=== PATIENT | female | born 1955 | race Caucasian/White ===

== ENCOUNTER 2019-04-27 14:18 | Emergency (ER) | payer MEDICARE, SELFPAY ==
--- NOTE | ~2019-04-27 | XR_ITS ---
XR pelvis 1-2V DATE: 04/27/2019 15:54 INDICATION: Tailbone pain radiating down left leg. Physical therapy for femur fracture. TECHNIQUE: Portable supine AP pelvis views COMPARISON: 03/13/2019 CT abdomen pelvis FINDINGS: Severe diffuse osteopenia, which limits the sensitivity for detection of fracture or bone d estruction. No obvious pelvic fracture is detected. The pubic symphysis and sacroiliac joints are int act. Right bipolar hip prosthesis. Abdominal aortic calcification. IMPRESSION: Severe osteopenia Right bipolar hip replacement Reviewed, dictated and finalized at location B.
--- NOTE | ~2019-04-27 | CT_ITS ---
EXAMINATION: CT abdomen pelvis wo con EXAM DATE: 04/27/2019 17:20 INDICATION: Pelvic pain, hypertension. TECHNIQUE: Spiral CT of the abdomen and pelvis was performed without contrast. Axial, coronal and s agittal images were reviewed. The dose-length product (DLP) for this examination was 344.97 mGy-cm. The exposure was tailored according to patient size (auto mA exposure control), and iterative recons truction (ASIR) was used as additional dose reduction technique. Comparison is made to prior examinat ion from 03/13/2019. FINDINGS: Small amount of perihepatic ascites and there is rather extensive generalized body wall candida ma, anasarca. The liver, spleen, adrenal glands and pancreas are unremarkable. Small calcified chol elithiasis identified. Unremarkable biliary system. There is no nephrolithiasis or hydronephrosis. There is no exophytic left renal lesion consistent with cyst measuring 3 cm probable identification of uterus, unremarkable. The bladder is unremarkable. There is no retroperitoneal or pelvic lymphad enopathy. There is moderate to severe scattered arteriosclerotic disease. The appendix is normal. The stomach and small bowel are unremarkable. There is expected amount of colonic stool. No free intraperitoneal gas. There is cardiomegaly. There are small bilateral pleural effusions, with nonloculated portions depend ently and also on the right-sided probably loculated portion anteromedially. There is pulmonary vascu lar congestion. Some basilar groundglass opacities and interlobular septal thickening probably mild p ulmonary edema. Findings are suspicious for CHF exacerbation. The lung bases are unremarkable. Right sacral ala insufficiency fracture has more subacute appearance today. There is been interval de velopment of left sacral insufficiency fracture as well. There is right hip replacement limiting eval uation of the pelvis. Mild chronic compression fracture of L1. There are no osteoblastic or osteolyti c lesions identified. IMPRESSION: 1. No acute intra-abdominal findings. 2. Findings consistent with CHF exacerbation. 3. Acute left, subacute right sacral ala insufficiency fractures. Reviewed, dictated and finalized at location A.
[2019-04-27 14:21] VITALS: BP 194/109; PULSE 83; RESP 20; TEMP 37.1; O2SAT 95
--- NOTE | 2019-04-27 14:47 | ED.LOWEXIN ---
HPI - Extremity Injury (Lower) General Chief Complaint: Extremity Injury, Lower Stated Complaint: TAILBONE PAIN Time Seen by Provider: 04/27/19 14:35 Source: patient Mode of arrival: EMS Limitations: no limitations History of Present Illness HPI Narrative: A 63 y/o female presents to the ED, via EMS, with c/o right buttocks pain. Pt states that last week she fell trying to sit in her wheelchair and hit her tailbone. She notes that she did not have pain until she went to physical therapy this morning. Pt denies fever. She has a PMHx of right femur fracture, diabetes, osteoporosis, and hip fracture. Pt takes NovoLog daily. MD complaint: hip injury (Right buttocks) Onset (ago): week(s) (1) Type of Injury: blunt Place: home Context: fall Other symptoms: none Related Data Home Medications Medication Instructions Recorded Confirmed ferrous sulfate 325 mg (65 mg 325 mg PO BID 01/18/19 03/13/19 iron) tablet insulin glargine 100 unit/mL 10 unit SUB-Q DAILY 01/18/19 03/13/19 subcutaneous solution calcium acetate(phosphat bind) 667 667 mg PO TID 02/11/19 03/13/19 mg tablet clonidine HCl 0.2 mg tablet 0.2 mg PO .4 TIMES A DAY tablet 02/11/19 03/13/19 labetalol 300 mg tablet 300 mg PO Q8H tablet 02/11/19 03/13/19 hydralazine 100 mg PO TID 03/13/19 03/13/19 oxycodone-acetaminophen [Percocet] 1 tablet PO Q6-8H PRN 03/13/19 03/13/19 ondansetron HCl 4 mg tablet 4 mg PO BID PRN tablet 03/26/19 Allergies Allergy/AdvReac Type Severity Reaction Status Date / Time Penicillins Allergy Unknown Unknown Verified 04/27/19 16:51 Review of Systems Review of Systems: All systems reviewed & are unremarkable except as noted in HPI and below Constitutional: Constitutional: Denies fever(s) Musculoskeletal: Musculoskeletal: Reports arthralgias (Right buttocks) PMFSH Past Medical History Medical History Anemia due to pre-ESRD treated with erythropoietin Anxiety CAD (coronary artery disease) Chronic diastolic heart failure CVA (cerebral vascular accident) 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 CVA noted on CT scan from October 2018 Depression Diabetes On long-term insulin therapy; last hemoglobin A1c October 2018 less than 5.7 Diabetic nephropathy associated with type 2 diabetes mellitus Diabetic peripheral neuropathy associated with type 2 diabetes mellitus Dialysis patient ESRD (end stage renal disease) on dialysis Fracture of right tibial plateau October 2018 Heart murmur Hip fracture, right Hypertension Multifactorial initially due to essential hypertension but now in part due to renal failure Left wrist fracture Lipoma Moderate protein-calorie malnutrition Multiple gallstones Nonproliferative diabetic retinopathy Pneumonia With parapneumonic effusion requiring thoracentesis October 2017 Post-menopausal osteoporosis DEXA scan January 2017 Severe tricuspid regurgitation by prior echocardiography Echocardiogram September 2018 demonstrating grade 1 diastolic dysfunction, mild left ventricular hypertrophy, mild left ventricular enlargement, grade 1 diastolic dysfunction, global longitudinal strain at-8%, TAPSE 1.4 cm suggesting abnormal right ventricular systolic function although appears normal by visual estimation, moderate left atrial enlargement, mild right atrial enlargement, mild (underestimated) mitral valve regurgitation, tricuspid valve do not coaptation due to dilated annulus, mild pulmonic regurgitation, elevated right atrial pressure at 15 mmHg, trivial pericardial effusion Surgical History Surgical History H/O bilateral cataract extraction H/O dilation and curettage x2 History of open reduction and internal fixation (ORIF) procedure Bilateral wrists; left distal radius fracture with intramedullary nail repair 05/2016 History of orthopedic surgery Bone spur right foot removal, right achilles repair 2012 History of right hip replaceme
[2019-04-27 16:10] LABS: Basophils Absolute Auto 0.1 K/mm3 (0.0-0.1); Basophils Percent Auto 0.7 % (0.2-1.2); Eosinophils Absolute Auto 0.1 K/mm3 (0-0.3); Eosinophils Percent Auto 0.9 % (0-4.4); Hemoglobin 11.3 g/dL (12.0-15.0); Immature Granulocyte Absolute 0.06 K/mm3 (0.00-0.031); Immature Granulocyte Percent A 0.7 % (0-0.5); Lymphocytes Absolute Auto 0.71 K/mm3 (0.9-3.2); Lymphocytes Percent Auto 7.8 % (18.3-44.2); Mean Corpuscular HGB Conc 32.3 g/dl (32-36); Mean Corpuscular Hemoglobin 29.3 pg (26-34); Mean Corpuscular Volume 90.7 fl (80-100); Mean Platelet Volume 11.5 fl (7.4-10.4); Monocytes Absolute Auto 0.5 K/mm3 (0.1-0.6); Monocytes Percent Auto 5.3 % (2.6-8.5); Neutrophils Absolute Auto 7.7 K/mm3 (1.3-6.7); Neutrophils Percent Auto 84.6 % (45.5-73.1); Platelet Count Result 196 k/mm3 (150-375); Red Blood Count 3.86 M/mm3 (4.2-5.4); Red Cell Distribution Width 14.5 % (11.5-14.5); White Blood Count 9.1 K/mm3 (4.5-10.0)
[2019-04-27 16:21] LABS: Alanine Aminotransferase 12 U/L (4-35); Alkaline Phosphatase 261 U/L (38-126); Aspartate Amino Transferase 20 U/L (14-36); Bilirubin,Total 1.4 mg/dL (0.2-1.3); Blood Urea Nitrogen 27 mg/dL (7-17); Calcium 8.6 mg/dL (8.4-10.2); Carbon Dioxide 31 mmol/L (22-30); Chloride 94 mmol/L (98-107); Estimated CRCL calculation 12 ml/min; Estimated Glomerular Filt Rate 15; Glucose 364 mg/dL (65-105); Potassium 4.2 mmol/L (3.4-5.0); Sodium 135 mmol/L (137-145)
[2019-04-27 16:49] VITALS: BP 215/94; PULSE 86; RESP 14; O2SAT 94
[2019-04-27] MEDS: LABETALOL HCL INJ 100 MG/20 ML VIAL 20 MG IV PUSH (17:00)
[2019-04-27 17:46] VITALS: BP 209/94; PULSE 80; RESP 20; O2SAT 92
[2019-04-27 18:38] VITALS: BP 186/80; PULSE 67; RESP 24; O2SAT 94
[2019-04-27 19:28] VITALS: BP 195/90; PULSE 81; RESP 19; O2SAT 98
== END 2019-04-27 20:19 | disposition home or self-care (01) ==
PROVIDERS: Emergency Provider Emergency Medicine; PCP Internal Medicine
DX: S30.0XXA Contusion of lower back and pelvis, initial encounter (principal); I13.2 Hypertensive heart and chronic kidney disease with heart failure and with stage 5 chronic kidney disease, or end stage renal disease; N18.6 End stage renal disease; I50.32 Chronic diastolic (congestive) heart failure; E11.22 Type 2 diabetes mellitus with diabetic chronic kidney disease; E11.21 Type 2 diabetes mellitus with diabetic nephropathy; E11.42 Type 2 diabetes mellitus with diabetic polyneuropathy; Z79.4 Long term (current) use of insulin; I25.10 Atherosclerotic heart disease of native coronary artery without angina pectoris; Z86.73 Personal history of transient ischemic attack (TIA), and cerebral infarction without residual deficits; E11.3299 Type 2 diabetes mellitus with mild nonproliferative diabetic retinopathy without macular edema, unspecified eye; M81.0 Age-related osteoporosis without current pathological fracture; Z98.42 Cataract extraction status, left eye; Z98.41 Cataract extraction status, right eye; Z96.641 Presence of right artificial hip joint; M85.88 Other specified disorders of bone density and structure, other site; W05.0XXA Fall from non-moving wheelchair, initial encounter
CPT/HCPCS: 36415; 72170; 74176; 80053; 85025; 96374; 99284; A9270

== ENCOUNTER 2019-04-29 16:26 | Inpatient (IN) | payer MEDICARE, SELFPAY ==
--- NOTE | ~2019-04-29 | XR_ITS ---
XR hip RT min 2V 04/30/2019 19:19 Indication: Right hip pain after fall from wheelchair Procedure: 3 views right hip Comparison: Comparison to multiple prior studies sequentially, with oldest reviewed study dated 10/28. Findings: There is a right femoral bipolar hemiarthroplasty. There is osteopenia. No acute fracture. No periprosthetic lucency. Pelvic rings are intact. Extensive arterial calcifications. Sacral foramen are symmetric. Impression: 1: No acute fracture. Reviewed, dictated and finalized at location A. Impression: 1: No acute fracture.
--- NOTE | ~2019-04-29 | XR_ITS ---
XR abdomen obstructive series DATE: 05/01/2019 18:28 INDICATION: Constipation TECHNIQUE: Portable supine AP views COMPARISON: 04/27/2019 CT abdomen pelvis FINDINGS: There is extensive calcification of the abdominal aorta as well as iliac and femoral artery calcifications. No evidence of abdominal aortic aneurysm. The bowel gas pattern is nonspecific, without evidence of obstruction. No intraperitoneal free air is evident. No visceromegaly is detected. Right bipolar hip prosthesis. Diffuse osteopenia. There is infiltrate or atelectasis and mild pleural effusion the lower left chest. Minimal right lowe r lobe infiltrate or atelectasis is suggested. Diffuse osteopenia. IMPRESSION: Nonspecific abdomen Reviewed, dictated and finalized at Location A. Reviewed, dictated and finalized at location A. IMPRESSION: Nonspecific abdomen
[2019-04-29 16:38] VITALS: BP 244/102; PULSE 75; RESP 20; TEMP 36.7; O2SAT 100
[2019-04-29 18:52] VITALS: BP 199/89; PULSE 75; RESP 24; TEMP 36.4; O2SAT 98
--- NOTE | 2019-04-29 19:24 | ED.GENADULT ---
HPI - General Adult General Chief complaint: Unspecified <Lucia Palma PA-C - Last Filed: 04/29/19 19:39> Stated complaint: aby hip pain <Lucia Palma PA-C - Last Filed: 04/29/19 19:39> Time Seen by Provider: 04/29/19 17:37 <Lucia Palma PA-C - Last Filed: 04/29/19 19:39> Source: patient <Lucia Palma PA-C - Last Filed: 04/29/19 19:39> Mode of arrival: EMS <Lucia Palma PA-C - Last Filed: 04/29/19 19:39> Limitations: no limitations <Lucia Palma PA-C - Last Filed: 04/29/19 19:39> History of Present Illness HPI narrative: Patient presents via EMS with chief complaints of hip and sacral pain. Patient states she was seen in this ER on Friday and diagnosed with sacral contusions. Patient states she has been taking Percocet which has not relieved her pain. Patient states due to taken a Percocet she has been having to her poop out. Patient denies nausea vomiting abdominal pain. Patient states that she is due for dialysis tomorrow but she does not know how she will get there as she has been having trouble ambulating even getting in and out of her wheelchair. <Lucia Palma PA-C - Last Filed: 04/29/19 19:39> Related Data Home medications: Home Medications Medication Instructions Recorded Confirmed ferrous sulfate 325 mg (65 mg 325 mg PO BID 01/18/19 03/13/19 iron) tablet insulin glargine 100 unit/mL 10 unit SUB-Q DAILY 01/18/19 03/13/19 subcutaneous solution calcium acetate(phosphat bind) 667 667 mg PO TID 02/11/19 03/13/19 mg tablet clonidine HCl 0.2 mg tablet 0.2 mg PO .4 TIMES A DAY tablet 02/11/19 03/13/19 labetalol 300 mg tablet 300 mg PO Q8H tablet 02/11/19 03/13/19 hydralazine 100 mg PO TID 03/13/19 03/13/19 oxycodone-acetaminophen [Percocet] 1 tablet PO Q6-8H PRN 03/13/19 03/13/19 ondansetron HCl 4 mg tablet 4 mg PO BID PRN tablet 03/26/19 <Lucia Palma PA-C - Last Filed: 04/29/19 19:39> Allergies/adverse reactions: Allergies Allergy/AdvReac Type Severity Reaction Status Date / Time Penicillins Allergy Unknown Unknown Verified 04/27/19 16:51 <Lucia Palma PA-C - Last Filed: 04/29/19 19:39> Review of Systems Review of Systems: Narrative: CONSTITUTIONAL: Denies fever, chills, or sweats. EYES: Denies visual changes, redness, or discharge. ENT: Denies rhinorrhea, congestion, sore throat, or otalgia. CARDIOVASCULAR: Denies chest pain, palpitations, or edema. RESPIRATORY: Denies cough or dyspnea. GASTROINTESTINAL: Reports hard stool Denies abdominal pain, nausea, vomiting, or diarrhea. GENITOURINARY: Denies dysuria or hematuria. SKIN: Denies rash or itching. MUSCULOSKELETAL: Reports sacral pain Denies back pain, joint pain, or myalgia. NEUROLOGIC: Denies headache, numbness, dizziness, or weakness. PSYCHIATRIC: Denies anxiety or depression. 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 CVA noted on CT scan from October 2018 Depression Diabetes On long-term insulin therapy; last hemoglobin A1c October 2018 less than 5.7 Diabetic nephropathy associated with type 2 diabetes mellitus Diabetic peripheral neuropathy associated with type 2 diabetes mellitus Dialysis patient ESRD (end stage renal disease) on dialysis Fracture of right tibial plateau October 2018 Heart murmur Hip fracture, right Hypertension Multifactorial initially due to essential hypertension but now in part due to renal failure Left wrist fracture Lipoma Moderate protein-calorie malnutrition Multiple gallstones Nonproliferative diabetic retinopathy Pneumonia With parapneumonic effusion requiring thoracentesis October 2017 Post-menopausal osteoporosis
--- NOTE | 2019-04-29 19:49 | PM.IMHP ---
H&P: HPI History of Present Illness Chief complaint: bilateral sacral ala fractures Narrative: This is a 63 year old Diabetic female well known to our Hospitalist group from a recent admission and with known history of HTN, ESRD on HD who presented to the hospital for a return visit today for right sacral pain. The patient reports that she suffered a fall last week when she was attempting to sit down and she miscalculated where her pillow was and landed on the ground. She had been doing well until about 2 days ago when she had physical therapy which she reports aggravated her pain. She was seen in the ER and told she had sacral contusions but no fractures. Since then she has had worsening difficulty ambulating and worsening pain with any movement of her right hip. CT Abd/pelvis was obtained today which demonstrated acute left, subacute right sacral ala insufficiency fractures. The patient denies any fevers, cough, chest pain, shortness of breath or LE swelling. ER provider attempted to send to the patient home although she is known to live alone and stated that she would not be able to care for herself or go to dialysis tomorrow. We have been asked to admit the patient to the hospital for her ongoing pain and ambulatory dysfunction. She has no other complaints. 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 CVA noted on CT scan from October 2018 Depression Diabetes On long-term insulin therapy; last hemoglobin A1c October 2018 less than 5.7 Diabetic nephropathy associated with type 2 diabetes mellitus Diabetic peripheral neuropathy associated with type 2 diabetes mellitus Dialysis patient ESRD (end stage renal disease) on dialysis Fracture of right tibial plateau October 2018 Heart murmur Hip fracture, right Hypertension Multifactorial initially due to essential hypertension but now in part due to renal failure Left wrist fracture Lipoma Moderate protein-calorie malnutrition Multiple gallstones Nonproliferative diabetic retinopathy Pneumonia With parapneumonic effusion requiring thoracentesis October 2017 Post-menopausal osteoporosis DEXA scan January 2017 Severe tricuspid regurgitation by prior echocardiography Echocardiogram September 2018 demonstrating grade 1 diastolic dysfunction, mild left ventricular hypertrophy, mild left ventricular enlargement, grade 1 diastolic dysfunction, global longitudinal strain at-8%, TAPSE 1.4 cm suggesting abnormal right ventricular systolic function although appears normal by visual estimation, moderate left atrial enlargement, mild right atrial enlargement, mild (underestimated) mitral valve regurgitation, tricuspid valve do not coaptation due to dilated annulus, mild pulmonic regurgitation, elevated right atrial pressure at 15 mmHg, trivial pericardial effusion Surgical History Surgical History H/O bilateral cataract extraction H/O dilation and curettage x2 History of open reduction and internal fixation (ORIF) procedure Bilateral wrists; left distal radius fracture with intramedullary nail repair 05/2016 History of orthopedic surgery Bone spur right foot removal, right achilles repair 2012 History of right hip replacement Due to fracture 2016 S/P excision of lipoma From the right forearm 2008 Family History Family History Mother Diabetes mellitus, Onset Age: 42 Heart disease Psychiatric disorder Hypertension Kidney disease Father CHF (congestive heart failure) Heart disease Hypertension Sibling Hypertension Grand
[2019-04-29 21:36] VITALS: BP 127/93; PULSE 77; RESP 20; O2SAT 93
[2019-04-29 22:30] VITALS: BP 243/92; PULSE 77; RESP 16; TEMP 36.7; O2SAT 98; BMI 24.0
[2019-04-29] MEDS: hydrALAZINE HCL 20 MG/ML VIAL 10 MG IV PUSH (22:55)
[2019-04-29] MEDS: polyethylene glycoL 3350 17 GM POWD.PACK PO (22:56)
[2019-04-29] MEDS: MORPHINE SULFATE 2 MG/ML INJ IV PUSH (22:56)
--- NOTE | 2019-04-29 23:13 | ADMGEN ---
This patient, Ania Field, was admitted to Medical Room 343-01. Patient/family oriented to hospital policies and general routines including ID bracelet, bed and alarms, visiting hours, pain management, procedures, bathroom and other care routines, personal items, smoking policy, room service/diet, and visiting hours. Valuables list has been completed. Information on how to activate the Rapid Response Team has been discussed. Patient/Family are encouraged to report perceived risks to care and to ask questions if they do not understand what they are told or what they should do.
[2019-04-29 23:24] VITALS: BP 116/55; PULSE 72
[2019-04-30] VITALS (20 sets, daily range): BP systolic 106–170; BP diastolic 50–110; PULSE 66–97; RESP 14–22; TEMP 36.2–37.2; O2SAT 88–98
[2019-04-30] MEDS: ONDANSETRON INJ 4 MG/2 ML VIAL IV PUSH ×3 (01:28→19:35)
[2019-04-30 01:50] LABS: Glucose Point of Care 313 (65-105)
[2019-04-30] MEDS: MORPHINE SULFATE 2 MG/ML INJ IV PUSH (04:33)
[2019-04-30 05:15] LABS: Basophils Percent Auto 0.3 % (0.2-1.2); Eosinophils Percent Auto 0.1 % (0-4.4); Hematocrit 35.2 % (37.0-47.0); Hemoglobin 10.7 g/dL (12.0-15.0); Immature Granulocyte Absolute 0.08 K/mm3 (0.00-0.031); Immature Granulocyte Percent A 1.1 % (0-0.5); Lymphocytes Absolute Auto 0.26 K/mm3 (0.9-3.2); Lymphocytes Percent Auto 3.7 % (18.3-44.2); Mean Corpuscular HGB Conc 30.4 g/dl (32-36); Mean Corpuscular Hemoglobin 28.8 pg (26-34); Mean Corpuscular Volume 94.9 fl (80-100); Mean Platelet Volume 11.3 fl (7.4-10.4); Monocytes Absolute Auto 0.4 K/mm3 (0.1-0.6); Monocytes Percent Auto 5.2 % (2.6-8.5); Neutrophils Absolute Auto 6.4 K/mm3 (1.3-6.7); Neutrophils Percent Auto 89.6 % (45.5-73.1); Platelet Count Result 133 k/mm3 (150-375); Red Blood Count 3.71 M/mm3 (4.2-5.4); Red Cell Distribution Width 14.4 % (11.5-14.5); White Blood Count 7.1 K/mm3 (4.5-10.0)
[2019-04-30 05:43] LABS: Blood Urea Nitrogen 35 mg/dL (7-17); Calcium 8.2 mg/dL (8.4-10.2); Carbon Dioxide 27 mmol/L (22-30); Chloride 93 mmol/L (98-107); Estimated CRCL calculation 11 ml/min; Estimated Glomerular Filt Rate 14; Glucose 367 mg/dL (65-105); Potassium 4.6 mmol/L (3.4-5.0); Sodium 133 mmol/L (137-145)
[2019-04-30] MEDS: LABETALOL HCL 100 MG TABLET 300 MG PO ×2 (06:40→21:24)
[2019-04-30 08:29] LABS: Glucose Point of Care 389 (65-105)
[2019-04-30] MEDS: hydrALAZINE HCL 50 MG TABLET 100 MG PO ×2 (09:13→18:43)
[2019-04-30] MEDS: EUCERIN CREAM 120 GM JAR 1 APPLIC TOPICAL ×2 (09:13→21:28)
[2019-04-30] MEDS: BUMETANIDE 1 MG TABLET 2 MG PO ×2 (09:13→18:42)
[2019-04-30] MEDS: FERROUS SULFATE 324 MG TABLET PO ×2 (09:14→18:42)
[2019-04-30] MEDS: CLONIDINE HCL 0.2 MG TABLET PO ×3 (09:14→21:26)
[2019-04-30] MEDS: CALCIUM ACETATE 667 MG TABLET PO ×2 (09:14→18:42)
[2019-04-30] MEDS: INSULIN ASPART (*BKC) 100 UNITS/ML SUB-Q ×2 (09:16→13:02)
[2019-04-30] MEDS: INSULIN GLARGINE (*BKC) 100 UNITS/ML 10 UNITS SUB-Q (09:17)
--- NOTE | 2019-04-30 11:40 | PM.IMPN ---
Progress Note: A&P Assessment and Plan (1) Bilateral sacral insufficiency fracture: Qualifiers: Encounter type: subsequent encounter Fracture healing: with routine healing Qualified Code(s): M84.48XD - Pathological fracture, other site, subsequent encounter for fracture with routine healing Code(s): M84.48XA - Pathological fracture, other site, initial encounter for fracture Status: Acute Assessment and Plan: Patient's pain is tolerable today. Consider [facility] consult pending; appreciate recommendation Pain control Possible placement for further rehab (2) Ambulatory dysfunction: Code(s): R26.2 - Difficulty in walking, not elsewhere classified Status: Acute Assessment and Plan: PT/OT evaluation when appropriate. Consider that the patient may need rehab as she states she cannot care for herself or go to dialysis with her acute fractures. (3) Constipation: Qualifiers: Constipation type: drug induced constipation Qualified Code(s): K59.03 - Drug induced constipation Code(s): K59.00 - Constipation, unspecified Status: Acute Assessment and Plan: Patient now having N/V; possibly from Miralax? Possible narcotic induced Will do Senokot for now (4) Hypertension: Qualifiers: Hypertension type: unspecified Qualified Code(s): I10 - Essential (primary) hypertension Code(s): I10 - Essential (primary) hypertension Status: Chronic Assessment and Plan: BP 120s sys today. Improved. Monitor blood pressure. Continue home antihypertensives. PRN IV hydralazine ordered w/ parameters. 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 Continue long acting Lantus insulin. Monitor Subjective Date/time seen: 04/30/19 11:40 Interval history: Patient is a 63 yo F well known to our Hospitalist group from a recent admission and with known history of HTN, ESRD on HD who is here for b/l sacral fractures and ambulatory dysfunction; she is also ESRD who is getting dialysis today. She is not feeling well today; she has been vomiting today; nursing reports dark emesis. She says she is sick to her stomach; this has happened before but she cannot remember when. She has no other sick contacts. This started today. She also has had a hard BM today where she states she dug it out . No dark stools reported. She has no history of gastroparesis. She thinks her zofran is helping. Her buttock pain is okay currently. She states it only usually hurts when she moves. SHe has no other complaints at this time. Denies f/c/ns, headaches, changes in v/h, cp/palpitations, sob/cough, abd pain, dysphagia, melena, brbpr, dysuria, hematuria, cloudy urine, calf pain/swelling, s/sx of stroke Review of Systems Rev
--- NOTE | 2019-04-30 12:10 | PHAR ---
[facility] PT INFO SHEET SENT WITH FIRST DOSE FOR DIALYSIS
[2019-04-30 12:43] LABS: Glucose Point of Care 282 (65-105)
[2019-04-30 13:55] LABS: IFOB Positive Control Positive; Immunochemical Fecal Occult Bl Negative (N)
[2019-04-30] MEDS: EPOETIN ALFA 10,000 UNITS/ML VIAL 10000 UNITS IV PUSH (16:09)
[2019-04-30 16:56] LABS: Hepatitis B Surface Antigen Negative (Negative)
--- NOTE | 2019-04-30 16:56 | PM.PNNEP ---
Progress Note: A&P Assessment and Plan (1) End stage renal disease: Code(s): N18.6 - End stage renal disease Status: Chronic Assessment and Plan: HD today and continue outpatient schedule of M/W/F while hospitalized electrolytes, volume status, and clearance seem stable FULL CONSULT TO FOLLOW Subjective Date/time seen: 04/30/19 16:56 Tolerating dialysis at the time of my visit (seen on HD at ~ 4:30PM); no pain voiced during when I saw her; no events overnight; issues with nausea/vomiting earlier today but better with IV antiemetics. Exam Narrative: Exam Narrative: General: WD/WN female in NAD Heart: normal S1 and S2; no rub Lungs: decreased breath sounds at the bases Abdomen: soft, nontender, nondistended, positive bowel sounds Extremities: no cyanosis or clubbing; no edema; pain with movement of LEs Skin: warm and dry Objective Data Vital Signs Vital Signs: Vital Signs Temp Pulse Resp BP Pulse Ox 04/30/19 15:00 66 106/85 04/30/19 14:46 66 135/68 04/30/19 14:00 36.2 C L 66 18 122/59 L 88 L 04/30/19 06:40 71 04/30/19 06:00 36.4 C 71 16 121/65 98 04/29/19 23:24 72 116/55 L 04/29/19 22:30 36.7 C 77 16 243/92 H 98 04/29/19 21:36 77 20 127/93 H 93 04/29/19 18:52 36.4 C L 75 24 H 199/89 H 98 Meds/Results Medications: Active Medications Generic Name Dose Route Start Last Admin Trade Name Freq PRN Reason Stop Dose Admin Acetaminophen 650 mg 04/29/19 19:58 Tylenol Tablet PO Q4H PRN Mild Pain (1-3) or Fever Hydrocodone Bitart/Acetaminophen 1 tab 04/29/19 19:58 04/30/19 01:25 [place] 7.5-325 Mg PO 1 tab Q4H PRN Administration pain 4-6 Bumetanide 2 mg 04/30/19 09:00 04/30/19 09:13 Bumex Po PO 2 mg BID MELVIN Administration Calcium Acetate 667 mg 04/30/19 09:00 04/30/19 13:03 Phoslo PO Not Given TID MELVIN Clonidine HCl 0.2 mg 04/30/19 09:00 04/30/19 13:04 Catapres PO Not Given QID MELVIN Dextrose 12.5 gm 04/29/19 19:58 Dextrose 50% Syringe IV PUSH PRN PRN Hypoglycemia Protocol Epoetin Robb 10,000 units 04/30/19 19:00 04/30/19 16:09 Epogen IV PUSH 04/30/19 19:01 10,000 units ONCE ONE Administration Ferrous Sulfate 324 mg 04/30/19 09:00 04/30/19 09:14 Ferrous Sulfate PO 324 mg BID MELVIN Administration Glucagon 1 mg 04/29/19 19:58 Glucagon For Inj IM PRN PRN Hypoglycemia Protocol Glucose 15 gm 04/29/19 19:58 Glutose 15 PO PRN PRN Hypoglycemia Protocol Hydralazine HCl 10 mg 04/29/19 20:29 04/29/19 22:55 Apresoline Hcl Inj IV PUSH 05/01/19 07:00 10 mg Q8H PRN Administration see comment Hydralazine HCl 100 mg 04/30/19 09:00 04/30/19 13:04 Apresoline Tablet PO Not Given TID MELVIN Dextrose 1,000 mls @ 100 mls/hr 04/29/19 19:58 Dextrose 5% 1,000 Ml IVPB PRN PRN Hypoglycemia Protocol Albumin Human 50 mls @ 999 mls/hr 04/30/19 11:56 Albutein IVPB 05/30/19 11:57 Q10M PRN HYPOTENSION Insulin Aspart 3 - 6 units 04/30/19 08:00 04/30/19 13:02 Novolog SUB-Q 4 units TIDWM MELVIN Administration Protocol Insulin Glargine 10 units 04/30/19 09:00 04/30/19 09:17 Lantus SUB-Q 10 units DAILY MELVIN Administration Labetalol HCl 300 mg 04/30/19 06:00 04/30/19 13:04 Trandate PO Not Given Q8HR [facility] Multi-Ingred Cream/Lotion/Oil/Oint 1 applic 04/30/19 09:00 04/30/19 09:13 Minerin Creme TOPICAL 1 applic Q12HR MELVIN Administration Ondansetron HCl 4 mg 04/30/19 13:06 Zofran Inj IV PUSH Q4H PRN nausea Senna/Docusate Sodium 1 tab 04/30/19 21:00 Senokot S Tablet PO HS MELVIN Labs Labs: Laboratory Tests 04/30/19 04:49 04/30/19 04:49
[2019-04-30 17:14] LABS: Hepatitis B Surface Anti Res Negative
[2019-04-30 18:48] LABS: Glucose Point of Care 89 (65-105)
[2019-04-30 20:33] LABS: Glucose Point of Care 75 (65-105)
[2019-04-30] MEDS: ACETAMINOPHEN 325 MG TABLET 650 MG PO (21:24)
[2019-04-30] MEDS: SENNA/DOCUSATE SODIUM TABLET 1 TAB PO (21:26)
[2019-05-01 01:13] LABS: Glucose Point of Care 111 (65-105)
[2019-05-01 04:42] VITALS: BP 115/50; PULSE 61; RESP 16; TEMP 36.1; O2SAT 95
[2019-05-01 05:01] VITALS: PULSE 61
[2019-05-01] MEDS: LABETALOL HCL 100 MG TABLET 300 MG PO ×3 (05:01→21:39)
[2019-05-01 06:00] LABS: Basophils Percent Auto 0.2 % (0.2-1.2); Eosinophils Percent Auto 0.1 % (0-4.4); Hemoglobin 10.8 g/dL (12.0-15.0); Immature Granulocyte Absolute 0.14 K/mm3 (0.00-0.031); Lymphocytes Absolute Auto 0.68 K/mm3 (0.9-3.2); Mean Corpuscular HGB Conc 30.9 g/dl (32-36); Mean Corpuscular Hemoglobin 28.9 pg (26-34); Mean Corpuscular Volume 93.6 fl (80-100); Mean Platelet Volume 12.4 fl (7.4-10.4); Monocytes Absolute Auto 0.7 K/mm3 (0.1-0.6); Neutrophils Absolute Auto 12.1 K/mm3 (1.3-6.7); Neutrophils Percent Auto 88.7 % (45.5-73.1); Nucleated Red Blood Cells Perc 0.2 % (0.0-0.2); Platelet Count Result 158 k/mm3 (150-375); Red Blood Count 3.74 M/mm3 (4.2-5.4); Red Cell Distribution Width 14.6 % (11.5-14.5); White Blood Count 13.6 K/mm3 (4.5-10.0)
--- NOTE | 2019-05-01 06:03 | PC.NURSE ---
BM small and hard.
[2019-05-01 06:16] LABS: Blood Urea Nitrogen 28 mg/dL (7-17); Calcium 8.6 mg/dL (8.4-10.2); Carbon Dioxide 27 mmol/L (22-30); Chloride 96 mmol/L (98-107); Estimated CRCL calculation 14 ml/min; Estimated Glomerular Filt Rate 18; Glucose 98 mg/dL (65-105); Magnesium 1.9 mg/dL (1.6-2.3); Sodium 136 mmol/L (137-145)
--- NOTE | 2019-05-01 09:12 | PCOTNOTE ---
Attempted OT evaluation this am; per RN hold while waiting on ortho consult.
--- NOTE | 2019-05-01 09:28 | PCPTNOTE ---
Attempted to see Ania shelby [email or web address] for PT evaluation. RN stated that mobility is on hold until Ortho MD sees patient. Will await orders from Ortho MD in regards to mobility.
[2019-05-01] MEDS: hydrALAZINE HCL 50 MG TABLET 100 MG PO ×3 (09:29→18:26)
[2019-05-01] MEDS: CALCIUM ACETATE 667 MG TABLET PO ×3 (09:30→18:26)
[2019-05-01] MEDS: CLONIDINE HCL 0.2 MG TABLET PO ×4 (09:30→21:40)
[2019-05-01] MEDS: FERROUS SULFATE 324 MG TABLET PO ×2 (09:30→18:26)
[2019-05-01] MEDS: BUMETANIDE 1 MG TABLET 2 MG PO ×2 (09:30→18:26)
[2019-05-01] MEDS: EUCERIN CREAM 120 GM JAR 1 APPLIC TOPICAL ×2 (09:31→21:40)
[2019-05-01] MEDS: ONDANSETRON INJ 4 MG/2 ML VIAL IV PUSH (10:08)
[2019-05-01 10:22] LABS: Glucose Point of Care 104 (65-105)
--- NOTE | 2019-05-01 10:32 | PM.CNNEP ---
Assessment and Plan Assessment and plan (1) End stage renal disease: Code(s): N18.6 - End stage renal disease Status: Chronic (2) Bilateral sacral insufficiency fracture: Qualifiers: Encounter type: subsequent encounter Fracture healing: with routine healing Qualified Code(s): M84.48XD - Pathological fracture, other site, subsequent encounter for fracture with routine healing Code(s): M84.48XA - Pathological fracture, other site, initial encounter for fracture Status: Acute (3) Hypertension: Qualifiers: Hypertension type: unspecified Qualified Code(s): I10 - Essential (primary) hypertension Code(s): I10 - Essential (primary) hypertension Status: Chronic (4) Ambulatory dysfunction: Code(s): R26.2 - Difficulty in walking, not elsewhere classified Status: Acute (5) Diabetes: Qualifiers: Diabetes mellitus type: type 2 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 Additional Plan Ania has end-stage renal disease. She received dialysis yesterday to maintain her Friday, Friday, Friday dialysis schedule and tolerated this procedure reasonably well. Her CKD parameters with regard to her electrolytes, volume status, and clearance appears stable but we will optimize them with adjustment to her dialysis prescription as deemed necessary. The patient has sustained bilateral sacral insufficiency fractures as noted by imaging studies on presentation. Orthopedics has been consulted for further evaluation of this issue to assess if there are any other interventions to be done at this time. I will defer to their expertise in this matter. The patient's blood pressure was quite elevated on presentation to the hospital but I suspect pain on top of her poorly-controlled blood pressure in general is likely the etiology. Her blood pressure yesterday afternoon and this morning appears to be significantly better sort continue her current medications as is. I will continue follow patient with you while she remains hospitalized and make further recommendations during her hospital course. Thank you for allowing me to participate in the care of this patient. History of Present Illness Reason for Consult Consult date: 05/01/19 Reason for consult: end stage renal disease Chief Complaint Chief complaint: bilateral sacral ala fractures History of Present Illness Narrative: The patient is a 63 year old female who presented to the [facility] ER for evaluation right sacral pain. Apparently, the patient was here about 4 days ago at [place] ER for this same complaint. The patient suffered a fall last week when she was attempting to sit down and she miscalculated where her pillow was and landed on the ground. Following this fall, he home physical therapy had aggravated her pain limiting her therapy in general when before she was tolerating it just fine. During the ER visit 4 days ago, she was told she had sacral contusions but no fractures. Unfortunately, since that ER visit, she has had worsening difficulty ambulating and worsening pain with any movement of her right hip. Workup and evaluation in the emergency room demonstrated the patient to be in significant pain and was quite hypertensive (presumably due to the pain although she does have difficult to control blood pressure at baseline). Routine blood test demonstrated labs consistent with her known histor
--- NOTE | 2019-05-01 11:36 | PC.NURSE ---
Dr Baldwin wanted a TLSO brace ordered for the patient for comfort. The Company that does the braces are Friday-Friday, Will pass along to get a brace ordered 05/03/2019.
--- NOTE | 2019-05-01 12:36 | P.PNIM_ITS ---
Progress Note: A&P Assessment and Plan (1) Bilateral sacral insufficiency fracture: Qualifiers: Encounter type: subsequent encounter Fracture healing: with routine healing Qualified Code(s): M84.48XD - Pathological fracture, other site, subsequent encounter for fracture with routine healing Code(s): M84.48XA - Pathological fracture, other site, initial encounter for fracture Status: Acute Assessment and Plan: Patient's pain is more tolerable today. Dr. Baldwin consulted and appreciate recommendations * Pain control with home med equivalent * I have ordered a donut for the patient; she also has one at home * Possible placement for further rehab although patient refusing for me even after discussion about safety at home. Patient seems open to HH. CC to discuss further (2) Ambulatory dysfunction: Code(s): R26.2 - Difficulty in walking, not elsewhere classified Status: Acute Assessment and Plan: * PT/OT * HH vs SNF. Dialysis will play a factor as well. (3) Constipation: Qualifiers: Constipation type: drug induced constipation Qualified Code(s): K59.03 - Drug induced constipation Code(s): K59.00 - Constipation, unspecified Status: Acute Assessment and Plan: Patient having small/hard BMs; passing gas. Possible narcotic induced * Will do Senokot for now * Add enema * Will observe overnight * Likely discharge tomorrow if improved (4) Hypertension: Qualifiers: Hypertension type: unspecified Qualified Code(s): I10 - Essential (primary) hypertension Code(s): I10 - Essential (primary) hypertension Status: Chronic Assessment and Plan: BP 110s sys today. Improved. * Monitor blood pressure. * Continue home antihypertensives. * PRN IV hydralazine ordered w/ parameters. 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 * long acting Lantus insulin held for today * Monitor Additional Plan N/V * Patient still N/V and not tolerating her diet today * Diet might be changed by Nephrology * Observe overnight * If improvement tomorrow, then likely discharge Subjective Date/time seen: 05/01/19 12:36 Interval history: Patient is a 63 yo F well known to our Hospitalist group from a recent admission and with known history of HTN, ESRD on HD who is here for b/l sacral fractures
--- NOTE | 2019-05-01 12:36 | PM.IMPN ---
Progress Note: A&P Assessment and Plan (1) Bilateral sacral insufficiency fracture: Qualifiers: Encounter type: subsequent encounter Fracture healing: with routine healing Qualified Code(s): M84.48XD - Pathological fracture, other site, subsequent encounter for fracture with routine healing Code(s): M84.48XA - Pathological fracture, other site, initial encounter for fracture Status: Acute Assessment and Plan: Patient's pain is more tolerable today. Dr. Baldwin consulted and appreciate recommendations Pain control with home med equivalent I have ordered a donut for the patient; she also has one at home Possible placement for further rehab although patient refusing for me even after discussion about safety at home. Patient seems open to HH. CC to discuss further (2) Ambulatory dysfunction: Code(s): R26.2 - Difficulty in walking, not elsewhere classified Status: Acute Assessment and Plan: PT/OT HH vs SNF. Dialysis will play a factor as well. (3) Constipation: Qualifiers: Constipation type: drug induced constipation Qualified Code(s): K59.03 - Drug induced constipation Code(s): K59.00 - Constipation, unspecified Status: Acute Assessment and Plan: Patient having small/hard BMs; passing gas. Possible narcotic induced Will do Senokot for now Add enema Will observe overnight Likely discharge tomorrow if improved (4) Hypertension: Qualifiers: Hypertension type: unspecified Qualified Code(s): I10 - Essential (primary) hypertension Code(s): I10 - Essential (primary) hypertension Status: Chronic Assessment and Plan: BP 110s sys today. Improved. Monitor blood pressure. Continue home antihypertensives. PRN IV hydralazine ordered w/ parameters. (5) ESRD (end stage renal disease) on dialysis: Code(s): N18.6 - End stage renal disease; Z99.2 - Dependence on renal dialysis Status: Chronic Assessment and Plan: MWF dialysis Dialysis during stay Nephrology has been consulted and appreciate recommendations (6) Diabetes: Qualifiers: Diabetes mellitus type: type 2 Diabetes mellitus alf insulin use: with termite helper use Diabetes mellitus complication status: with kidney complications Diabetes mellitus complication detail: with chronic kidney disease Chronic kidney disease stage: stage 4 (severe) Qualified Code(s): E11.22 - Type 2 diabetes mellitus with diabetic chronic kidney disease; N18.4 - Chronic kidney disease, stage 4 (severe); 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 long acting Lantus insulin held for today Monitor Additional Plan N/V Patient still N/V and not tolerating her diet today Diet might be changed by Nephrology Observe overnight If improvement tomorrow, then likely discharge Subjective Date/time seen: 05/01/19 12:36 Interval history: Patient is a 63 yo F well known to our Hospitalist group from a recent admission and with known history of HTN, ESRD on HD who is here for b/l sacral fractures and ambulatory dysfunction; she is also ESRD MWF. Patient feeling better today; pain is more controlled. She feels better by getting out of bed now. She has some nausea but no vomiting today. Still constipated, having small, hard BMs; passing gas okay. She does not wish to go to a SNF after discharge and wishes to return home; we discussed that it may be a safer option going to SNF vs Home wit
[2019-05-01 13:47] LABS: Glucose Point of Care 110 (65-105)
[2019-05-01 14:00] VITALS: BP 117/61; PULSE 70; RESP 16; TEMP 36.4; O2SAT 98
--- NOTE | 2019-05-01 15:41 | CONS_ITS ---
DATE OF CONSULTATION: 05/01/2019 HISTORY OF PRESENT ILLNESS: This is a 63-year-old female, who has diabetes, end-stage renal disease, and she is on dialysis. She fell and injured her low back. She has a past medical history of insufficiency fractures of her right sacrum, and she then came to the emergency department and she was then diagnosed with left and right insufficiency fractures of her sacrum. She has no other history of any recent trauma. She denies any other extremity pain. She does complain of some right leg radiculopathy type pain, but other than that she does not have any other extremity pain. She denies any chest pain, any shortness of breath currently as well. PAST MEDICAL HISTORY: Anemia, anxiety, coronary artery disease, chronic heart disease, depression, diabetes, neuropathy, end-stage renal disease, right tibia fracture, right hip fracture, left wrist fracture, malnutrition, pneumonia, diabetic retinopathy. FAMILY HISTORY: Diabetes, heart disease, hypertension, kidney disease. SOCIAL HISTORY: She currently lives with assisted living. She does not smoke. She has had secondhand smoke. Does not take alcohol. PHYSICAL EXAMINATION: The low back was examined. She has tenderness in the bilateral sacral regions. She has no tenderness in the L-spine, the T-spine, or the C-spine. Lower extremity examination, she has some mild discomfort with right hip range of motion. She has no tenderness over the thigh. The knee is stable to exam. There is no effusion. She has no significant pain with passive motion. The tib-fib, foot, and ankle are nontender. No sign of trauma. Dorsi and plantar flex of the right foot with 5/5 strength. The left hip was examined. She has no pain with range of motion of left hip. She has no thigh tenderness. She has no masses. The knee is nontender, otherwise, stable. No effusion. Tib-fib is nontender. Foot and ankle nontender. Otherwise, Dorsi and plantar flex with 5/5 strength. She has bilateral dorsalis pedis pulse 2+, posterior tib pulse 1+. Upper extremity examination, she elevates both upper extremities. She has no tenderness in the clavicle, shoulders, arms, elbows, forearms, wrist, and hand bilaterally. X-ray showing insufficiency fractures of the sacrum, both left and right. At this time, we will get her into a TLSO brace. Until she gets the brace, she may be [id number] transfers as tolerated. She should be in the brace for approximately 8 weeks. She will need a kind of rehab or long-term when she is discharged, and we will follow up with the patient while she is here. JUAN PABLO LOPEZ M.D. PAPER BALING MACHINE OPERATOR PAPER BALING MACHINE OPERATOR D I MT: Freddy
[2019-05-01] MEDS: LACTULOSE 20 GM/30 ML UDC PO (18:25)
[2019-05-01 18:58] LABS: Glucose Point of Care 151 (65-105)
[2019-05-01 21:37] VITALS: BP 152/60; PULSE 69; RESP 20; TEMP 36.7; O2SAT 94
[2019-05-01 21:39] VITALS: PULSE 69
[2019-05-01] MEDS: SENNA/DOCUSATE SODIUM TABLET 1 TAB PO (21:39)
[2019-05-01 22:18] LABS: Glucose Point of Care 204 (65-105)
[2019-05-02] VITALS (7 sets, daily range): BP systolic 130–163; BP diastolic 61–68; PULSE 54–62; RESP 14–18; TEMP 36.3–36.8; O2SAT 92–100
--- NOTE | 2019-05-02 04:57 | PC.NURSE ---
BM: Med., hard, ball of stool following fleets enema.
[2019-05-02] MEDS: LABETALOL HCL 100 MG TABLET 300 MG PO ×3 (05:05→21:03)
[2019-05-02 06:07] LABS: Basophils Absolute Auto 0.1 K/mm3 (0.0-0.1); Basophils Percent Auto 0.5 % (0.2-1.2); Eosinophils Percent Auto 0.2 % (0-4.4); Hematocrit 34.8 % (37.0-47.0); Hemoglobin 10.8 g/dL (12.0-15.0); Immature Granulocyte Percent A 0.9 % (0-0.5); Lymphocytes Absolute Auto 0.78 K/mm3 (0.9-3.2); Lymphocytes Percent Auto 7.2 % (18.3-44.2); Mean Corpuscular Hemoglobin 28.9 pg (26-34); Mean Platelet Volume 11.6 fl (7.4-10.4); Monocytes Absolute Auto 0.8 K/mm3 (0.1-0.6); Monocytes Percent Auto 7.3 % (2.6-8.5); Neutrophils Absolute Auto 9.1 K/mm3 (1.3-6.7); Neutrophils Percent Auto 83.9 % (45.5-73.1); Platelet Count Result 206 k/mm3 (150-375); Red Blood Count 3.74 M/mm3 (4.2-5.4); Red Cell Distribution Width 14.8 % (11.5-14.5); White Blood Count 10.8 K/mm3 (4.5-10.0)
[2019-05-02 06:25] LABS: Blood Urea Nitrogen 46 mg/dL (7-17); Calcium 8.3 mg/dL (8.4-10.2); Carbon Dioxide 25 mmol/L (22-30); Chloride 96 mmol/L (98-107); Estimated CRCL calculation 10 ml/min; Estimated Glomerular Filt Rate 12; Glucose 180 mg/dL (65-105); Potassium 3.8 mmol/L (3.4-5.0); Sodium 131 mmol/L (137-145)
[2019-05-02 07:46] LABS: Glucose Point of Care 147 (65-105)
[2019-05-02] MEDS: hydrALAZINE HCL 50 MG TABLET 100 MG PO ×3 (08:10→17:23)
[2019-05-02] MEDS: BUMETANIDE 1 MG TABLET 2 MG PO ×2 (08:11→17:23)
[2019-05-02] MEDS: CLONIDINE HCL 0.2 MG TABLET PO ×4 (08:12→21:02)
[2019-05-02] MEDS: FERROUS SULFATE 324 MG TABLET PO ×2 (08:12→17:22)
[2019-05-02] MEDS: CALCIUM ACETATE 667 MG TABLET PO ×3 (08:12→17:22)
[2019-05-02] MEDS: EUCERIN CREAM 120 GM JAR 1 APPLIC TOPICAL ×2 (08:15→21:01)
[2019-05-02] MEDS: INSULIN GLARGINE (*BKC) 100 UNITS/ML 10 UNITS SUB-Q (08:21)
--- NOTE | 2019-05-02 12:19 | PM.IMPN ---
Progress Note: A&P Assessment and Plan (1) Bilateral sacral insufficiency fracture: Qualifiers: Encounter type: subsequent encounter Fracture healing: with routine healing Qualified Code(s): M84.48XD - Pathological fracture, other site, subsequent encounter for fracture with routine healing Code(s): M84.48XA - Pathological fracture, other site, initial encounter for fracture Status: Acute Assessment and Plan: Patient's pain is more tolerable today. Dr. Baldwin consulted and appreciate recommendations. It appears we are waiting for patient to be fitted with TLSO brace; [employer] to come tomorrow and brace to be delivered Friday; likely discharge thereafter. Patient to be [id number] transfers as tolerated per Ortho. Brace for 8 weeks per Ortho. Likely discharge to SNF for further rehab Pain control with home med equivalent CC working on placement at this moment (2) Ambulatory dysfunction: Code(s): R26.2 - Difficulty in walking, not elsewhere classified Status: Acute Assessment and Plan: PT/OT HH vs SNF. Dialysis will play a factor as well. (3) Constipation: Qualifiers: Constipation type: drug induced constipation Qualified Code(s): K59.03 - Drug induced constipation Code(s): K59.00 - Constipation, unspecified Status: Acute Assessment and Plan: Patient had BM last night Will hold Senokot for now D/c enemas and lactulose (4) Hypertension: Qualifiers: Hypertension type: unspecified Qualified Code(s): I10 - Essential (primary) hypertension Code(s): I10 - Essential (primary) hypertension Status: Chronic Assessment and Plan: BP 160s sys today. elevated, possible due to pain Monitor blood pressure. Continue home antihypertensives. PRN IV hydralazine ordered w/ parameters. 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 Continue long acting Lantus insulin Monitor Subjective Date/time seen: 05/02/19 12:19 Interval history: Patient is a 63 yo F well known to our Hospitalist group from a recent admission and with known history of HTN, ESRD on HD who is here for b/l sacral fractures and ambulatory dysfunction; she is also ESRD MWF. Patient feeling much better today; pain is more controlled, but still pain in right leg with movement. She had a BM yesterday and feels much better in regards to this. No N/V today. Eating okay today. She states she would now like to go to SNF if able to after discharge. Otherwise no complaints today. Denies f/c/s, headaches, cp/palpitations, sob/cough, n/v/d/c, abd pain, dysphagia, melena, brbpr, dysuria, hematuria, cloudy urine, calf pain/swelling Review of Systems Review of Systems: All systems reviewed & are unremarkable except as noted in HPI and
[2019-05-02 12:54] LABS: Glucose Point of Care 277 (65-105)
[2019-05-02] MEDS: INSULIN ASPART (*BKC) 100 UNITS/ML SUB-Q ×2 (13:04→17:49)
--- NOTE | 2019-05-02 15:59 | PM.PNNEP ---
Progress Note: A&P Assessment and Plan (1) End stage renal disease: Code(s): N18.6 - End stage renal disease Status: Chronic Assessment and Plan: HD tomorrow and continue outpatient schedule of M/W/F while hospitalized electrolytes, volume status, and clearance seem stable (2) Bilateral sacral insufficiency fracture: Qualifiers: Encounter type: subsequent encounter Fracture healing: with routine healing Qualified Code(s): M84.48XD - Pathological fracture, other site, subsequent encounter for fracture with routine healing Code(s): M84.48XA - Pathological fracture, other site, initial encounter for fracture Status: Acute Assessment and Plan: Orthopedic recommendations noted - will need TLSO Brace x 8 weeks pain control PT/OT as tolerated (3) Hypertension: Qualifiers: Hypertension type: unspecified Qualified Code(s): I10 - Essential (primary) hypertension Code(s): I10 - Essential (primary) hypertension Status: Chronic Assessment and Plan: reasonable control at this time follow trend of hemodynamics (4) Ambulatory dysfunction: Code(s): R26.2 - Difficulty in walking, not elsewhere classified Status: Acute Assessment and Plan: presumably secondary to # 2 PT/OT as tolerated per Orthopendics (5) Diabetes: Qualifiers: Chronic kidney disease stage: stage 4 (severe) Diabetes mellitus complication detail: with chronic kidney disease Diabetes mellitus complication status: with kidney complications 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 Subjective Date/time seen: 05/02/19 15:59 Still having significant issues with ambulation at this time; pain control within reason; no other problems noted overnight or earlier this AM; no apparent distress voiced. Exam Narrative: Exam Narrative: General: Elderly frain female in NAD Heart: normal S1 and S2; no rub Lungs: decreased breath sounds at bases Abdomen: soft, nontender, nondistended, positive bowel sounds Extremities: no cyanosis or clubbing; no edema Skin: warm and dry Objective Data Vital Signs Vital Signs: Vital Signs Temp Pulse Resp BP Pulse Ox 05/02/19 14:00 36.8 C 62 18 132/68 97 05/02/19 13:37 60 05/02/19 08:15 16 100 05/02/19 05:05 58 L 05/02/19 04:50 36.4 C L 58 L 14 163/61 H 100 05/01/19 21:39 69 05/01/19 21:37 36.7 C 69 20 152/60 H 94 Intake/Output Intake/Output: Intake & Output 04/29/19 04/30/19 05/01/19 05/02/19 23:59 23:59 23:59 23:59 Intake Total 1390 540 Output Total 200 101 Balance -200 1289 540 Meds/Results Medications: Active Medications Generic Name Dose Route Start Last Admin Trade Name Freq PRN Reason Stop Dose Admin Acetaminophen 650 mg 05/01/19 12:35 Tylenol Tablet PO Q4H PRN Pain Rated 5 or Less Hydrocodone Bitart/Acetaminophen 1 tab 05/01/19 12:35 05/02/19 12:26 Norlina 7.5-325 Mg PO 1 tab Q4H PRN Administration Pain Rated 6 or Greater Bumetanide 2 mg 04/30/19 09:00 05/02/19 08:11 Bumex Po PO 2 mg BID MELVIN Administration Calcium Acetate 667 mg 04/30/19 09:00 05/02/19 12:27 Phoslo PO 667 mg TID MELVIN Administration Clonidine HCl 0.2 mg 04/30/19 09:00 05/02/19 12:28 Catapres PO 0.2 mg QID MELVIN Administration Dextrose 12.5 gm 04/29/19 19:58 Dextrose 50% Syringe IV PUSH PRN PRN Hypoglycemia Protocol Diazepam 2 mg 05/01/19 15:51 Valium Po P
[2019-05-02 17:20] LABS: Glucose Point of Care 268 (65-105)
[2019-05-02 21:00] LABS: Glucose Point of Care 144 (65-105)
[2019-05-03] VITALS (24 sets, daily range): BP systolic 119–184; BP diastolic 45–87; PULSE 53–78; RESP 16–18; TEMP 36–36.9; O2SAT 92–96
[2019-05-03] MEDS: LABETALOL HCL 100 MG TABLET 300 MG PO ×3 (05:32→21:06)
[2019-05-03 06:10] LABS: Basophils Percent Auto 0.3 % (0.2-1.2); Eosinophils Absolute Auto 0.1 K/mm3 (0-0.3); Eosinophils Percent Auto 0.5 % (0-4.4); Hematocrit 35.7 % (37.0-47.0); Hemoglobin 11.1 g/dL (12.0-15.0); Immature Granulocyte Absolute 0.13 K/mm3 (0.00-0.031); Immature Granulocyte Percent A 1.4 % (0-0.5); Lymphocytes Percent Auto 8.5 % (18.3-44.2); Mean Corpuscular HGB Conc 31.1 g/dl (32-36); Mean Corpuscular Hemoglobin 29.1 pg (26-34); Mean Corpuscular Volume 93.5 fl (80-100); Mean Platelet Volume 11.4 fl (7.4-10.4); Monocytes Absolute Auto 0.6 K/mm3 (0.1-0.6); Monocytes Percent Auto 6.5 % (2.6-8.5); Neutrophils Absolute Auto 7.8 K/mm3 (1.3-6.7); Neutrophils Percent Auto 82.8 % (45.5-73.1); Platelet Count Result 221 k/mm3 (150-375); Red Blood Count 3.82 M/mm3 (4.2-5.4); Red Cell Distribution Width 15.2 % (11.5-14.5); White Blood Count 9.5 K/mm3 (4.5-10.0)
[2019-05-03 06:47] LABS: Blood Urea Nitrogen 57 mg/dL (7-17); Calcium 7.9 mg/dL (8.4-10.2); Carbon Dioxide 27 mmol/L (22-30); Chloride 94 mmol/L (98-107); Estimated CRCL calculation 8 ml/min; Estimated Glomerular Filt Rate 9; Glucose 139 mg/dL (65-105); Sodium 133 mmol/L (137-145)
[2019-05-03 07:18] LABS: Glucose Point of Care 125 (65-105)
--- NOTE | 2019-05-03 07:48 | PC.NURSE ---
Per dialysis nurse, hold off on morning medications until after dialysis is complete.
--- NOTE | 2019-05-03 08:18 | PCPTNOTE ---
The PT treatment was unable to be completed this morning. Patient out of room for dialysis. Will continue per Plan of Care frequency and duration.
--- NOTE | 2019-05-03 10:29 | PM.PNNEP ---
Progress Note: A&P Assessment and Plan (1) End stage renal disease: Code(s): N18.6 - End stage renal disease Status: Chronic Assessment and Plan: HD now. doing well. (2) Bilateral sacral insufficiency fracture: Qualifiers: Encounter type: subsequent encounter Fracture healing: with routine healing Qualified Code(s): M84.48XD - Pathological fracture, other site, subsequent encounter for fracture with routine healing Code(s): M84.48XA - Pathological fracture, other site, initial encounter for fracture Status: Acute Assessment and Plan: Orthopedic recommendations noted - will need TLSO Brace x 8 weeks pain control PT/OT as tolerated try ot move around so you don't get a decube. (3) Hypertension: Qualifiers: Hypertension type: unspecified Qualified Code(s): I10 - Essential (primary) hypertension Code(s): I10 - Essential (primary) hypertension Status: Chronic Assessment and Plan: bp doing well with dialysis. (4) Ambulatory dysfunction: Code(s): R26.2 - Difficulty in walking, not elsewhere classified Status: Acute Assessment and Plan: presumably secondary to # 2 PT/OT as tolerated per Orthopendics (5) Diabetes: Qualifiers: Diabetes mellitus type: type 2 Diabetes mellitus terminal manager insulin use: with terminal manager use Diabetes mellitus complication status: with kidney complications Diabetes mellitus complication detail: with chronic kidney disease Chronic kidney disease stage: stage 4 (severe) Qualified Code(s): E11.22 - Type 2 diabetes mellitus with diabetic chronic kidney disease; N18.4 - Chronic kidney disease, stage 4 (severe); Z79.4 - longterm (current) use of insulin Code(s): E11.9 - Type 2 diabetes mellitus without complications Status: Chronic Assessment and Plan: follow accuchecks on SSI and Lantus Will continue to follow. Additional Plan Subjective Date/time seen: 05/03/19 10:29 Interval history: alert. feels better. she has some pain in the right leg from her needing to keep in certain positions to avoid pain. on HD rosenda it well. bp is fine. removing 3 L fluid. seen at 9:30am no cramping. Exam Narrative: Exam Narrative: General: Elderly frain female in NAD Heart: normal S1 and S2; no rub or gallop Lungs: decreased breath sounds at bases Abdomen: soft, nontender, nondistended, positive bowel sounds Extremities: no cyanosis or clubbing; no edema Skin: warm and dry without rash Objective Data Vital Signs Vital Signs: Vital Signs - 24 hr 05/02/19 13:37 05/02/19 14:00 05/02/19 21:00 Temperature 36.8 C 36.3 C L Pulse Rate 60 62 54 L Respiratory Rate 18 15 Blood Pressure 132/68 130/61 Pulse Oximetry 97 92 05/02/19 21:03 05/03/19 05:31 05/03/19 05:32 Temperature 36.3 C L Pulse Rate 54 L 54 L 54 L Respiratory Rate 16 Blood Pressure 158/63 H Pulse Oximetry 95 05/03/19 08:18 05/03/19 08:25 05/03/19 08:35 Temperature 36.6 C Pulse Rate 54 L 56 L 53 L Respiratory Rate 16 Blood Pressure 121/50 L 119/56 L Pulse Oximetry 92 05/03/19 08:45 05/03/19 09:00 05/03/19 09:15 Temperature Pulse Rate 54 L 55 L 57 L Respiratory Rate Blood Pressure 124/61 119/56 L 143/63 H Pulse Oximetry 05/03/19 09:30 05/03/19 09:45 05/03/19 10:00 Temperature Pulse Rate 58 L 59 L 59 L Respiratory Rate Blood Pressure 155/66 H 170/76 H 141/68 H Pulse Oximetry 05/03/19 10:15 Temperature Pulse Rate 60 Respiratory Rate Blood Pressure 160/64 H Pulse Oximetry Intake/Output Intake/Output: Intake & Output 04/30/19 05/01/19 05/02/19 05/03/19 23:59 23:59 23:59 23:59 Intake Total 1390 1480 530 Output Total 200 101 Balance -200 1289 1480 530 Meds/Results Medications: Active Medications Generic Name Dose Route Start Last Admin Trade Name Freq PRN Reason Stop Dose Admin Acetamino
[2019-05-03] MEDS: EPOETIN ALFA 4,000 UNITS/ML VIAL 4000 UNITS IV PUSH (11:14)
[2019-05-03 12:46] LABS: Glucose Point of Care 122 (65-105)
[2019-05-03] MEDS: CALCIUM ACETATE 667 MG TABLET PO ×2 (12:51→17:31)
[2019-05-03] MEDS: BUMETANIDE 1 MG TABLET 2 MG PO ×2 (12:51→17:31)
[2019-05-03] MEDS: CLONIDINE HCL 0.2 MG TABLET PO ×3 (12:52→21:05)
[2019-05-03] MEDS: FERROUS SULFATE 324 MG TABLET PO ×2 (12:52→17:31)
[2019-05-03] MEDS: hydrALAZINE HCL 50 MG TABLET 100 MG PO ×2 (12:52→17:31)
[2019-05-03] MEDS: EUCERIN CREAM 120 GM JAR 1 APPLIC TOPICAL ×2 (12:52→21:05)
[2019-05-03] MEDS: INSULIN GLARGINE (*BKC) 100 UNITS/ML 10 UNITS SUB-Q (12:53)
--- NOTE | 2019-05-03 13:26 | P.PNIM_ITS ---
Progress Note: A&P Assessment and Plan (1) Bilateral sacral insufficiency fracture: Qualifiers: Encounter type: subsequent encounter Fracture healing: with routine healing Qualified Code(s): M84.48XD - Pathological fracture, other site, subsequent encounter for fracture with routine healing Code(s): M84.48XA - Pathological fracture, other site, initial encounter for fracture Status: Acute Assessment and Plan: Patient's pain is more tolerable today. * Dr. Baldwin consulted and appreciate recommendations. * Pain management per Dr. Baldwin.Discharge planning per Dr. Baldwin.Post-op care per Dr. Baldwin.DVT Prophylaxis per Dr. Baldwin. * We are waiting for patient to be fitted with TLSO brace; Knife Machine Operator to come hopefully today or tomorrow and brace to be delivered Friday; likely discharge thereafter. * Patient to be [id number] transfers as tolerated per Ortho. Brace for 8 weeks per Ortho. * Likely discharge to SNF for further rehab * Pain control with home med equivalent * CC working on placement at this moment (2) Ambulatory dysfunction: Code(s): R26.2 - Difficulty in walking, not elsewhere classified Status: Acute Assessment and Plan: * PT/OT * HH vs SNF. Dialysis will play a factor as well. (3) Constipation: Qualifiers: Constipation type: drug induced constipation Qualified Code(s): K59.03 - Drug induced constipation Code(s): K59.00 - Constipation, unspecified Status: Acute Assessment and Plan: Patient had BM last night * The patient states she still has not had a good bowel movement since arrival. * Will give her a mineral oil enema today along with MiraLax and Colace twice daily until she is having regular bowel movements. * Continue monitoring. (4) Hypertension: Qualifiers: Hypertension type: unspecified Qualified Code(s): I10 - Essential (primary) hypertension Code(s): I10 - Essential (primary) hypertension Status: Chronic Assessment and Plan: BP 150s sys today. Elevated, possible due to pain. * Monitor blood pressure. * Continue home antihypertensives. * PRN IV hydralazine ordered w/ parameters. (5) ESRD (end stage renal disease) on dialysis: Code(s): N18.6 - End stage renal disease; Z99.2 - Dependence on renal dialysis Status: Chronic Assessment and Plan: MWF dialysis * Dialysis during stay * Nephrology has been consulted and appreciate recommendations (6) Diabetes: Qualifiers: Diabetes mellitus type: type 2 Diabetes mellitus snf insulin use: with terminal gauger supervisor use Diabetes mellitus complication status: with kidney complications Diabetes mellitus complication detail: with chronic kidney disease Chronic kidney disease stage: stage 4 (severe) Qualified Code(s): E11.22 - Type 2 diabetes mellitus with diabetic chronic kidney disease; N18.4 - Chronic kidney disease, stage 4 (severe); Z79.4 - terminal gauger supervisor (current) use of insulin Code(s): E11.9 - Type 2 diabetes mellitus without complications Status: Chronic Assessment and Plan: BGL 139 today. Stable. * Accuchecks, SSI Coverage, Hypoglycemia protocol. * Continue long acting Lantus insulin * Monitor Time Spent With Patient Time with patient: 25 - 35 minutes Subjective Date/time seen: 05/03/19 13:26 Interval h
--- NOTE | 2019-05-03 13:26 | PM.IMPN ---
Progress Note: A&P Assessment and Plan (1) Bilateral sacral insufficiency fracture: Qualifiers: Encounter type: subsequent encounter Fracture healing: with routine healing Qualified Code(s): M84.48XD - Pathological fracture, other site, subsequent encounter for fracture with routine healing Code(s): M84.48XA - Pathological fracture, other site, initial encounter for fracture Status: Acute Assessment and Plan: Patient's pain is more tolerable today. Dr. Baldwin consulted and appreciate recommendations. Pain management per Dr. Baldwin.Discharge planning per Dr. Baldwin.Post-op care per Dr. Baldwin.DVT Prophylaxis per Dr. Baldwin. We are waiting for patient to be fitted with TLSO brace; High Lift Operator to come hopefully today or tomorrow and brace to be delivered Friday; likely discharge thereafter. Patient to be [id number] transfers as tolerated per Ortho. Brace for 8 weeks per Ortho. Likely discharge to SNF for further rehab Pain control with home med equivalent CC working on placement at this moment (2) Ambulatory dysfunction: Code(s): R26.2 - Difficulty in walking, not elsewhere classified Status: Acute Assessment and Plan: PT/OT HH vs SNF. Dialysis will play a factor as well. (3) Constipation: Qualifiers: Constipation type: drug induced constipation Qualified Code(s): K59.03 - Drug induced constipation Code(s): K59.00 - Constipation, unspecified Status: Acute Assessment and Plan: Patient had BM last night The patient states she still has not had a good bowel movement since arrival. Will give her a mineral oil enema today along with MiraLax and Colace twice daily until she is having regular bowel movements. Continue monitoring. (4) Hypertension: Qualifiers: Hypertension type: unspecified Qualified Code(s): I10 - Essential (primary) hypertension Code(s): I10 - Essential (primary) hypertension Status: Chronic Assessment and Plan: BP 150s sys today. Elevated, possible due to pain. Monitor blood pressure. Continue home antihypertensives. PRN IV hydralazine ordered w/ parameters. (5) ESRD (end stage renal disease) on dialysis: Code(s): N18.6 - End stage renal disease; Z99.2 - Dependence on renal dialysis Status: Chronic Assessment and Plan: [facility] dialysis Dialysis during stay Nephrology has been consulted and appreciate recommendations (6) Diabetes: Qualifiers: Diabetes mellitus type: type 2 Diabetes mellitus long-term insulin use: with ferry terminal agent use Diabetes mellitus complication status: with kidney complications Diabetes mellitus complication detail: with chronic kidney disease Chronic kidney disease stage: stage 4 (severe) Qualified Code(s): E11.22 - Type 2 diabetes mellitus with diabetic chronic kidney disease; N18.4 - Chronic kidney disease, stage 4 (severe); Z79.4 - computer terminal operator (current) use of insulin Code(s): E11.9 - Type 2 diabetes mellitus without complications Status: Chronic Assessment and Plan: BGL 139 today. Stable. Accuchecks, SSI Coverage, Hypoglycemia protocol. Continue long acting Lantus insulin Monitor Time Spent With Patient Time with patient: 25 - 35 minutes Subjective Date/time seen: 05/03/19 13:26 Interval history: Patient is a 63 yo F well known to our Hospitalist group from a recent admission and with known history of HTN, ESRD on HD who is here for b/l sacral fractures and ambulatory dysfunction; she is also ESRD MWF. Date of Service 05/03/2019: She reports having some continued pelvic pain with sitting or any movement. She states this has been stable for the last week since she has fallen at
[2019-05-03] MEDS: DOCUSATE SODIUM 100 MG CAPSULE PO ×2 (14:27→21:05)
--- NOTE | 2019-05-03 14:53 | PCPTNOTE ---
The PT treatment was unable to be completed today due to patient refusal. Will continue per Plan of Care frequency and duration.
[2019-05-03] MEDS: polyethylene glycoL 3350 17 GM POWD.PACK PO (17:31)
[2019-05-03 17:39] LABS: Glucose Point of Care 121 (65-105)
[2019-05-03] MEDS: DIAZEPAM 2 MG TABLET PO (22:38)
[2019-05-03 22:53] LABS: Glucose Point of Care 91 (65-105)
[2019-05-04 06:00] VITALS: BP 181/56; PULSE 62; RESP 15; TEMP 36.3; O2SAT 93
[2019-05-04 06:06] VITALS: PULSE 88
[2019-05-04] MEDS: LABETALOL HCL 100 MG TABLET 300 MG PO ×2 (06:06→13:57)
[2019-05-04 06:09] LABS: Basophils Percent Auto 0.4 % (0.2-1.2); Eosinophils Absolute Auto 0.1 K/mm3 (0-0.3); Eosinophils Percent Auto 0.9 % (0-4.4); Hematocrit 35.2 % (37.0-47.0); Hemoglobin 10.8 g/dL (12.0-15.0); Immature Granulocyte Absolute 0.03 K/mm3 (0.00-0.031); Immature Granulocyte Percent A 0.4 % (0-0.5); Lymphocytes Absolute Auto 0.65 K/mm3 (0.9-3.2); Lymphocytes Percent Auto 9.4 % (18.3-44.2); Mean Corpuscular HGB Conc 30.7 g/dl (32-36); Mean Corpuscular Hemoglobin 29.3 pg (26-34); Mean Corpuscular Volume 95.7 fl (80-100); Mean Platelet Volume 11.3 fl (7.4-10.4); Monocytes Absolute Auto 0.7 K/mm3 (0.1-0.6); Monocytes Percent Auto 10.5 % (2.6-8.5); Neutrophils Absolute Auto 5.4 K/mm3 (1.3-6.7); Neutrophils Percent Auto 78.4 % (45.5-73.1); Platelet Count Result 212 k/mm3 (150-375); Red Blood Count 3.68 M/mm3 (4.2-5.4); Red Cell Distribution Width 15.6 % (11.5-14.5); White Blood Count 6.9 K/mm3 (4.5-10.0)
[2019-05-04 06:13] LABS: Albumin Level 3.2 g/dL (3.5-5.1); Blood Urea Nitrogen 25 mg/dL (7-17); Calcium 7.8 mg/dL (8.4-10.2); Carbon Dioxide 32 mmol/L (22-30); Chloride 97 mmol/L (98-107); Estimated CRCL calculation 13 ml/min; Estimated Glomerular Filt Rate 16; Glucose 178 mg/dL (65-105); Potassium 3.9 mmol/L (3.4-5.0); Sodium 136 mmol/L (137-145)
[2019-05-04] MEDS: CALCIUM ACETATE 667 MG TABLET PO ×2 (08:45→13:47)
[2019-05-04] MEDS: BUMETANIDE 1 MG TABLET 2 MG PO (08:45)
[2019-05-04] MEDS: polyethylene glycoL 3350 17 GM POWD.PACK PO (08:46)
[2019-05-04] MEDS: CLONIDINE HCL 0.2 MG TABLET PO ×2 (08:46→13:47)
[2019-05-04] MEDS: FERROUS SULFATE 324 MG TABLET PO (08:46)
[2019-05-04] MEDS: EUCERIN CREAM 120 GM JAR 1 APPLIC TOPICAL (08:46)
[2019-05-04] MEDS: hydrALAZINE HCL 50 MG TABLET 100 MG PO ×2 (08:46→13:47)
[2019-05-04] MEDS: INSULIN GLARGINE (*BKC) 100 UNITS/ML 10 UNITS SUB-Q (08:48)
[2019-05-04 09:03] LABS: Glucose Point of Care 169 (65-105)
--- NOTE | 2019-05-04 11:18 | PM.DS ---
DS: Diagnosis Admitting Diagnosis Admitting Diagnosis: Pathological fracture, other site, subsequent encounter for fracture with routine healing Discharge Diagnosis (1) Bilateral sacral insufficiency fracture: Qualifiers: Encounter type: subsequent encounter Fracture healing: with routine healing Qualified Code(s): M84.48XD - Pathological fracture, other site, subsequent encounter for fracture with routine healing Code(s): M84.48XA - Pathological fracture, other site, initial encounter for fracture Status: Acute Assessment and Plan: Patient's pain is more tolerable today. Dr. Baldwin consulted and appreciate recommendations. The patient received her TLSO brace Patient to be [id number] transfers as tolerated per Ortho. Brace for 8 weeks per Ortho. She was accepted into SNF for further rehab at [place]. Pain control will be continued. The patient understands and agrees with the plan. All questions answered. (2) Ambulatory dysfunction: Code(s): R26.2 - Difficulty in walking, not elsewhere classified Status: Acute Assessment and Plan: PT/OT SNF. (3) Constipation: Qualifiers: Constipation type: drug induced constipation Qualified Code(s): K59.03 - Drug induced constipation Code(s): K59.00 - Constipation, unspecified Status: Acute Assessment and Plan: Patient had a BM this morning. Will continue Miralax daily in the morning and colace PRN for constipation. (4) Hypertension: Qualifiers: Hypertension type: unspecified Qualified Code(s): I10 - Essential (primary) hypertension Code(s): I10 - Essential (primary) hypertension Status: Chronic Assessment and Plan: BP 180s sys this morning prior to her medications being given. Monitor blood pressure at SNF. Continue home antihypertensives. (5) ESRD (end stage renal disease) on dialysis: Code(s): N18.6 - End stage renal disease; Z99.2 - Dependence on renal dialysis Status: Chronic Assessment and Plan: [facility] dialysis Nephrology has been consulted and appreciate recommendations (6) Diabetes: Qualifiers: Chronic kidney disease stage: stage 4 (severe) Diabetes mellitus complication detail: with chronic kidney disease Diabetes mellitus complication status: with kidney complications Diabetes mellitus rat exterminator insulin use: with rat exterminator use Diabetes mellitus type: type 2 Qualified Code(s): E11.22 - Type 2 diabetes mellitus with diabetic chronic kidney disease; N18.4 - Chronic kidney disease, stage 4 (severe); Z79.4 - halfway (current) use of insulin Code(s): E11.9 - Type 2 diabetes mellitus without complications Status: Chronic Assessment and Plan: BGL 178 today. Stable. Continue long acting Lantus insulin upon discharge to [facility]. DS: Summary Hospital Course Reason for hospitalization: The patient is a 63-year-old woman with a history of hypertension, diabetes, end-stage renal disease on dialysis, who presented to the ER after suffering a fall few days ago and continued having increased pain when sitting down and movement of her right leg. She was in the ER on 04/27/2019 and was found to have an acute left, subacute right sacral ala insufficiency fractures. She was discharged home and returned back to the ER on 04/29/2019. Initial vitals showed temperature of 98.1?, blood pressure 244/102, heart rate 75, respiratory rate 20, oxygen saturation 100% on room air. Initial labs showed slight anemia at 10.7/35.2%, 133, creatinine 3.40, BUN 35, glucose 367. The patient was evaluated by Dr. Baldwin orthopedic surgeon who recommended placing her in a TLSO brace for about 8 weeks and hav
--- NOTE | 2019-05-04 12:46 | PM.PNORT ---
Progress Note: A&P Assessment and Plan (1) Sacral fracture: Qualifiers: Encounter type: subsequent encounter Zone of sacrum fracture: zone II of sacrum Fracture type: closed Fracture alignment: minimally displaced Fracture healing: with routine healing Qualified Code(s): S32.121D - Minimally displaced Zone II fracture of sacrum, subsequent encounter for fracture with routine healing Code(s): S32.10XA - Unspecified fracture of sacrum, initial encounter for closed fracture Status: Acute Assessment and Plan: Patient states symptoms a little bit better with brace and therapy. Still difficulty with transfers and ambulation. Otherwise stable. Okay for placement from ortho standpoint when medically cleared. Weightbearing as tolerated. Use of brace when up. Follow up with Orthopedics in 6 weeks. Subjective Subjective Date/Time Seen: 05/04/19 07:45 Patient states low back and pelvis pain still present. Worse when she moves the right leg. Difficulty with weight-bearing and transfers. Denies numbness or tingling in the feet or toes. States that the brace helps. Review of Systems Constitutional: Constitutional: Denies fever(s) Eyes: Eyes: Denies blurry vision ENT: Reports Normal hearing present Cardiovascular: Cardiovascular: Denies chest pain and Denies dyspnea Respiratory: Respiratory: Denies dyspnea and Denies wheezing Gastrointestinal: Gastrointestinal: Denies abdominal pain Genitourinary: Genitourinary: Denies urinary urgency Musculoskeletal: Musculoskeletal: Reports as per HPI and Denies numbness Integumentary/Breasts: Skin/Breast: Denies changing lesions and Denies sores Neurologic: Reports Normal hearing present, Denies behavioral changes, Denies confusion, Denies numbness and Denies convulsions Psychiatric: Psychiatric: Denies behavioral changes, Denies confusion and Denies hallucinations Endocrine: Endocrine: Denies heat intolerance Hematologic/Lymphatic: Hematologic/Lymphatic: Denies easy bleeding Allergic/Immunologic: Allergic/Immunologic: Denies wheezing Exam Const: General: healthy appearing; No in distress or confusion Orientation/consciousness: oriented to person, oriented to place, oriented to time and No confusion HENMT: Head: normal to inspection, normocephalic and atraumatic Eyes: Conjunctivae: conjunctivae normal Sclera: sclerae normal Neck: Neck: supple and nontender Resp: Effort & Inspection: normal respiratory effort and no audible wheezes Cardio: Rate: regular rate Rhythm: regular rhythm Back/Spine/Pelvis: Pelvis: no pain with lateral compression, buttock tenderness bilaterally and sciatic notch tenderness on the right Sacroiliac joints: on the right tender to palpation and on the left tender to palpation Skin: General skin exam: no rashes or lesions noted Neuro: General: oriented to person, oriented to place, oriented to time and No confusion Extrem: Right upper extremity: normal to inspection Left upper extremity: normal to inspection Right lower extremity: hip/thigh Details: tenderness Location: of the hip Location: anteriorly, swelling ( Mild) Location: at the hip, abnormal ROM Details: pain with active ROM during Details: with ABduction and with flexion, pain with resistance to Details: to ABduction and to flexion and with range as follows ( flexion 90, external rotation 30, internal rotation 20, abduction 40) and crepitus Location: at the hip; no deformity and no unusual warmth and foot Details: normal capillary refill, toes with normal ROM, vascular exam Details: dorsalis pedis pulse present and motor-sensory exam Details: light-touch normal; no tenderness; no edema Left lower extremity: normal to inspection Psych: Affect: normal affect Objective Data Vital Signs Vital Signs: Vital Signs - 24 hr 05/03/19 14:00 05/03/19 14:27 05/03/19 20:16 Temperature 98.4 F 97.7 F Pulse Rate 61 61 62 Respiratory Rate 18 16 Blood Pressure 13
[2019-05-04 13:57] VITALS: PULSE 62
[2019-05-04 14:00] VITALS: BP 155/70; PULSE 62; RESP 18; TEMP 36.1; O2SAT 97
[2019-05-04] MEDS: INSULIN ASPART (*BKC) 100 UNITS/ML SUB-Q (14:03)
[2019-05-04 14:10] LABS: Glucose Point of Care 312 (65-105)
--- NOTE | 2019-05-05 12:53 | PC.NURSE ---
Blood cx is negative.
--- NOTE | 2019-05-05 14:58 | P.PNNP_ITS ---
Progress Note: A&P Assessment and Plan (1) End stage renal disease: Code(s): N18.6 - End stage renal disease Status: Chronic Assessment and Plan: * HD tomorrow (2) Bilateral sacral insufficiency fracture: Qualifiers: Encounter type: subsequent encounter Fracture healing: with routine healing Qualified Code(s): M84.48XD - Pathological fracture, other site, subsequent encounter for fracture with routine healing Code(s): M84.48XA - Pathological fracture, other site, initial encounter for fracture Status: Acute Assessment and Plan: * Orthopedic recommendations noted - will need TLSO Brace x 8 weeks * pain control * PT/OT as tolerated * try ot move around so you don't get a decube. (3) Hypertension: Qualifiers: Hypertension type: unspecified Qualified Code(s): I10 - Essential (primary) hypertension Code(s): I10 - Essential (primary) hypertension Status: Chronic Assessment and Plan: * bp doing well with dialysis. * 130 and 160. * Managed with fluid removal on dialysis tomorrow (4) Ambulatory dysfunction: Code(s): R26.2 - Difficulty in walking, not elsewhere classified Status: Acute Assessment and Plan: * presumably secondary to # 2 * PT/OT as tolerated per Orthopendics (5) Diabetes: Qualifiers: Diabetes mellitus type: type 2 Diabetes mellitus video game technician insulin use: with senior living use Diabetes mellitus complication status: with kidney complications Diabetes mellitus complication detail: with chronic kidney disease Chronic kidney disease stage: stage 4 (severe) Qualified Code(s): E11.22 - Type 2 diabetes mellitus with diabetic chronic kidney disease; N18.4 - Chronic kidney disease, stage 4 (severe); Z79.4 - manager technical training (current) use of insulin Code(s): E11.9 - Type 2 diabetes mellitus without complications Status: Chronic Assessment and Plan: * follow accuchecks * on SSI and Lantus Will continue to follow. Additional Plan Subjective Date/time seen: 05/04/19 09:00 Interval history: alert. feels better. Eager for discharge. She will get dialysis tomorrow at [facility] Exam Narrative: Exam Narrative: General: Elderly frain female in NAD Heart: normal S1 and S2; no rub or gallop Lungs: Fairly clear Abdomen: soft, nontender, nondistended, positive bowel sounds Extremities: no cyanosis or clubbing; no edema Skin: No rash Objective Data Intake/Output Intake/Output: Intake & Output 05/02/19 05/03/19 05/04/19 05/05/19 23:59 23:59 23:59 23:59 Intake Total 1480 1170 340 Output Total 3000 Balance 1480 -1830 340 Meds/Results Radiology Results: ITS Impressions Hip X-Ray 04/30/19 19:23 Impression: 1: No acute fracture. Abdomen X-Ray 05/01/19 18:50 IMPRESSION: Nonspecific abdomen Quality VTE Prophylaxis VTE prophylaxis: mechanical ordered
== END 2019-05-04 15:30 | DRG 542 ==
LOC: ANHED 19:42 → ANH3MED 20:41
PROVIDERS: Internal Medicine Nephrology; Physician Assistant; Admitting Provider Family Medicine; Emergency Provider Emergency Medicine; PCP Internal Medicine; Visit Provider Family Medicine
DX: M84.48XA Pathological fracture, other site, initial encounter for fracture (principal); N18.6 End stage renal disease; I50.32 Chronic diastolic (congestive) heart failure; E44.0 Moderate protein-calorie malnutrition; I12.0 Hypertensive chronic kidney disease with stage 5 chronic kidney disease or end stage renal disease; R26.2 Difficulty in walking, not elsewhere classified; K59.03 Drug induced constipation; T40.605A Adverse effect of unspecified narcotics, initial encounter; E11.22 Type 2 diabetes mellitus with diabetic chronic kidney disease; E11.21 Type 2 diabetes mellitus with diabetic nephropathy; E11.42 Type 2 diabetes mellitus with diabetic polyneuropathy; E11.319 Type 2 diabetes mellitus with unspecified diabetic retinopathy without macular edema; F41.8 Other specified anxiety disorders; D63.1 Anemia in chronic kidney disease; I25.10 Atherosclerotic heart disease of native coronary artery without angina pectoris; M81.0 Age-related osteoporosis without current pathological fracture; Z96.641 Presence of right artificial hip joint; Z99.2 Dependence on renal dialysis; Z86.73 Personal history of transient ischemic attack (TIA), and cerebral infarction without residual deficits; Z79.4 Long term (current) use of insulin; Z68.21 Body mass index [BMI] 21.0-21.9, adult; Z98.42 Cataract extraction status, left eye; Z98.41 Cataract extraction status, right eye
CPT/HCPCS: 36415; 73502; 74019; 80048; 80069; 82274; 83735; 85025; 86706; 87040; 87081; 87340; 96374; 96375; 96376; 97110; 97116; 97161; 97165; 97530; 97760; 99285; A9270; G0257; G0378; J0360; J1644; J1815; J2270; J2405; J7030; Q4081

== ENCOUNTER 2019-07-02 13:13 | Inpatient (IN) | payer MEDICARE, SELFPAY ==
[2019-07-02] VITALS (26 sets, daily range): BP systolic 93–209; BP diastolic 40–89; PULSE 69–93; RESP 15–24; TEMP 36.2–37; O2SAT 94–100; BMI 22.4
--- NOTE | ~2019-07-02 | CT_ITS ---
EXAMINATION: CT brain wo con INDICATION: Acute confusion COMPARISON: 01/13/2018 TECHNIQUE: Standard unenhanced head CT. The dose-length product (DLP) was 605.33 mGy-cm. The mA was a djusted according to patient size. Iterative reconstruction technique was employed. FINDINGS: There is no acute intraparenchymal hemorrhage. No evidence of mass lesion. No evidence of a cute infarction. There is mild periventricular and subcortical hypodensity probably related to small vessel ischemic disease. There is mild prominence of the sulci and ventricles related to cerebral atr ophy. Intracranial calcified cerebral atherosclerosis is noted. There are no extra-axial collections. There is no mass effect or midline shift. The orbits and soft tissues are unremarkable. The visuali zed sinuses and mastoid air cells are well aerated. IMPRESSION: 1. No acute intracranial abnormality. 2. Age related findings. Reviewed, dictated and finalized at location A.
--- NOTE | ~2019-07-02 | XR_ITS ---
EXAMINATION: XR abdomen/kub 1V INDICATION: Constipation TECHNIQUE: Supine views of the abdomen were obtained on 2 radiographs. COMPARISON: 05/01/2019 FINDINGS: A moderate volume of colonic stool is present. The bowel gas pattern is normal. There are c hanges of right hip hemiarthroplasty. Calcified atherosclerosis is noted. There is a partially imaged dialysis catheter with its tip in the right atrium. There is moderate left hip osteoarthritis. IMPRESSION: 1. Unremarkable abdominal radiographs. Reviewed, dictated and finalized at location A.
--- NOTE | ~2019-07-02 | CT_ITS ---
EXAMINATION: CT abdomen pelvis wo con DATE: 07/03/2019 01:52 INDICATION: Abdominal pain and lactic acidosis TECHNIQUE: Computed tomography (CT) of the abdomen and pelvis was performed without intravenous contr ast. The dose-length product (DLP) was 606.40 mGy-cm. Automated exposure control and iterative recons truction technique were employed. COMPARISON: 04/27/2019 FINDINGS: There is atelectasis of the visualized lung bases. Cardiomegaly is noted. A partially image d catheter ends with its tip in the right atrium. There are small pleural effusions. Calcified caballero ry artery atherosclerosis is noted. There is a pericardial cyst adjacent to the right atrium. Within the limitations of noncontrast examination, the liver, pancreas, and adrenal glands are normal. Punct ate calcifications in an otherwise normal spleen likely represent healed granulomatous disease. Stone s are present in the nondistended gallbladder. There is a 2.8 cm exophytic cyst of the left kidney. T he right kidney is unremarkable. There is calcified atherosclerosis of the aorta and many of the othe r arteries. A moderate volume of colonic stool is present. No pathologically enlarged abdominal or pe lvic lymph nodes are identified. A subacute fracture of the right pubic symphysis extending into the inferior pubic ramus is new since the comparison examination. There are bilateral sacral insufficienc y fractures, new on the right and worse on the left since the comparison examination. There are oliver es of right hip arthroplasty. Orthopedic hardware is noted in the right distal radius. There is diffu se anasarca. There is severe lumbar spondylosis. IMPRESSION: 1. Cholelithiasis without evidence of cholecystitis. 2. Subacute fractures of the right pubic symphysis and right inferior pubic ramus, new since the prio r examination. 3. Bilateral sacral insufficiency fractures, new on the right and worse on the left since the compari son examination. 4. Cardiomegaly. 5. Small pleural effusions. 6. Cholelithiasis without evidence of cholecystitis. Reviewed, dictated and finalized at location A. IMPRESSION: 1. Cholelithiasis without evidence of cholecystitis. 2. Subacute fractures of the right pubic symphysis and right inferior pubic kathy us, new since the prior examination. 3. Bilateral sacral insufficiency fractures, new on the right and worse on the left since the comparison examination. 4. Cardiomegaly. 5. Small pleural effusions. 6. Cholelithiasis without evidence of cholecystitis.
--- NOTE | ~2019-07-02 | CT_ITS ---
EXAMINATION: CT brain wo con INDICATION: New onset expressive aphasia COMPARISON: 07/03/2019 TECHNIQUE: Standard unenhanced head CT. The dose-length product (DLP) was 605.33 mGy-cm. The mA was a djusted according to patient size. Iterative reconstruction technique was employed. FINDINGS: There is no acute intraparenchymal hemorrhage. No evidence of mass lesion. There is a subtl e area of loss of goodson-white differentiation in the left frontal lobe on images 30 through 40. There is mild periventricular and subcortical hypodensity probably related to small vessel ischemic disease . There is mild prominence of the sulci and ventricles related to cerebral atrophy. Intracranial calc ified cerebral atherosclerosis is noted. There are no extra-axial collections. There is no mass effec t or midline shift. Changes in the globes are likely from ocular lens surgery. The visualized sinuse s and mastoid air cells are well aerated. IMPRESSION: 1. Subtle loss of goodson-white differentiation in the left frontal lobe which could reflect acute infar ct. These findings were discussed with Love Yee at 1640 hours on 07/05/2019. 2. Age related findings. Reviewed, dictated and finalized at location A. IMPRESSION: 1. Subtle loss of goodson-white differentiation in the left frontal lobe which cou ld reflect acute infarct. These findings were discussed with Love Yee at 1640 hours on 07/05/2019. 2. Age related findings.
--- NOTE | ~2019-07-02 | US_ITS ---
EXAMINATION: US carotid duplex BI DATE: 07/05/2019 17:42 INDICATION: Stroke TECHNIQUE: Grayscale, color Doppler, and pulsed Doppler images of the cervical carotid arteries were obtained. The degree of vessel stenosis is placed in one of the following categories: normal, <50%, 5 0-69%, >=70% but less than near-occlusion, near-occlusion, or total occlusion. Note that percent sten osis relative to normal distal artery lumen diameter is indirectly measured from velocity measurement s as described by Ted, et al. Radiology 2003; [id number]. COMPARISON: None. FINDINGS: RIGHT: The right common carotid artery (CCA) peak systolic velocity (PSV) is 60 cm/s. The right internal car otid artery (ICA) PSV is 86 cm/s. The right ICA end-diastolic velocity (EDV) is 15 cm/s. The right IC A/CCA PSV ratio is 1.4. Grayscale and color Doppler images yield an estimate of less than 50% diamete r reduction from plaque in the ICA. The external carotid artery (ECA) PSV is 84 cm/s. There is antegr henry flow in the right vertebral artery. LEFT: The left CCA PSV is 64 cm/s. The left ICA PSV is 140 cm/s. The left ICA EDV is 22 cm/s. The left ICA/ CCA PSV ratio is 2.2. Grayscale and color Doppler images yield an estimate of 50-69% diameter reducti on from plaque in the ICA. The ECA PSV is 75 cm/s. There is antegrade flow in the left vertebral rylee ry. IMPRESSION: 1. <50% stenosis in the right internal carotid artery. 2. 50-69% stenosis in the left internal carotid artery. Reviewed, dictated and finalized at location A.
--- NOTE | 2019-07-02 13:10 | ED.GENADULT ---
HPI - General Adult General Chief complaint: Unspecified Stated complaint: nausea, vomiting Source: patient and EMS Mode of arrival: EMS Limitations: no limitations History of Present Illness HPI narrative: Patient is a 63-year-old female who presents for evaluation of nausea and vomiting. Patient had a stent placed in her left dialysis catheter yesterday at the outpatient surgery center at [facility]. Patient states that she has been nauseated, vomiting numerous times since yesterday. Patient did receive opiates following surgery. Patient has been unable to take any of her home medications. She is not having any abdominal pain, back pain or chest pain. Per niece, also the patient is however turning, states that when she found the patient she was dehydrated appearing, somewhat confused. Related Data Home Medications Medication Instructions Recorded Confirmed insulin glargine 100 unit/mL 10 unit SUB-Q DAILY 01/18/19 04/29/19 subcutaneous solution calcium acetate(phosphat bind) 667 667 mg PO TID 02/11/19 04/29/19 mg tablet labetalol 300 mg tablet 300 mg PO Q8H tablet 02/11/19 04/29/19 hydralazine 100 mg PO TID 03/13/19 04/29/19 ondansetron HCl 4 mg tablet 4 mg PO BID PRN tablet 03/26/19 04/29/19 clonidine HCl 0.2 mg tablet 0.2 mg PO QID tablet 06/29/19 06/29/19 clonidine HCl 0.2 mg TID 07/02/19 furosemide 40 mg DAILY 07/02/19 hydrocodone-acetaminophen 1 tablet PRN 07/02/19 Allergies Allergy/AdvReac Type Severity Reaction Status Date / Time Penicillins Allergy Unknown Unknown Verified 07/02/19 13:26 Review of Systems Review of Systems: Narrative: CONSTITUTIONAL: Denies fever CARDIOVASCULAR: Denies chest pain RESPIRATORY: Denies cough or dyspnea. 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 CVA noted on CT scan from October 2018 Depression Diabetes On long-term insulin therapy; last hemoglobin A1c October 2018 less than 5.7 Diabetic nephropathy associated with type 2 diabetes mellitus Diabetic peripheral neuropathy associated with type 2 diabetes mellitus Dialysis patient ESRD (end stage renal disease) on dialysis Fracture of right tibial plateau October 2018 Heart murmur Hip fracture, right Hypertension Multifactorial initially due to essential hypertension but now in part due to renal failure Left wrist fracture Lipoma Moderate protein-calorie malnutrition Multiple gallstones Nonproliferative diabetic retinopathy Pneumonia With parapneumonic effusion requiring thoracentesis October 2017 Post-menopausal osteoporosis DEXA scan January 2017 Severe tricuspid regurgitation by prior echocardiography Echocardiogram September 2018 demonstrating grade 1 diastolic dysfunction, mild left ventricular hypertrophy, mild left ventricular enlargement, grade 1 diastolic dysfunction, global longitudinal strain at-8%, TAPSE 1.4 cm suggesting abnormal right ventricular systolic function although appears normal by visual estimation, moderate left atrial enlargement, mild right atrial enlargement, mild (underestimated) mitral valve regurgitation, tricuspid valve do not coaptation due to dilated annulus, mild pulmonic regurgitation, elevated right atrial pressure at 15 mmHg, trivial pericardial effusion Surgical History Surgical History H/O bilateral cataract extraction H/O dilation and curettage x2 History of open reduction and internal fixation (ORIF) procedure Bilateral wrists; left distal radius fracture with intramedullary nail repair 05/2016 History of orthopedic surgery B
--- NOTE | 2019-07-02 13:20 | ECG_ITS ---
Measurements Intervals Morgan Rate: 69 P: 40 AL: 210 QRS: 145 QRSD: 103 T: 7 QT: 411 QTc: 441 Interpretive Statements SINUS RHYTHM WITH FIRST DEGREE AV BLOCK INCOMPLETE RIGHT BUNDLE BRANCH BLOCK BORDERLINE ST-T WAVE ABNORMALITY- INFERIOR LEADS BASELINE ARTIFACT- I, II, III, AVR, AVL, AVF ABNORMAL ECG Electronically Signed On 07-02-2019 13:24:56 CDT by Teofilo Tay D.O.
[2019-07-02] MEDS: SODIUM CHLORIDE 0.9% IV 1,000 ML 999 ML IV CONT (13:46)
[2019-07-02] MEDS: ONDANSETRON INJ 4 MG/2 ML VIAL IV PUSH ×2 (13:47→14:57)
[2019-07-02 13:55] LABS: Basophils Absolute Auto 0.1 K/mm3 (0.0-0.1); Basophils Percent Auto 0.5 % (0.2-1.2); Eosinophils Percent Auto 0.1 % (0-4.4); Hematocrit 35.9 % (37.0-47.0); Hemoglobin 11.5 g/dL (12.0-15.0); Immature Granulocyte Absolute 0.13 K/mm3 (0.00-0.031); Immature Granulocyte Percent A 1.3 % (0-0.5); Lymphocytes Absolute Auto 0.63 K/mm3 (0.9-3.2); Lymphocytes Percent Auto 6.4 % (18.3-44.2); Mean Corpuscular Hemoglobin 29.9 pg (26-34); Mean Corpuscular Volume 93.5 fl (80-100); Mean Platelet Volume 10.9 fl (7.4-10.4); Monocytes Absolute Auto 0.5 K/mm3 (0.1-0.6); Monocytes Percent Auto 4.8 % (2.6-8.5); Neutrophils Absolute Auto 8.6 K/mm3 (1.3-6.7); Neutrophils Percent Auto 86.9 % (45.5-73.1); Platelet Count Result 191 k/mm3 (150-375); Red Blood Count 3.84 M/mm3 (4.2-5.4); Red Cell Distribution Width 15.6 % (11.5-14.5); White Blood Count 9.9 K/mm3 (4.5-10.0)
[2019-07-02 14:10] LABS: Alanine Aminotransferase 25 U/L (4-35); Albumin Level 4.7 g/dL (3.5-5.1); Alkaline Phosphatase 259 U/L (38-126); Aspartate Amino Transferase 58 U/L (14-36); Bilirubin,Total 1.5 mg/dL (0.2-1.3); Blood Urea Nitrogen 51 mg/dL (7-17); Calcium 9.3 mg/dL (8.4-10.2); Carbon Dioxide 24 mmol/L (22-30); Chloride 92 mmol/L (98-107); Estimated CRCL calculation 7 ml/min; Estimated Glomerular Filt Rate 9; Glucose 285 mg/dL (65-105); Lipase 101 U/L (23-300); Potassium 6.5 mmol/L (3.4-5.0); Sodium 133 mmol/L (137-145)
[2019-07-02] MEDS: DEXTROSE 50% 25 GM/50 ML SYRINGE IV PUSH (14:39)
[2019-07-02] MEDS: INSULIN HUMAN REGULAR (*BKC) 100 UNITS/ML 10 UNITS IV PUSH (14:40)
[2019-07-02] MEDS: SODIUM BICARBONATE 8.4% 50 MEQ/50 ML VIAL IV PUSH (14:42)
[2019-07-02] MEDS: CALCIUM GLUCONATE 1,000 MG/10 ML VIAL 2000 MG IV PUSH (14:43)
[2019-07-02 15:26] LABS: Add Urine Microscopic? YES; Amorphous Sediment Urine Few; Appearance Urine Turbid (Clear); Bacteria Urine 4+ /hpf; Bilirubin Urine Negative (Negative); Blood Urine 1+ (Negative); Color Urine Yellow (Yellow); Glucose Urine UA 2+ mg/dL (Negative); Hyaline Casts Urine 15-19 /lpf; Ketones Urine Trace mg/dL (Negative); Leukocyte Esterase Ur 2+ LEU/UL (Negative); Mucus Urine Moderate /lpf; Nitrate Urine Negative (Negative); Protein Urine 3+ mg/dL (Negative); RBC Urine 51-75 /hpf (0-2); Specific Grav Ur 1.018 (1.001-1.035); Squamous Epithelial Cell Urine Many /hpf (Few); Urobilinogen Urine Negative mg/dL (<2.0); WBC Clumps Urine Present /HPF; WBC Urine >75 /hpf
--- NOTE | 2019-07-02 16:08 | ADMGEN ---
This patient, Ania Field, was admitted to 2 Medical Room 256-. Patient/family oriented to hospital policies and general routines including ID bracelet, bed and alarms, visiting hours, pain management, procedures, bathroom and other care routines, personal items, smoking policy, room service/diet, and visiting hours. Valuables list has been completed. Information on how to activate the Rapid Response Team has been discussed. Patient/Family are encouraged to report perceived risks to care and to ask questions if they do not understand what they are told or what they should do.
[2019-07-02] MEDS: HEPARIN SODIUM 1,000 UNITS/ML VIAL 1000 UNITS IV PUSH (20:15)
--- NOTE | 2019-07-02 20:29 | PCHDNOTE ---
Brought patient back from dialysis. Pt was moaning and digging at an impaction that is in her anus. Called Dr. Mota and notified her that pt had a fecal impaction.
[2019-07-02] MEDS: CEPHALEXIN 500 MG CAPSULE PO (20:49)
[2019-07-02] MEDS: DOCUSATE SODIUM 400 MG/400 ML ENEMA RECTAL ×2 (20:56→23:34)
[2019-07-02 22:44] LABS: Glucose Point of Care 132 (65-105)
--- NOTE | 2019-07-02 23:00 | PM.IMHP ---
H&P: HPI History of Present Illness Chief complaint: Nausea and vomiting. Narrative: Ania Field is a 63-year-old female with end-stage renal disease on hemodialysis, type 2 diabetes mellitus, chronic anemia, to the emergency department earlier today for evaluation of nausea and vomiting. She had a stent placed in her left upper extremity fistula yesterday at [facility], and she has reportedly had intractable nausea and vomiting since that time. She was found to be hypertensive and her potassium level was 6.5, and she was sent for dialysis after being treated with antiemetics. I received a phone call from the patient's nurse after she return to the floor, and the patient was complaining of the urge to have a bowel movement but inability to do so. In fact, the patient began manually this impacting herself. She was given a Colace enema but she had a difficult time keeping that in, and she continues to cry out in pain, stating she needs to have a bowel movement. A stat KUB showed a moderate volume of colonic stool without other findings. When I come to evaluate the patient, she is unclothed and seems restless, complaining of lower abdominal cramping and the need to have a bowel movement urgently. She is also tachypneic and tells me that she is breathing heavily due to the abdominal pain. I have a difficult time obtaining a history from her, and on orientation questions she is alert oriented to name and date of only. After speaking with the nurses and reviewing previous visits, it does not look like she has a history of confusion. The patient herself admits that she feels confused. She denies fall and head trauma. No vertigo. She denies headache and neck ache. No fever, chills, or sweats. She denies cold and flu symptoms. No chest pain or shortness of breath. She denies cough. She has not had any further nausea or vomiting since earlier this afternoon. It sounds like she frequently suffers from constipation, but not to this level. Her stools do look a bit dark however she was not aware of any blood in the stool. She does still urinate a small amount and has had mild dysuria. Review of Systems Review of Systems: Narrative: Twelve systems were reviewed with pertinent positives and negatives as per HPI. As above, she is somewhat confused and thus the accuracy of her history is somewhat questionable. Except as detailed above, all other systems were reviewed and are negative. 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 Depression End-stage renal disease on hemodialysis Fracture of right tibial plateau (~10/2018) Hypertension Multifactorial initially due to essential hypertension but now in part due to renal failure Insulin dependent type 2 diabetes mellitus Hemoglobin A1c was 5.0% in October 2018. Left wrist fracture Moderate protein-calorie malnutrition Multiple gallstones Nonproliferative diabetic retinopathy Pneumonia With parapneumonic effusion requiring thoracentesis in October 2017. Post-menopausal osteoporosis On DEXA scan in January 2017. Severe tricuspid regurgitation by prior echocardiography Echocardiogram September 2018 demonstrating grade 1 diastolic dysfunction, mild left ventricular hypertrophy, mild left ventricular enlargement, grade 1 diastolic dysfunction, global longitudinal strain at-8%, TAPSE 1.4 cm suggesting abnormal right ventricular systolic function although appears normal by visual estimation, moderate left atrial enlargement, mild right atrial enlargement, mild (underestimated) mitral valve regurgitation, tricuspid valve do not coaptation due to dilated annulus, mild pulmonic regurgitation, elevated right atrial pressure at 15 mmHg, trivial pericardi
[2019-07-03] VITALS (16 sets, daily range): BP systolic 144–223; BP diastolic 63–93; PULSE 72–87; RESP 14–20; TEMP 37.1–37.4; O2SAT 90–100
[2019-07-03 00:03] LABS: Glucose Point of Care 119 (65-105)
[2019-07-03 00:08] LABS: Alveolar/Arterial O2 Gradient 55.9 mmHg; Base Excess ABG -1.1 mEq/l (+/-2.0); Carboxyhemoglobin 1.1 % THb (0-2.0); Fractional Inspired Oxygen 21 %; HCO3 ABG 22.1 mEq/l (22.0-26.0); Methemoglobin ABG 0.3 %THb (0-1.5); Oxygen Saturation ABG 90.8 % (95.0-100.0); Oxyhemoglobin 87.4 % THb (90.0-100.0); PCO2 ABG 31.9 mmHg (35.0-45.0); PO2 ABG 55.6 mmHg (80.0-100.0); PO2 FiO2 Ratio Arterial Blood 2.65 %; Reduced Hemoglobin 11.2 %THb (0-5.0); Total Hemoglobin 11.4 g/dL (12.0-18.0); pH ABG 7.458 (7.350-7.450)
[2019-07-03 00:09] LABS: Device ROOM AIR; Modified Allen's Test Pass; Site Drawn RIGHT RADIAL
[2019-07-03 00:21] LABS: Basophils Absolute Auto 0.1 K/mm3 (0.0-0.1); Basophils Percent Auto 0.5 % (0.2-1.2); Eosinophils Percent Auto 0.1 % (0-4.4); Hematocrit 33.6 % (37.0-47.0); Hemoglobin 10.8 g/dL (12.0-15.0); Immature Granulocyte Absolute 0.06 K/mm3 (0.00-0.031); Immature Granulocyte Percent A 0.6 % (0-0.5); Lymphocytes Absolute Auto 0.85 K/mm3 (0.9-3.2); Lymphocytes Percent Auto 9.1 % (18.3-44.2); Mean Corpuscular HGB Conc 32.1 g/dl (32-36); Mean Corpuscular Hemoglobin 29.8 pg (26-34); Mean Corpuscular Volume 92.6 fl (80-100); Mean Platelet Volume 10.5 fl (7.4-10.4); Monocytes Absolute Auto 0.6 K/mm3 (0.1-0.6); Monocytes Percent Auto 5.9 % (2.6-8.5); Neutrophils Absolute Auto 7.8 K/mm3 (1.3-6.7); Neutrophils Percent Auto 83.8 % (45.5-73.1); Platelet Count Result 166 k/mm3 (150-375); Red Blood Count 3.63 M/mm3 (4.2-5.4); Red Cell Distribution Width 15.6 % (11.5-14.5); White Blood Count 9.4 K/mm3 (4.5-10.0)
[2019-07-03 00:27] LABS: Lactic Acid Reflex 2.3 mmol/L (0.7-2.1)
[2019-07-03 00:27] LABS: Ammonia < 9 umol/L (9-30)
[2019-07-03 00:38] LABS: Blood Urea Nitrogen 18 mg/dL (7-17); Calcium 8.9 mg/dL (8.4-10.2); Carbon Dioxide 25 mmol/L (22-30); Chloride 95 mmol/L (98-107); Estimated CRCL calculation 16 ml/min; Estimated Glomerular Filt Rate 21; Glucose 135 mg/dL (65-105); Magnesium 1.9 mg/dL (1.6-2.3); Phosphorus 2.6 mg/dL (2.5-4.5); Potassium 4.2 mmol/L (3.4-5.0); Sodium 135 mmol/L (137-145)
[2019-07-03] MEDS: LORAZEPAM INJ 2 MG/ML VIAL 1 MG IV PUSH (01:19)
[2019-07-03 01:44] LABS: Glucose Point of Care 130 (65-105)
--- NOTE | 2019-07-03 02:21 | PM.CCN ---
Critical Care Event Note Summary Code activated: No Narrative: 07/03/2019 at 1:27 a.m. a rapid response was called. The patient had been taken down to CT scan for a stat CT of the head abdomen and pelvis. The patient had been restless and agitated ever since admission and would not stay still for CT scan. Subsequently I had ordered 1 mg of Ativan IV push. The patient had successfully underwent a CT of the brain and CT of the abdomen pelvis. After she was transferred back to the bed nurse who is at bedside notices the patient seemed apneic and that her face appear to be cyanotic. Nasal cannula oxygen was applied at 3 L nasal cannula. The nurse provided noxious stimuli and the patient awoke and was actually more oriented that she had been her entire hospital stay thus far. She is oriented x2. The patient was slightly diaphoretic. The patient was not connected to a pulse ox immediately but when the rapid response was called and quit med arrived at bedside the patient's pulse ox was 97%. I arrived at bedside approximately 01:30 the patient was less diaphoretic. She was not having any respiratory distress. The patient's initial blood pressure was rating 220 over 100s. Had been running anywhere between 140 to 180s systolic since admission. The patient's blood pressure was repeated when she a arrived back to the medical floor and was found to be 155/92 on her thigh. The patient continued to moved throughout the vitals taking process which complicated accuracy of the vital signs. The patient's oxygen saturations remained 97-100% on nasal cannula. The patient remains restless but was more alert and oriented than previous. Radiology called me with CT results and patient CT of the head was negative for acute process. CT of the abdomen was hampered significantly by motion artifact but no obvious free air or noted catastrophic process. Moderate amount of stool throughout the colon. Gallstones without evidence of cholecystitis. GENERAL: Chronically ill-appearing, thin body habitus HEENT: Head is normocephalic atraumatic, mucous membranes are tacky CARDIOVASCULAR: Regular rate, well perfused RESPIRATORY: No tachypnea or increased work of breathing ABDOMEN: Nondistended, generalized tenderness INTEGUMENT: Generalized pallor, slightly jaundiced NEUROLOGIC: Alert oriented x2, speech is clear but at points nonsensical, moving all extremities equally no localizing motor deficits noted PSYCHIATRIC: Anxious, restless, bizarre affect EXTREMITIES: No clubbing or cyanosis : Patient has leakage of stool Assessment/Plan: Acute confusion/altered mental status: No acute intracranial process to explain the patient's symptoms. Could be due to possible UTI.Or the patient's underlying metabolic derangements. However, her electrolyte abnormalities have improved significantly since dialysis. Will continue empiric Rocephin Fecal impaction: CT did no longer demonstrates fecal impaction. Evidently the patient has managed to manually disimpact herself. She is still bagging nursing staff to help her poop despite having received 2 Colace enemas. The patient's abdominal pain seems to be out of proportion to radiologic findings. Will continue to monitor. 35 minutes spent in critical care activities. This case had a high probability of a clinically significant, sudden, or life threatening deterioration of this patient's condition which required my full and direct attention, intervention and personal management. Critical care time: 30 - 74 mins
[2019-07-03 03:14] LABS: Reflex Lactic Acid Yes or No Add Lactic
[2019-07-03 04:00] LABS: Lactic Acid 0.9 mmol/L (0.7-2.1)
[2019-07-03 04:33] LABS: Hemoglobin A1C 8.6 % (<5.7)
[2019-07-03 07:59] LABS: Glucose Point of Care 154 (65-105)
--- NOTE | 2019-07-03 08:48 | PM.CNNEP ---
Assessment and Plan Assessment and plan (1) End stage renal disease: Code(s): N18.6 - End stage renal disease Status: Chronic (2) Acute hyperkalemia: Code(s): E87.5 - Hyperkalemia Status: Acute (3) Abdominal pain: Code(s): R10.9 - Unspecified abdominal pain Status: Acute (4) Altered mental status: Code(s): R41.82 - Altered mental status, unspecified Status: Acute (5) Acute UTI: Code(s): N39.0 - Urinary tract infection, site not specified Status: Acute (6) Hypertension: Qualifiers: Hypertension type: unspecified Qualified Code(s): I10 - Essential (primary) hypertension Code(s): I10 - Essential (primary) hypertension Status: Chronic (7) Diabetes: Qualifiers: Diabetes mellitus type: type 2 Diabetes mellitus mcc insulin use: with intermission coordinator use Diabetes mellitus complication status: with kidney complications Diabetes mellitus complication detail: with chronic kidney disease Chronic kidney disease stage: stage 4 (severe) Qualified Code(s): E11.22 - Type 2 diabetes mellitus with diabetic chronic kidney disease; N18.4 - Chronic kidney disease, stage 4 (severe); Z79.4 - shelter (current) use of insulin Code(s): E11.9 - Type 2 diabetes mellitus without complications Status: Chronic Assessment and Plan: . Additional Plan Ania has end-stage renal disease. She received dialysis yesterday afternoon/evening in effort to correct her hyperkalemia as well as to provide clearance on the assumption that uremia may be playing a role with her nausea vomiting and perhaps even her altered mental status. I wonder if perhaps the a for mentioned procedure that she had [facility] is partly responsible for her presenting symptoms with regard to her nausea, vomiting, and altered mental status. Perhaps she receive some conscious sedation for this procedure that she did not tolerate very well and resulted in the aforementioned symptoms that led to her presentation to the ER. Theoretically, dialysis yesterday should have cleared these medications if they were still in her system. I am unclear as to the etiology of her constipation and associated abdominal pain. I suppose this could be also a drug reaction but is difficult to say for sure. Her CT scan of her abdomen pelvis did not show any type of intra-abdominal pathology and the patient manually disimpacted herself which seems to have helped to some degree. We may have to consider more aggressive use of laxatives if this continues to be an ongoing problem. Her repeat labs this morning show improvement in her potassium level and I suspect that her hyperkalemia is solely due to her end-stage renal disease and the fact that she was due for dialysis yesterday any way rather than some other acute process. Her mental status seems to be doing somewhat better at this time although once again, I am not entirely clear if there is a specific etiology but rather a multifactorial 1 with regard to the recent procedure and medications/sedation involved, possible urinary tract infection, and missing her scheduled dialysis prior to her presentation to the hospital. I will continue follow the patient with you while she remains hospitalized and make further recommendations based on her hospital course. Thank you for allowing me to participate in the care this patient. History of Present Illness Reason for Consult Consult date: 07/03/19 Reason for consult: end stage renal disease and hyperkalemia Chief Complaint Chief complaint: Nausea and vomiting. History of Present Illness Narrative: The patient is a unfortunate 63-year-old female with a past medical history as outlined above who presented to [facility] ER with complaints of nausea, vomiting, and confusion. The patient recently had stent placement in her upper left arm (same arm as her developing AV fistula) yesterday a
[2019-07-03] MEDS: hydrALAZINE HCL 50 MG TABLET 100 MG PO ×3 (09:20→16:59)
[2019-07-03] MEDS: FERROUS SULFATE 324 MG TABLET PO ×2 (09:20→16:59)
[2019-07-03] MEDS: FUROSEMIDE 40 MG TABLET PO (09:21)
[2019-07-03] MEDS: LABETALOL HCL 100 MG TABLET 300 MG PO ×3 (09:21→16:59)
[2019-07-03] MEDS: CALCIUM ACETATE 667 MG TABLET PO ×3 (09:21→16:59)
[2019-07-03] MEDS: CLONIDINE HCL 0.2 MG TABLET PO ×3 (09:21→16:59)
[2019-07-03] MEDS: BUMETANIDE 1 MG TABLET 2 MG PO ×2 (09:21→16:59)
[2019-07-03] MEDS: ONDANSETRON INJ 4 MG/2 ML VIAL IV PUSH (10:25)
[2019-07-03] MEDS: INSULIN GLARGINE (*BKC) 100 UNITS/ML 10 UNITS SUB-Q (10:26)
[2019-07-03 11:56] LABS: Glucose Point of Care 155 (65-105)
--- NOTE | 2019-07-03 12:51 | PM.IMPN ---
Progress Note: A&P Assessment and Plan (1) Acute UTI: Code(s): N39.0 - Urinary tract infection, site not specified Status: Acute Assessment and Plan: Ceftriaxone day 2. (2) Acute confusion: Code(s): R41.0 - Disorientation, unspecified Status: Acute Assessment and Plan: Probable metabolic encephalopathy perhaps related to infection (3) Abdominal pain: Qualifiers: Abdominal location: lower abdomen, unspecified Qualified Code(s): R10.30 - Lower abdominal pain, unspecified Code(s): R10.9 - Unspecified abdominal pain Status: Acute Assessment and Plan: Seems to be improving with defecation UTI may be contributing Consider CTA of abdomen if not resolving with bowel purge and antibiotics (4) Acute hyperkalemia: Code(s): E87.5 - Hyperkalemia Status: Acute Assessment and Plan: Resolved with dialysis (5) End-stage renal disease on hemodialysis: Code(s): N18.6 - End stage renal disease; Z99.2 - Dependence on renal dialysis Status: Acute Assessment and Plan: Managed by Nephrology (6) Insulin dependent type 2 diabetes mellitus: Code(s): E11.9 - Type 2 diabetes mellitus without complications; Z79.4 - [facility] (current) use of insulin Status: Acute Assessment and Plan: Basal and sliding scale insulin (7) Constipation: Qualifiers: Constipation type: unspecified constipation type Qualified Code(s): K59.00 - Constipation, unspecified Code(s): K59.00 - Constipation, unspecified Status: Acute Assessment and Plan: Continue bowel regimen Subjective Date/time seen: 07/03/19 12:51 Interval history: Admitted 07/01 with abdominal pain and constipation 07/02. Bowels moving. Abdomen feeling better. No further nausea or vomiting. Tolerated some oral intake. Review of Systems Review of Systems: All systems reviewed & are unremarkable except as noted in HPI and below Exam Narrative: Exam Narrative: HEENT: EOMI, PERRL, sclerae nonicteric, pharyngeal mucosa pink and intact NECK: No JVD CHEST: Clear to auscultation. Normal effort. HEART: NL S1/S2, regular, no murmur ABDOMEN: BS+, soft, mild tenderness across the lower abdomen mainly the hypogastric him with no guarding or rebound or mass. EXTREMITIES: No cyanosis, edema, or clubbing NEUROLOGIC: CN intact and symmetric to inspection. MUSCULOSKELETAL: Tone and strength symmetric. PSYCH: Alert. Oriented to person only. Objective Data Vital Signs Vital Signs: Vital Signs - 24 hr 07/02/19 13:13 07/02/19 13:32 07/02/19 15:00 Temperature 97.5 F L Pulse Rate 69 70 93 Respiratory Rate 23 H 15 Blood Pressure 191/80 H 209/89 H Pulse Oximetry 96 100 07/02/19 16:00 07/02/19 16:07 07/02/19 16:45 Temperature 98.2 F 98.2 F Pulse Rate 85 84 75 Respiratory Rate 17 16 Blood Pressure 191/70 H 178/84 H Pulse Oximetry 95 07/02/19 17:00 07/02/19 17:15 07/02/19 17:30 Temperature Pulse Rate 75 78 81 Respiratory Rate Blood Pressure 178/84 H 162/55 H 169/74 H Pulse Oximetry 07/02/19 17:45 07/02/19 18:00 07/02/19 18:15 Temperature Pulse Rate 81 81 81 Respiratory Rate Blood Pressure 173/52 H 174/79 H 202/77 H Pulse Oximetry 07/02/19 18:30 07/02/19 18:42 07/02/19 18:45 Temperature Pulse Rate 82 83 88 Respiratory Rate Blood Pressure 136/47 L 107/57 L 186/82 H Pulse Oximetry 07/02/19 18:50 07/02/19 19:00 07/02/19 19:05 Temperature Pulse Rate 86 88 75 Respiratory Rate Blood Pressure 164/
[2019-07-03 16:46] LABS: Glucose Point of Care 140 (65-105)
[2019-07-03] MEDS: SENNOSIDES 8.6 MG TABLET PO (16:59)
[2019-07-03 19:01] LABS: Amphetamine Screen Urine Negative (Negative); Barbiturate Screen Urine Negative (Negative); Benzodiazepines Screen Urine Positive (Negative); Cannabinoid Screen Urine Negative (Negative); Cocaine Screen Urine Negative (Negative); Methadone Screen Urine Negative (Negative); Opiate Screen Urine Positive (Negative); Phencyclidine Screen Urine Negative (Negative)
[2019-07-04] VITALS (12 sets, daily range): BP systolic 150–188; BP diastolic 60–74; PULSE 56–69; RESP 14–18; TEMP 36.2–36.7; O2SAT 90–98
[2019-07-04 00:07] LABS: Glucose Point of Care 118 (65-105)
[2019-07-04 08:36] LABS: Glucose Point of Care 97 (65-105)
[2019-07-04] MEDS: hydrALAZINE HCL 50 MG TABLET 100 MG PO ×3 (08:50→16:54)
[2019-07-04] MEDS: CLONIDINE HCL 0.2 MG TABLET PO ×3 (08:50→16:55)
[2019-07-04] MEDS: BUMETANIDE 1 MG TABLET 2 MG PO ×2 (08:50→16:54)
[2019-07-04] MEDS: FUROSEMIDE 40 MG TABLET PO (08:50)
[2019-07-04] MEDS: FERROUS SULFATE 324 MG TABLET PO ×2 (08:50→16:54)
[2019-07-04] MEDS: SENNOSIDES 8.6 MG TABLET PO ×2 (08:51→16:54)
[2019-07-04] MEDS: LABETALOL HCL 100 MG TABLET 300 MG PO ×3 (08:51→16:54)
[2019-07-04] MEDS: CALCIUM ACETATE 667 MG TABLET PO ×3 (08:56→16:54)
[2019-07-04] MEDS: INSULIN GLARGINE (*BKC) 100 UNITS/ML 10 UNITS SUB-Q (09:11)
--- NOTE | 2019-07-04 11:08 | PM.IMPN ---
Progress Note: A&P Assessment and Plan (1) Bacteremia: Code(s): R78.81 - Bacteremia Status: Acute Assessment and Plan: E coli due to UTI Complete 14 days IV + PO antibiotics (day 4) (2) Acute UTI: Code(s): N39.0 - Urinary tract infection, site not specified Status: Acute Assessment and Plan: E coli Low grade temp overnight Ceftriaxone day 3. (3) Acute confusion: Code(s): R41.0 - Disorientation, unspecified Status: Acute Assessment and Plan: Probable metabolic encephalopathy perhaps related to infection Resolved (4) Abdominal pain: Qualifiers: Abdominal location: lower abdomen, unspecified Qualified Code(s): R10.30 - Lower abdominal pain, unspecified Code(s): R10.9 - Unspecified abdominal pain Status: Acute Assessment and Plan: Improved after defecation UTI may have contributed (5) Acute hyperkalemia: Code(s): E87.5 - Hyperkalemia Status: Acute Assessment and Plan: Resolved with dialysis (6) End-stage renal disease on hemodialysis: Code(s): N18.6 - End stage renal disease; Z99.2 - Dependence on renal dialysis Status: Acute Assessment and Plan: Managed by Nephrology (7) Insulin dependent type 2 diabetes mellitus: Code(s): E11.9 - Type 2 diabetes mellitus without complications; 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 Bowels moved. Denied pain. No further nausea or vomiting. Tolerated diet. Wants to go home. No SOB or swelling. No bleeding. Review of Systems Review of Systems: All systems reviewed & are unremarkable except as noted in HPI and below Exam Narrative: Exam Narrative: HEENT: EOMI, PERRL, sclerae nonicteric, pharyngeal mucosa pink and intact NECK: No JVD CHEST: Clear to auscultation. Normal effort. HEART: NL S1/S2, regular, 2/6 NANY ABDOMEN: BS+, soft, mild tenderness across the lower abdomen mainly the hypogastric him with no guarding or rebound or mass. EXTREMITIES: No cyanosis, edema, or clubbing NEUROLOGIC: CN intact and symmetric to inspection. MUSCULOSKELETAL: Tone and strength symmetric. PSYCH: Alert. Oriented to person, place, and time (year and month). Objective Data Vital Signs Vital Signs: Vital Signs - 24 hr 07/03/19 12:00 07/03/19 12:37 07/03/19 14:00 Temperature 99.3 F Pulse Rate 73 78 72 Respiratory Rate 17 Blood Pressure 182/63 H Pulse Oximetry 100 07/03/19 16:00 07/03/19 16:59 07/03/19 20:00 Temperature Pulse Rate 74 72 73 Respiratory Rate Blood Pressure Pulse Oximetry 07/03/19 21:29 07/04/19 00:00 07/04/19 04:00 Temperature 98.7 F Pulse Rate 72 69 68 Respiratory Rate 18 Blood Pressure 151/63 H Pulse Oximetry 97 07/04/19 06:00 07/04/19 08:51 Temperature 98.0 F Pulse Rate 66 66 Respiratory Rate 14 Blood Pressure 188/74 H Pulse Oximetry 96 Intake/Output Intake/Output: Intake & Output 07/01/19 07/02/19 07/03/19 07/04/19 23:59 23:59 23:59 23:59 Intake Total 1050 350 Output Total 25 50 300 Balance 1025 300 -300
--- NOTE | 2019-07-04 11:21 | P.PNNP_ITS ---
Progress Note: A&P Assessment and Plan (1) End stage renal disease: Code(s): N18.6 - End stage renal disease Status: Chronic Assessment and Plan: * HD tomorrow and continue M/W/ dialysis schedule * follow trend of electrolytes, volume status, and clearance (2) Acute hyperkalemia: Code(s): E87.5 - Hyperkalemia Status: Acute Assessment and Plan: * resolved with dialysis * follow trend of potassium level (3) Altered mental status: Code(s): R41.82 - Altered mental status, unspecified Status: Acute Assessment and Plan: * appears to be improving albeit slowly * related to infection (#4) versus pain issues versus lack of dialysis? * follow neurological status (4) Acute UTI: Code(s): N39.0 - Urinary tract infection, site not specified Status: Acute Assessment and Plan: * culture with E. coli * on antibioitics (5) Abdominal pain: Qualifiers: Abdominal location: lower abdomen, unspecified Qualified Code(s): R10.30 - Lower abdominal pain, unspecified Code(s): R10.9 - Unspecified abdominal pain Status: Acute Assessment and Plan: * presumably related to constipation * #4 may be playing a role as well * imaging with no acute abdominal pathology (6) Hypertension: Qualifiers: Hypertension type: unspecified Qualified Code(s): I10 - Essential (primary) hypertension Code(s): I10 - Essential (primary) hypertension Status: Chronic Assessment and Plan: * fluctuates to extremes at baseline * reasonable control at this time * follow trend of hemodynamics (7) Diabetes: Qualifiers: Chronic kidney disease stage: stage 4 (severe) Diabetes mellitus complication detail: with chronic kidney disease Diabetes mellitus complication status: with kidney complications 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 Diabetes mellitus type: type 2 Qualified Code(s): E11.22 - Type 2 diabetes mellitus with diabetic chronic kidney disease; N18.4 - Chronic kidney disease, stage 4 (severe); Z79.4 - [facility] (current) use of insulin Code(s): E11.9 - Type 2 diabetes mellitus without complications Status: Chronic Assessment and Plan: * follow accuchecks * on SSI and Lantus Will continue to follow Subjective Date/time seen: 07/04/19 11:21 Slow improvement in mentation/mental status noted; abdominal pain seems better following disimpaction and having bowel movements; no apparent distress noted at this time. Exam Narrative: Exam Narrative: General: WD/WN female in NAD Heart: normal S1 and S2; no rub Lungs: clear to auscultation Abdomen: soft, nontender, nondistended, positive bowel sounds Extremities: no cyanosis or clubbing; trace - 1+ edema Skin: warm and dry Objective Data Vital Signs Vital Signs: Vital Signs Temp Pulse Resp BP Pulse Ox 07/04/19 08:51 66 07/04/19 06:00 36.7 C 66 14 188/74 H 96 07/04/19 04:00 68 07/04/19 00:00 69 07/03/19 21:29 37.1 C 72 18 151/63 H 97 07/03/19 20:00 73 07/03/19 16:59 72 07/03/19 16:00 74 07/03/19 14:00 37.4 C 72 17 182/63 H 100 07/03/19 12:37 78 07/03/19 12:00 73 Intake/Output Intake/Output: Intake & Output 07/01/19 0
--- NOTE | 2019-07-04 11:21 | PM.PNNEP ---
Progress Note: A&P Assessment and Plan (1) End stage renal disease: Code(s): N18.6 - End stage renal disease Status: Chronic Assessment and Plan: HD tomorrow and continue M/W/ dialysis schedule follow trend of electrolytes, volume status, and clearance (2) Acute hyperkalemia: Code(s): E87.5 - Hyperkalemia Status: Acute Assessment and Plan: resolved with dialysis follow trend of potassium level (3) Altered mental status: Code(s): R41.82 - Altered mental status, unspecified Status: Acute Assessment and Plan: appears to be improving albeit slowly related to infection (#4) versus pain issues versus lack of dialysis? follow neurological status (4) Acute UTI: Code(s): N39.0 - Urinary tract infection, site not specified Status: Acute Assessment and Plan: culture with E. coli on antibioitics (5) Abdominal pain: Qualifiers: Abdominal location: lower abdomen, unspecified Qualified Code(s): R10.30 - Lower abdominal pain, unspecified Code(s): R10.9 - Unspecified abdominal pain Status: Acute Assessment and Plan: presumably related to constipation #4 may be playing a role as well imaging with no acute abdominal pathology (6) Hypertension: Qualifiers: Hypertension type: unspecified Qualified Code(s): I10 - Essential (primary) hypertension Code(s): I10 - Essential (primary) hypertension Status: Chronic Assessment and Plan: fluctuates to extremes at baseline reasonable control at this time follow trend of hemodynamics (7) Diabetes: Qualifiers: Chronic kidney disease stage: stage 4 (severe) Diabetes mellitus complication detail: with chronic kidney disease Diabetes mellitus complication status: with kidney complications Diabetes mellitus fdc insulin use: with fdc use Diabetes mellitus type: type 2 Qualified Code(s): E11.22 - Type 2 diabetes mellitus with diabetic chronic kidney disease; N18.4 - Chronic kidney disease, stage 4 (severe); Z79.4 - intermediate (current) use of insulin Code(s): E11.9 - Type 2 diabetes mellitus without complications Status: Chronic Assessment and Plan: follow accuchecks on SSI and Lantus Will continue to follow Subjective Date/time seen: 07/04/19 11:21 Slow improvement in mentation/mental status noted; abdominal pain seems better following disimpaction and having bowel movements; no apparent distress noted at this time. Exam Narrative: Exam Narrative: General: WD/WN female in NAD Heart: normal S1 and S2; no rub Lungs: clear to auscultation Abdomen: soft, nontender, nondistended, positive bowel sounds Extremities: no cyanosis or clubbing; trace - 1+ edema Skin: warm and dry Objective Data Vital Signs Vital Signs: Vital Signs Temp Pulse Resp BP Pulse Ox 07/04/19 08:51 66 07/04/19 06:00 36.7 C 66 14 188/74 H 96 07/04/19 04:00 68 07/04/19 00:00 69 07/03/19 21:29 37.1 C 72 18 151/63 H 97 07/03/19 20:00 73 07/03/19 16:59 72 07/03/19 16:00 74 07/03/19 14:00 37.4 C 72 17 182/63 H 100 07/03/19 12:37 78 07/03/19 12:00 73 Intake/Output Intake/Output: Intake & Output 07/01/19 07/02/19 07/03/19 07/04/19 23:59 23:59 23:59 23:59 Intake Total 1050 350 Output Total 25 50 300 Balance 1025 300 -300 Meds/Results Medications: Active Medications Generic Name Dose Route Start Last Admin Trade Name Zacheryq PRN Reason Stop Dose Admin Bumetanide 2 mg 07/03/19 09:00 07/04/19 08:50 Bumex Po PO 2 mg BID MELVIN Administration Calcium Acetate 667 mg 07/03/19 08:00 07/04/19 08:56 Phoslo PO 667 mg TIDWM MELVIN Administration Clonidine HCl 0.2 mg 07/03/19 09:00 07/04/19 08:50 Catapres PO 0.2 mg TID MELVIN Administration Dextrose 12.5 gm 07/02/19 23:38 Dextrose 50% Syringe IV
[2019-07-04 11:49] LABS: Glucose Point of Care 116 (65-105)
--- NOTE | 2019-07-04 16:20 | PC.NURSE ---
Spoke with therapy department to leave message for pt to be reevaluated by therapy 07/04.
[2019-07-04 16:48] LABS: Glucose Point of Care 126 (65-105)
[2019-07-05] VITALS (32 sets, daily range): BP systolic 157–234; BP diastolic 60–95; PULSE 57–83; RESP 16–20; TEMP 36.6–37.1; O2SAT 94–96; BMI 21.7
[2019-07-05 00:45] LABS: Glucose Point of Care 189 (65-105)
[2019-07-05] MEDS: hydrALAZINE HCL 50 MG TABLET 100 MG PO ×3 (05:05→17:12)
[2019-07-05 06:14] LABS: Albumin Level 3.7 g/dL (3.5-5.1); Blood Urea Nitrogen 51 mg/dL (7-17); Calcium 8.3 mg/dL (8.4-10.2); Carbon Dioxide 25 mmol/L (22-30); Chloride 97 mmol/L (98-107); Estimated CRCL calculation 7 ml/min; Estimated Glomerular Filt Rate 8; Glucose 144 mg/dL (65-105); Phosphorus 4.4 mg/dL (2.5-4.5); Potassium 4.2 mmol/L (3.4-5.0); Sodium 135 mmol/L (137-145)
[2019-07-05 08:16] LABS: Glucose Point of Care 139 (65-105)
--- NOTE | 2019-07-05 09:12 | PCPTNOTE ---
Attempted to see pt this a.m. for PT joana - she was in dialysis. Will try again later today. Danica Adams, PT, DPT
--- NOTE | 2019-07-05 09:52 | PCOTNOTE ---
OT evaluation attempted. Patient in dialysis. Will attempt at later time.
--- NOTE | 2019-07-05 10:18 | PM.IMPN ---
Progress Note: A&P Assessment and Plan (1) Bacteremia: Code(s): R78.81 - Bacteremia Status: Acute Assessment and Plan: E coli due to UTI Complete 14 days IV + PO antibiotics (day 5) (2) Acute UTI: Code(s): N39.0 - Urinary tract infection, site not specified Status: Acute Assessment and Plan: E coli Low grade temp overnight Ceftriaxone day 5 (3) Acute confusion: Code(s): R41.0 - Disorientation, unspecified Status: Acute Assessment and Plan: Probable metabolic encephalopathy perhaps related to infection Mental status waxing and waning a bit, so will reassess after dialysis. (4) Abdominal pain: Qualifiers: Abdominal location: lower abdomen, unspecified Qualified Code(s): R10.30 - Lower abdominal pain, unspecified Code(s): R10.9 - Unspecified abdominal pain Status: Acute Assessment and Plan: Resolved after defecation UTI may have contributed (5) Acute hyperkalemia: Code(s): E87.5 - Hyperkalemia Status: Acute Assessment and Plan: Resolved with dialysis (6) End-stage renal disease on hemodialysis: Code(s): N18.6 - End stage renal disease; Z99.2 - Dependence on renal dialysis Status: Acute Assessment and Plan: Managed by Nephrology (7) Insulin dependent type 2 diabetes mellitus: Code(s): E11.9 - Type 2 diabetes mellitus without complications; 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 Bowels moved. Denied pain. No further nausea or vomiting. Tolerated diet. Restless during dialysis. No SOB or swelling. No bleeding. Review of Systems Review of Systems: All systems reviewed & are unremarkable except as noted in HPI and below Exam Narrative: Exam Narrative: HEENT: EOMI, PERRL, sclerae nonicteric, pharyngeal mucosa pink and intact NECK: No JVD CHEST: Clear to auscultation. Normal effort. HEART: NL S1/S2, regular, 2/6 NANY ABDOMEN: BS+, soft, mild tenderness across the lower abdomen mainly the hypogastric him with no guarding or rebound or mass. EXTREMITIES: No cyanosis, edema, or clubbing NEUROLOGIC: CN intact and symmetric to inspection. MUSCULOSKELETAL: Tone and strength symmetric. PSYCH: Alert. Oriented to person, place, but thought year was 2026 . Objective Data Vital Signs Vital Signs: Vital Signs - 24 hr 07/04/19 12:00 07/04/19 13:00 07/04/19 14:00 Temperature 97.6 F Pulse Rate 59 L 66 57 L Respiratory Rate 16 Blood Pressure 150/60 H Pulse Oximetry 98 07/04/19 16:00 07/04/19 16:54 07/04/19 20:00 Temperature Pulse Rate 58 L 58 L 67 Respiratory Rate Blood Pressure Pulse Oximetry 07/04/19 22:00 07/05/19 00:00 07/05/19 04:00 Temperature 97.2 F L Pulse Rate 56 L 59 L 58 L Respiratory Rate 18 Blood Pressure 178/61 H Pulse Oximetry 90 07/05/19 05:00 07/05/19 06:00 07/05/19 08:21 Temperature 97.8 F Pulse Rate 58 L Respiratory Rate 20 Blood Pressure 214/80 H 183/72 H 187/64 H Pulse Oximetry 94 07/05/19 09:09 07/05/19 09:15 07/05/19 09:30 Tem
[2019-07-05] MEDS: LABETALOL HCL 100 MG TABLET 300 MG PO ×2 (10:56→17:10)
[2019-07-05] MEDS: FERROUS SULFATE 324 MG TABLET PO ×2 (13:04→17:09)
[2019-07-05] MEDS: SENNOSIDES 8.6 MG TABLET PO ×2 (13:04→17:12)
[2019-07-05] MEDS: FUROSEMIDE 40 MG TABLET PO (13:04)
[2019-07-05] MEDS: CLONIDINE HCL 0.2 MG TABLET PO ×2 (13:05→17:09)
[2019-07-05] MEDS: CALCIUM ACETATE 667 MG TABLET PO ×2 (13:05→17:09)
[2019-07-05] MEDS: BUMETANIDE 1 MG TABLET 2 MG PO ×2 (13:05→17:10)
[2019-07-05] MEDS: INSULIN GLARGINE (*BKC) 100 UNITS/ML 10 UNITS SUB-Q (13:08)
[2019-07-05] MEDS: HEPARIN SODIUM 1,000 UNITS/ML VIAL 1000 UNITS IV PUSH (13:15)
[2019-07-05 13:18] LABS: Glucose Point of Care 102 (65-105)
--- NOTE | 2019-07-05 15:59 | P.PNNP_ITS ---
Progress Note: A&P Assessment and Plan (1) End stage renal disease: Code(s): N18.6 - End stage renal disease Status: Chronic Assessment and Plan: * HD today and continue M/W/ dialysis schedule * follow trend of electrolytes, volume status, and clearance (2) Acute hyperkalemia: Code(s): E87.5 - Hyperkalemia Status: Acute Assessment and Plan: * resolved with dialysis * follow trend of potassium level (3) Altered mental status: Code(s): R41.82 - Altered mental status, unspecified Status: Acute Assessment and Plan: * appears to be back to baseline * related to infection (#4) versus pain issues versus lack of dialysis? * follow neurological status * CT of head today given difficulty finding words (4) Acute UTI: Code(s): N39.0 - Urinary tract infection, site not specified Status: Acute Assessment and Plan: * culture with E. coli * on antibioitics (5) Abdominal pain: Qualifiers: Abdominal location: lower abdomen, unspecified Qualified Code(s): R10.30 - Lower abdominal pain, unspecified Code(s): R10.9 - Unspecified abdominal pain Status: Acute Assessment and Plan: * presumably related to constipation * #4 may be playing a role as well * imaging with no acute abdominal pathology (6) Hypertension: Qualifiers: Hypertension type: unspecified Qualified Code(s): I10 - Essential (primary) hypertension Code(s): I10 - Essential (primary) hypertension Status: Chronic Assessment and Plan: * fluctuates to extremes at baseline * reasonable control at this time * follow trend of hemodynamics (7) Diabetes: Qualifiers: Chronic kidney disease stage: stage 4 (severe) Diabetes mellitus complication detail: with chronic kidney disease Diabetes mellitus complication status: with kidney complications Diabetes mellitus senior living insulin use: with senior living use Diabetes mellitus type: type 2 Qualified Code(s): E11.22 - Type 2 diabetes mellitus with diabetic chronic kidney disease; N18.4 - Chronic kidney disease, stage 4 (severe); 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 Decker. Will continue to follow Subjective Date/time seen: 07/05/19 15:59 Tolerated dialysis earlier this AM but apparently had some fluctuating mental status/orientation issues; however, this afternoon, she is back to baseline (A&O x 4) although still noted to have difficulty finding words; no apparent distress voiced at this time. Exam Narrative: Exam Narrative: General: WD/WN female in NAD Heart: normal S1 and S2; no rub Lungs: clear to auscultation Abdomen: soft, nontender, nondistended, positive bowel sounds Extremities: no cyanosis or clubbing; trace - 1+ edema Skin: warm and intact Objective Data Vital Signs Vital Signs: Vital Signs Temp Pulse Resp BP Pulse Ox 07/05/19 15:46 59 L 211/62 H 07/05/19 15:45 62 207/72 H 07/05/19 15:43 61 207/67 H 07/05/19 14:00 37.1 C 59 L 16 206/80 H 95 07/05/19 12:36 36.6 C 60 20 173/69 H 07/05/19 12:26 61 187/74 H 07/05/19 12:15 63 157/60 H 07/05/19 12:00 61 172/71 H
--- NOTE | 2019-07-05 15:59 | PM.PNNEP ---
Progress Note: A&P Assessment and Plan (1) End stage renal disease: Code(s): N18.6 - End stage renal disease Status: Chronic Assessment and Plan: HD today and continue M/W/ dialysis schedule follow trend of electrolytes, volume status, and clearance (2) Acute hyperkalemia: Code(s): E87.5 - Hyperkalemia Status: Acute Assessment and Plan: resolved with dialysis follow trend of potassium level (3) Altered mental status: Code(s): R41.82 - Altered mental status, unspecified Status: Acute Assessment and Plan: appears to be back to baseline related to infection (#4) versus pain issues versus lack of dialysis? follow neurological status CT of head today given difficulty finding words (4) Acute UTI: Code(s): N39.0 - Urinary tract infection, site not specified Status: Acute Assessment and Plan: culture with E. coli on antibioitics (5) Abdominal pain: Qualifiers: Abdominal location: lower abdomen, unspecified Qualified Code(s): R10.30 - Lower abdominal pain, unspecified Code(s): R10.9 - Unspecified abdominal pain Status: Acute Assessment and Plan: presumably related to constipation #4 may be playing a role as well imaging with no acute abdominal pathology (6) Hypertension: Qualifiers: Hypertension type: unspecified Qualified Code(s): I10 - Essential (primary) hypertension Code(s): I10 - Essential (primary) hypertension Status: Chronic Assessment and Plan: fluctuates to extremes at baseline reasonable control at this time follow trend of hemodynamics (7) Diabetes: Qualifiers: Chronic kidney disease stage: stage 4 (severe) Diabetes mellitus complication detail: with chronic kidney disease Diabetes mellitus complication status: with kidney complications 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 Decker. Will continue to follow Subjective Date/time seen: 07/05/19 15:59 Tolerated dialysis earlier this AM but apparently had some fluctuating mental status/orientation issues; however, this afternoon, she is back to baseline (A&O x 4) although still noted to have difficulty finding words; no apparent distress voiced at this time. Exam Narrative: Exam Narrative: General: WD/WN female in NAD Heart: normal S1 and S2; no rub Lungs: clear to auscultation Abdomen: soft, nontender, nondistended, positive bowel sounds Extremities: no cyanosis or clubbing; trace - 1+ edema Skin: warm and intact Objective Data Vital Signs Vital Signs: Vital Signs Temp Pulse Resp BP Pulse Ox 07/05/19 15:46 59 L 211/62 H 07/05/19 15:45 62 207/72 H 07/05/19 15:43 61 207/67 H 07/05/19 14:00 37.1 C 59 L 16 206/80 H 95 07/05/19 12:36 36.6 C 60 20 173/69 H 07/05/19 12:26 61 187/74 H 07/05/19 12:15 63 157/60 H 07/05/19 12:00 61 172/71 H 07/05/19 11:45 62 183/75 H 07/05/19 11:30 62 181/74 H 07/05/19 11:15 63 212/87 H 07/05/19 11:00 62 234/95 H 07/05/19 10:56 60 07/05/19 10:45 62 226/92 H 07/05/19 10:30 83 219/88 H 07/05/19 10:15 61 213/87 H 07/05/19 10:00 61 200/80 H 07/05/19 09:45 60 184/83 H 07/05/19 09:30 59 L 191/75 H 07/05/19 09:15 58 L 196/83 H 07/05/19 09:09 58 L 185/76 H 07/05/19 09:00 36.6 C 57 L 20 185/82 H 07/05/19 08:21 187/64 H 07/05/19 06:00 183/72 H 07/05/19 05:00 36.6 C 58 L 20 214/80
[2019-07-05 17:24] LABS: Glucose Point of Care 143 (65-105)
[2019-07-05] MEDS: ONDANSETRON INJ 4 MG/2 ML VIAL IV PUSH (17:51)
[2019-07-05 20:54] LABS: Glucose Point of Care 135 (65-105)
[2019-07-06] VITALS (11 sets, daily range): BP systolic 124–153; BP diastolic 44–77; PULSE 57–63; RESP 16–22; TEMP 36.2–36.9; O2SAT 94–100
--- NOTE | 2019-07-06 | ECHO_ITS ---
Patient Info Name: Ania Field Age: 63 years : 1955 Gender: Female Ht: 60 in Wt: 106 lbs BSA: 1.43 m2 HR: 63 bpm BP: 153 / 77 mmHg Technical Quality: Excellent Exam Date: 07/06/2019 1:25 PM Exam Location: [facility] Patient Status: Inpatient Admit Date: 07/03/2019 Staff Ordering Physician: Boo Prieto MD [employer] Room: Karissa Call RDCS Attending Provider: Leonel De Jesus MD Referring Physician: Conner ALVAREZ; Exam Type: CA echo doppler color flow Study Info Indications - cva Complete two-dimensional, color flow and Doppler transthoracic echocardiogram is performed. Summary 1. Left ventricular chamber dimension is normal. 2. Left ventricular systolic function is normal, estimated at 60-65%. 3. There is moderately increased left ventricular wall thickness. 4. The left ventricular diastolic function is abnormal. 5. E/e' 25 is significantly elevated. 6. Global longitudinal strain is abnormal at -12.3%. 7. Left atrial chamber dimension is moderately enlarged. 8. Right atrial chamber dimension is mildly enlarged. 9. There is moderate aortic valve sclerosis. 10. The mitral valve has moderately calcified annulus. 11. There is moderate to severe tricuspid valve regurgitation. 12. Severe pulmonary hypertension, estimated pulmonary arterial systolic pressure is 62 mmHg. 13. There is trace pulmonic regurgitation. 14. Small atheroma in anterior and posterior aortic root. 15. Dilated inferior vena cava with >50% collapse upon inspiration consistent with elevated right atrial pressure, 10 mmHg. Left Ventricle E/e' 25 is significantly elevated. Global longitudinal strain is abnormal at -12.3%. Left ventricular chamber dimension is normal. Left ventricular systolic function is normal, estimated at 60-65%. There is moderately increased left ventricular wall thickness. The left ventricular diastolic function is abnormal. Right Ventricle Right ventricular chamber dimension is normal. Right ventricular systolic function is normal. Left Atria Left atrial chamber dimension is moderately enlarged. Right Atria Right atrial chamber dimension is mildly enlarged. Aortic Valve The aortic valve is trileaflet. There is moderate aortic valve sclerosis. There is no aortic valve stenosis. There is no aortic valve regurgitation. Pulmonic Valve There is trace pulmonic regurgitation. Mitral Valve The mitral valve has moderately calcified annulus. There is no mitral valve stenosis. There is no mitral valve regurgitation. Tricuspid Valve There is moderate to severe tricuspid valve regurgitation. Severe pulmonary hypertension, estimated pulmonary arterial systolic pressure is 62 mmHg. Pericardium/Pleural There is no pericardial effusion. Inferior Vena Cava Dilated inferior vena cava with >50% collapse upon inspiration consistent with elevated right atrial pressure, 10 mmHg. Aorta Small atheroma in anterior and posterior aortic root. The aortic root size at the sinus of Valsalva is normal. Left Ventricular Outflow Tract Name Value Normal LVOT 2D LVOT Diameter 1.9 cm LVOT Doppler
[2019-07-06 03:06] LABS: Glucose Point of Care 153 (65-105)
[2019-07-06 06:04] LABS: Cholesterol 149 mg/dL (0-200); HDL Direct 37 mg/dL; Triglycerides 131 mg/dL (<150)
[2019-07-06 06:15] LABS: LDL Cholesterol Direct 78 mg/dL
[2019-07-06 07:58] LABS: Glucose Point of Care 114 (65-105)
[2019-07-06] MEDS: LABETALOL HCL 100 MG TABLET 300 MG PO ×3 (09:02→16:50)
[2019-07-06] MEDS: SENNOSIDES 8.6 MG TABLET PO ×2 (09:02→16:51)
[2019-07-06] MEDS: GABAPENTIN 100 MG CAPSULE PO (09:02)
[2019-07-06] MEDS: ASPIRIN 81 MG ENTERIC TABLET PO (09:02)
[2019-07-06] MEDS: FUROSEMIDE 40 MG TABLET PO (09:03)
[2019-07-06] MEDS: CLONIDINE HCL 0.2 MG TABLET PO ×3 (09:03→16:50)
[2019-07-06] MEDS: CALCIUM ACETATE 667 MG TABLET PO ×3 (09:03→16:49)
[2019-07-06] MEDS: BUMETANIDE 1 MG TABLET 2 MG PO ×2 (09:03→16:50)
[2019-07-06] MEDS: hydrALAZINE HCL 50 MG TABLET 100 MG PO ×3 (09:03→16:50)
[2019-07-06] MEDS: FERROUS SULFATE 324 MG TABLET PO ×2 (09:03→16:50)
[2019-07-06] MEDS: INSULIN GLARGINE (*BKC) 100 UNITS/ML 10 UNITS SUB-Q (09:06)
[2019-07-06 11:36] LABS: Glucose Point of Care 212 (65-105)
[2019-07-06] MEDS: INSULIN ASPART (*BKC) 100 UNITS/ML SUB-Q (11:39)
--- NOTE | 2019-07-06 12:35 | P.PNNP_ITS ---
Progress Note: A&P Assessment and Plan (1) End stage renal disease: Code(s): N18.6 - End stage renal disease Status: Chronic Assessment and Plan: * HD tomorrow and continue M/W/ dialysis schedule * follow trend of electrolytes, volume status, and clearance (2) Acute hyperkalemia: Code(s): E87.5 - Hyperkalemia Status: Acute Assessment and Plan: * resolved with dialysis * follow trend of potassium level (3) Altered mental status: Code(s): R41.82 - Altered mental status, unspecified Status: Acute Assessment and Plan: * appears to be back to baseline * related to infection (#4) versus pain issues versus acute CVA? * follow neurological status * avoid overcontrol of BP (4) Acute UTI: Code(s): N39.0 - Urinary tract infection, site not specified Status: Acute Assessment and Plan: * culture with E. coli * on antibioitics (5) Abdominal pain: Qualifiers: Abdominal location: lower abdomen, unspecified Qualified Code(s): R10.30 - Lower abdominal pain, unspecified Code(s): R10.9 - Unspecified abdominal pain Status: Acute Assessment and Plan: * presumably related to constipation * #4 may be playing a role as well * imaging with no acute abdominal pathology (6) Hypertension: Qualifiers: Hypertension type: unspecified Qualified Code(s): I10 - Essential (primary) hypertension Code(s): I10 - Essential (primary) hypertension Status: Chronic Assessment and Plan: * fluctuates to extremes at baseline * reasonable control at this time * follow trend of hemodynamics (7) Diabetes: Qualifiers: Chronic kidney disease stage: stage 4 (severe) Diabetes mellitus complication detail: with chronic kidney disease Diabetes mellitus complication status: with kidney complications Diabetes mellitus skilled nursing insulin use: with skilled nursing use Diabetes mellitus type: type 2 Qualified Code(s): E11.22 - Type 2 diabetes mellitus with diabetic chronic kidney disease; N18.4 - Chronic kidney disease, stage 4 (severe); 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 Exam Narrative: Exam Narrative: General: WD/WN female in NAD Heart: normal S1 and S2; no rub Lungs: clear to auscultation Abdomen: soft, nontender, nondistended, positive bowel sounds Extremities: no cyanosis or clubbing; trace edema Skin: No rash Objective Data Vital Signs Vital Signs: Vital Signs Temp Pulse Resp BP Pulse Ox 07/06/19 09:02 63 07/06/19 08:00 62 07/06/19 06:00 36.9 C 63 21 H 153/77 H 100 07/06/19 04:00 63 07/06/19 00:00 62 07/05/19 22:00 36.9 C 62 18 184/67 H 96 07/05/19 17:10 64 07/05/19 16:00 60 07/05/19 15:46 59 L 211/62 H 07/05/19 15:45 62 207/72 H 07/05/19 15:43 61 207/67 H 07/05/19 14:00 37.1 C 59 L 16 206/80 H 95 Intake/Output Intake/O
--- NOTE | 2019-07-06 12:35 | PM.PNNEP ---
Progress Note: A&P Assessment and Plan (1) End stage renal disease: Code(s): N18.6 - End stage renal disease Status: Chronic Assessment and Plan: HD tomorrow and continue M/W/ dialysis schedule follow trend of electrolytes, volume status, and clearance (2) Acute hyperkalemia: Code(s): E87.5 - Hyperkalemia Status: Acute Assessment and Plan: resolved with dialysis follow trend of potassium level (3) Altered mental status: Code(s): R41.82 - Altered mental status, unspecified Status: Acute Assessment and Plan: appears to be back to baseline related to infection (#4) versus pain issues versus acute CVA? follow neurological status avoid overcontrol of BP (4) Acute UTI: Code(s): N39.0 - Urinary tract infection, site not specified Status: Acute Assessment and Plan: culture with E. coli on antibioitics (5) Abdominal pain: Qualifiers: Abdominal location: lower abdomen, unspecified Qualified Code(s): R10.30 - Lower abdominal pain, unspecified Code(s): R10.9 - Unspecified abdominal pain Status: Acute Assessment and Plan: presumably related to constipation #4 may be playing a role as well imaging with no acute abdominal pathology (6) Hypertension: Qualifiers: Hypertension type: unspecified Qualified Code(s): I10 - Essential (primary) hypertension Code(s): I10 - Essential (primary) hypertension Status: Chronic Assessment and Plan: fluctuates to extremes at baseline reasonable control at this time follow trend of hemodynamics (7) Diabetes: Qualifiers: Chronic kidney disease stage: stage 4 (severe) Diabetes mellitus complication detail: with chronic kidney disease Diabetes mellitus complication status: with kidney complications Diabetes mellitus long term acute care registered nurse insulin use: with skilled nursing use Diabetes mellitus type: type 2 Qualified Code(s): E11.22 - Type 2 diabetes mellitus with diabetic chronic kidney disease; N18.4 - Chronic kidney disease, stage 4 (severe); Z79.4 - residential (current) use of insulin Code(s): E11.9 - Type 2 diabetes mellitus without complications Status: Chronic Assessment and Plan: follow accuchecks on SSI and Lantus Will continue to follow Subjective Date/time seen: 07/06/19 12:35 CT scan of brain yesterday afternoon demonstrated evidence of left frontal infarction/CVA; no acute distress voiced at this time; appears ot be doing relatively well. Exam Narrative: Exam Narrative: General: WD/WN female in NAD Heart: normal S1 and S2; no rub Lungs: clear to auscultation Abdomen: soft, nontender, nondistended, positive bowel sounds Extremities: no cyanosis or clubbing; trace edema Skin: No rash Objective Data Vital Signs Vital Signs: Vital Signs Temp Pulse Resp BP Pulse Ox 07/06/19 09:02 63 07/06/19 08:00 62 07/06/19 06:00 36.9 C 63 21 H 153/77 H 100 07/06/19 04:00 63 07/06/19 00:00 62 07/05/19 22:00 36.9 C 62 18 184/67 H 96 07/05/19 17:10 64 07/05/19 16:00 60 07/05/19 15:46 59 L 211/62 H 07/05/19 15:45 62 207/72 H 07/05/19 15:43 61 207/67 H 07/05/19 14:00 37.1 C 59 L 16 206/80 H 95 Intake/Output Intake/Output: Intake & Output 07/03/19 07/04/19 07/05/19 07/06/19 23:59 23:59 23:59 23:59 Intake Total 350 660 570 270 Output Total 50 300 2000 150 Balance 300 360 -1430 120 Meds/Results Medications: Active Medications Generic Name Dose Route Start Last Admin Trade Name Freq PRN Reason Stop Dose Admin Aspirin 81 mg 07/06/19 09:00 07/06/19 09:02 Aspirin Ec PO 81 mg QAM MELVIN Administration Bumetanide 2 mg 07/03/19 09:00 07/06/19 09:03 Bumex Po PO 2 mg BID MELVIN Administration Calcium Acetate 667 mg 07/03/19 08:00 07/06/19 11:39 Phoslo PO 667 mg TIDWM MELVIN Administration
--- NOTE | 2019-07-06 12:55 | PCPTNOTE ---
Holding PT services until cleared by neurology due to recent change in medical status with CVA.
[2019-07-06 14:29] LABS: Glucose Point of Care 172 (65-105)
--- NOTE | 2019-07-06 15:24 | P.PNIM_ITS ---
Progress Note: A&P Assessment and Plan (1) Bacteremia: Code(s): R78.81 - Bacteremia Status: Acute Assessment and Plan: * E coli due to UTI * Complete 14 days IV + PO antibiotics (day 6) (2) Acute UTI: Code(s): N39.0 - Urinary tract infection, site not specified Status: Acute Assessment and Plan: * E coli * Afebrile * Ceftriaxone day 6 (3) Acute confusion: Code(s): R41.0 - Disorientation, unspecified Status: Acute Assessment and Plan: * Probable metabolic encephalopathy perhaps related to infection * Mental status waxing and waning a bit, so will reassess after dialysis. * CT question left frontal infarct, carotid Doppler 50-60 on the left and echo pending * PT/OT (4) Abdominal pain: Qualifiers: Abdominal location: lower abdomen, unspecified Qualified Code(s): R10.30 - Lower abdominal pain, unspecified Code(s): R10.9 - Unspecified abdominal pain Status: Acute Assessment and Plan: * Resolved after defecation * UTI may have contributed (5) Acute hyperkalemia: Code(s): E87.5 - Hyperkalemia Status: Acute Assessment and Plan: * Resolved with dialysis (6) End-stage renal disease on hemodialysis: Code(s): N18.6 - End stage renal disease; Z99.2 - Dependence on renal dialysis Status: Acute Assessment and Plan: * Managed by Nephrology (7) Insulin dependent type 2 diabetes mellitus: Code(s): E11.9 - Type 2 diabetes mellitus without complications; Z79.4 - nursing home (current) use of insulin Status: Acute Assessment and Plan: * Basal and sliding scale insulin * 07/05 FBS 172 (8) Constipation: Qualifiers: Constipation type: unspecified constipation type Qualified Code(s): K59.00 - Constipation, unspecified Code(s): K59.00 - Constipation, unspecified Status: Acute Assessment and Plan: * Continue bowel regimen Subjective Date/time seen: 07/06/19 15:24 Interval history: Admitted 07/01 with abdominal pain and constipation 07/05. Bowels moved. Denied pain. No further nausea or vomiting. Tolerated diet. Why can't I get up No SOB or swelling. No bleeding. Exam Narrative: Exam Narrative: Blood pressure 140/56 pulse is 56 regular afebrile HEENT: EOMI, PERRL, sclerae nonicteric, NECK: No JVD CHEST: Clear to auscultation. Normal effort. HEART: NL S1/S2, regular, 2/6 NANY ABDOMEN: BS+, soft, EXTREMITIES: No edema, NEUROLOGIC: CN intact and symmetric to inspection. Cranial nerves 2-12 are intact speech slightly slowed but no significant focal deficits Maybe slightly weaker on the left side than right PSYCH: Alert. Oriented to person, place, apparently back to baseline according to Nephrology Objective Data Vital Signs Vital Signs: Vital Signs - 24 hr 07/05/19 15:43 07/05/19 15:45 07/05/19 15:46 Temperature Pulse Rate 61 62 59 L Respiratory Rate Blood Pressure 207/67 H 207/72 H 211/62 H Pulse Oxim
--- NOTE | 2019-07-06 15:24 | PM.IMPN ---
Progress Note: A&P Assessment and Plan (1) Bacteremia: Code(s): R78.81 - Bacteremia Status: Acute Assessment and Plan: E coli due to UTI Complete 14 days IV + PO antibiotics (day 6) (2) Acute UTI: Code(s): N39.0 - Urinary tract infection, site not specified Status: Acute Assessment and Plan: E coli Afebrile Ceftriaxone day 6 (3) Acute confusion: Code(s): R41.0 - Disorientation, unspecified Status: Acute Assessment and Plan: Probable metabolic encephalopathy perhaps related to infection Mental status waxing and waning a bit, so will reassess after dialysis. CT question left frontal infarct, carotid Doppler 50-60 on the left and echo pending PT/OT (4) Abdominal pain: Qualifiers: Abdominal location: lower abdomen, unspecified Qualified Code(s): R10.30 - Lower abdominal pain, unspecified Code(s): R10.9 - Unspecified abdominal pain Status: Acute Assessment and Plan: Resolved after defecation UTI may have contributed (5) Acute hyperkalemia: Code(s): E87.5 - Hyperkalemia Status: Acute Assessment and Plan: Resolved with dialysis (6) End-stage renal disease on hemodialysis: Code(s): N18.6 - End stage renal disease; Z99.2 - Dependence on renal dialysis Status: Acute Assessment and Plan: Managed by Nephrology (7) Insulin dependent type 2 diabetes mellitus: Code(s): E11.9 - Type 2 diabetes mellitus without complications; 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 Bowels moved. Denied pain. No further nausea or vomiting. Tolerated diet. Why can't I get up No SOB or swelling. No bleeding. Exam Narrative: Exam Narrative: Blood pressure 140/56 pulse is 56 regular afebrile HEENT: EOMI, PERRL, sclerae nonicteric, NECK: No JVD CHEST: Clear to auscultation. Normal effort. HEART: NL S1/S2, regular, 2/6 NANY ABDOMEN: BS+, soft, EXTREMITIES: No edema, NEUROLOGIC: CN intact and symmetric to inspection. Cranial nerves 2-12 are intact speech slightly slowed but no significant focal deficits Maybe slightly weaker on the left side than right PSYCH: Alert. Oriented to person, place, apparently back to baseline according to Nephrology Objective Data Vital Signs Vital Signs: Vital Signs - 24 hr 07/05/19 15:43 07/05/19 15:45 07/05/19 15:46 Temperature Pulse Rate 61 62 59 L Respiratory Rate Blood Pressure 207/67 H 207/72 H 211/62 H Pulse Oximetry 07/05/19 16:00 07/05/19 17:10 07/05/19 22:00 Temperature 36.9 C Pulse Rate 60 64 62 Respiratory Rate 18 Blood Pressure 184/67 H Pulse Oximetry 96 07/06/19 00:00 07/06/19 04:00 07/06/19 06:00 Temperature 36.9 C Pulse Rate 62 63 63 Respiratory Rate 21 H Blood Pressure 153/77 H Pulse Oximetry 100 07/06/19 08:00 07/06/19 09:02 07/06/19 12:00 Temperature Pulse Rate 62 63 59 L Respiratory Rate Blood Pressure Pulse Oximetry 07/06/19 12:40 07/06/19 14:00 Temperature 36.2 C L Pulse Rate 61 57 L Respiratory Rate 16 B
[2019-07-06 16:15] LABS: Glucose Point of Care 177 (65-105)
[2019-07-06 21:26] LABS: Glucose Point of Care 280 (65-105)
[2019-07-07] VITALS (27 sets, daily range): BP systolic 148–198; BP diastolic 54–82; PULSE 57–67; RESP 18–22; TEMP 36.3–37.3; O2SAT 98
[2019-07-07 08:15] LABS: Glucose Point of Care 259 (65-105)
[2019-07-07] MEDS: INSULIN GLARGINE (*BKC) 100 UNITS/ML 10 UNITS SUB-Q (08:32)
[2019-07-07] MEDS: INSULIN ASPART (*BKC) 100 UNITS/ML SUB-Q ×2 (08:32→21:29)
[2019-07-07] MEDS: CLONIDINE HCL 0.2 MG TABLET PO ×3 (08:35→17:24)
[2019-07-07] MEDS: CALCIUM ACETATE 667 MG TABLET PO ×3 (08:35→17:25)
[2019-07-07] MEDS: hydrALAZINE HCL 50 MG TABLET 100 MG PO ×3 (08:36→17:24)
[2019-07-07] MEDS: BUMETANIDE 1 MG TABLET 2 MG PO ×2 (08:36→17:25)
[2019-07-07] MEDS: FUROSEMIDE 40 MG TABLET PO (08:36)
[2019-07-07] MEDS: SENNOSIDES 8.6 MG TABLET PO ×2 (08:36→17:25)
[2019-07-07] MEDS: LABETALOL HCL 100 MG TABLET 300 MG PO ×3 (08:36→17:25)
[2019-07-07] MEDS: ASPIRIN 81 MG ENTERIC TABLET PO (08:36)
[2019-07-07] MEDS: FERROUS SULFATE 324 MG TABLET PO ×2 (08:37→17:24)
[2019-07-07] MEDS: ATORVASTATIN 20 MG TABLET PO (09:51)
[2019-07-07 09:57] LABS: Glucose Point of Care 272 (65-105)
[2019-07-07 11:38] LABS: Glucose Point of Care 200 (65-105)
--- NOTE | 2019-07-07 13:20 | PC.NURSE ---
Pt to dialysis via hospital bed.
--- NOTE | 2019-07-07 14:43 | PM.IMPN ---
Progress Note: A&P Assessment and Plan (1) Acute UTI: Code(s): N39.0 - Urinary tract infection, site not specified Status: Acute Assessment and Plan: E coli Afebrile Ceftriaxone day 6 Originally was thought to have bacteremia but reviewing cultures reveal negative blood cultures (2) Acute confusion: Code(s): R41.0 - Disorientation, unspecified Status: Acute Assessment and Plan: Probable metabolic encephalopathy perhaps related to infection Mental status waxing and waning a bit, but now stable CT question left frontal infarct, carotid Doppler 50-60 on the left and echo tricuspid insufficiency with pulmonary hypertension but no source of emboli PT/OT (3) Abdominal pain: Qualifiers: Abdominal location: lower abdomen, unspecified Qualified Code(s): R10.30 - Lower abdominal pain, unspecified Code(s): R10.9 - Unspecified abdominal pain Status: Acute Assessment and Plan: Resolved after defecation UTI may have contributed (4) Acute hyperkalemia: Code(s): E87.5 - Hyperkalemia Status: Acute Assessment and Plan: Resolved with dialysis (5) End-stage renal disease on hemodialysis: Code(s): N18.6 - End stage renal disease; Z99.2 - Dependence on renal dialysis Status: Acute Assessment and Plan: Managed by Nephrology (6) Insulin dependent type 2 diabetes mellitus: Code(s): E11.9 - Type 2 diabetes mellitus without complications; 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 She did have some neuro deficits that have improved which could be attributed to a recent CVA. Low-dose aspirin and statin have been added with the minor occlusion seen on carotid Doppler As above PT/OT Subjective Date/time seen: 07/07/19 14:43 Interval history: Admitted 07/01 with abdominal pain and constipation 07/06. Bowels moved. Denied pain. No further nausea or vomiting. Tolerated diet. Up with pt No SOB or swelling. No bleeding. Exam Narrative: Exam Narrative: Blood pressure 160/100 pulse is 62 regular afebrile HEENT:, PERRL, sclerae nonicteric, NECK: No JVD CHEST: Clear to auscultation. Normal effort. HEART: NL S1/S2, regular, 2/6 NANY ABDOMEN: BS+, soft, EXTREMITIES: No edema, NEUROLOGIC: CN intact and symmetric to inspection. Cranial nerves 2-12 are intact speech slightly slowed but no significant focal deficits and much clearer today PSYCH: Alert. Oriented to person, place, apparently back to baseline according to Nephrology Objective Data Vital Signs Vital Signs: Vital Signs - 24 hr 07/06/19 16:00 07/06/19 16:50 07/06/19 20:00 Temperature 36.8 C Pulse Rate 57 L 62 60 Respiratory Rate 22 H Blood Pressure 124/44 L Pulse Oximetry 94 07/07/19 00:00 07/07/19 04:00 07/07/19 08:00 Temperature 37.3 C Pulse Rate 62 62 62 Respiratory Rate 20 Blood Pressure 198/63 H Pulse Oximetry 98 07/07/19 08:36 07/07/19 12:00 07/07/19 12:05 Temperature Pulse Rate 62 59 L 62 Respirat
--- NOTE | 2019-07-07 15:31 | P.PNNP_ITS ---
Progress Note: A&P Assessment and Plan (1) End stage renal disease: Code(s): N18.6 - End stage renal disease Status: Chronic Assessment and Plan: * HD today and continue M/W/ dialysis schedule * follow trend of electrolytes, volume status, and clearance (2) Acute hyperkalemia: Code(s): E87.5 - Hyperkalemia Status: Acute Assessment and Plan: * resolved with dialysis * follow trend of potassium level (3) Altered mental status: Code(s): R41.82 - Altered mental status, unspecified Status: Acute Assessment and Plan: * appears to be back to baseline * related to infection (#4) versus pain issues versus acute CVA? * follow neurological status * avoid overcontrol of BP (4) Acute UTI: Code(s): N39.0 - Urinary tract infection, site not specified Status: Acute Assessment and Plan: * culture with E. coli * on antibioitics (5) Abdominal pain: Qualifiers: Abdominal location: lower abdomen, unspecified Qualified Code(s): R10.30 - Lower abdominal pain, unspecified Code(s): R10.9 - Unspecified abdominal pain Status: Acute Assessment and Plan: * presumably related to constipation * #4 may be playing a role as well * imaging with no acute abdominal pathology (6) Hypertension: Qualifiers: Hypertension type: unspecified Qualified Code(s): I10 - Essential (primary) hypertension Code(s): I10 - Essential (primary) hypertension Status: Chronic Assessment and Plan: * fluctuates to extremes at baseline * reasonable control at this time * follow trend of hemodynamics (7) Diabetes: Qualifiers: Diabetes mellitus type: type 2 Diabetes mellitus oysterman insulin use: with residential use Diabetes mellitus complication status: with kidney complications Diabetes mellitus complication detail: with chronic kidney disease Chronic kidney disease stage: stage 4 (severe) Qualified Code(s): E11.22 - Type 2 diabetes mellitus with diabetic chronic kidney disease; N18.4 - Chronic kidney disease, stage 4 (severe); 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 Exam Narrative: Exam Narrative: General: WD/WN female in NAD Heart: normal S1 and S2; no rub Lungs: clear to auscultation Abdomen: soft, nontender, nondistended, positive bowel sounds Extremities: no cyanosis or clubbing; trace edema Skin: No nodules Objective Data Vital Signs Vital Signs: Vital Signs Temp Pulse Resp BP Pulse Ox 07/07/19 12:05 62 07/07/19 12:00 59 L 07/07/19 08:36 62 07/07/19 08:00 62 07/07/19 04:00 37.3 C 62 20 198/63 H 98 07/07/19 00:00 62 07/06/19 20:00 36.8 C 60 22 H 124/44 L 94 07/06/19 16:50 62 07/06/19 16:00 57 L Intake/Output Intake/Output: Intake & Output 07/04/19 07/05/19 07/06/19 07/07/19 23:59 23:59 23:59 23:59
--- NOTE | 2019-07-07 15:31 | PM.PNNEP ---
Progress Note: A&P Assessment and Plan (1) End stage renal disease: Code(s): N18.6 - End stage renal disease Status: Chronic Assessment and Plan: HD today and continue M/W/ dialysis schedule follow trend of electrolytes, volume status, and clearance (2) Acute hyperkalemia: Code(s): E87.5 - Hyperkalemia Status: Acute Assessment and Plan: resolved with dialysis follow trend of potassium level (3) Altered mental status: Code(s): R41.82 - Altered mental status, unspecified Status: Acute Assessment and Plan: appears to be back to baseline related to infection (#4) versus pain issues versus acute CVA? follow neurological status avoid overcontrol of BP (4) Acute UTI: Code(s): N39.0 - Urinary tract infection, site not specified Status: Acute Assessment and Plan: culture with E. coli on antibioitics (5) Abdominal pain: Qualifiers: Abdominal location: lower abdomen, unspecified Qualified Code(s): R10.30 - Lower abdominal pain, unspecified Code(s): R10.9 - Unspecified abdominal pain Status: Acute Assessment and Plan: presumably related to constipation #4 may be playing a role as well imaging with no acute abdominal pathology (6) Hypertension: Qualifiers: Hypertension type: unspecified Qualified Code(s): I10 - Essential (primary) hypertension Code(s): I10 - Essential (primary) hypertension Status: Chronic Assessment and Plan: fluctuates to extremes at baseline reasonable control at this time follow trend of hemodynamics (7) Diabetes: Qualifiers: Diabetes mellitus type: type 2 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 use Diabetes mellitus complication status: with kidney complications Diabetes mellitus complication detail: with chronic kidney disease Chronic kidney disease stage: stage 4 (severe) Qualified Code(s): E11.22 - Type 2 diabetes mellitus with diabetic chronic kidney disease; N18.4 - Chronic kidney disease, stage 4 (severe); 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 Exam Narrative: Exam Narrative: General: WD/WN female in NAD Heart: normal S1 and S2; no rub Lungs: clear to auscultation Abdomen: soft, nontender, nondistended, positive bowel sounds Extremities: no cyanosis or clubbing; trace edema Skin: No nodules Objective Data Vital Signs Vital Signs: Vital Signs Temp Pulse Resp BP Pulse Ox 07/07/19 12:05 62 07/07/19 12:00 59 L 07/07/19 08:36 62 07/07/19 08:00 62 07/07/19 04:00 37.3 C 62 20 198/63 H 98 07/07/19 00:00 62 07/06/19 20:00 36.8 C 60 22 H 124/44 L 94 07/06/19 16:50 62 07/06/19 16:00 57 L Intake/Output Intake/Output: Intake & Output 07/04/19 07/05/19 07/06/19 07/07/19 23:59 23:59 23:59 23:59 Intake Total 356 973 7734 620 Output Total 300 2000 150 Balance 360 -1430 1000 620 Meds/Results Medications: Active Medications Generic Name Dose Route Start Last Admin Trade Name Freq PRN Reason Stop Dose Admin Aspirin 81 mg 07/06/19 09:00 07/07/19 08:36 Aspirin Ec PO 81 mg QAM MELVIN Administration Atorvastatin Calcium 20 mg 07/07/19 09:25 07/07/19 09:51 Lipitor PO 20 mg DAILY MELVIN Administration Bumetanide 2 mg 07/03/19 09:00 07/07/19 08:36 Bumex Po PO 2 mg BID MELVIN Administration Calcium Acetate 667 mg 07/03/19 08:00 07/07/19 12:05 Phoslo PO 667 mg TIDWM MELVIN Administ
[2019-07-07 17:49] LABS: Glucose Point of Care 171 (65-105)
[2019-07-07] MEDS: GABAPENTIN 100 MG CAPSULE PO (20:20)
[2019-07-07 20:34] LABS: Glucose Point of Care 310 (65-105)
[2019-07-07 23:50] LABS: Glucose Point of Care 198 (65-105)
[2019-07-08] VITALS: PULSE 62
[2019-07-08 04:00] VITALS: PULSE 69
[2019-07-08 05:58] VITALS: BP 192/84; PULSE 69; RESP 18; TEMP 36.8; O2SAT 98
[2019-07-08 07:44] LABS: Glucose Point of Care 182 (65-105)
[2019-07-08 08:00] VITALS: PULSE 66
[2019-07-08] MEDS: ATORVASTATIN 20 MG TABLET PO (08:08)
[2019-07-08] MEDS: BUMETANIDE 1 MG TABLET 2 MG PO (08:08)
[2019-07-08] MEDS: ASPIRIN 81 MG ENTERIC TABLET PO (08:08)
[2019-07-08] MEDS: CLONIDINE HCL 0.2 MG TABLET PO (08:08)
[2019-07-08 08:09] VITALS: PULSE 69
[2019-07-08] MEDS: CALCIUM ACETATE 667 MG TABLET PO (08:09)
[2019-07-08] MEDS: SENNOSIDES 8.6 MG TABLET PO (08:09)
[2019-07-08] MEDS: hydrALAZINE HCL 50 MG TABLET 100 MG PO (08:09)
[2019-07-08] MEDS: FERROUS SULFATE 324 MG TABLET PO (08:09)
[2019-07-08] MEDS: LABETALOL HCL 100 MG TABLET 300 MG PO (08:09)
[2019-07-08] MEDS: FUROSEMIDE 40 MG TABLET PO (08:09)
[2019-07-08] MEDS: INSULIN GLARGINE (*BKC) 100 UNITS/ML 10 UNITS SUB-Q (08:11)
--- NOTE | 2019-07-08 18:27 | PM.DS ---
DS: Admitting Diagnosis Admitting Diagnosis Admitting Diagnosis: Hyperkalemia DS: Discharge Diagnosis Discharge Diagnosis (1) Acute UTI: Code(s): N39.0 - Urinary tract infection, site not specified Status: Acute Assessment and Plan: E coli Afebrile Finished Ceftriaxone 7 day course Originally was thought to have bacteremia but reviewing cultures reveal negative blood cultures (2) Acute confusion: Code(s): R41.0 - Disorientation, unspecified Status: Acute Assessment and Plan: Probable metabolic encephalopathy perhaps related to infection Mental status waxing and waning a bit, but now stable and back to baseline at discharge CT question left frontal infarct, carotid Doppler 50-60 on the left internal carotid artery and echo tricuspid insufficiency with pulmonary hypertension but no source of emboli placed on aspirin, and statin Probable small infarct by CT scan but symptoms had essentially resolved by discharge Will need follow-up with repeat carotid Doppler in 3-6 months (3) Abdominal pain: Qualifiers: Abdominal location: lower abdomen, unspecified Qualified Code(s): R10.30 - Lower abdominal pain, unspecified Code(s): R10.9 - Unspecified abdominal pain Status: Acute Assessment and Plan: Resolved after defecation UTI may have contributed (4) Acute hyperkalemia: Code(s): E87.5 - Hyperkalemia Status: Acute Assessment and Plan: Resolved with dialysis (5) End-stage renal disease on hemodialysis: Code(s): N18.6 - End stage renal disease; Z99.2 - Dependence on renal dialysis Status: Acute Assessment and Plan: Managed by Nephrology Friday (6) Insulin dependent type 2 diabetes mellitus: Code(s): E11.9 - Type 2 diabetes mellitus without complications; 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 She did have some neuro deficits that have improved which could be attributed to a recent CVA. Low-dose aspirin and statin have been added with the minor occlusion seen on carotid Doppler, follow-up with repeat carotid Doppler in 3-6 on (9) Hypertension: Qualifiers: Hypertension type: unspecified Qualified Code(s): I10 - Essential (primary) hypertension Code(s): I10 - Essential (primary) hypertension Status: Chronic Assessment and Plan: Was low initially on admission with a nausea vomiting. Rebounded is slightly elevated. Already on high-dose clonidine, hydralazine, and labetalol. Will follow up with primary and Nephrology for further adjustments if needed DS: Summary Hospital Course Hospital Course: 63-year-old hypertensive white female with type 2 diabetes on and on dialysis with end-stage renal disease presented with nausea and vomiting hyperkalemia. Found to have E coli urinary tract infection which was treated. On the she has confusion balance CT scan revealed to be a left frontal infarct. She had some slurring of speech which resolv
== END 2019-07-08 11:08 | disposition home health service (06) | DRG 640 ==
LOC: ANHED 14:44 → ANH2MED 15:49
PROVIDERS: Internal Medicine; Internal Medicine Nephrology; Physician Assistant; Admitting Provider Internal Medicine; Emergency Provider Emergency Medicine; PCP Internal Medicine; Visit Provider Internal Medicine
DX: E87.5 Hyperkalemia (principal); N18.6 End stage renal disease; I63.232 Cerebral infarction due to unspecified occlusion or stenosis of left carotid arteries; N39.0 Urinary tract infection, site not specified; I13.2 Hypertensive heart and chronic kidney disease with heart failure and with stage 5 chronic kidney disease, or end stage renal disease; I50.32 Chronic diastolic (congestive) heart failure; E11.22 Type 2 diabetes mellitus with diabetic chronic kidney disease; D63.1 Anemia in chronic kidney disease; E11.3299 Type 2 diabetes mellitus with mild nonproliferative diabetic retinopathy without macular edema, unspecified eye; B96.20 Unspecified Escherichia coli [E. coli] as the cause of diseases classified elsewhere; K80.80 Other cholelithiasis without obstruction; I25.10 Atherosclerotic heart disease of native coronary artery without angina pectoris; E86.0 Dehydration; K59.00 Constipation, unspecified; R10.30 Lower abdominal pain, unspecified; R41.0 Disorientation, unspecified; Z96.641 Presence of right artificial hip joint; Z99.2 Dependence on renal dialysis; Z79.4 Long term (current) use of insulin; Z79.899 Other long term (current) drug therapy; Z86.73 Personal history of transient ischemic attack (TIA), and cerebral infarction without residual deficits; Z88.0 Allergy status to penicillin; Z98.41 Cataract extraction status, right eye; Z98.42 Cataract extraction status, left eye
CPT/HCPCS: 36415; 36600; 51701; 70450; 74018; 74176; 80048; 80053; 80061; 80069; 80307; 81001; 82140; 82375; 82805; 83036; 83050; 83605; 83690; 83735; 84100; 84443; 85025; 87040; 87077; 87086; 87088; 87186; 93005; 93306; 93880; 96361; 96374; 96375; 96376; 97110; 97116; 97161; 97164; 97165; 99285; A9270; G0257; G0378; J0610; J0696; J1644; J1815; J2060; J2405; J7030

== ENCOUNTER 2019-08-14 07:27 | Outpatient (CLI) | payer MEDICARE, SELFPAY ==
[2019-08-14 07:52] LABS: Hemoglobin A1C 10.5 % (<5.7)
[2019-08-14 07:56] LABS: Basophils Percent Auto 0.8 % (0.2-1.2); Eosinophils Absolute Auto 0.2 K/mm3 (0-0.3); Eosinophils Percent Auto 2.9 % (0-4.4); Hematocrit 30.4 % (37.0-47.0); Hemoglobin 9.5 g/dL (12.0-15.0); Immature Granulocyte Absolute 0.02 K/mm3 (0.00-0.031); Immature Granulocyte Percent A 0.4 % (0-0.5); Lymphocytes Absolute Auto 0.65 K/mm3 (0.9-3.2); Lymphocytes Percent Auto 12.7 % (18.3-44.2); Mean Corpuscular HGB Conc 31.3 g/dl (32-36); Mean Corpuscular Hemoglobin 30.3 pg (26-34); Mean Corpuscular Volume 96.8 fl (80-100); Mean Platelet Volume 10.7 fl (7.4-10.4); Monocytes Absolute Auto 0.4 K/mm3 (0.1-0.6); Monocytes Percent Auto 7.4 % (2.6-8.5); Neutrophils Absolute Auto 3.9 K/mm3 (1.3-6.7); Neutrophils Percent Auto 75.8 % (45.5-73.1); Platelet Count Result 161 k/mm3 (150-375); Red Blood Count 3.14 M/mm3 (4.2-5.4); Red Cell Distribution Width 14.5 % (11.5-14.5); White Blood Count 5.1 K/mm3 (4.5-10.0)
[2019-08-14 09:18] LABS: Alanine Aminotransferase 8 U/L (4-35); Albumin Level 3.8 g/dL (3.5-5.1); Alkaline Phosphatase 137 U/L (38-126); Aspartate Amino Transferase 17 U/L (14-36); Bilirubin,Total 0.7 mg/dL (0.2-1.3); Blood Urea Nitrogen 22 mg/dL (7-17); Calcium 8.4 mg/dL (8.4-10.2); Carbon Dioxide 37 mmol/L (22-30); Chloride 92 mmol/L (98-107); Estimated Glomerular Filt Rate 18; Glucose 388 mg/dL (65-105); Sodium 133 mmol/L (137-145)
== END 2019-08-14 07:28 | disposition home or self-care (01) ==
PROVIDERS: PCP Internal Medicine; Visit Provider Internal Medicine
DX: E11.9 Type 2 diabetes mellitus without complications (principal); I10 Essential (primary) hypertension
CPT/HCPCS: 36415; 80053; 83036; 85025

== ENCOUNTER 2020-01-03 13:03 | Emergency (ER) | payer MEDICARE, MEDICAID, SELFPAY ==
[2020-01-03 13:08] VITALS: BP 96/51; PULSE 77; RESP 20; TEMP 36.3; O2SAT 95
--- NOTE | 2020-01-03 13:38 | PC.NURSE ---
incont lg amt loose/soft brown stool
--- NOTE | 2020-01-03 13:54 | ED.DIZZY ---
HPI - Dizziness General Chief Complaint: Dizziness Stated Complaint: dizzy s/p diaylsis Time Seen by Provider: 01/03/20 13:51 History of Present Illness HPI Narrative: 64 yo female w/ h/o htn, DM, ESRD on dialysis presents to the ED for weakness and dizziness. After finishing dialysis today she was feeling light headed and her legs were weak.She says that this is not the first time that this has happened. It usually resolves on its own. We is also having copious loose stool since her arrival here. SHe says that this is not unusual for her. Initial BP for EMS was low. No abdominal pain, fever. Related Data Home Medications Medication Instructions Recorded Confirmed calcium acetate(phosphat bind) 667 1,334 mg PO TIDWM 02/11/19 01/12/20 mg tablet gabapentin 100 mg PO HS 07/02/19 01/12/20 insulin aspart U-100 100 unit/mL See Rx Instructions .ROUTE .COMPLEX 11/04/19 01/12/20 subcutaneous solution bumetanide 2 mg PO BID 01/12/20 01/12/20 Allergies Allergy/AdvReac Type Severity Reaction Status Date / Time Penicillins Allergy Unknown Hives Verified 01/03/20 13:39 Review of Systems Review of Systems: All systems reviewed & are unremarkable except as noted in HPI and below Constitutional: Constitutional: Denies chills, Denies fever(s) and Reports weakness Eyes: Eyes: Denies change in vision Cardiovascular: Cardiovascular: Denies chest pain Respiratory: Respiratory: Denies dyspnea Gastrointestinal: Gastrointestinal: Denies abdominal pain, Reports diarrhea, Denies nausea and Denies vomiting Musculoskeletal: Musculoskeletal: Denies back pain Neurologic: Reports dizziness, Denies syncope, Denies numbness and Reports weakness [facility] Past Medical History Medical History (Updated 01/14/20 @ 12:38 by Cardiad Burnett MD) Acute UTI Anemia of chronic disease Anxiety AV fistula Left upper arm Bacteremia Chronic diastolic heart failure Coronary artery disease CVA (cerebral vascular accident) 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 Depression End-stage renal disease on hemodialysis End-stage renal disease on dialysis Friday. Fracture of right tibial plateau (~10/2018) Hyper-reninism Hypertension Multifactorial initially due to essential hypertension but now in part due to renal failure Insulin dependent type 2 diabetes mellitus Hemoglobin A1c was 5.0% in October 2018. Left wrist fracture Moderate protein-calorie malnutrition Multiple gallstones Nonproliferative diabetic retinopathy Pneumonia With parapneumonic effusion requiring thoracentesis in October 2017. Post-menopausal osteoporosis On DEXA scan in January 2017. Severe tricuspid regurgitation by prior echocardiography Echocardiogram September 2018 demonstrating grade 1 diastolic dysfunction, mild left ventricular hypertrophy, mild left ventricular enlargement, grade 1 diastolic dysfunction, global longitudinal strain at-8%, TAPSE 1.4 cm suggesting abnormal right ventricular systolic function although appears normal by visual estimation, moderate left atrial enlargement, mild right atrial enlargement, mild (underestimated) mitral valve regurgitation, tricuspid valve do not coaptation due to dilated annulus, mild pulmonic regurgitation, elevated right atrial pressure at 15 mmHg, trivial pericardial effusion. Surgical History Surgical History History of bilateral cataract extraction History of dilatation and curettage History of open reduction and internal fixation (ORIF) procedure Bilateral wrists; left distal radius fracture with intramedullary nail repair 05/2016. History of orthopedic surgery Bone spur right foot removal, right achilles repair 2012 History of right hip replacement Due to fracture 2016 S/P excision of lipoma From the right forearm 2008 Family History Family History Mother
[2020-01-03 14:20] LABS: Basophils Absolute Auto 0.1 K/mm3 (0.0-0.1); Basophils Percent Auto 0.5 % (0.2-1.2); Eosinophils Absolute Auto 0.1 K/mm3 (0-0.3); Eosinophils Percent Auto 0.9 % (0-4.4); Hematocrit 35.2 % (37.0-47.0); Hemoglobin 11.9 g/dL (12.0-15.0); Immature Granulocyte Absolute 0.05 K/mm3 (0.00-0.031); Immature Granulocyte Percent A 0.5 % (0-0.5); Lymphocytes Absolute Auto 0.43 K/mm3 (0.9-3.2); Lymphocytes Percent Auto 4.4 % (18.3-44.2); Mean Corpuscular HGB Conc 33.8 g/dl (32-36); Mean Corpuscular Volume 85.6 fl (80-100); Mean Platelet Volume 10.3 fl (7.4-10.4); Monocytes Absolute Auto 0.4 K/mm3 (0.1-0.6); Monocytes Percent Auto 3.7 % (2.6-8.5); Neutrophils Absolute Auto 8.8 K/mm3 (1.3-6.7); Platelet Count Result 207 k/mm3 (150-375); Red Blood Count 4.11 M/mm3 (4.2-5.4); Red Cell Distribution Width 14.2 % (11.5-14.5); White Blood Count 9.7 K/mm3 (4.5-10.0)
[2020-01-03 14:25] VITALS: BP 121/65; BP 145/58; PULSE 79; PULSE 80
[2020-01-03 14:27] VITALS: BP 104/58; PULSE 75
[2020-01-03 14:35] LABS: Alanine Aminotransferase 10 U/L (4-35); Albumin Level 3.9 g/dL (3.5-5.1); Alkaline Phosphatase 133 U/L (38-126); Anion Gap 11 mmol/L (8-16); Aspartate Amino Transferase 21 U/L (14-36); Bilirubin,Total 0.9 mg/dL (0.2-1.3); Blood Urea Nitrogen 21 mg/dL (7-17); Calcium 8.4 mg/dL (8.4-10.2); Carbon Dioxide 33 mmol/L (22-30); Chloride 90 mmol/L (98-107); Estimated CRCL calculation 15 ml/min; Estimated Glomerular Filt Rate 19; Glucose 290 mg/dL (65-105); Potassium 3.3 mmol/L (3.4-5.0); Sodium 134 mmol/L (137-145)
--- NOTE | 2020-01-03 16:08 | PC.NURSE ---
unable to reach cousin for ride home. will try another relative.
[2020-01-03 16:09] VITALS: BP 137/68; PULSE 82; RESP 20; O2SAT 1
--- NOTE | 2020-01-03 16:12 | PC.NURSE ---
reached a relative that will be here within the hour for ride home. pt aware
[2020-01-03 16:26] VITALS: BP 148/66; PULSE 82; RESP 20; O2SAT 94
== END 2020-01-03 16:47 | disposition home or self-care (01) ==
PROVIDERS: Emergency Provider Emergency Medicine; PCP Internal Medicine
DX: R55 Syncope and collapse (principal); E11.22 Type 2 diabetes mellitus with diabetic chronic kidney disease; I13.2 Hypertensive heart and chronic kidney disease with heart failure and with stage 5 chronic kidney disease, or end stage renal disease; I50.32 Chronic diastolic (congestive) heart failure; N18.6 End stage renal disease; D63.1 Anemia in chronic kidney disease; I25.10 Atherosclerotic heart disease of native coronary artery without angina pectoris; Z86.73 Personal history of transient ischemic attack (TIA), and cerebral infarction without residual deficits; Z99.2 Dependence on renal dialysis; E11.3299 Type 2 diabetes mellitus with mild nonproliferative diabetic retinopathy without macular edema, unspecified eye; I07.1 Rheumatic tricuspid insufficiency; Z98.42 Cataract extraction status, left eye; Z79.4 Long term (current) use of insulin; Z98.41 Cataract extraction status, right eye; Z96.641 Presence of right artificial hip joint
CPT/HCPCS: 36415; 80053; 85025; 99283

== ENCOUNTER 2020-01-12 10:13 | Inpatient (IN) | payer MEDICARE, MEDICAID, SELFPAY ==
[2020-01-12] VITALS (8 sets, daily range): BP systolic 127–173; BP diastolic 46–90; PULSE 80–95; RESP 12–22; TEMP 36.7–37.3; O2SAT 92–99; BMI 23.8
--- NOTE | ~2020-01-12 | XR_ITS ---
EXAMINATION: XR tibia fibula RT 2V DATE: 01/12/2020 11:05 INDICATION: Right lower limb edema and erythema. TECHNIQUE: 2 views of right tibia and fibula on 3 radiographs were obtained. COMPARISON: Right knee radiographs 10/22/2018 FINDINGS: There is a fracture of lateral tibial plateau. There are 2 lag screws with washers in proxi mal tibia. Osteopenia is noted. There are screw tracks in tibial diaphysis. There is mild knee joint osteoarthritis. No knee joint effusion. There is mild ankle joint osteoarthritis. IMPRESSION: 1. Lateral tibial plateau fracture status post internal fixation. Reviewed, dictated and finalized at location A. S REGISTERED NURSE RN
--- NOTE | ~2020-01-12 | US_ITS ---
EXAMINATION:US venous doppler LE RT INDICATION:Edema. Erythema of the right leg. Leg pain. TECHNIQUE: Multiple grayscale, color flow and Doppler images of the right lower extremity deep venous systems were obtained and reviewed. COMPARISON:No prior studies for comparison. FINDINGS: The common femoral, superficial femoral and popliteal veins demonstrate normal respiratory variation, augmentation and compressibility. Color flow is also seen within the posterior tibial, pe roneal, greater saphenous and profunda veins. IMPRESSION: 1: No lower extremity deep venous thrombosis. Reviewed, dictated and finalized at location A. SPLITTER
--- NOTE | 2020-01-12 10:53 | ED.WOUNDLAC ---
HPI - Wound/Laceration General Chief Complaint: Wound/Laceration Stated Complaint: R LEG RED ANS SWOLLEN Time Seen by Provider: 01/12/20 10:33 Source: patient Mode of arrival: EMS Limitations: no limitations History of Present Illness HPI narrative: This is a 64 year old female that presents to the ER for right lower extremity redness and swelling x 1 week. Reports she has a lot of itching due to her elevated phosphate from ESRD. Reports she scratches her legs a lot. Reports she has been itching her right lower extremity and caused excoriations. Reports this leg started to get red and swollen. EMS was called at Dialysis today and reports they made her come to the ER. Denies fever, decreased ROM or numbness. Related Data Home Medications Medication Instructions Recorded Confirmed calcium acetate(phosphat bind) 667 1,334 mg PO TIDWM 02/11/19 01/12/20 mg tablet gabapentin 100 mg PO HS 07/02/19 01/12/20 insulin aspart U-100 100 unit/mL See Rx Instructions .ROUTE .COMPLEX 11/04/19 01/12/20 subcutaneous solution bumetanide 2 mg PO BID 01/12/20 01/12/20 Allergies Allergy/AdvReac Type Severity Reaction Status Date / Time Penicillins Allergy Unknown Hives Verified 01/03/20 13:39 Review of Systems Review of Systems: Narrative: CONSTITUTIONAL: Denies fever SKIN: Reports rash and itching. 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 Depression End-stage renal disease on hemodialysis End-stage renal disease on dialysis Friday. Fracture of right tibial plateau (~10/2018) Hyper-reninism Hypertension Multifactorial initially due to essential hypertension but now in part due to renal failure Insulin dependent type 2 diabetes mellitus Hemoglobin A1c was 5.0% in October 2018. Left wrist fracture Moderate protein-calorie malnutrition Multiple gallstones Nonproliferative diabetic retinopathy Pneumonia With parapneumonic effusion requiring thoracentesis in October 2017. Post-menopausal osteoporosis On DEXA scan in January 2017. Severe tricuspid regurgitation by prior echocardiography Echocardiogram September 2018 demonstrating grade 1 diastolic dysfunction, mild left ventricular hypertrophy, mild left ventricular enlargement, grade 1 diastolic dysfunction, global longitudinal strain at-8%, TAPSE 1.4 cm suggesting abnormal right ventricular systolic function although appears normal by visual estimation, moderate left atrial enlargement, mild right atrial enlargement, mild (underestimated) mitral valve regurgitation, tricuspid valve do not coaptation due to dilated annulus, mild pulmonic regurgitation, elevated right atrial pressure at 15 mmHg, trivial pericardial effusion. Surgical History Surgical History History of bilateral cataract extraction History of dilatation and curettage History of open reduction and internal fixation (ORIF) procedure Bilateral wrists; left distal radius fracture with intramedullary nail repair 05/2016. History of orthopedic surgery Bone spur right foot removal, right achilles repair 2012 History of right hip replacement Due to fracture 2016 S/P excision of lipoma From the right forearm 2008 Family History Family History Mother Diabetes mellitus, Onset Age: 42 Heart disease Psychiatric disorder Hypertension Kidney disease Father CHF (congestive heart failure) Heart disease Hypertension Sibling Hypertension Grandparent Diabetes mellitus Heart disease H
[2020-01-12 10:57] LABS: Basophils Percent Auto 0.3 % (0.2-1.2); Eosinophils Absolute Auto 0.2 K/mm3 (0-0.3); Hematocrit 33.5 % (37.0-47.0); Hemoglobin 11.3 g/dL (12.0-15.0); Immature Granulocyte Absolute 0.04 K/mm3 (0.00-0.031); Immature Granulocyte Percent A 0.6 % (0-0.5); Lymphocytes Absolute Auto 0.54 K/mm3 (0.9-3.2); Mean Corpuscular HGB Conc 33.7 g/dl (32-36); Mean Corpuscular Hemoglobin 28.9 pg (26-34); Mean Corpuscular Volume 85.7 fl (80-100); Mean Platelet Volume 9.9 fl (7.4-10.4); Monocytes Absolute Auto 0.5 K/mm3 (0.1-0.6); Monocytes Percent Auto 7.4 % (2.6-8.5); Neutrophils Absolute Auto 5.5 K/mm3 (1.3-6.7); Neutrophils Percent Auto 80.7 % (45.5-73.1); Platelet Count Result 178 k/mm3 (150-375); Red Blood Count 3.91 M/mm3 (4.2-5.4); Red Cell Distribution Width 14.6 % (11.5-14.5); White Blood Count 6.8 K/mm3 (4.5-10.0)
[2020-01-12 11:06] LABS: INR 1.1; Prothrombin Time 14.5 Seconds (11.1-14.7)
[2020-01-12 11:07] LABS: Partial Thromboplastin Time 33.2 SECONDS (22.3-36.8)
[2020-01-12 11:18] LABS: Anion Gap 10 mmol/L (8-16); Blood Urea Nitrogen 16 mg/dL (7-17); CRP 1.7 mg/dL (<1.0); Carbon Dioxide 37 mmol/L (22-30); Chloride 88 mmol/L (98-107); Estimated CRCL calculation 18 ml/min; Estimated Glomerular Filt Rate 24; Glucose 287 mg/dL (65-105); Phosphorus 3.6 mg/dL (2.5-4.5); Potassium 2.6 mmol/L (3.4-5.0); Sodium 135 mmol/L (137-145)
[2020-01-12 11:39] LABS: Erythrocyte Sedimentation Rate 72 mm/hr (0-20)
[2020-01-12] MEDS: POTASSIUM CHLORIDE 20 MEQ TABLET 40 MEQ PO (11:53)
--- NOTE | 2020-01-12 14:21 | ADMGEN ---
This patient, Ania Field, was admitted to Medical Room 249-01. Patient/family oriented to hospital policies and general routines including ID bracelet, bed and alarms, visiting hours, pain management, procedures, bathroom and other care routines, personal items, smoking policy, room service/diet, and visiting hours. Information on how to activate the Rapid Response Team has been discussed. Patient/Family are encouraged to report perceived risks to care and to ask questions if they do not understand what they are told or what they should do.
[2020-01-12] MEDS: IMIPENEM/CILASTATIN SODIUM 200 MG in DEXTROSE 5% 100 ML 300 MG IVPB ×2 (14:58→21:21)
[2020-01-12 15:56] LABS: Glucose Point of Care 255 (65-105)
--- NOTE | 2020-01-12 16:27 | PM.CNNEP ---
Assessment and Plan Assessment and plan (1) End stage renal disease: Code(s): N18.6 - End stage renal disease Status: Chronic Assessment and Plan: plan HD tomorrow and continue M/W/F schedule while she is hospitalized follow electrolytes, volume status, and clearance follow phosphorus and continue binders (2) Cellulitis of right lower extremity: Code(s): L03.115 - Cellulitis of right lower limb Status: Acute Assessment and Plan: as noted by exam follow cultures on IV antibiotics (3) Hypertension: Code(s): I10 - Essential (primary) hypertension Status: Chronic Assessment and Plan: difficult to control at baseline resume home medications may need further adjustment in her home medications follow trend of hemodynamics (4) Hypokalemia: Code(s): E87.6 - Hypokalemia Status: Acute Assessment and Plan: suspect artificially low since it was drawn post-dialysis (sent to ER after she completed her dialysis treatment) already received supplemental K+ in ER follow repeat values (5) Anemia: Code(s): D64.9 - Anemia, unspecified Status: Acute Assessment and Plan: H/H in range Epogen with HD follow trend (6) Insulin dependent type 2 diabetes mellitus: Code(s): E11.9 - Type 2 diabetes mellitus without complications; 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 History of Present Illness Reason for Consult Consult date: 01/12/20 Reason for consult: end stage renal disease Chief Complaint Chief complaint: cellulitis rle,hypokalemia History of Present Illness Narrative: The patient is a 64-year-old female with an extensive past medical history as outlined below who presented to [facility] Emergency room due to right lower extremity redness and swelling. The patient was at her regularly scheduled dialysis treatment earlier this morning. It was noted by the dialysis nurses that her right lower extremity had significant erythema and swelling in comparison to her left lower extremity. Furthermore, both lower extremities had significant scratches but it seems quite clear that the right lower extremity had more skin lesions/cuts from the scratching in association with increased skin tightness. The patient admitted to increased scratching of her lower extremities presumably secondary to her high phosphorus levels by recent labs. Furthermore, she states there are times where she scratches so much, particularly her right lower extremity, that significant bleeding occurs in general. She gave no history of fevers, chills, nausea, vomiting, diarrhea, or any other subjective symptoms. She initially did not want to come to the ER to be evaluated for this problem but after completing her dialysis treatment, the dialysis nurses convince her to at least get evaluated for this problem/issue. Workup and evaluation emergency room demonstrated the patient to be hemodynamically stable (she was actually quite hypertensive) and in no acute distress. Exam was significant for significant erythema and redness in her right lower extremity from the knee down to her foot a as well as significant the scratching lesions on her left lower extremity but no associated erythema. Imaging studies done in the ER did not demonstrate evidence of a DVT/clot and x-ray of the her low right lower extremity did not show anything other than her previous fracture in that extremity. Routine blood test demonstrated labs consistent with her known history of end-stage renal disease although significant hypokalemia was noted. Gven the significant cellulitis in her right lower extremity, it was felt she would benefit from IV antibiotic therapy for treatment of this issue. Appropriate cultures were obtained and she was started on broad-spectrum IV antibiotic
--- NOTE | 2020-01-12 16:31 | PM.IMHP ---
H&P: HPI History of Present Illness Date/Time: 01/12/20 16:31 Chief complaint: cellulitis rle,hypokalemia Narrative: Ania Field is a 64 year old female who has end-stage renal disease. The patient sees Dr. Burnett here. The patient has dialysis on Friday. She had dialysis today. The patient stated that her legs have been itching for the last week more so the right leg than the left. And she has been scratching them. Her right leg became red and swollen. Though she tells me that her right leg has been swollen since she had a fracture to the right leg. She did have a venous Doppler performed and it shows no lower extremity deep vein thrombosis. X-ray of the right lower extremity shows lateral tibial plateau fracture status post internal fixation. Since she is diabetic. She was started on vancomycin and Primaxin for cellulitis in a diabetic patient. H&H is 11.3 and 33.5. Potassium was noted to be 2.6. Nephrology has been consulted. Potassium was replaced.. Patient has been itching due to her high phosphorus levels. The patient initially stated that she was not going to stay inpatient if she was wanting some fried fish. She stated she did not want to be on a renal diet. Nephrology had been contacted and was placed on heart healthy diet. The patient was agreeable to that and agreed to stay for her cellulitis. Patient is being placed in observation status on the date of service 01/12/2020. Review of Systems Review of Systems: All systems reviewed & are unremarkable except as noted in HPI and below Constitutional: Constitutional: Reports as per HPI and Reports no additional constitutional complaints Eyes: Eyes: Reports as per HPI and Reports no additional eye complaints ENT: Reports system reviewed and no additional complaints, except as documented and Reports Normal hearing present Cardiovascular: Cardiovascular: Reports no additional cardiovascular complaints Respiratory: Respiratory: Reports no additional respiratory complaints and Reports no additional respiratory complaints Gastrointestinal: Gastrointestinal: Reports as per HPI and Reports no additional gastrointestinal complaints Musculoskeletal: Musculoskeletal: Reports no additional musculoskeletal complaints Integumentary/Breasts: Skin/Breast: Reports system reviewed and no additional complaints, except as docu and Reports as per HPI Neurologic: Reports system reviewed and no additional complaints, except as documented, Reports as per HPI and Reports Normal hearing present Psychiatric: Psychiatric: Reports no additional psychiatric complaints and Reports as per HPI Endocrine: Endocrine: Reports no additional endocrine complaints Hematologic/Lymphatic: Hematologic/Lymphatic: Reports no additional hematologic/lymphatic complaints Allergic/Immunologic: Allergic/Immunologic: Reports no additional allergic/immunologic complaints [facility] Past Medical History Medical History (Updated 01/12/20 @ 16:45 by Guerda Peralta NP) Acute UTI Anemia of chronic disease Anxiety AV fistula Left upper arm Bacteremia Chronic diastolic heart failure Coronary artery disease CVA (cerebral vascular accident) 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 Depression End-stage renal disease on hemodialysis End-stage renal disease on dialysis Friday. Fracture of right tibial plateau (~10/2018) Hyper-reninism Hypertension Multifactorial initially due to essential hypertension but now in part due to renal failure Insulin dependent type 2 diabetes mellitus Hemoglobin A1c was 5.0% in October 2018. Left wrist fracture Moderate protein-calorie malnutrition Multiple gallstones Nonproliferative diabetic retinopathy Pneumonia With parapneumonic effusion requiring thoracentesis in October 2017. Post-menopausal osteoporosis On DEXA scan in January 2017. Severe tricuspid regurgitation by prior echocardiography Echocar
[2020-01-12] MEDS: INSULIN ASPART (*BKC) 100 UNITS/ML SUB-Q (16:52)
[2020-01-12] MEDS: diphenhydrAMINE HCl INJ 50 MG/ML VIAL 25 MG IV PUSH (17:18)
[2020-01-12] MEDS: PHARMACIST COMMUNICATION ORDER 1 EACH XX (17:22)
[2020-01-12] MEDS: NEOMYCIN/POLYMYXIN/BACITRACIN OINTMENT 15 GM TUBE 1 APPLIC TOPICAL (17:29)
[2020-01-12] MEDS: BUMETANIDE 1 MG TABLET 2 MG PO (17:30)
[2020-01-12] MEDS: CALCIUM ACETATE 667 MG TABLET 1334 MG PO (17:30)
[2020-01-12] MEDS: cloNIDine HCL 0.1 MG TABLET PO (17:30)
[2020-01-12] MEDS: hydrALAZINE HCL 50 MG TABLET 100 MG PO (17:31)
[2020-01-12] MEDS: LABETALOL HCL 100 MG TABLET 300 MG PO (17:31)
[2020-01-12] MEDS: FERROUS SULFATE 324 MG TABLET PO (17:31)
[2020-01-12] MEDS: HEPARIN SODIUM 5,000 UNITS/ML VIAL 5000 UNITS SUB-Q (17:32)
[2020-01-12] MEDS: ONDANSETRON INJ 4 MG/2 ML VIAL IV PUSH (20:06)
[2020-01-12] MEDS: ACETAMINOPHEN 325 MG TABLET 650 MG PO (20:06)
[2020-01-12] MEDS: GABAPENTIN 100 MG CAPSULE PO (20:06)
[2020-01-12 20:27] LABS: Anion Gap 10 mmol/L (8-16); Blood Urea Nitrogen 22 mg/dL (7-17); Calcium 7.8 mg/dL (8.4-10.2); Carbon Dioxide 36 mmol/L (22-30); Chloride 90 mmol/L (98-107); Estimated CRCL calculation 12 ml/min; Estimated Glomerular Filt Rate 16; Glucose 227 mg/dL (65-105); Potassium 3.5 mmol/L (3.4-5.0); Sodium 136 mmol/L (137-145)
[2020-01-12 20:53] LABS: Glucose Point of Care 224 (65-105)
[2020-01-13] VITALS (12 sets, daily range): BP systolic 111–140; BP diastolic 47–75; PULSE 69–95; RESP 14–18; TEMP 36.1–37.3; O2SAT 91–98
[2020-01-13] MEDS: IMIPENEM/CILASTATIN SODIUM 200 MG in DEXTROSE 5% 100 ML 300 MG IVPB ×3 (02:57→14:52)
[2020-01-13 05:56] LABS: Basophils Percent Auto 0.7 % (0.2-1.2); Eosinophils Absolute Auto 0.2 K/mm3 (0-0.3); Eosinophils Percent Auto 3.1 % (0-4.4); Hematocrit 32.4 % (37.0-47.0); Hemoglobin 10.5 g/dL (12.0-15.0); Immature Granulocyte Absolute 0.03 K/mm3 (0.00-0.031); Immature Granulocyte Percent A 0.5 % (0-0.5); Lymphocytes Absolute Auto 0.99 K/mm3 (0.9-3.2); Lymphocytes Percent Auto 17.2 % (18.3-44.2); Mean Corpuscular HGB Conc 32.4 g/dl (32-36); Mean Corpuscular Hemoglobin 28.6 pg (26-34); Mean Corpuscular Volume 88.3 fl (80-100); Mean Platelet Volume 10.7 fl (7.4-10.4); Monocytes Absolute Auto 0.5 K/mm3 (0.1-0.6); Monocytes Percent Auto 9.2 % (2.6-8.5); Neutrophils Percent Auto 69.3 % (45.5-73.1); Platelet Count Result 152 k/mm3 (150-375); Red Blood Count 3.67 M/mm3 (4.2-5.4); Red Cell Distribution Width 14.6 % (11.5-14.5); White Blood Count 5.8 K/mm3 (4.5-10.0)
[2020-01-13] MEDS: HEPARIN SODIUM 5,000 UNITS/ML VIAL 5000 UNITS SUB-Q ×2 (06:02→17:48)
[2020-01-13 06:18] LABS: Hemoglobin A1C 7.7 % (<5.7)
[2020-01-13 06:29] LABS: Alanine Aminotransferase 8 U/L (4-35); Albumin Level 3.4 g/dL (3.5-5.1); Alkaline Phosphatase 90 U/L (38-126); Anion Gap 8 mmol/L (8-16); Aspartate Amino Transferase 18 U/L (14-36); Bilirubin,Total 0.9 mg/dL (0.2-1.3); Blood Urea Nitrogen 28 mg/dL (7-17); CRP 2.1 mg/dL (<1.0); Calcium 8.1 mg/dL (8.4-10.2); Carbon Dioxide 36 mmol/L (22-30); Chloride 91 mmol/L (98-107); Estimated CRCL calculation 11 ml/min; Estimated Glomerular Filt Rate 13; Glucose 192 mg/dL (65-105); Lactate Dehydrogenase 425 U/L (313-618); Lipase 119 U/L (23-300); Magnesium 2.1 mg/dL (1.6-2.3); Phosphorus 5.5 mg/dL (2.5-4.5); Potassium 3.5 mmol/L (3.4-5.0); Sodium 135 mmol/L (137-145)
[2020-01-13] MEDS: CALCIUM ACETATE 667 MG TABLET 1334 MG PO ×3 (07:55→17:47)
[2020-01-13] MEDS: hydrALAZINE HCL 50 MG TABLET 100 MG PO ×2 (07:55→11:55)
[2020-01-13] MEDS: FERROUS SULFATE 324 MG TABLET PO ×2 (07:55→17:48)
[2020-01-13 07:58] LABS: Glucose Point of Care 199 (65-105)
[2020-01-13] MEDS: ASPIRIN 81 MG ENTERIC TABLET PO (08:00)
[2020-01-13] MEDS: cloNIDine HCL 0.1 MG TABLET PO ×3 (08:00→17:48)
[2020-01-13] MEDS: BUMETANIDE 1 MG TABLET 2 MG PO ×2 (08:00→17:47)
[2020-01-13] MEDS: NEOMYCIN/POLYMYXIN/BACITRACIN OINTMENT 15 GM TUBE 1 APPLIC TOPICAL ×3 (08:00→17:48)
[2020-01-13] MEDS: INSULIN GLARGINE (*BKC) 100 UNITS/ML 10 UNITS SUB-Q (08:04)
[2020-01-13] MEDS: LABETALOL HCL 100 MG TABLET 300 MG PO ×3 (08:04→17:48)
[2020-01-13 11:46] LABS: Glucose Point of Care 479 (65-105)
[2020-01-13] MEDS: POTASSIUM CHLORIDE 20 MEQ TABLET PO (11:56)
[2020-01-13 13:34] LABS: Glucose Point of Care 459 (65-105)
[2020-01-13] MEDS: INSULIN ASPART (*BKC) 100 UNITS/ML SUB-Q (13:44)
[2020-01-13] MEDS: INSULIN GLARGINE (*BKC) 100 UNITS/ML 15 UNITS SUB-Q (13:45)
--- NOTE | 2020-01-13 13:48 | PM.IMPN ---
Progress Note: A&P Assessment and Plan (1) Cellulitis of right lower extremity: Code(s): L03.115 - Cellulitis of right lower limb Status: Acute Assessment and Plan: The patient for cellulitis of lower extremity. She is complaining of having some itching to her lower extremities. She has multiple scratches to her lower extremity. Which most likely she has been itching from her high phosphorus level. She does have end-stage renal disease and is diabetic. The IV antibiotics will need to be renal dose. I did order triple antibiotic for local infection. Blood cultures are pending. 01/13/20 13:48 Patient is 64-year-old female with history of end-stage renal disease on hemodialysis Friday, history of diabetes, history of hypertension, status post injury and fracture of right tibial plateau status post ORIF patient states siince then she has been scratching her lower extremity especially the right 1, which she attributes to elevated phosphorus even the she is on the binder, patient states is scraching is so much on the right lower extremity with redness swelling and sometime bleeding, patient is diagnosed with cellulitis of right lower extremity being treated with a vancomycin and Primaxin, to further evaluate patient had a lower extremity Doppler it is negative for DVT, currently patient states see feels dizzy on and off especially when patient is getting up from sitting or lying position, denies any associated symptoms of chest pain palpitation, denies room being moving, to further evaluate will do orthostatic, will have a PT OT evaluate the patient, will continue and monitor cellulitis lower extremity and further recommendation to follow (2) Hypokalemia: Code(s): E87.6 - Hypokalemia Status: Acute Assessment and Plan: Repeat potassium level now. Her potassium was 2.6 and has been supplemented. (3) Hypertension: Code(s): I10 - Essential (primary) hypertension Status: Chronic Assessment and Plan: Continue home medications Of Bumex, hydralazine, and clonidine. (4) Anemia: Code(s): D64.9 - Anemia, unspecified Status: Acute Assessment and Plan: She appears to be at her baseline. She has end-stage renal disease. Continue to monitor. (5) End-stage renal disease on hemodialysis: Code(s): N18.6 - End stage renal disease; Z99.2 - Dependence on renal dialysis Status: Chronic Assessment and Plan: Nephrology has been consulted. She has dialysis Friday. Check phosphorus level. Continue with PhosLo. (6) Insulin dependent type 2 diabetes mellitus: Code(s): E11.9 - Type 2 diabetes mellitus without complications; Z79.4 - [facility] (current) use of insulin Status: Acute Assessment and Plan: Accu-Cheks AC and HS. Recheck her A1c was 10.5 back in July. Continue with her long-acting insulin as well. (7) Diabetes: Qualifiers: Diabetes mellitus type: type 2 Diabetes mellitus terminal system operator insulin use: with nursing home use Diabetes mellitus complication status: with kidney complications Diabetes mellitus complication detail: with chronic kidney disease Chronic kidney disease stage: stage 4 (severe) Qualified Code(s): E11.22 - Type 2 diabetes mellitus with diabetic chronic kidney disease; N18.4 - Chronic kidney disease, stage 4 (severe); Z79.4 - manager intermediate (current) use of insulin Code(s): E11.9 - Type 2 diabetes mellitus without complications Status: Chronic Assessment and Plan: Patient typically is with her she wants at home. She has been instructed about and diabetic diet. However the patient's his that she eats what she wants. Subjective Date/time seen: 01/13/20 13:48 Patient is 64-year-old female with history of end-stage renal disease on hemodialysis Friday, history of diabetes, history of hypertension, status post injury and fracture of right tibial plateau status p
--- NOTE | 2020-01-13 16:35 | P.PNNP_ITS ---
Progress Note: A&P Assessment and Plan (1) End stage renal disease: Code(s): N18.6 - End stage renal disease Status: Chronic Assessment and Plan: * plan HD tomorrow and continue M/W/F schedule while she is hospitalized * follow electrolytes, volume status, and clearance (2) Cellulitis of right lower extremity: Code(s): L03.115 - Cellulitis of right lower limb Status: Acute Assessment and Plan: * as noted by exam * follow cultures * on IV antibiotics (3) Hypertension: Code(s): I10 - Essential (primary) hypertension Status: Chronic Assessment and Plan: * difficult to control at baseline but doing well here * on home medications * I wonder if her reported dizziness/lightheadedness is secondary to overcont rol of her blood pressure - decrease hydralazine dose and change to PRN instead of s cheduled - other options include reducing labetalol or clonidine dosage * follow trend of hemodynamics (4) Hypokalemia: Code(s): E87.6 - Hypokalemia Status: Acute Assessment and Plan: * follow trend * already received supplementation for this (5) Anemia: Code(s): D64.9 - Anemia, unspecified Status: Acute Assessment and Plan: * H/H in range * Epogen with HD * follow trend (6) Insulin dependent type 2 diabetes mellitus: Code(s): E11.9 - Type 2 diabetes mellitus without complications; Z79.4 - terminal operator (current) use of insulin Status: Acute Assessment and Plan: * follow accucheks * on SSI and Lantus Will continue to follow. Subjective Date/time seen: 01/13/20 16:35 Appears to be feeling reasonably well; no pain in her right lower extremity but still has the sensation that she needs to itch it; report some dizziness/lightheadedness since admission -- PT/OT has been ordered; no acute events overnight or earlier this AM. Exam Narrative: Exam Narrative: General: WD/WN female in NAD Heart: normal S1 and S2; no rub Lungs: clear to auscultation Abdomen: soft, nontender, nondistended, positive bowel sounds Extremities: no cyanosis or clubbing; 1+ edema in RLE Skin: excoriations (from scratching) and erythema in RLE; no drainage noted Objective Data Vital Signs Vital Signs: Vital Signs Temp Pulse Resp BP Pulse Ox 01/13/20 14:00 37.1 C 69 14 111/47 L 97 01/13/20 12:15 73 01/13/20 12:00 71 01/13/20 08:04 95 01/13/20 08:00 74 01/13/20 06:00 36.1 C L 71 18 140/75 98 01/13/20 04:00 71 01/13/20 00:00 76 01/12/20 22:00 37.1 C 81 18 127/46 L 94 01/12/20 20:18 81 Intake/Output Intake/Output: Intake & Output 01/10/20 01/11/20 01/12/20 01/13/20 23:59 23:59 23:59 23:59 Intake Total 440 970 Output Total 0 0 Balance 440 970 Meds/Results Medications: Active Medications Generic Name Dose Route Start Last Admin Trade Name Freq PRN Reason Stop Dose Admin Acetaminophen 650 mg 01/12/20 19:30 01/12/20 20:06 Acetaminophen 325 Mg Tablet PO 650 mg Q4H PRN Administration Pain Aspirin 81 mg 01/13/20 09:00 01/13/20 08:00 Aspirin 81 Mg Enteric Tablet PO 81 mg
--- NOTE | 2020-01-13 16:35 | PM.PNNEP ---
Progress Note: A&P Assessment and Plan (1) End stage renal disease: Code(s): N18.6 - End stage renal disease Status: Chronic Assessment and Plan: plan HD tomorrow and continue M/W/F schedule while she is hospitalized follow electrolytes, volume status, and clearance (2) Cellulitis of right lower extremity: Code(s): L03.115 - Cellulitis of right lower limb Status: Acute Assessment and Plan: as noted by exam follow cultures on IV antibiotics (3) Hypertension: Code(s): I10 - Essential (primary) hypertension Status: Chronic Assessment and Plan: difficult to control at baseline but doing well here on home medications I wonder if her reported dizziness/lightheadedness is secondary to overcontrol of her blood pressure - decrease hydralazine dose and change to PRN instead of scheduled - other options include reducing labetalol or clonidine dosage follow trend of hemodynamics (4) Hypokalemia: Code(s): E87.6 - Hypokalemia Status: Acute Assessment and Plan: follow trend already received supplementation for this (5) Anemia: Code(s): D64.9 - Anemia, unspecified Status: Acute Assessment and Plan: H/H in range Epogen with HD follow trend (6) Insulin dependent type 2 diabetes mellitus: Code(s): E11.9 - Type 2 diabetes mellitus without complications; Z79.4 - intermediate card tender (current) use of insulin Status: Acute Assessment and Plan: follow accucheks on SSI and Lantus Will continue to follow. Subjective Date/time seen: 01/13/20 16:35 Appears to be feeling reasonably well; no pain in her right lower extremity but still has the sensation that she needs to itch it; report some dizziness/lightheadedness since admission -- PT/OT has been ordered; no acute events overnight or earlier this AM. Exam Narrative: Exam Narrative: General: WD/WN female in NAD Heart: normal S1 and S2; no rub Lungs: clear to auscultation Abdomen: soft, nontender, nondistended, positive bowel sounds Extremities: no cyanosis or clubbing; 1+ edema in RLE Skin: excoriations (from scratching) and erythema in RLE; no drainage noted Objective Data Vital Signs Vital Signs: Vital Signs Temp Pulse Resp BP Pulse Ox 01/13/20 14:00 37.1 C 69 14 111/47 L 97 11/26/20 12:15 73 01/13/20 12:00 71 01/13/20 08:04 95 01/13/20 08:00 74 01/13/20 06:00 36.1 C L 71 18 140/75 98 01/13/20 04:00 71 01/13/20 00:00 76 01/12/20 22:00 37.1 C 81 18 127/46 L 94 01/12/20 20:18 81 Intake/Output Intake/Output: Intake & Output 01/10/20 01/11/20 01/12/20 01/13/20 23:59 23:59 23:59 23:59 Intake Total 440 970 Output Total 0 0 Balance 440 970 Meds/Results Medications: Active Medications Generic Name Dose Route Start Last Admin Trade Name Freq PRN Reason Stop Dose Admin Acetaminophen 650 mg 01/12/20 19:30 01/12/20 20:06 Acetaminophen 325 Mg Tablet PO 650 mg Q4H PRN Administration Pain Aspirin 81 mg 01/13/20 09:00 01/13/20 08:00 Aspirin 81 Mg Enteric Tablet PO 81 mg QAM MELVIN Administration Bumetanide 2 mg 01/12/20 17:00 01/13/20 08:00 Bumetanide 1 Mg Tablet PO 2 mg BID MELVIN Administration Calcium Acetate 1,334 mg 01/12/20 17:00 01/13/20 11:55 Calcium Acetate 667 Mg Tablet PO 1,334 mg TIDWM MELVIN Administration Clonidine HCl 0.1 mg 01/12/20 17:00 01/13/20 12:15 Clonidine Hcl 0.1 Mg Tablet PO 0.1 mg TID MELVIN Administration Dextrose 12.5 gm 01/12/20 16:13 Dextrose 50% 25 Gm/50 Ml Syringe IV PUSH PRN PRN Hypoglycemia Protocol Diphenhydramine HCl 25 mg 01/12/20 16:45 01/12/20 17:18 Diphenhydramine Hcl Inj 50 Mg/Ml Vial IV PUSH 25 mg Q4H PRN Administration Itching Ferrous Sulfate 324 mg 01/12/20 17:00 01/13/20 07:55 Ferrous Sulfate 324
[2020-01-13 17:32] LABS: Glucose Point of Care 190 (65-105)
[2020-01-13] MEDS: IMIPENEM/CILASTATIN SODIUM 200 MG in DEXTROSE 5% 100 ML 100 MG IVPB (21:17)
[2020-01-13] MEDS: GABAPENTIN 100 MG CAPSULE PO (21:17)
[2020-01-13 21:38] LABS: Glucose Point of Care 247 (65-105)
[2020-01-13] MEDS: diphenhydrAMINE HCl INJ 50 MG/ML VIAL 25 MG IV PUSH (23:47)
[2020-01-14] VITALS (10 sets, daily range): BP systolic 114–122; BP diastolic 53–60; PULSE 64–73; RESP 18; TEMP 36–36.7; O2SAT 94–95
[2020-01-14] MEDS: IMIPENEM/CILASTATIN SODIUM 200 MG in DEXTROSE 5% 100 ML 300 MG IVPB ×4 (03:31→20:52)
[2020-01-14 05:47] LABS: Hematocrit 30.5 % (37.0-47.0); Hemoglobin 9.8 g/dL (12.0-15.0); Mean Corpuscular HGB Conc 32.1 g/dl (32-36); Mean Corpuscular Hemoglobin 28.2 pg (26-34); Mean Corpuscular Volume 87.9 fl (80-100); Mean Platelet Volume 9.8 fl (7.4-10.4); Platelet Count Result 173 k/mm3 (150-375); Red Blood Count 3.47 M/mm3 (4.2-5.4); Red Cell Distribution Width 14.7 % (11.5-14.5); White Blood Count 7.2 K/mm3 (4.5-10.0)
[2020-01-14] MEDS: HEPARIN SODIUM 5,000 UNITS/ML VIAL 5000 UNITS SUB-Q (05:49)
[2020-01-14 05:56] LABS: Albumin Level 3.3 g/dL (3.5-5.1); Anion Gap 9 mmol/L (8-16); Blood Urea Nitrogen 41 mg/dL (7-17); Calcium 8.1 mg/dL (8.4-10.2); Carbon Dioxide 34 mmol/L (22-30); Chloride 89 mmol/L (98-107); Estimated CRCL calculation 7 ml/min; Estimated Glomerular Filt Rate 8; Glucose 133 mg/dL (65-105); Phosphorus 5.8 mg/dL (2.5-4.5); Potassium 4.2 mmol/L (3.4-5.0); Sodium 132 mmol/L (137-145)
[2020-01-14 07:32] LABS: Hepatitis B Surface Antigen Negative (Negative)
[2020-01-14 07:37] LABS: HAV RESULT Negative (Negative); Hepatitis B Core IgM Result Negative (Negative)
[2020-01-14 07:52] LABS: Glucose Point of Care 115 (65-105)
[2020-01-14 07:56] LABS: Hepatitis B Surface Anti Res Positive; Hepatitis C Virus Antibody Negative (Negative)
[2020-01-14] MEDS: INSULIN GLARGINE (*BKC) 100 UNITS/ML 10 UNITS SUB-Q (09:08)
[2020-01-14] MEDS: NEOMYCIN/POLYMYXIN/BACITRACIN OINTMENT 15 GM TUBE 1 APPLIC TOPICAL ×3 (09:09→16:55)
[2020-01-14] MEDS: FERROUS SULFATE 324 MG TABLET PO ×2 (09:10→16:54)
[2020-01-14] MEDS: ASPIRIN 81 MG ENTERIC TABLET PO (09:10)
[2020-01-14] MEDS: BUMETANIDE 1 MG TABLET 2 MG PO ×2 (09:10→16:54)
[2020-01-14] MEDS: CALCIUM ACETATE 667 MG TABLET 1334 MG PO ×3 (09:10→16:53)
--- NOTE | 2020-01-14 09:45 | PC.NURSE ---
pt to dialysis via bed
--- NOTE | 2020-01-14 10:08 | PM.IMPN ---
Progress Note: A&P Assessment and Plan (1) Cellulitis of right lower extremity: Code(s): L03.115 - Cellulitis of right lower limb Status: Acute Assessment and Plan: The patient for cellulitis of lower extremity. She is complaining of having some itching to her lower extremities. She has multiple scratches to her lower extremity. Which most likely she has been itching from her high phosphorus level. She does have end-stage renal disease and is diabetic. The IV antibiotics will need to be renal dose. I did order triple antibiotic for local infection. Blood cultures are pending. 01/14/20 10:08 Patient is 64-year-old female with history of end-stage renal disease on hemodialysis Friday, history of diabetes, history of hypertension, status post injury and fracture of right tibial plateau status post ORIF patient states siince then she has been scratching her lower extremity especially the right 1, which she attributes to elevated phosphorus even the she is on the binder, patient states is scraching is so much on the right lower extremity with redness swelling and sometime bleeding, patient is diagnosed with cellulitis of right lower extremity being treated with a vancomycin and Primaxin, to further evaluate patient had a lower extremity Doppler it is negative for DVT. Today patient stated is not as itchy though there is no significant change in her phosphorus, blood cultures are pending, patient states the pain in right lower extremities is better denies any fever or chills, denies abdominal pain nausea or vomiting, also patient's is not as dizzy as when she arrived, patient is scheduled to have dialysis today, will follow-up on patient blood culture, if there is no significant growth we can do the discharge planning in 1-2 days (2) Hypokalemia: Code(s): E87.6 - Hypokalemia Status: Acute Assessment and Plan: Repeat potassium level now. Her potassium was 2.6 and has been supplemented. (3) Hypertension: Code(s): I10 - Essential (primary) hypertension Status: Chronic Assessment and Plan: Continue home medications Of Bumex, hydralazine, and clonidine. (4) Anemia: Code(s): D64.9 - Anemia, unspecified Status: Acute Assessment and Plan: She appears to be at her baseline. She has end-stage renal disease. Continue to monitor. (5) End-stage renal disease on hemodialysis: Code(s): N18.6 - End stage renal disease; Z99.2 - Dependence on renal dialysis Status: Chronic Assessment and Plan: Nephrology has been consulted. She has dialysis Friday. Check phosphorus level. Continue with PhosLo. (6) Insulin dependent type 2 diabetes mellitus: Code(s): E11.9 - Type 2 diabetes mellitus without complications; Z79.4 - long term care phlebotomist (current) use of insulin Status: Acute Assessment and Plan: Accu-Cheks AC and HS. Recheck her A1c was 10.5 back in July. Continue with her long-acting insulin as well. (7) Diabetes: Qualifiers: Diabetes mellitus type: type 2 Diabetes mellitus supervisor intermediates insulin use: with [facility] use Diabetes mellitus complication status: with kidney complications Diabetes mellitus complication detail: with chronic kidney disease Chronic kidney disease stage: stage 4 (severe) Qualified Code(s): E11.22 - Type 2 diabetes mellitus with diabetic chronic kidney disease; N18.4 - Chronic kidney disease, stage 4 (severe); Z79.4 - long term care phlebotomist (current) use of insulin Code(s): E11.9 - Type 2 diabetes mellitus without complications Status: Chronic Assessment and Plan: Patient typically is with her she wants at home. She has been instructed about and diabetic diet. However the patient's his that she eats what she wants. Subjective Date/time seen: 01/14/20 10:08 Patient is 64-year-old female with history of end-stage renal disease on hemodialysis Friday, history of tino
--- NOTE | 2020-01-14 10:37 | PCPTNOTE ---
Attempted PT eval. Pt is in dialysis. Will try again at later time.
[2020-01-14 11:50] LABS: Glucose Point of Care 270 (65-105)
--- NOTE | 2020-01-14 12:10 | PC.NURSE ---
dialysis unable to do treatment due to problems with fistula, e learning developer has contacted
--- NOTE | 2020-01-14 12:33 | P.PNNP_ITS ---
Progress Note: A&P Assessment and Plan (1) End stage renal disease: Code(s): N18.6 - End stage renal disease Status: Chronic Assessment and Plan: * planed HD today but unable to do so given clotted AV access * stable electrolytes, volume status, and clearance at this time * needs dialysis access prior to discharge (see #3) (2) Cellulitis of right lower extremity: Code(s): L03.115 - Cellulitis of right lower limb Status: Acute Assessment and Plan: * clinically improving * cultures so far negative to date * on IV antibiotics (3) Clotted dialysis shunt: Code(s): T82.868A - Thrombosis due to vascular prosthetic devices, implants and grafts, initial encounter Status: Acute Assessment and Plan: * as noted today by dialysis nurse * attempting to transfer to [facility] as her vascular surgeon is there to perform declot/fistulogram * if unable to transfer, may need tunneled HD catheter placement here (to ensure reliable dialysis access prior to discharge) * discussed with Dr. Claire (4) Hypertension: Code(s): I10 - Essential (primary) hypertension Status: Chronic Assessment and Plan: * difficult to control at baseline but doing well here * on home medications * I wonder if her reported dizziness/lightheadedness is secondary to overcontrol of her blood pressure - have decrease hydralazine dose and changed it to PRN instead of scheduled - other options include reducing labetalol or clonidine dosage * follow trend of hemodynamics (5) Anemia: Code(s): D64.9 - Anemia, unspecified Status: Acute Assessment and Plan: * H/H in range * Epogen with HD * follow trend (6) Insulin dependent type 2 diabetes mellitus: Code(s): E11.9 - Type 2 diabetes mellitus without complications; Z79.4 - bed bug exterminator (current) use of insulin Status: Acute Assessment and Plan: * follow accucheks * on SSI and Lantus Will continue to follow. Subjective Date/time seen: 01/14/20 12:33 Attempted dialysis today but HD nurse discovered that AVF was clotted; she otherwise feels reasonably well; her right leg appears less erythematous and she has tried not to touch or scratch that leg since admission; no acute distress voiced at this time. Exam Narrative: Exam Narrative: General: WD/WN female in NAD Heart: normal S1 and S2; no rub Lungs: clear to auscultation Abdomen: soft, nontender, nondistended, positive bowel sounds Extremities: no cyanosis or clubbing; 1+ edema in RLE Skin: excoriations (from scratching) noted in RLE with reduced erythema Objective Data Vital Signs Vital Signs: Vital Signs Temp Pulse Resp BP Pulse Ox 01/14/20 05:12 36.6 C 64 18 114/53 L 94 01/14/20 04:00 69 01/14/20 00:00 65 01/13/20 20:21 37.3 C 71 16 119/53 L 91 01/13/20 20:00 81 01/13/20 17:48 77 01/13/20 16:00 70 01/13/20 14:00 37.1 C 69 14 111/47 L 97 Intake/Output Intake/Output: Intake & Output 01/11/20 01/12/20 01/13/20 01/14/20 23:59 23:59 23:59 23:59 Intake Total 440 1999 490 Output Total 0 0 Balance 440 1999 490 Meds/Results Medications: Active Medications Generic Name Dose Route Start
--- NOTE | 2020-01-14 12:33 | PM.PNNEP ---
Progress Note: A&P Assessment and Plan (1) End stage renal disease: Code(s): N18.6 - End stage renal disease Status: Chronic Assessment and Plan: planed HD today but unable to do so given clotted AV access stable electrolytes, volume status, and clearance at this time needs dialysis access prior to discharge (see #3) (2) Cellulitis of right lower extremity: Code(s): L03.115 - Cellulitis of right lower limb Status: Acute Assessment and Plan: clinically improving cultures so far negative to date on IV antibiotics (3) Clotted dialysis shunt: Code(s): T82.868A - Thrombosis due to vascular prosthetic devices, implants and grafts, initial encounter Status: Acute Assessment and Plan: as noted today by dialysis nurse attempting to transfer to [facility] as her vascular surgeon is there to perform declot/fistulogram if unable to transfer, may need tunneled HD catheter placement here (to ensure reliable dialysis access prior to discharge) discussed with Dr. Claire (4) Hypertension: Code(s): I10 - Essential (primary) hypertension Status: Chronic Assessment and Plan: difficult to control at baseline but doing well here on home medications I wonder if her reported dizziness/lightheadedness is secondary to overcontrol of her blood pressure - have decrease hydralazine dose and changed it to PRN instead of scheduled - other options include reducing labetalol or clonidine dosage follow trend of hemodynamics (5) Anemia: Code(s): D64.9 - Anemia, unspecified Status: Acute Assessment and Plan: H/H in range Epogen with HD follow trend (6) Insulin dependent type 2 diabetes mellitus: Code(s): E11.9 - Type 2 diabetes mellitus without complications; Z79.4 - [facility] (current) use of insulin Status: Acute Assessment and Plan: follow accucheks on SSI and Lantus Will continue to follow. Subjective Date/time seen: 01/14/20 12:33 Attempted dialysis today but HD nurse discovered that AVF was clotted; she otherwise feels reasonably well; her right leg appears less erythematous and she has tried not to touch or scratch that leg since admission; no acute distress voiced at this time. Exam Narrative: Exam Narrative: General: WD/WN female in NAD Heart: normal S1 and S2; no rub Lungs: clear to auscultation Abdomen: soft, nontender, nondistended, positive bowel sounds Extremities: no cyanosis or clubbing; 1+ edema in RLE Skin: excoriations (from scratching) noted in RLE with reduced erythema Objective Data Vital Signs Vital Signs: Vital Signs Temp Pulse Resp BP Pulse Ox 01/14/20 05:12 36.6 C 64 18 114/53 L 94 01/14/20 04:00 69 01/14/20 00:00 65 01/13/20 20:21 37.3 C 71 16 119/53 L 91 01/13/20 20:00 81 01/13/20 17:48 77 01/13/20 16:00 70 01/13/20 14:00 37.1 C 69 14 111/47 L 97 Intake/Output Intake/Output: Intake & Output 01/11/20 01/12/20 01/13/20 01/14/20 23:59 23:59 23:59 23:59 Intake Total 440 1999 490 Output Total 0 0 Balance 440 1999 490 Meds/Results Medications: Active Medications Generic Name Dose Route Start Last Admin Trade Name Kanchan PRN Reason Stop Dose Admin Acetaminophen 650 mg 01/12/20 19:30 01/12/20 20:06 Acetaminophen 325 Mg Tablet PO 650 mg Q4H PRN Administration Pain Aspirin 81 mg 01/13/20 09:00 01/14/20 09:10 Aspirin 81 Mg Enteric Tablet PO 81 mg QAM MELVIN Administration Bumetanide 2 mg 01/12/20 17:00 01/14/20 09:10 Bumetanide 1 Mg Tablet PO 2 mg BID MELVIN Administration Calcium Acetate 1,334 mg 01/12/20 17:00 01/14/20 09:10 Calcium Acetate 667 Mg Tablet PO 1,334 mg TIDWM MELVIN Administration Clonidine HCl 0.1 mg 01/12/20 17:00 01/13/20 17:48 Clonidine Hcl 0.1 Mg Tablet PO 0.1 mg TID MELVIN Administration De
[2020-01-14] MEDS: LABETALOL HCL 100 MG TABLET 300 MG PO ×2 (12:40→16:54)
[2020-01-14] MEDS: INSULIN ASPART (*BKC) 100 UNITS/ML SUB-Q ×2 (12:41→16:56)
[2020-01-14] MEDS: cloNIDine HCL 0.1 MG TABLET PO ×2 (12:41→16:54)
--- NOTE | 2020-01-14 12:49 | PC.NURSE ---
0900 clonidine and labetalol were held due to pt going to dialysis, pt unable to complete treatment today so meds administered when returned to floor, 1300 dose of those meds non administered due to timing
--- NOTE | 2020-01-14 15:03 | PM.TDS ---
Transfer Discharge Sum: Prov Provider Date of admission: 01/13/20 14:29 Primary care physician: Mitch Ceja MD Admitting clinician: Artem Claire MD Consults: 01/12/20 13:11 Consult to Physician Routine Comment: p ask if she can have a regular diet eats @home Consulting Provider: Caridad Burnett Reason for consultation: Hypokalemia, ESRD Has provider been notified: Yes DS: Admitting Diagnosis Admitting Diagnosis Admitting Diagnosis: cellulitis rle,hypokalemia DS: Discharge Diagnosis Discharge Diagnosis (1) Cellulitis of right lower extremity: Code(s): L03.115 - Cellulitis of right lower limb Status: Acute Assessment and Plan: The patient for cellulitis of lower extremity. She is complaining of having some itching to her lower extremities. She has multiple scratches to her lower extremity. Which most likely she has been itching from her high phosphorus level. She does have end-stage renal disease and is diabetic. The IV antibiotics will need to be renal dose. I did order triple antibiotic for local infection. Blood cultures are pending. 01/14/20 10:08 Patient is 64-year-old female with history of end-stage renal disease on hemodialysis Friday, history of diabetes, history of hypertension, status post injury and fracture of right tibial plateau status post ORIF patient states siince then she has been scratching her lower extremity especially the right 1, which she attributes to elevated phosphorus even the she is on the binder, patient states is scraching is so much on the right lower extremity with redness swelling and sometime bleeding, patient is diagnosed with cellulitis of right lower extremity being treated with a vancomycin and Primaxin, to further evaluate patient had a lower extremity Doppler it is negative for DVT. Today patient stated is not as itchy though there is no significant change in her phosphorus, blood cultures are pending, patient states the pain in right lower extremities is better denies any fever or chills, denies abdominal pain nausea or vomiting, also patient's is not as dizzy as when she arrived, patient is scheduled to have dialysis today, will follow-up on patient blood culture, if there is no significant growth we can do the discharge planning in 1-2 days (2) Hypokalemia: Code(s): E87.6 - Hypokalemia Status: Acute Assessment and Plan: Repeat potassium level now. Her potassium was 2.6 and has been supplemented. (3) Hypertension: Code(s): I10 - Essential (primary) hypertension Status: Chronic Assessment and Plan: Continue home medications Of Bumex, hydralazine, and clonidine. (4) Anemia: Code(s): D64.9 - Anemia, unspecified Status: Acute Assessment and Plan: She appears to be at her baseline. She has end-stage renal disease. Continue to monitor. (5) End-stage renal disease on hemodialysis: Code(s): N18.6 - End stage renal disease; Z99.2 - Dependence on renal dialysis Status: Chronic Assessment and Plan: Nephrology has been consulted. She has dialysis Friday. Check phosphorus level. Continue with PhosLo. (6) Insulin dependent type 2 diabetes mellitus: Code(s): E11.9 - Type 2 diabetes mellitus without complications; Z79.4 - [facility] (current) use of insulin Status: Acute Assessment and Plan: Accu-Cheks AC and HS. Recheck her A1c was 10.5 back in July. Continue with her long-acting insulin as well. (7) Diabetes: Qualifiers: Diabetes mellitus type: type 2 Diabetes mellitus [employer] insulin use: with shelter use Diabetes mellitus complication status: with kidney complications Diabetes mellitus complication detail: with chronic kidney disease Chronic kidney disease stage: stage 4 (severe) Qualified Code(s): E11.22 - Type 2 diabetes mellitus with diabetic chronic kidney disease; N18.4 - Chronic kidney diseas
--- NOTE | 2020-01-14 16:29 | PC.NURSE ---
report called to Kim DALAL at [facility], reviewed pt condition and plan of care, awaiting ambulance for transfer
[2020-01-14 17:07] LABS: Glucose Point of Care 280 (65-105)
[2020-01-14] MEDS: GABAPENTIN 100 MG CAPSULE PO (20:54)
[2020-01-14 21:33] LABS: Glucose Point of Care 166 (65-105)
== END 2020-01-14 22:21 | disposition short-term general hospital (02) | DRG 602 ==
LOC: ANHED 10:35 → ANH2MED 13:45
PROVIDERS: Internal Medicine Nephrology; Nurse Practitioner; Physician Assistant; Admitting Provider Family Medicine; Emergency Provider Emergency Medicine; PCP Internal Medicine; Visit Provider Family Medicine
DX: L03.115 Cellulitis of right lower limb (principal); N18.6 End stage renal disease; I13.2 Hypertensive heart and chronic kidney disease with heart failure and with stage 5 chronic kidney disease, or end stage renal disease; I50.32 Chronic diastolic (congestive) heart failure; E11.22 Type 2 diabetes mellitus with diabetic chronic kidney disease; E87.6 Hypokalemia; I25.10 Atherosclerotic heart disease of native coronary artery without angina pectoris; E11.3299 Type 2 diabetes mellitus with mild nonproliferative diabetic retinopathy without macular edema, unspecified eye; M81.0 Age-related osteoporosis without current pathological fracture; I07.1 Rheumatic tricuspid insufficiency; Z96.641 Presence of right artificial hip joint; E83.39 Other disorders of phosphorus metabolism; F41.8 Other specified anxiety disorders; D63.1 Anemia in chronic kidney disease; Z99.2 Dependence on renal dialysis; Z86.73 Personal history of transient ischemic attack (TIA), and cerebral infarction without residual deficits; Z98.42 Cataract extraction status, left eye; Z98.41 Cataract extraction status, right eye; Z79.4 Long term (current) use of insulin
CPT/HCPCS: 36415; 73590; 80048; 80053; 80069; 80074; 83036; 83605; 83615; 83690; 83735; 84100; 85025; 85027; 85610; 85652; 85730; 86140; 86706; 87040; 93971; 96365; 96367; 96372; 96375; 96376; 97161; 97165; 99285; A9270; G0378; J0743; J1200; J1644; J1815; J2405; J3370

== ENCOUNTER 2020-02-12 09:35 | Emergency (ER) | payer MEDICARE, MEDICAID, SELFPAY ==
--- NOTE | ~2020-02-12 | XR_ITS ---
EXAMINATION: XR tibia fibula LT 2V, XR ankle LT min 3V EXAM DATE: 02/12/2020 10:54 INDICATION: Recent surgery for fracture, left lower leg pain. Feels like the cast is too tight. TECHNIQUE: Frontal and lateral projections of the left tibia and fibula. Frontal and lateral project ions left ankle. Comparison is made to prior examination from 2015. FINDINGS: There is a cast obscuring details. There is an intramedullary honorio extending through the dis sabas aspect of the left femoral shaft, through the plafond and in the subtalar joint, with supporting screws. There are comminuted left distal fibular metadiaphyseal fractures. There are no bony erosions identified. Above the cast there may be some soft tissue swelling of the proximal calf. Cast feeling too tight is not a radiographic diagnosis. IMPRESSION: 1. Status post left ankle and subtalar joint arthrodesis. Distal fibular fractures. Correlating with prefixation x-rays would be helpful. 2. Above the cast there may be some soft tissue swelling of the proximal calf. Cast feeling too tight is not a radiographic diagnosis. Reviewed, dictated and finalized at location A. 'S ASSISTANT IMPRESSION: 1. Status post left ankle and subtalar joint arthrodesis. Distal fibular fractu res. Correlating with prefixation x-rays would be helpful. 2. Above the cast there may be some soft tissue swelling of the proximal calf. Cast feeling too tight is not a radiographic diagnosis.
[2020-02-12 09:32] VITALS: BP 194/82; PULSE 80; RESP 20; TEMP 36.6; O2SAT 94
[2020-02-12 10:38] VITALS: BP 180/88; PULSE 87; RESP 20; O2SAT 98
--- NOTE | 2020-02-12 10:38 | ED.LOWEXIN ---
HPI - Extremity Injury (Lower) General Chief Complaint: Extremity Injury, Lower <Diane Hayden PA-C - Last Filed: 02/12/20 14:36> Stated Complaint: left ankle pain <Diane Hayden PA-C - Last Filed: 02/12/20 14:36> Time Seen by Provider: 02/12/20 10:12 <Diane Hayden PA-C - Last Filed: 02/12/20 14:36> Source: patient <SALMA Klein Last Filed: 02/12/20 14:36> Mode of arrival: EMS <Diane Hayden PA-C - Last Filed: 02/12/20 14:36> Limitations: no limitations <Diane Hayden PA-C - Last Filed: 02/12/20 14:36> History of Present Illness HPI Narrative: This is a 64-year-old female that presents to the emergency department for left lower leg pain. Reports she recently had an ankle fracture and surgery at [facility]. Reports after the surgery she had a cast placed. Reports she felt it was too tight and it was replaced again this week. Reports she thinks it is still too tight. It is uncomfortable in her calf area. Denies fever, edema or new numbness. <Diane Hayden PA-C - Last Filed: 02/12/20 14:36> Related Data Home Medications: Home Medications Medication Instructions Recorded Confirmed calcium acetate(phosphat bind) 667 1,334 mg PO TIDWM 02/11/19 02/12/20 mg tablet gabapentin 100 mg PO HS 07/02/19 02/12/20 insulin aspart U-100 100 unit/mL See Rx Instructions .ROUTE .COMPLEX 11/04/19 02/12/20 subcutaneous solution bumetanide 2 mg PO BID 01/12/20 02/12/20 atorvastatin 20 mg PO DAILY 02/12/20 02/12/20 furosemide [Lasix] 40 mg PO DAILY 02/12/20 02/12/20 oxycodone-acetaminophen 1 tablet PO Q6H PRN 02/12/20 02/12/20 sennosides [Senna Lax] 8.6 mg PO HS PRN 02/12/20 02/12/20 <Diane Hayden PA-C - Last Filed: 02/12/20 14:36> Allergies/Adverse Reactions: Allergies Allergy/AdvReac Type Severity Reaction Status Date / Time Penicillins Allergy Unknown Hives Verified 02/12/20 09:45 <Diane Hayden PA-C - Last Filed: 02/12/20 14:36> Review of Systems Review of Systems: Narrative: CONSTITUTIONAL: Denies fever SKIN: Denies rash MUSCULOSKELETAL: Reports joint pain, and myalgia. NEUROLOGIC: Denies new numbness <Diane Hayden PA-C - Last Filed: 02/12/20 14:36> All systems reviewed & are unremarkable except as noted in HPI and below <Diane Hayden PA-C - Last Filed: 02/12/20 14:36> [facility] Past Medical History Medical History: Medical History (Updated 02/12/20 @ 14:35 by Diane Hayden PA-C) Acute UTI Anemia of chronic disease Anxiety AV fistula Left upper arm Bacteremia Chronic diastolic heart failure Coronary artery disease CVA (cerebral vascular accident) 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 Depression End-stage renal disease on hemodialysis End-stage renal disease on dialysis Friday. Fracture of right tibial plateau (~10/2018) Hyper-reninism Hypertension Multifactorial initially due to essential hypertension but now in part due to renal failure Insulin dependent type 2 diabetes mellitus Hemoglobin A1c was 5.0% in October 2018. Left wrist fracture Moderate protein-calorie malnutrition Multiple gallstones Nonproliferative diabetic retinopathy Pneumonia With parapneumonic effusion requiring thoracentesis in October 2017. Post-menopausal osteoporosis On DEXA scan in January 2017. Severe tricuspid regurgitation by prior echocardiography Echocardiogram September 2018 demonstrating grade 1 diastolic dysfunction, mild left ventricular hypertrophy, mild left ventricular enlargement, grade 1 diastolic dysfunction, global longitudinal strain at-8%, TAPSE 1.4 cm suggesting abnormal right ventricular systolic function although appears normal by visual estimation, moderate left atrial enlargement, mild right atrial enlargement, mild (underestimated) mitral valve regurgitation, tricuspid valve do not coaptation due to dilated annulus, mild pulmonic regurgitation, elevated right atria
[2020-02-12 13:50] VITALS: BP 155/68; PULSE 87; RESP 20; TEMP 36.6; O2SAT 89
[2020-02-12] MEDS: diphenhydrAMINE HCl CAP 25 MG CAPSULE PO (13:50)
--- NOTE | 2020-02-12 13:54 | PC.NURSE ---
Patient states that she does not want to remain in the ED at this time. She states i just want to go back to the assisted and lay in bed . Patient does not expand on reasons repeating that she wants to go back to the assisted. When I told her that the PA was informed that there is a possibility of transfer to hospital where surgery was performed, the patient states I ain't going there. I just want to go back to the assisted. EDPA and ED Charge made aware.
--- NOTE | 2020-02-12 14:52 | PC.NURSE ---
Patient continues to refuse further treatment and possible transport to tertiary care for evaluation by her surgeon. I spoke with Camila at [facility] (formerly [facility] in [place]) to give report on this patient. All questions asked by the nurse were answered at this time. ED psychiatric secretary is calling for ambulance to transport the patient back to intermediate.
[2020-02-12 14:55] VITALS: BP 189/88; PULSE 84; RESP 20; TEMP 36.7; O2SAT 89
[2020-02-12 16:00] VITALS: BP 183/86; PULSE 89; RESP 16; TEMP 36.4; O2SAT 90
== END 2020-02-12 16:00 | disposition left against medical advice (07) ==
PROVIDERS: Emergency Provider General Practice; PCP Internal Medicine
DX: S82.832D Other fracture of upper and lower end of left fibula, subsequent encounter for closed fracture with routine healing (principal); X58.XXXD Exposure to other specified factors, subsequent encounter; I13.2 Hypertensive heart and chronic kidney disease with heart failure and with stage 5 chronic kidney disease, or end stage renal disease; E11.22 Type 2 diabetes mellitus with diabetic chronic kidney disease; N18.6 End stage renal disease; I50.32 Chronic diastolic (congestive) heart failure; Z99.2 Dependence on renal dialysis; Z79.4 Long term (current) use of insulin; D63.1 Anemia in chronic kidney disease; I25.10 Atherosclerotic heart disease of native coronary artery without angina pectoris; Z86.73 Personal history of transient ischemic attack (TIA), and cerebral infarction without residual deficits; E11.319 Type 2 diabetes mellitus with unspecified diabetic retinopathy without macular edema; I07.1 Rheumatic tricuspid insufficiency; Z87.440 Personal history of urinary (tract) infections; Z96.641 Presence of right artificial hip joint; Z98.42 Cataract extraction status, left eye; Z98.41 Cataract extraction status, right eye; Z77.22 Contact with and (suspected) exposure to environmental tobacco smoke (acute) (chronic)
CPT/HCPCS: 73590; 73610; 99284; A9270

== ENCOUNTER 2020-03-08 05:19 | Inpatient (IN) | payer MEDICARE, MEDICAID, SELFPAY ==
[2020-03-08] VITALS (20 sets, daily range): BP systolic 105–153; BP diastolic 50–77; PULSE 76–111; RESP 15–28; TEMP 36.1–39.2; O2SAT 77–100; BMI 26.2
--- NOTE | ~2020-03-08 | US_ITS ---
EXAMINATION: US venous doppler [facility] DATE: 03/08/2020 17:52 INDICATION: Left lower limb swelling TECHNIQUE: Rico scale images without and with compression and Doppler images of the left lower extrem ity veins were obtained. COMPARISON: 10/08/2018 FINDINGS: The left common femoral vein, profunda femoral vein, femoral vein, popliteal vein, peroneal trunk, posterior tibial veins, and greater saphenous vein are patent. IMPRESSION: 1. Patent left lower extremity veins. No evidence of deep venous thrombosis. Reviewed, dictated and finalized at location A. R FORENSICS ANALYST
--- NOTE | ~2020-03-08 | XR_ITS ---
EXAMINATION: XR ankle LT min 3V DATE: 03/08/2020 17:25 INDICATION: Left foot swelling and soft tissue ulceration TECHNIQUE: Anteroposterior, lateral, mortise, and additional oblique view of the ankle were obtained. COMPARISON: 02/12/2020 FINDINGS: Again seen is an intramedullary honorio extending through the calcaneus and talus and into the distal tibia. Alignment is unchanged. Calcified callus surrounds the distal tibia. There is a comminu earlene fracture of the distal fibula with minimal calcified callus at the fracture site. A soft tissue u lceration is seen medial to the medial malleolus. No definite associated osteopenia is identified. Th e cast has been removed. Calcified atherosclerosis is noted. IMPRESSION: 1. Medial soft tissue ulceration of the ankle near the medial malleolus. 2. Surgical changes and comminuted distal fibular fracture with slight increase in calcified callus b ut otherwise no significant change. Reviewed, dictated and finalized at location A. RCOLLAR MAKER IMPRESSION: 1. Medial soft tissue ulceration of the ankle near the medial malleolus. 2. Surgical changes and comminuted distal fibular fracture with slight increase in calcified callus but otherwise no significant change.
--- NOTE | ~2020-03-08 | XR_ITS ---
EXAMINATION: XR chest 1V portable EXAM DATE: 03/08/2020 06:52 INDICATION: Sepsis. TECHNIQUE: Portable AP frontal chest x-ray was obtained. Comparison is made to prior examination from 03/13/2019. FINDINGS: There is a right-sided dialysis catheter, tip projecting over cavoatrial junction. The card iomediastinal silhouette is prominent but magnified on this AP technique. There is pulmonary vascular congestion. Some linear opacities, atelectasis or pneumonia. Small left pleural effusion. There is n o pneumothorax suspected. There is aortic arteriosclerosis. The bones are osteopenic. There are bon y degenerative changes. IMPRESSION: Some scattered linear opacities, atelectasis or pneumonia. Small left pleural effusion. Reviewed, dictated and finalized at location A. [employer] IMPRESSION: Some scattered linear opacities, atelectasis or pneumonia. Small le ft pleural effusion.
--- NOTE | 2020-03-08 05:29 | ECG_ITS ---
Measurements Intervals [place] Rate: 111 P: 150 ND: 171 QRS: 149 QRSD: 104 T: -24 QT: 330 QTc: 449 Interpretive Statements ECTOPIC ATRIAL TACHYCARDIA RIGHT AXIS DEVIATION POSSIBLE LEFT ATRIAL ENLARGEMENT BORDERLINE ST-T WAVE ABNORMALITY- INFERIOR LEADS BASELINE ARTIFACT- I, II, III, AVL, V6 ABNORMAL ECG Electronically Signed On 03-08-2020 7:16:51 EDUCATIONAL DIAGNOSTICIAN by Teofilo Tay D.O.
--- NOTE | 2020-03-08 05:35 | ED.AMS ---
HPI - Altered Mental Status General Chief Complaint: Altered Mental Status Stated Complaint: ams and low o2 Time Seen by Provider: 03/08/20 05:29 History of Present Illness HPI narrative: 64 yo female w/ ESRD on dialysis, DM, HTN brought in from [facility] for hypoxia, confusion, and fever. Staff woke her up this morning and noted that she was confused. Oxygen saturation reportedly in the 60s. Placed on O2 by EMS mental status improved. Febrile to 102 during triage. She is due for dialysis today. Related Data Home Medications Medication Instructions Recorded Confirmed calcium acetate(phosphat bind) 667 1,334 mg PO TIDWM 02/11/19 03/08/20 mg tablet gabapentin 100 mg PO TID 07/02/19 03/08/20 insulin aspart U-100 100 unit/mL See Rx Instructions .ROUTE .COMPLEX 11/04/19 03/08/20 subcutaneous solution oxycodone-acetaminophen 1 tablet PO TID PRN 02/12/20 03/08/20 B complex with C 20-folic acid 1 cap PO DAILY 03/08/20 03/08/20 [Virt-Caps] diphenhydramine HCl [Benadryl] 25 mg PO Q8H PRN 03/08/20 03/08/20 hydralazine 100 mg PO DAILY 03/08/20 03/08/20 labetalol 100 mg PO DAILY 03/08/20 03/08/20 metolazone 5 mg PO DAILY 03/08/20 03/08/20 ondansetron HCl [Zofran] 4 mg PO Q8H PRN 03/08/20 03/08/20 vitamin B complex [Super B 1 tablet PO DAILY 03/08/20 03/08/20 [id number]] Allergies Allergy/AdvReac Type Severity Reaction Status Date / Time Penicillins Allergy Unknown Hives Verified 02/12/20 09:45 Review of Systems Constitutional: Constitutional: Reports fever(s) Cardiovascular: Cardiovascular: Denies chest pain Respiratory: Respiratory: Reports dyspnea Gastrointestinal: Gastrointestinal: Denies nausea Genitourinary: Genitourinary: Denies dysuria Musculoskeletal: Musculoskeletal: Denies back pain Integumentary/Breasts: Skin/Breast: Reports skin ulcer Neurologic: Reports confusion PMFSH Past Medical History Medical History Acute UTI Anemia of chronic disease Anxiety AV fistula Left upper arm Bacteremia Chronic diastolic heart failure Coronary artery disease CVA (cerebral vascular accident) 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 Depression End-stage renal disease on hemodialysis End-stage renal disease on dialysis Friday. Fracture of right tibial plateau (~10/2018) Hyper-reninism Hypertension Multifactorial initially due to essential hypertension but now in part due to renal failure Insulin dependent type 2 diabetes mellitus Hemoglobin A1c was 5.0% in October 2018. Left wrist fracture Moderate protein-calorie malnutrition Multiple gallstones Nonproliferative diabetic retinopathy Pneumonia With parapneumonic effusion requiring thoracentesis in October 2017. Post-menopausal osteoporosis On DEXA scan in January 2017. Severe tricuspid regurgitation by prior echocardiography Echocardiogram September 2018 demonstrating grade 1 diastolic dysfunction, mild left ventricular hypertrophy, mild left ventricular enlargement, grade 1 diastolic dysfunction, global longitudinal strain at-8%, TAPSE 1.4 cm suggesting abnormal right ventricular systolic function although appears normal by visual estimation, moderate left atrial enlargement, mild right atrial enlargement, mild (underestimated) mitral valve regurgitation, tricuspid valve do not coaptation due to dilated annulus, mild pulmonic regurgitation, elevated right atrial pressure at 15 mmHg, trivial pericardial effusion. Surgical History Surgical History History of bilateral cataract extraction History of dilatation and curettage History of open reduction and internal fixation (ORIF) procedure Bilateral wrists; left distal radius fracture with intramedullary nail repair 05/2016. History of orthopedic surgery Bone spur right foot removal, right achilles repair 2012 History of right hip replacement Due to
[2020-03-08 05:53] LABS: Basophils Percent Auto 0.3 % (0.2-1.2); Eosinophils Absolute Auto 0.1 K/mm3 (0-0.3); Eosinophils Percent Auto 0.5 % (0-4.4); Hematocrit 29.3 % (37.0-47.0); Hemoglobin 9.2 g/dL (12.0-15.0); Immature Granulocyte Absolute 0.07 K/mm3 (0.00-0.031); Immature Granulocyte Percent A 0.5 % (0-0.5); Lymphocytes Absolute Auto 0.44 K/mm3 (0.9-3.2); Mean Corpuscular HGB Conc 31.4 g/dl (32-36); Mean Corpuscular Hemoglobin 28.6 pg (26-34); Mean Platelet Volume 9.7 fl (7.4-10.4); Monocytes Absolute Auto 0.7 K/mm3 (0.1-0.6); Monocytes Percent Auto 4.7 % (2.6-8.5); Neutrophils Absolute Auto 13.3 K/mm3 (1.3-6.7); Platelet Count Result 235 k/mm3 (150-375); Red Blood Count 3.22 M/mm3 (4.2-5.4); Red Cell Distribution Width 15.1 % (11.5-14.5); White Blood Count 14.6 K/mm3 (4.5-10.0)
[2020-03-08 06:01] LABS: INR 1.2; Prothrombin Time 15.5 Seconds (11.1-14.7)
[2020-03-08 06:02] LABS: Partial Thromboplastin Time 34.1 SECONDS (22.3-36.8)
[2020-03-08 06:06] LABS: Alanine Aminotransferase 10 U/L (4-35); Albumin Level 3.7 g/dL (3.5-5.1); Alkaline Phosphatase 154 U/L (38-126); Anion Gap 13 mmol/L (8-16); Aspartate Amino Transferase 24 U/L (14-36); Bilirubin,Total 0.7 mg/dL (0.2-1.3); Blood Urea Nitrogen 61 mg/dL (7-17); Calcium 7.8 mg/dL (8.4-10.2); Carbon Dioxide 28 mmol/L (22-30); Chloride 92 mmol/L (98-107); Estimated CRCL calculation 7 ml/min; Estimated Glomerular Filt Rate 8; Glucose 266 mg/dL (65-105); Potassium 6.1 mmol/L (3.4-5.0); Sodium 133 mmol/L (137-145)
[2020-03-08] MEDS: SODIUM CHLORIDE 0.9% IV 1,000 ML 999 ML IV CONT (06:06)
[2020-03-08 06:12] LABS: Alveolar/Arterial O2 Gradient 102.2 mmHg; Base Excess ABG -0.6 mEq/l (+/-2.0); Fractional Inspired Oxygen 40 %; HCO3 ABG 23.7 mEq/l (22.0-26.0); Oxygen Content ABG 13.1 %vol (16.0-22.0); Oxygen Saturation ABG 98.8 % (95.0-100.0); PCO2 ABG 37.2 mmHg (35.0-45.0); PO2 ABG 140.2 mmHg (80.0-100.0); Total Hemoglobin 9.4 g/dL (12.0-18.0); pH ABG 7.422 (7.350-7.450)
[2020-03-08 06:13] LABS: Device NASAL CANNULA; Modified Allen's Test Pass; Site Drawn RIGHT RADIAL
[2020-03-08] MEDS: ALBUTEROL SULFATE NEB 2.5 MG/0.5 ML INH 10 MG INHALATION (06:32)
[2020-03-08] MEDS: INSULIN HUMAN REGULAR (*BKC) 100 UNITS/ML 10 UNITS IV PUSH (06:39)
[2020-03-08] MEDS: CALCIUM GLUCONATE 1,000 MG/10 ML VIAL 1000 MG IV PUSH (06:39)
[2020-03-08] MEDS: DEXTROSE 50% 25 GM/50 ML SYRINGE IV PUSH (06:39)
[2020-03-08] MEDS: DEXTROSE 5% IN WATER 50 ML (07:09)
--- NOTE | 2020-03-08 07:24 | PC.NURSE ---
Assumed care of pt, pt is alert and upright on stretcher, neb tx in progress. Pt repositioned, on tele monitor - VSS. Discussed POC.
[2020-03-08 07:27] LABS: Add Urine Microscopic? YES; Appearance Urine Clear (Clear); Bacteria Urine Trace /hpf; Bilirubin Urine Negative (Negative); Blood Urine Negative (Negative); Color Urine Yellow (Yellow); Glucose Urine UA 1+ mg/dL (Negative); Ketones Urine Negative (Negative); Leukocyte Esterase Ur Negative LEU/UL (Negative); Nitrate Urine Negative (Negative); Protein Urine 3+ mg/dL (Negative); Specific Grav Ur 1.012 (1.001-1.035); Squamous Epithelial Cell Urine Rare /hpf (Few); Urobilinogen Urine Negative mg/dL (<2.0); WBC Urine 21-30 /hpf
--- NOTE | 2020-03-08 08:04 | PC.NURSE ---
Spoke to Antony Sanchez and gave update on pt status.
[2020-03-08 08:15] LABS: Glucose Point of Care 336 (65-105)
[2020-03-08 09:49] LABS: Hepatitis B Surface Antigen Negative (Negative)
[2020-03-08 10:10] LABS: Hepatitis B Surface Anti Res Positive
--- NOTE | 2020-03-08 13:44 | PC.NURSE ---
Manoj vital and LUIS given update on pt status.
[2020-03-08 14:13] LABS: Glucose Point of Care 253 (65-105)
--- NOTE | 2020-03-08 14:51 | ADMGEN ---
This patient, Ania Field, was admitted to IMU Room 202-01 @ 1350. Patient/ oriented to hospital policies and general routines including ID bracelet, bed and alarms, visiting hours, pain management, procedures, bathroom and other care routines, personal items, smoking policy, room service/diet, and visiting hours. Information on how to activate the Rapid Response Team has been discussed. Patient are encouraged to report perceived risks to care and to ask questions if they do not understand what they are told or what they should do.
[2020-03-08] MEDS: SODIUM POLYSTYRENE SULFONONATE 15 GM/60 ML BTL PO (15:07)
--- NOTE | 2020-03-08 15:25 | PM.IMHP ---
H&P: HPI History of Present Illness Date/Time: 03/08/20 15:25 Chief Complaint: AMS, hypoxia Narrative: Ania Field is a 64 year old female with DM, ESRD and left ankle wound here for AMS, fever and hypoxia. Patient is alert and oriented x4. She provides the following history. She states she had an ankle fracture in January with surgical repair and ultimate casting at [facility]. When they removed the cast, she was noted to have skin breakdown noted on the left medial ankle that developed into a deep ulcer. Patient states that she was able to put her finger in the ulcer in feel wires. Patient has been receiving dressing changes but has not been on antibiotics. She has noted that the left lower extremity has become edematous and erythematous. She states they did an ultrasound but does not know the results. No fever or chills. Abdominal pain or back pain. She does make urine about once or twice a day. She denies dysuria or hematuria. No nausea, vomiting, diarrhea or constipation issues. No chest pain or palpitations. She has been short of breath with a slight cough that is nonproductive. Few days ago she was placed on oxygen for unclear reasons. No chest x-ray was performed. She was tested for COVID but she does not know the results. Patient has been compliant with her [id number]. She has been able to tolerate the dialysis well and is close to her dry weight. She does complain of numbness and tingling in her legs left greater than right related to her diabetes. She also has poor balance and leg weakness which is chronic. She is currently at [facility] for therapy. She has been walking with a walker in the halls and doing well with this. This morning, patient was awoken to bring her to dialysis where in she was noted to be confused with fever. She also was hypoxic. She was brought to the emergency room for evaluation. In the emergency room, she was tachycardic and febrile. Blood pressure stable. Chest x-ray showing linear opacities possibly atelectasis. White count was [address]97. Potassium was 6.1. Urinalysis showed 21 white cells. Lactic acid level was normal. Left ankle wound culture obtained. Blood and urine cultures collected. She was started on Primaxin and vancomycin. She was admitted for further care. 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 Depression End-stage renal disease on hemodialysis End-stage renal disease on dialysis Friday. Fracture of right tibial plateau (~10/2018) Hyper-reninism Hypertension Multifactorial initially due to essential hypertension but now in part due to renal failure Insulin dependent type 2 diabetes mellitus Hemoglobin A1c was 5.0% in October 2018. Left wrist fracture Moderate protein-calorie malnutrition Multiple gallstones Nonproliferative diabetic retinopathy Pneumonia With parapneumonic effusion requiring thoracentesis in October 2017. Post-menopausal osteoporosis On DEXA scan in January 2017. Severe tricuspid regurgitation by prior echocardiography Echocardiogram September 2018 demonstrating grade 1 diastolic dysfunction, mild left ventricular hypertrophy, mild left ventricular enlargement, grade 1 diastolic dysfunction, global longitudinal strain at-8%, TAPSE 1.4 cm suggesting abnormal right ventricular systolic function although appears normal by visual estimation, moderate left atrial enlargement, mild right atrial enlargement, mild (underestimated) mitral valve regurgitation, tricuspid valve do not coaptation due to dilated annulus, mild pulmon
--- NOTE | 2020-03-08 16:13 | PM.CNNEP ---
Assessment and Plan Additional Plan 1. The patient has fever and mental status changes. This suggests some septic syndrome. She has a wound on her ankle. She said that she stuck her finger in the wound a few days ago and felt metal(!). So there is at least some colonization if not infection there. The patient has a tunneled catheter for dialysis. This exit site looks fine and the tunnel is nontender and not indurated or swollen so I doubt if this is the cause. However if she has bacteremia then the infection could spread into the catheter. Other causes of infection include pulmonary, urinary, et cetera but are less likely. She has had blood cultures and is getting antibiotics to cover g positives and g negatives. 2. The patient has end-stage renal disease. She is due for dialysis today. I talked with the nurse and they are going to do it this evening. 3. Hyperkalemia. The patient's potassium is 6.1. Most likely this is due to her renal failure. I am not sure if she is eating very well in her condition but she probably has increased metabolic rate and so the potassium might be high from that. I thought she was going to get dialysis earlier but then there was trouble getting her out of the ER into the room so the nurses had to leave this morning and will be back this evening. She received insulin glucose and calcium earlier today to mitigate the effects of the hyperkalemia earlier but since that last only a few hours, and dialysis is delayed, I did give the patient Kayexalate to get the potassium down. 4. Hypertension the patient's blood pressure is under good control 5. Kidney disease. The patient has a hemoglobin of 9.2. I will give her Epogen on dialysis. No need to check iron levels since she has an infection anyway and we cannot give supplementary iron at this point. If the hemoglobin drops much we can get some stool guaiacs. 6. Coronary disease the patient is not having any chest pain or shortness of breath. 7. Renal osteodystrophy will check a phosphorus level in the morning. Will adjust binders as needed History of Present Illness Reason for Consult Consult date: 03/08/20 Chief Complaint Chief complaint: Sepsis/cellulitis/hyperkalemia History of Present Illness Narrative: Ania is a very pleasant 64-year-old lady who has multiple medical problems including end-stage renal disease on dialysis 3 times a week, renal osteodystrophy, anemia of chronic kidney disease, peripheral neuropathy, hypertension, diabetes, coronary disease, CVA, history of pneumonia and bacteremia, severe tricuspid regurgitation on echo in September of 2018. The patient says her trouble started with a broken ankle in October. She had an ORIF. She had a cast on. Four weeks ago the cast was taken off and she had a scab the size of a quarter. A week or 2 ago the scab came off and was draining. Apparently there was quite a whole underneath the scab. She is living at a facility and there the nurses have been doing local dressing changes. It is unclear if she has been getting any antibiotics. She has not had any fever since all this happened until this morning when she had a temperature over 102, change in mental status, so the facility sent her to the emergency room. She says she does not remember anything this morning until she got to the ER. She is talking her and her mental status is at baseline now. She denies any nausea vomiting diarrhea. She has no fevers chills or cough. No abdominal pain. No headache neck stiffness. She does not smoke or drink. Review of Systems Constitutional: Constitutional: Reports no additional constitutional complaints Eyes: Eyes: Reports no additional eye complaints ENT: Reports system reviewed and no additional complaints, except as documented Cardiovascular: Cardiovascular: Reports no additional cardiovascular complaints Respiratory: Respiratory: Reports no additional respiratory complaints Gastrointestinal
[2020-03-08 18:00] LABS: Glucose Point of Care 290 (65-105)
[2020-03-08] MEDS: GABAPENTIN 100 MG CAPSULE PO (18:38)
[2020-03-08] MEDS: CALCIUM ACETATE 667 MG TABLET 1334 MG PO (18:38)
[2020-03-08] MEDS: FERROUS SULFATE 324 MG TABLET PO (18:39)
[2020-03-08] MEDS: INSULIN ASPART (*BKC) 100 UNITS/ML SUB-Q (18:49)
[2020-03-08 20:45] LABS: Glucose Point of Care 200 (65-105)
[2020-03-08] MEDS: HEPARIN SODIUM 5,000 UNITS/ML VIAL 5000 UNITS SUB-Q (20:57)
[2020-03-08] MEDS: diphenhydrAMINE HCl CAP 25 MG CAPSULE PO (23:19)
[2020-03-08] MEDS: oxyCODONE/ACETAMINOPHEN (*CRX) 5-325 MG TABLET 1 TABLET PO (23:30)
[2020-03-09] VITALS (35 sets, daily range): BP systolic 128–179; BP diastolic 61–88; PULSE 68–99; RESP 16–22; TEMP 36–38.3; O2SAT 90–97
[2020-03-09 04:57] LABS: Hematocrit 25.1 % (37.0-47.0); Mean Corpuscular HGB Conc 31.9 g/dl (32-36); Mean Corpuscular Hemoglobin 28.8 pg (26-34); Mean Corpuscular Volume 90.3 fl (80-100); Platelet Count Result 217 k/mm3 (150-375); Red Blood Count 2.78 M/mm3 (4.2-5.4); White Blood Count 11.7 K/mm3 (4.5-10.0)
[2020-03-09 05:07] LABS: Albumin Level 3.1 g/dL (3.5-5.1); Anion Gap 13 mmol/L (8-16); Blood Urea Nitrogen 68 mg/dL (7-17); Calcium 7.3 mg/dL (8.4-10.2); Carbon Dioxide 25 mmol/L (22-30); Chloride 91 mmol/L (98-107); Estimated CRCL calculation 7 ml/min; Estimated Glomerular Filt Rate 7; Glucose 120 mg/dL (65-105); Magnesium 1.9 mg/dL (1.6-2.3); Phosphorus 7.6 mg/dL (2.5-4.5); Potassium 5.1 mmol/L (3.4-5.0); Sodium 129 mmol/L (137-145)
[2020-03-09 05:12] LABS: Hemoglobin A1C 6.8 % (<5.7)
[2020-03-09] MEDS: HEPARIN SODIUM 5,000 UNITS/ML VIAL 5000 UNITS SUB-Q ×3 (06:12→20:52)
[2020-03-09] MEDS: CALCIUM ACETATE 667 MG TABLET 1334 MG PO ×2 (07:45→14:06)
[2020-03-09] MEDS: FERROUS SULFATE 324 MG TABLET PO ×2 (07:46→18:53)
[2020-03-09] MEDS: VITAMIN B CMPLX/VIT C/FOLIC AC 1 CAPSULE 1 CAP PO (07:46)
[2020-03-09] MEDS: LABETALOL HCL 100 MG TABLET PO (07:47)
[2020-03-09] MEDS: GABAPENTIN 100 MG CAPSULE PO ×3 (07:47→18:53)
[2020-03-09] MEDS: VITAMIN B COMPLEX CAPSULE 1 CAP PO (07:48)
[2020-03-09] MEDS: metOLazone 5 MG TABLET PO (07:48)
[2020-03-09] MEDS: INSULIN GLARGINE (*BKC) 100 UNITS/ML 10 UNITS SUB-Q (07:58)
[2020-03-09 09:02] LABS: Cortisol Random 6.75 ug/dL
[2020-03-09 12:39] LABS: Glucose Point of Care 127 (65-105)
--- NOTE | 2020-03-09 12:45 | PM.IMPN ---
Progress Note: A&P Assessment and Plan (1) Sepsis: Qualifiers: Sepsis type: sepsis due to unspecified organism Code(s): A41.9 - Sepsis, unspecified organism Status: Acute Assessment and Plan: Sepsis with septicemia. Present on admission with altered mental status, leukocytosis, fever and tachycardia. [place] related to cellulitis and ulcer of the left lower extremity. COVID-19 negative 03/06/20. Mental status has improved. BCx positive (2of2) for Gram positive cocci in clusters (from aerobic and anaerobic bottles). Wound Cx also growing Gram positive cocci in clusters and most likely the source. Can not completely exclude catheter associated bacteremia but felt less likely. Contineu Promxin and Vanco for now. BCx have jenny repeated but may still be positive. Follow up on blood culture results. (2) Cellulitis of left ankle: Code(s): L03.116 - Cellulitis of left lower limb Status: Acute Assessment and Plan: Cellulitis of the left lower extremity with purulent drainage from left lateral malleolar ulcer. Cultures have been obtained. Antibiotics have been started. x-ray of the ankle showing intramedullary honorio extending through the calcaneus and talus and into the distal tibia and a comminuted fx of the distal fibula. Lower extremity venous Doppler negative for DVT. Old records requested. Wound care consult ordered. (3) Hyperkalemia: Code(s): E87.5 - Hyperkalemia Status: Acute Assessment and Plan: Potassium 6.1 on admission. She was treated appropriately in the ED. She went for dialysis later that evening. Potassium still mildly elevated today and she is currently undergoing dialysis again. Continue renal diet. Continue to follow. (4) Altered mental status: Code(s): R41.82 - Altered mental status, unspecified Status: Acute Assessment and Plan: Patient with altered mental status on admission which could be related to the hypoxia, fever and/or sepsis. Her mental status has improved since admission. She did not have a CT of the brain but neurologically intact and mental status has normalized. Will continue to monitor. (5) End-stage renal disease on hemodialysis: Code(s): N18.6 - End stage renal disease; Z99.2 - Dependence on renal dialysis Status: Chronic Assessment and Plan: Patient had shunt that has clotted and now she has right upper chest tunneled catheter for dialysis. She states she has been compliant with dialysis and has been tolerating it well. She is close to her dry weight. Receive dialysis on 03/08 and again today. Appreciate Nephrology input. (6) Insulin dependent type 2 diabetes mellitus: Code(s): E11.9 - Type 2 diabetes mellitus without complications; Z79.4 - jail (current) use of insulin Status: Acute Assessment and Plan: A1c 6.8. The patient's blood glucose was reviewed on 03/09 Glucose better controlled. Continue AccuCheks covering with sliding scale. Hypoglycemia protocol available as needed. Continue current medications. (7) Hypoxia: Code(s): R09.02 - Hypoxemia Status: Acute Assessment and Plan: Patient noted to be hypoxic on admission with oxygen saturation reportedly in the 60s. Chest x-ray showing only mild atelectasis. Will check her for influenza. Will contact the detention since she just had a recent COVID test to get this result. Dialysis may help with her hypoxia. Consider also PE (if she has DVT) and/or undiagnosed sleep apnea. Wean oxygen as tolerated. (8) DVT prophylaxis: Code(s): Z29.9 - Encounter for prophylactic measures, unspecified Status: Acute Assessment and Plan: Heparin Subjective Date/time seen: 03/09/20 12:45 Interval history: Date of service 03/09 64yo female with DM, ESRD and left ankle wound here for AMS, fever and hypoxia. Patient denies abdominal pain. She did have some
--- NOTE | 2020-03-09 12:56 | PM.PNNEP ---
Progress Note: A&P Additional Plan 1. The patient has fever and mental status changes. Mental status changes are better. No more fever. White count is better Cultures are all pending She is on antibiotics. Patient has not had a fever or any issues on dialysis speaking against catheter related infection. I think this is most likely the ankle. 2. The patient has end-stage renal disease. She is getting her dialysis now and will get another treatment tomorrow 3. Hyperkalemia. Improved. On a 2 K bath. 4. Hypertension the patient's blood pressure is under good control 5. Kidney disease. The patient has a hemoglobin of 9.2. I will give her Epogen on dialysis. No need to check iron levels since she has an infection anyway and we cannot give supplementary iron at this point. If the hemoglobin drops much we can get some stool guaiacs. 6. Coronary disease the patient is not having any chest pain or shortness of breath. 7. Renal osteodystrophy phosphorus is high and calcium is low.. She is getting Calcium Acetate Subjective Date/time seen: 03/09/20 12:56 Interval history: Patient is alert. She feels okay. She is on dialysis and tolerating well. She was seen at 12:10 p.m. Review of Systems Cardiovascular: Cardiovascular: Reports no additional cardiovascular complaints Respiratory: Respiratory: Reports no additional respiratory complaints Gastrointestinal: Gastrointestinal: Reports no additional gastrointestinal complaints Genitourinary: Genitourinary: Reports no additional female genitourinary complaints Exam Narrative: Exam Narrative: WDWN in NAD skin no rash head ncat lungs clear cor reg no rub abd BS+ nontender and soft ext trace edema. Objective Data Vital Signs Vital Signs: Vital Signs - 24 hr 03/08/20 12:59 03/08/20 13:45 03/08/20 14:15 Temperature 36.2 C L Pulse Rate 77 79 90 Respiratory Rate 19 15 20 Blood Pressure 105/50 L 126/53 L 130/60 Pulse Oximetry 97 97 77 L 03/08/20 15:00 03/08/20 16:00 03/08/20 17:08 Temperature 36.1 C L Pulse Rate 82 80 83 Respiratory Rate 20 Blood Pressure 127/67 Pulse Oximetry 94 93 03/08/20 18:00 03/08/20 20:00 03/08/20 22:00 Temperature 36.4 C Pulse Rate 80 82 79 Respiratory Rate 18 Blood Pressure 153/65 H Pulse Oximetry 94 03/08/20 23:06 03/09/20 00:00 03/09/20 01:58 Temperature 36.5 C Pulse Rate 82 81 Respiratory Rate 20 Blood Pressure 141/65 H Pulse Oximetry 97 96 03/09/20 04:00 03/09/20 06:00 03/09/20 07:47 Temperature 36.7 C Pulse Rate 81 90 99 Respiratory Rate 20 Blood Pressure 150/69 H Pulse Oximetry 95 03/09/20 08:00 03/09/20 09:00 03/09/20 09:19 Temperature 36.8 C Pulse Rate 90 99 Respiratory Rate 16 18 Blood Pressure 172/88 H Pulse Oximetry 95 95 03/09/20 09:33 03/09/20 09:45 03/09/20 10:00 Temperature Pulse Rate 79 77 78 Respiratory Rate Blood Pressure 160/84 H 148/73 H 153/75 H Pulse Oximetry 03/09/20 10:15 03/09/20 10:30 03/09/20 10:45 Temperature Pulse Rate 80 84 86 Respiratory Rate Blood Pressure 150/76 H 152/69 H 161/75 H Pulse Oximetry 03/09/20 11:00 03/09/20 11:15 03/09/20 11:30 Temperature Pulse Rate 87 92 92 Respiratory Rate Blood Pressure 152/69 H 156/73 H 151/71 H Pulse Oximetry 03/09/20 11:45 03/09/20 12:00 03/09/20 12:15 Temperature Pulse Rate 82 94 87 Respiratory Rate Blood Pressure 156/63 H 144/72 H 151/75 H Pulse Oximetry 03/09/20 12:30 03/09/20 12:45 Temperature Pulse Rate 90 87 Respiratory Rate Blood Pressure 128/62 155/72 H Pulse Oximetry Intake/Output Intake/Output: Intake & Output 03/06/20 03/07/20 03/08/20 03/09/20 23:59 23:59 23:59 23:59 Intake Total 3000 550 Output Total 600 0 Balance 2400 550 Meds/Results Medications: Active Medications Generic Name Dose Route Start Last Admin Trade Name Freq PRN Reason Stop Dose Admin Calcium Ac
[2020-03-09] MEDS: EPOETIN ALFA-EPBX 10,000 UNITS/ML VIAL 10000 UNITS IV PUSH (13:08)
[2020-03-09 14:03] LABS: Glucose Point of Care 99 (65-105)
[2020-03-09] MEDS: HEPARIN SODIUM 1,000 UNITS/ML VIAL 5000 UNITS (14:11)
[2020-03-09] MEDS: COLLAGENASE OINT 30 GM TUBE 1 APPLIC TOPICAL (14:34)
[2020-03-09 14:54] LABS: Influenza Control Positive
[2020-03-09 15:12] LABS: Vancomycin Random 15.5 ug/mL (10-20)
--- NOTE | 2020-03-09 16:31 | WPDINFPN2 ---
Progress Note: A&P Assessment and Plan (1) Septicemia: Code(s): A41.9 - Sepsis, unspecified organism Status: Acute Assessment and Plan: 1. Fever / bacteremia with infection, L ankle source is likely 2. CRF 3. L ankle fracture with open wound REC Imipenem and Vanc # 2, adjust after micro available, needs transfer to her orthopedic service at [facility]. Subjective Date/time seen: 03/09/20 16:31 Objective Data Vital Signs Vital Signs: Vital Signs - 24 hr 03/08/20 17:08 03/08/20 18:00 03/08/20 20:00 Temperature 36.1 C L 36.4 C Pulse Rate 83 80 82 Respiratory Rate 20 18 Blood Pressure 127/67 153/65 H Pulse Oximetry 93 94 03/08/20 22:00 03/08/20 23:06 03/09/20 00:00 Temperature 36.5 C Pulse Rate 79 82 Respiratory Rate 20 Blood Pressure 141/65 H Pulse Oximetry 97 96 03/09/20 01:58 03/09/20 04:00 03/09/20 06:00 Temperature 36.7 C Pulse Rate 81 81 90 Respiratory Rate 20 Blood Pressure 150/69 H Pulse Oximetry 95 03/09/20 07:47 03/09/20 08:00 03/09/20 09:00 Temperature 36.8 C Pulse Rate 99 90 Respiratory Rate 16 Blood Pressure 172/88 H Pulse Oximetry 95 03/09/20 09:19 03/09/20 09:33 03/09/20 09:45 Temperature Pulse Rate 99 79 77 Respiratory Rate 18 Blood Pressure 160/84 H 148/73 H Pulse Oximetry 95 03/09/20 10:00 03/09/20 10:15 03/09/20 10:30 Temperature Pulse Rate 78 80 84 Respiratory Rate Blood Pressure 153/75 H 150/76 H 152/69 H Pulse Oximetry 03/09/20 10:45 03/09/20 11:00 03/09/20 11:15 Temperature Pulse Rate 86 87 92 Respiratory Rate Blood Pressure 161/75 H 152/69 H 156/73 H Pulse Oximetry 03/09/20 11:30 03/09/20 11:45 03/09/20 12:00 Temperature Pulse Rate 92 82 94 Respiratory Rate Blood Pressure 151/71 H 156/63 H 144/72 H Pulse Oximetry 03/09/20 12:15 03/09/20 12:30 03/09/20 12:45 Temperature Pulse Rate 87 90 87 Respiratory Rate Blood Pressure 151/75 H 128/62 155/72 H Pulse Oximetry 03/09/20 13:00 03/09/20 13:09 03/09/20 13:15 Temperature 37.4 C Pulse Rate 85 87 96 Respiratory Rate 18 Blood Pressure 149/67 H 149/67 H 144/74 H Pulse Oximetry 03/09/20 14:00 03/09/20 16:17 Temperature 36.8 C 38.3 C H Pulse Rate 98 95 Respiratory Rate 18 20 Blood Pressure 128/61 164/80 H Pulse Oximetry 90 92 Intake/Output Intake/Output: Intake & Output 03/06/20 03/07/20 03/08/20 03/09/20 23:59 23:59 23:59 23:59 Intake Total 3000 600 Output Total 600 2000 Balance 2400 -1400 Meds/Results Medications: Active Medications Generic Name Dose Route Start Last Admin Trade Name Freq PRN Reason Stop Dose Admin Calcium Acetate 1,334 mg 03/08/20 17:00 03/09/20 14:06 Calcium Acetate 667 Mg Tablet PO 1,334 mg TIDWM MELVIN Administration Collagenase 1 applic 03/09/20 09:00 03/09/20 14:34 Collagenase Oint 30 Gm Tube TOPICAL 1 applic QAM MELVIN Administration Dextrose 12.5 gm 03/08/20 18:18 Dextrose 50% 25 Gm/50 Ml Syringe IV PUSH PRN PRN Hypoglycemia Protocol Diphenhydramine HCl 25 mg 03/08/20 16:34 03/08/20 23:19 Diphenhydramine Hcl Cap 25 Mg Capsule PO 25 mg Q8H PRN Administration Itching Epoetin Robb-epbx 10,000 units 03/09/20 16:00 03/09/20 13:08 Epoetin Robb-Epbx 10,000 Units/Ml Vial IV PUSH 10,000 units TuThSa@1600 MELVIN Administration Ferrous Sulfate 324 mg 03/08/20 17:00 03/09/20 07:46 Ferrous Sulfate 324 Mg Tablet PO 324 mg BIDWM MELVIN Administration Gabapentin 100 mg 03/08/20 17:00 03/09/20 14:07 Gabapentin 100 Mg Capsule PO 100 mg TID MELVIN Administration Glucagon 1 mg 03/08/20 18:18 Glucagon For Inj 1 Mg Vial IM PRN PRN Hypoglycemia Protocol Glucose 15 gm 03/08/20 18:18 Glucose Oral Gel 15 Gm Of Glucse In 37.5 Gm Tube PO PRN PRN Hypoglycemia Protocol Heparin Sodium (Porcine) 5,000 units 03/08/20 22:00 03/09/20 14:08
[2020-03-09] MEDS: ACETAMINOPHEN 325 MG TABLET 650 MG PO (19:18)
[2020-03-09 20:35] LABS: Glucose Point of Care 146 (65-105)
[2020-03-09] MEDS: diphenhydrAMINE HCl CAP 25 MG CAPSULE PO (20:52)
[2020-03-09] MEDS: ONDANSETRON HCL ODT 4 MG TABLET PO (20:52)
[2020-03-09] MEDS: oxyCODONE/ACETAMINOPHEN (*CRX) 5-325 MG TABLET 1 TABLET PO (20:54)
--- NOTE | 2020-03-09 21:36 | CONS_ITS ---
DATE OF CONSULTATION: 03/09/2020 REASON FOR CONSULTATION: Ankle cellulitis. HISTORY OF PRESENT ILLNESS: A 64-year-old female, who is a poor historian. She had some type of trauma, not recalled specifically by the patient, and assisting in ankle fracture at the left that was trimalleolar. She had 2 operative interventions at [facility] and was eventually discharged to acute rehab. While there, she had an episode of sepsis , not otherwise specified and was given cefepime and vancomycin. This was changed to cefdinir orally at the time of [facility]. She has had a persistent open ulcer at the ankle medially, which by her report has been present since the first operation. She was sent from her dialysis center yesterday with fever and confusion. She was given imipenem and vancomycin and consultation requested. The patient denies any pre-existing fever, rigors, or night sweats. Her medication list upon admission to the emergency room indicated no ongoing antimicrobials. ALLERGIES: PENICILLIN CAUSE HIVES. HABITS: No tobacco. No alcohol. PRESENT MEDICATIONS: List reviewed. No immunosuppressants. PAST MEDICAL HISTORY: In addition to the above, chronic renal failure with dialysis catheter, cataract extractions, left hip replacement, ORIF as outlined above, D and C, tricuspid regurg, osteoporosis, diabetic retinopathy and nephropathy, gallstones, wrist fracture, type 2 diabetes mellitus, hypertension, right tibial plateau fracture, depression, previous stroke, CAD, heart failure, and anemia of chronic disease. REVIEW OF SYSTEMS: The patient has memory deficit. Otherwise, 14-point review is negative. FAMILY HISTORY: Not pertinent to her present illness. SOCIAL HISTORY: No family at the bedside. [facility] resident most recently, but she reports previously was fully ambulatory and independent. 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 PHYSICAL EXAMINATION: GENERAL: Middle-aged female, who appears much older than her actual age. Cachectic. No respiratory distress. VITAL SIGNS: T-max was on arrival 39.2, and this was 24 hours ago, present temperature 38.3, blood pressure 164/80, pulse 95, respirations 20, and 92% saturation. SKIN: Poor turgor, ecchymoses. Warm and dry. EENT: Conjunctivae are minimally reactive. No petechiae. Dry mucous membranes. No thrush. NECK: Without stridor, thyromegaly, meningismus. LUNGS: Clear to auscultation. CARDIAC: Regular rate and rhythm. No heaves. No murmurs. ABDOMEN: Scaphoid, nontender. No masses. No organomegaly. EXTREMITIES: Muscle wasting. No clubbing, cyanosis, edema. MUSCULOSKELETAL: She has several abrasions over the left tibia and left calf. She has mild erythema surrounding her left medial malleolus. She has a 2 cm ulcer, which extends about a centimeter deep with slough. No necrosis. No purulence at the wound bed currently. There is no odor. LABORATORY DATA: Blood cultures 2/2 sets gram-positive cocci in clusters. Gram stain from the superficial swab in the left foot, similar findings. Plain films of the ankle, surgical changes, comminuted fibular fracture with callus. Venous Dopplers, no DVT. Chest x-ray, atelectasis, small left pleural effusion. Blood cultures have been repeated. No growth after a very short incubation. White count 11.7, hemoglobin 8.0, platelets 217. PH 7.42, 37, 140, and that is on 5 L. She has hyponatremia. BUN is 68, creatinine 6.1, glucose 120. A1c 6.8%, calcium 7.3, albumin 3.1. Urinalysis, multiple abnormalities, not particularly suggestive of infection. Vancomycin random level 16. Hepatitis B panel antigen negative, antibody positive, surface antibody. Influenza screen negative. ASSESSMENT: 1. Fever and bacteremia, due to #2. 2. Postop
[2020-03-10] VITALS (18 sets, daily range): BP systolic 118–224; BP diastolic 64–88; PULSE 66–88; RESP 16–20; TEMP 36–36.6; O2SAT 90–100; BMI 25.6
[2020-03-10 05:00] LABS: Basophils Percent Auto 0.4 % (0.2-1.2); Eosinophils Absolute Auto 0.1 K/mm3 (0-0.3); Eosinophils Percent Auto 1.2 % (0-4.4); Hematocrit 26.4 % (37.0-47.0); Hemoglobin 8.3 g/dL (12.0-15.0); Immature Granulocyte Absolute 0.03 K/mm3 (0.00-0.031); Immature Granulocyte Percent A 0.4 % (0-0.5); Lymphocytes Absolute Auto 0.47 K/mm3 (0.9-3.2); Lymphocytes Percent Auto 6.5 % (18.3-44.2); Mean Corpuscular HGB Conc 31.4 g/dl (32-36); Mean Corpuscular Hemoglobin 28.6 pg (26-34); Mean Platelet Volume 10.5 fl (7.4-10.4); Monocytes Absolute Auto 0.3 K/mm3 (0.1-0.6); Monocytes Percent Auto 4.4 % (2.6-8.5); Neutrophils Absolute Auto 6.3 K/mm3 (1.3-6.7); Neutrophils Percent Auto 87.1 % (45.5-73.1); Platelet Count Result 208 k/mm3 (150-375); Red Cell Distribution Width 14.6 % (11.5-14.5); White Blood Count 7.2 K/mm3 (4.5-10.0)
[2020-03-10] MEDS: HEPARIN SODIUM 5,000 UNITS/ML VIAL 5000 UNITS SUB-Q ×3 (05:03→22:07)
[2020-03-10 05:15] LABS: Albumin Level 3.2 g/dL (3.5-5.1); Anion Gap 9 mmol/L (8-16); Blood Urea Nitrogen 28 mg/dL (7-17); Calcium 7.8 mg/dL (8.4-10.2); Carbon Dioxide 33 mmol/L (22-30); Chloride 91 mmol/L (98-107); Estimated CRCL calculation 11 ml/min; Estimated Glomerular Filt Rate 14; Glucose 170 mg/dL (65-105); Phosphorus 6.3 mg/dL (2.5-4.5); Potassium 3.8 mmol/L (3.4-5.0); Sodium 133 mmol/L (137-145)
[2020-03-10] MEDS: CALCIUM ACETATE 667 MG TABLET 1334 MG PO ×3 (08:12→16:58)
[2020-03-10] MEDS: COLLAGENASE OINT 30 GM TUBE 1 APPLIC TOPICAL (08:12)
[2020-03-10] MEDS: LABETALOL HCL 100 MG TABLET PO ×2 (08:12→22:06)
[2020-03-10] MEDS: GABAPENTIN 100 MG CAPSULE PO ×3 (08:13→16:58)
[2020-03-10] MEDS: FERROUS SULFATE 324 MG TABLET PO ×2 (08:14→16:58)
[2020-03-10] MEDS: VITAMIN B COMPLEX CAPSULE 1 CAP PO (08:14)
[2020-03-10] MEDS: metOLazone 5 MG TABLET PO (08:14)
[2020-03-10] MEDS: INSULIN GLARGINE (*BKC) 100 UNITS/ML 10 UNITS SUB-Q (08:15)
[2020-03-10 08:16] LABS: Glucose Point of Care 169 (65-105)
[2020-03-10 12:18] LABS: Glucose Point of Care 102 (65-105)
[2020-03-10] MEDS: VITAMIN B CMPLX/VIT C/FOLIC AC 1 CAPSULE 1 CAP PO (12:28)
--- NOTE | 2020-03-10 13:23 | PM.IMPN ---
Progress Note: A&P Assessment and Plan (1) Sepsis: Qualifiers: Sepsis type: sepsis due to unspecified organism Code(s): A41.9 - Sepsis, unspecified organism Status: Acute Assessment and Plan: Sepsis with septicemia. Present on admission with altered mental status, leukocytosis, fever, tachycardia and positive blood cultures. [place] related to cellulitis and ulcer of the left lower extremity. COVID-19 negative 03/06/20. Mental status has improved. BCx positive (2of2) for Staph aureus. Wound Cx also growing Staph aureus and most likely the source of the bactermia. Can not completely exclude catheter associated bacteremia but felt less likely. Continue Primaxin and Vanco for now. BCx have been repeated and are NGTD. Follow up on blood culture results. Narrow abx as able. ID following and appreciate their input. (2) Cellulitis of left ankle: Code(s): L03.116 - Cellulitis of left lower limb Status: Acute Assessment and Plan: Cellulitis of the left lower extremity with purulent drainage from left lateral malleolar ulcer. Cultures as above. Antibiotics have been started. x-ray of the ankle showing intramedullary honorio extending through the calcaneus and talus and into the distal tibia and a comminuted fx of the distal fibula. Lower extremity venous Doppler negative for DVT. Continue current wound care. Spoke with ID who recommended transfer for debridement and further management given the concern for infected hardware. (3) Hyperkalemia: Code(s): E87.5 - Hyperkalemia Status: Acute Assessment and Plan: Potassium 6.1 on admission. She was treated appropriately in the ED. She was treated with Kayexalate and went for dialysis the next day (03/09). Potassium normal today. Continue dialysis per nephrology. Continue renal diet. Continue to follow. (4) Altered mental status: Code(s): R41.82 - Altered mental status, unspecified Status: Acute Assessment and Plan: Patient with altered mental status on admission which could be related to the hypoxia, fever and/or sepsis. Her mental status has improved since admission. She did not have a CT of the brain but neurologically intact and mental status has normalized. Will continue to monitor. (5) End-stage renal disease on hemodialysis: Code(s): N18.6 - End stage renal disease; Z99.2 - Dependence on renal dialysis Status: Chronic Assessment and Plan: Patient had shunt that has clotted and now she has right upper chest tunneled catheter for dialysis. She states she has been compliant with dialysis and has been tolerating it well. She is close to her dry weight. Receive dialysis on 03/09. Appreciate Nephrology input. BP noted - will advance Labetolol; consider resuming hydralazine (at appropriate schedule). (6) Insulin dependent type 2 diabetes mellitus: Code(s): E11.9 - Type 2 diabetes mellitus without complications; Z79.4 - termite helper (current) use of insulin Status: Acute Assessment and Plan: A1c 6.8. The patient's blood glucose was reviewed on 03/10 Glucose well controlled. Continue AccuCheks covering with sliding scale. Hypoglycemia protocol available as needed. Continue current treatment plan. (7) Hypoxia: Code(s): R09.02 - Hypoxemia Status: Acute Assessment and Plan: Patient noted to be hypoxic on admission with oxygen saturation reportedly in the 60s. Chest x-ray showing only mild atelectasis. Influenza negative. COVID negative prior to admission. Dialysis has improved hypoxia. Currently on 2L. Wean oxygen as tolerated. (8) DVT prophylaxis: Code(s): Z29.9 - Encounter for prophylactic measures, unspecified Status: Acute Assessment and Plan: Heparin Subjective Date/time seen: 03/10/20 13:23 Interval history: Date of service 03/10 64yo female with DM, ESRD and left ankle wound here fo
--- NOTE | 2020-03-10 14:34 | WPDINFPN2 ---
Progress Note: A&P Assessment and Plan (1) Septicemia: Code(s): A41.9 - Sepsis, unspecified organism Status: Acute Assessment and Plan: 1. Fever / S. aureus bacteremia with infection, L ankle source is likely 2. CRF 3. L ankle fracture with open wound, S. aureus isolated onsuperfical swab REC Vanc # 3, and change imipenem to Ancef # 1, adjust for renal insufficiency. Stop one or the other depending on final susceptibilities. Await transfer to her orthopedic service at [facility]. Subjective Date/time seen: 03/10/20 14:34 Interval history: drainage from ankle Exam Narrative: Exam Narrative: afebrile Const: General: no acute distress Resp: Effort & Inspection: normal respiratory effort Auscultation: clear to auscultation bilaterally Cardio: Rate: regular rate Rhythm: regular rhythm Heart sounds: no gallops and no murmurs GI: GI Palp: Yes Soft to palpation : External Female Exam: normal external appearance Skin: General skin exam: normal color and no rashes or lesions noted Objective Data Vital Signs Vital Signs: Vital Signs - 24 hr 03/09/20 16:17 03/09/20 16:50 03/09/20 19:18 Temperature 38.3 C H 38.3 C H Pulse Rate 95 97 Respiratory Rate 20 Blood Pressure 164/80 H Pulse Oximetry 92 95 03/09/20 19:43 03/09/20 20:00 03/09/20 20:18 Temperature 36.6 C 37.1 C Pulse Rate 88 68 Respiratory Rate 22 H Blood Pressure 179/73 H Pulse Oximetry 97 90 03/09/20 22:00 03/09/20 23:52 03/10/20 00:00 Temperature 36.5 C Pulse Rate 76 79 85 Respiratory Rate 20 Blood Pressure 155/77 H Pulse Oximetry 97 90 03/10/20 02:00 03/10/20 04:00 03/10/20 06:00 Temperature 36.5 C Pulse Rate 66 70 83 Respiratory Rate 16 Blood Pressure 118/64 Pulse Oximetry 90 03/10/20 08:00 03/10/20 08:12 03/10/20 08:30 Temperature 36.6 C Pulse Rate 80 79 80 Respiratory Rate 18 Blood Pressure 224/88 H Pulse Oximetry 100 95 03/10/20 10:00 03/10/20 10:30 03/10/20 12:00 Temperature 36.5 C Pulse Rate 81 80 Respiratory Rate 18 Blood Pressure 170/78 H Pulse Oximetry 95 92 03/10/20 12:18 03/10/20 14:00 Temperature Pulse Rate 80 81 Respiratory Rate Blood Pressure Pulse Oximetry 92 Intake/Output Intake/Output: Intake & Output 03/07/20 03/08/20 03/09/20 03/10/20 23:59 23:59 23:59 23:59 Intake Total 3000 1790 1460 Output Total 600 2075 Balance 2400 -285 1460 Meds/Results Medications: Active Medications Generic Name Dose Route Start Last Admin Trade Name Freq PRN Reason Stop Dose Admin Acetaminophen 650 mg 03/09/20 18:55 03/09/20 19:18 Acetaminophen 325 Mg Tablet PO 650 mg Q6H PRN Administration Mild Pain (1-3) or Fever Calcium Acetate 1,334 mg 03/08/20 17:00 03/10/20 12:28 Calcium Acetate 667 Mg Tablet PO 1,334 mg TIDWM MELVIN Administration Collagenase 1 applic 03/09/20 09:00 03/10/20 08:12 Collagenase Oint 30 Gm Tube TOPICAL 1 applic QAM MELVIN Administration Dextrose 12.5 gm 03/08/20 18:18 Dextrose 50% 25 Gm/50 Ml Syringe IV PUSH PRN PRN Hypoglycemia Protocol Diphenhydramine HCl 25 mg 03/08/20 16:34 03/09/20 20:52 Diphenhydramine Hcl Cap 25 Mg Capsule PO 25 mg Q8H PRN Administration Itching Epoetin Robb-epbx 10,000 units 03/09/20 16:00 03/09/20 13:08 Epoetin Robb-Epbx 10,000 Units/Ml Vial IV PUSH 10,000 units TuThSa@1600 MELVIN Administration Ferrous Sulfate 324 mg 03/08/20 17:00 03/10/20 08:14 Ferrous Sulfate 324 Mg Tablet PO 324 mg BIDWM MELVIN Administration Gabapentin 100 mg 03/08/20 17:00 03/10/20 12:29 Gabapentin 100 Mg Capsule PO 100 mg TID MELVIN Administration Glucagon 1 mg 03/08/20 18:18 Glucagon For Inj 1 Mg Vial IM PRN PRN Hypoglycemia Protocol Glucose 15 gm 03/08/20 18:18 Glucose Oral Gel 15 Gm Of Glucse In 37.5 Gm Tube PO PRN PRN Hypoglycemia Protocol Heparin Sodium
--- NOTE | 2020-03-10 15:56 | PM.PNNEP ---
Progress Note: A&P Additional Plan 1. The patient has fever and mental status changes. Mental status changes are better. No more fever. White count is better Cultures are all pending She is on antibiotics. Application has been made for her to transfer to Ortho department at [facility] 2. The patient has end-stage renal disease. Emergency is have led to the dialysis nurses not being able to come today until late so we will do her dialysis tomorrow morning and then get her back on Friday schedule 3. Hyperkalemia. Improved. On a 2 K bath. 4. Hypertension the patient's blood pressure is high today. Will increase the labetalol. 5. Anemia of chronic kidney disease. The patient has a hemoglobin of 9.2. I will give her Epogen on dialysis. 6. Coronary disease the patient is not having any chest pain or shortness of breath. 7. Renal osteodystrophy phosphorus is high and calcium is low.. She is getting Calcium Acetate Subjective Date/time seen: 03/10/20 15:56 Interval history: Patient is alert. She feels okay. Very disheartened at the prospect of an amputation Does not like the food. Not eating very well. Will expand the menu issues. Discussed with the dietitian. Exam Narrative: Exam Narrative: WDWN in NAD skin no rash head ncat lungs clear bilaterally cor reg no rub abd BS+ nontender and soft ext trace edema. Bandage over the wound on the ankle Objective Data Vital Signs Vital Signs: Vital Signs - 24 hr 03/09/20 16:17 03/09/20 16:50 03/09/20 19:18 Temperature 38.3 C H 38.3 C H Pulse Rate 95 97 Respiratory Rate 20 Blood Pressure 164/80 H Pulse Oximetry 92 95 03/09/20 19:43 03/09/20 20:00 03/09/20 20:18 Temperature 36.6 C 37.1 C Pulse Rate 88 68 Respiratory Rate 22 H Blood Pressure 179/73 H Pulse Oximetry 97 90 03/09/20 22:00 03/09/20 23:52 03/10/20 00:00 Temperature 36.5 C Pulse Rate 76 79 85 Respiratory Rate 20 Blood Pressure 155/77 H Pulse Oximetry 97 90 03/10/20 02:00 03/10/20 04:00 03/10/20 06:00 Temperature 36.5 C Pulse Rate 66 70 83 Respiratory Rate 16 Blood Pressure 118/64 Pulse Oximetry 90 03/10/20 08:00 03/10/20 08:12 03/10/20 08:30 Temperature 36.6 C Pulse Rate 80 79 80 Respiratory Rate 18 Blood Pressure 224/88 H Pulse Oximetry 100 95 03/10/20 10:00 03/10/20 10:30 03/10/20 12:00 Temperature 36.5 C Pulse Rate 81 80 Respiratory Rate 18 Blood Pressure 170/78 H Pulse Oximetry 95 92 03/10/20 12:18 03/10/20 14:00 Temperature Pulse Rate 80 81 Respiratory Rate Blood Pressure Pulse Oximetry 92 Intake/Output Intake/Output: Intake & Output 03/07/20 03/08/20 03/09/20 03/10/20 23:59 23:59 23:59 23:59 Intake Total 3000 1790 1460 Output Total 600 2075 Balance 2400 -285 1460 Meds/Results Medications: Active Medications Generic Name Dose Route Start Last Admin Trade Name Freq PRN Reason Stop Dose Admin Acetaminophen 650 mg 03/09/20 18:55 03/09/20 19:18 Acetaminophen 325 Mg Tablet PO 650 mg Q6H PRN Administration Mild Pain (1-3) or Fever Calcium Acetate 1,334 mg 03/08/20 17:00 03/10/20 12:28 Calcium Acetate 667 Mg Tablet PO 1,334 mg TIDWM MELVIN Administration Collagenase 1 applic 03/09/20 09:00 03/10/20 08:12 Collagenase Oint 30 Gm Tube TOPICAL 1 applic QAM [facility] Administration Dextrose 12.5 gm 03/08/20 18:18 Dextrose 50% 25 Gm/50 Ml Syringe IV PUSH PRN PRN Hypoglycemia Protocol Diphenhydramine HCl 25 mg 03/08/20 16:34 03/09/20 20:52 Diphenhydramine Hcl Cap 25 Mg Capsule PO 25 mg Q8H PRN Administration Itching Epoetin Robb-epbx 10,000 units 03/09/20 16:00 03/09/20 13:08 Epoetin Robb-Epbx 10,000 Units/Ml Vial IV PUSH 10,000 units TuThSa@1600 [facility] Administration Ferrous Sulfate 324 mg 03/08/20 17:00 03/10/20 08:14 Ferrous Sulfate 324 Mg Tablet PO 324 mg BI
[2020-03-10 16:55] LABS: Glucose Point of Care 102 (65-105)
[2020-03-10] MEDS: ceFAZolin 2 GM/D5W 50 ML 2 GM/50 ML BAG IVPB (17:02)
--- NOTE | 2020-03-10 18:25 | PM.TDS ---
Transfer Discharge Sum: Prov Provider Date of admission: 03/08/20 06:27 Primary care physician: Mitch Ceja MD Admitting clinician: Aaron Green MD Consults: 03/08/20 Wound/ET Consult Routine Reason for Consult:: left medial open ankle ulcer 03/08/20 06:30 Consult to Physician Routine Comment: Consulting Provider: Caridad Burnett Reason for consultation: Dialysis Has provider been notified: Yes 03/09/20 08:05 Consult to Physician Routine Comment: called pager for consult Consulting Provider: Demetrius Lawrence [place] group to consult: ID Reason for consultation: septicemia, ESRD Has provider been notified: Yes 03/10/20 11:38 Consult to Dietitian Routine Reason for Consult:: poor appetite DS: Admitting Diagnosis Admitting Diagnosis Admitting Diagnosis: AMS, hypoxia, fever DS: Discharge Diagnosis Discharge Diagnosis (1) Sepsis: Qualifiers: Sepsis type: sepsis due to unspecified organism Code(s): A41.9 - Sepsis, unspecified organism Status: Acute Assessment and Plan: Sepsis with septicemia. Present on admission with altered mental status, leukocytosis, fever, tachycardia and positive blood cultures. [place] related to cellulitis and ulcer of the left lower extremity. COVID-19 negative 03/06/20. Mental status has improved. BCx positive (2of2) for Staph aureus. Wound Cx also growing Staph aureus and most likely the source of the bactermia. Can not completely exclude catheter associated bacteremia but felt less likely. Treated with Primaxin and Vanco but changed to Ancef and Vanco on 03/10/20. Awaiting final sensitivities. BCx have been repeated and are NGTD. ID following and appreciate their input. (2) Cellulitis of left ankle: Code(s): L03.116 - Cellulitis of left lower limb Status: Acute Assessment and Plan: Cellulitis of the left lower extremity with purulent drainage from left lateral malleolar ulcer. Cultures as above. Antibiotics have been started. x-ray of the ankle showing intramedullary honorio extending through the calcaneus and talus and into the distal tibia and a comminuted fx of the distal fibula. Lower extremity venous Doppler negative for DVT. Continue current wound care. Spoke with ID who recommended transfer for debridement and further management given the concern for infected hardware. Arrangements made and patient was accepted by [facility]. (3) Hyperkalemia: Code(s): E87.5 - Hyperkalemia Status: Acute Assessment and Plan: Potassium 6.1 on admission. She was treated appropriately in the ED. She was treated with Kayexalate and went for dialysis the next day (03/09). Potassium normal today. Dialysis per nephrology. (4) Altered mental status: Code(s): R41.82 - Altered mental status, unspecified Status: Acute Assessment and Plan: Patient with altered mental status on admission which could be related to the hypoxia, fever and/or sepsis. Her mental status has improved since admission. She did not have a CT of the brain but neurologically intact and mental status has normalized and she was monitored clinically. (5) End-stage renal disease on hemodialysis: Code(s): N18.6 - End stage renal disease; Z99.2 - Dependence on renal dialysis Status: Chronic Assessment and Plan: Patient had shunt that has clotted and now she has right upper chest tunneled catheter for dialysis. She states she has been compliant with dialysis and has been tolerating it well. She is close to her dry weight. Receive dialysis on 03/09. Appreciate Nephrology input. BP noted - we advanced Labetalol; consider resuming hydralazine (at appropriate schedule). (6) Insulin dependent type 2 diabetes mellitus: Code(s): E11.9 - Type 2 diabetes mellitus without complications; Z79.4 - jail (current) use of insulin Status: Acute Assessment and Plan: A1c 6.
[2020-03-10 20:14] LABS: Glucose Point of Care 183 (65-105)
--- NOTE | 2020-03-10 20:14 | PC.NURSE ---
pt to transfer to [facility]- room 646 6 [facility]- report given to Julia Barron RN-
[2020-03-11] VITALS: PULSE 78; PULSE 80; RESP 20; O2SAT 100
--- NOTE | 2020-03-11 02:18 | PC.NURSE ---
This patient, Ania Field, was transferred to [facility] on 03/11/20 at 0037. Personal belongings sent with patient. Report given to Julia Richard, day shift RN. Appropriate documentation sent with patient.
== END 2020-03-11 00:37 | disposition short-term general hospital (02) | DRG 871 ==
LOC: ANHED 06:58 → ANHIMU 09:54
PROVIDERS: Internal Medicine Infectious Disease; Internal Medicine Nephrology; Admitting Provider Family Medicine; Emergency Provider Emergency Medicine; PCP Internal Medicine; Visit Provider Internal Medicine
DX: A41.9 Sepsis, unspecified organism (principal); N18.6 End stage renal disease; L03.116 Cellulitis of left lower limb; I13.2 Hypertensive heart and chronic kidney disease with heart failure and with stage 5 chronic kidney disease, or end stage renal disease; I50.32 Chronic diastolic (congestive) heart failure; L97.329 Non-pressure chronic ulcer of left ankle with unspecified severity; E87.5 Hyperkalemia; F41.9 Anxiety disorder, unspecified; I25.10 Atherosclerotic heart disease of native coronary artery without angina pectoris; E11.22 Type 2 diabetes mellitus with diabetic chronic kidney disease; Z99.2 Dependence on renal dialysis; Z79.4 Long term (current) use of insulin; E11.3299 Type 2 diabetes mellitus with mild nonproliferative diabetic retinopathy without macular edema, unspecified eye; S82.302D Unspecified fracture of lower end of left tibia, subsequent encounter for closed fracture with routine healing
CPT/HCPCS: 36415; 36600; 51701; 71045; 73610; 80053; 80069; 80202; 81001; 82533; 82805; 82948; 83036; 83605; 83735; 85025; 85027; 85610; 85730; 86706; 87040; 87070; 87077; 87086; 87147; 87186; 87205; 87340; 87804; 93005; 93971; 94640; 96365; 96367; 96368; 99285; A9270; G0257; J0131; J0610; J0690; J0743; J1644; J1815; J3370; J7030; Q5106

== ENCOUNTER 2020-04-19 14:19 | Inpatient (IN) | payer MEDICARE, MEDICAID, SELFPAY ==
[2020-04-19] VITALS (12 sets, daily range): BP systolic 97–150; BP diastolic 45–69; PULSE 66–88; RESP 12–20; TEMP 36.4–37.7; O2SAT 88–100
--- NOTE | ~2020-04-19 | XR_ITS ---
EXAMINATION: XR chest 1V portable EXAM DATE: 04/21/2020 11:50 INDICATION: Fever, COVID. TECHNIQUE: Portable AP frontal chest x-ray was obtained. Comparison is made to prior examination from 04/19/2020. FINDINGS: There is right sided double lumen dialysis catheter, IJ approach. There is cardiomegaly and pulmonary vascular congestion. Moderate amount of ill-defined bilateral pneumonia or edema. No pneum othorax or sizable pleural effusion. There are mild bony degenerative changes. IMPRESSION: 1. Moderate amount of bilateral pneumonia or edema, mild interval progression. Reviewed, dictated and finalized at location A. ER CONTROL TECHNICIAN
--- NOTE | ~2020-04-19 | XR_ITS ---
EXAMINATION: XR chest 1V portable INDICATION: Respiratory failure TECHNIQUE: Portable AP chest at 0507 hours COMPARISON: 04/26/2020 FINDINGS: The endotracheal tube ends approximately 3.5 cm above the jared. The nasogastric tube is f ollowed as far as the stomach. Its tip is beyond the inferior margin of the radiograph. A large bore right internal jugular catheter ends with its tip in the distal superior vena cava. Left basilar airs pace opacities have slightly improved. Diffuse opacities otherwise persist throughout all lung zones with no significant change. There is no pleural effusion or pneumothorax. The cardiomediastinal silho uette is stable. IMPRESSION: 1. Improving left basilar airspace opacity, consistent with atelectasis versus pneumonia. Otherwise, stable diffuse lung disease, consistent with pneumonia and/or pulmonary edema and/or acute respirator y distress syndrome (ARDS). Reviewed, dictated and finalized at location A. CHUTE RIGGER IMPRESSION: 1. Improving left basilar airspace opacity, consistent with atelectasis versus pneumonia. Otherwise, stable diffuse lung disease, consistent with pneumonia an d/or pulmonary edema and/or acute respiratory distress syndrome (ARDS).
--- NOTE | ~2020-04-19 | XR_ITS ---
EXAMINATION: XR chest 1V portable EXAM DATE: 04/22/2020 14:14 INDICATION: Hypoxia. COVID 19. TECHNIQUE: Portable AP frontal chest x-ray was obtained. Comparison is made to prior examination from 04/21, 04/19, 03/08. FINDINGS: There is been progressing multifocal airspace disease involving all lobes, appearance is co nsistent with COVID pneumonia. There is no pneumothorax suspected. There are no pleural effusions. Th e cardiomediastinal silhouette is prominent but magnified on this AP technique. Right IJ double-lumen dialysis catheter. There are no osseous abnormalities identified. IMPRESSION: 1. Progression of COVID pneumonia. Reviewed, dictated and finalized at location A. 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
--- NOTE | ~2020-04-19 | XR_ITS ---
EXAMINATION: XR chest 1V portable INDICATION: Cough TECHNIQUE: Portable AP chest at 1525 hours COMPARISON: 03/08/2020 FINDINGS: A large bore right internal jugular catheter ends with its tip in the distal superior vena cava. Patchy bilateral airspace opacities are present. Cardiomegaly is noted. There is no pleural eff usion or pneumothorax. IMPRESSION: 1. Patchy bilateral airspace opacities consistent with pneumonia versus pulmonary edema. Reviewed, dictated and finalized at location A. EL BUNG REMOVER AND DUMPER IMPRESSION: 1. Patchy bilateral airspace opacities consistent with pneumonia versus pulmona ry edema.
--- NOTE | ~2020-04-19 | XR_ITS ---
EXAMINATION: XR chest 1V portable INDICATION: Respiratory failure TECHNIQUE: Portable AP chest at 0506 hours COMPARISON: 04/25/2020 FINDINGS: The endotracheal tube ends approximately 4.0 cm above the jared. The nasogastric tube is f ollowed as far as the stomach. Its tip is beyond the inferior margin of the radiograph. A large bore right internal jugular catheter ends with its tip in the distal superior vena cava. Diffuse opacities persist throughout all lung zones with slight improvement. There is no pleural effusion or pneumotho rax. More focal left basilar airspace opacity persists and is unchanged. The cardiomediastinal silhou ette is stable. IMPRESSION: 1. Diffuse lung disease with interval improvement, consistent with pneumonia and/or pulmonary edema a nd/or acute respiratory distress syndrome (ARDS). 2. Unchanged left basilar airspace opacities, likely atelectasis versus pneumonia. Reviewed, dictated and finalized at location A. ING SHOW HOST IMPRESSION: 1. Diffuse lung disease with interval improvement, consistent with pneumonia an d/or pulmonary edema and/or acute respiratory distress syndrome (ARDS). 2. Unchanged left basilar airspace opacities, likely atelectasis versus pneumon ia.
--- NOTE | ~2020-04-19 | XR_ITS ---
EXAMINATION: XR chest ET placement EXAM DATE: 04/23/2020 10:26 INDICATION: Intubated. COVID. Fever. TECHNIQUE: Portable AP frontal chest x-rays was obtained. Comparison is made to prior examination fro 04/22/2020. FINDINGS: On the 1st chest x-ray the endotracheal tube is in the right mainstem bronchus. On the sub sequent x-ray this was retracted and is now 2 cm above the jared, adequate. Feeding tube tip is just below the left hemidiaphragm, side port is above the gastroesophageal junction. This could be safely advanced 5-10 cm. I discussed these tube positions with ICU nurse at 04/23/2020 10:42 AREA DIRECTOR OF HOME HE[employer] SALES. There is moderate to severe amount of airspace disease involving all lobes. This has been demonstrati ng mild progression compared to last several days. There are no sizable pleural effusions. There i s no pneumothorax suspected. The cardiomediastinal silhouette is prominent but magnified on this AP technique. General There is aortic arteriosclerosis. IMPRESSION: 1. NG tube could be advanced 5-10 cm. ET tube in position. 2. Progressing diffuse pneumonia and/or edema. Reviewed, dictated and finalized at location A. DIRECTOR OF HOME HEALTH SALES
--- NOTE | ~2020-04-19 | XR_ITS ---
EXAMINATION: XR ankle LT min 3V DATE: 04/19/2020 15:47 INDICATION: Weakness with worsening wound on the left foot TECHNIQUE: Anteroposterior, lateral, mortise, and additional oblique view of the ankle were obtained. COMPARISON: 03/08/2020 FINDINGS: There is an intramedullary honorio extending through the calcaneus and talus into the distal ti glory. A soft tissue ulceration has developed in the plantar aspect of the foot near the intramedullary honorio. An ulceration previously seen at the medial aspect of the ankle near the medial malleolus has s omewhat improved. There is increased heterotopic ossification near the medial malleolus. Again seen i s a comminuted fracture of the distal fibula with increased calcified callus at the fracture site. Al ignment is unchanged. IMPRESSION: 1. Developing ulceration at the plantar aspect of the foot near the end of the intramedullary honorio. 2. Improving medial soft tissue ulceration of the ankle near the medial malleolus. 3. Healing fractures. Reviewed, dictated and finalized at location A. ERY STORE COURTESY CLERK IMPRESSION: 1. Developing ulceration at the plantar aspect of the foot near the end of the intramedullary honorio. 2. Improving medial soft tissue ulceration of the ankle near the medial malleol us. 3. Healing fractures.
--- NOTE | ~2020-04-19 | XR_ITS ---
EXAMINATION: XR chest 1V portable INDICATION: Respiratory failure TECHNIQUE: Portable AP chest at 0522hours COMPARISON: 04/24/2020 FINDINGS: The endotracheal tube ends approximately 3.7 cm above the jared. The nasogastric tube is f ollowed as far as the stomach. Its tip is beyond the inferior margin of the radiograph. Diffuse opaci ties persist in all lung zones with slight improvement. There are persistent focal opacities of the l eft lung base. No pleural effusion or pneumothorax is identified. The cardiomediastinal silhouette is stable. IMPRESSION: 1. Diffuse lung disease with slight interval improvement, consistent with pneumonia and/or pulmonary edema and/or acute respiratory distress syndrome (ARDS). 2. More focal opacities of the left lung base may reflect atelectasis or pneumonia. Reviewed, dictated and finalized at location A. ACE LOGGING SYSTEMS LOGGER IMPRESSION: 1. Diffuse lung disease with slight interval improvement, consistent with pneum onia and/or pulmonary edema and/or acute respiratory distress syndrome (ARDS). 2. More focal opacities of the left lung base may reflect atelectasis or pneumo haily.
--- NOTE | ~2020-04-19 | CT_ITS ---
EXAMINATION: CT brain wo con EXAM DATE: 04/21/2020 11:42 INDICATION: Decreased level of consciousness. TECHNIQUE: Spiral CT of the head was performed without contrast. Axial, coronal and sagittal images were reviewed. The dose-length product (DLP) for this examination was 605.33 mGy-cm. The exposure w as tailored according to patient size, and iterative reconstruction (ASIR) was used as additional dos e reduction technique. Comparison is made to prior examination from 07/05/2019. FINDINGS: There is punctate old right external capsule lacunar infarction. There are 2 small small ol d left cerebellar infarctions. There is no acute intraparenchymal hemorrhage. No evidence of intrapa renchymal brain mass lesion. No evidence of acute infarction. Please note that initial head CT has limited sensitivity for small or acute infarctions. There is mild periventricular and subcortical hyp odensity, nonspecific but probably related to small vessel ischemic disease. There is mild prominen ce of the sulci and ventricles related to cerebral atrophy. There is intracranial carotid arteriosc lerosis. There are no extra-axial collections. There is no mass effect or midline shift. Patient h as had bilateral ocular lens surgery. Soft tissue is unremarkable. The visualized sinuses and masto id air cells are well aerated. IMPRESSION: 1. No acute intracranial findings. 2. Chronic age related findings. 3. Small old infarctions. Reviewed, dictated and finalized at location A. GE CREW MEMBER
--- NOTE | ~2020-04-19 | XR_ITS ---
EXAMINATION: XR foot LT min 3V DATE: 04/19/2020 15:48 INDICATION: Weakness and left foot wound TECHNIQUE: Dorsoplantar, lateral, and oblique views of the left foot were obtained. COMPARISON: 03/08/2020, 02/12/2020 FINDINGS: The calcaneal screw has exited the plantar surface of the calcaneus. The intramedullary honorio traversing the calcaneus, talus, and distal tibia is now seen approximately 2.5 cm caudal to the alyssa ntar surface of the calcaneus. The calcaneal screw was previously demonstrated to be within the calca neus and the intramedullary honorio was formerly flushed with the undersurface of the calcaneus. Developi ng ulceration is seen at the plantar surface of the foot near the intramedullary honorio. There is a ques tionable lytic lesion in the first metatarsal. The overlying cortex is mildly elevated. The bones are osteopenic. IMPRESSION: 1. Hardware failure on the calcaneus with the intramedullary honorio now seen near the plantar surface of the foot with adjacent soft tissue ulceration. 2. Possible lytic lesion in the first metatarsal. Findings could reflect healing fracture versus aggr essive lesion such as infection or malignancy. Would recommend correlation with prior radiographs. Reviewed, dictated and finalized at location A. L AND PATTERN SUPERVISOR IMPRESSION: 1. Hardware failure on the calcaneus with the intramedullary honorio now seen near the plantar surface of the foot with adjacent soft tissue ulceration. 2. Possible lytic lesion in the first metatarsal. Findings could reflect healin g fracture versus aggressive lesion such as infection or malignancy. Would ian mmend correlation with prior radiographs.
--- NOTE | ~2020-04-19 | XR_ITS ---
EXAMINATION: XR chest 1V portable INDICATION: Respiratory failure TECHNIQUE: Portable AP chest at 0516 hours COMPARISON: 04/23/2020 FINDINGS: The endotracheal tube ends approximately 2.3 cm above the jared. The nasogastric tube is f ollowed as far as the stomach. Its tip is beyond the inferior margin of the radiograph. A right inter nal jugular dialysis catheter ends with its tip in the proximal right atrium. Diffuse opacities persi st in all lung zones without significant change. There is no pleural effusion or pneumothorax. Cardio megaly is noted. IMPRESSION: 1. Stable diffuse lung disease, consistent with pneumonia and/or pulmonary edema and/or acute respira tory distress syndrome (ARDS). Reviewed, dictated and finalized at location A. MBLY MACHINE OPERATOR IMPRESSION: 1. Stable diffuse lung disease, consistent with pneumonia and/or pulmonary rajiv a and/or acute respiratory distress syndrome (ARDS).
--- NOTE | 2020-04-19 14:51 | ECG_ITS ---
Measurements Intervals [place] Rate: 85 P: 45 MA: 205 QRS: 44 QRSD: 101 T: 39 QT: 393 QTc: 468 Interpretive Statements SINUS RHYTHM WITH FIRST DEGREE AV BLOCK POSSIBLE LEFT ATRIAL ENLARGEMENT ABNORMAL ECG Electronically Signed On 04-19-2020 15:14:50 INTERPERSONAL COMMUNICATIONS PROFESSOR by Teofilo Tay D.O.
--- NOTE | 2020-04-19 15:31 | ED.WEAKNESS ---
HPI - Weakness General Chief complaint: Weakness Stated complaint: covid/foot infection Time Seen by Provider: 04/19/20 14:38 Source: RN notes reviewed History of Present Illness HPI Narrative: Patient presents emergency department from care home for weakness. Patient was found to be Covid positive today. Patient was noted to have increased weakness and shortness of breath and was sent to the ER for further evaluation. Patient states she is a dialysis patient and states she had dialysis today and is followed by Dr. Burnett. Per the facility they also want us to look at the patient's left leg wound that is chronic the patient denies any fevers or chills chest pain abdominal pain or any other symptoms Related Data Home Medications Medication Instructions Recorded Confirmed calcium acetate(phosphat bind) 667 1,334 mg PO TIDWM 02/11/19 03/08/20 mg tablet gabapentin 100 mg PO TID 07/02/19 03/08/20 insulin aspart U-100 100 unit/mL See Rx Instructions .ROUTE .COMPLEX 11/04/19 03/08/20 subcutaneous solution oxycodone-acetaminophen 1 tablet PO TID PRN 02/12/20 03/08/20 B complex with C 20-folic acid 1 cap PO DAILY 03/08/20 03/08/20 [Virt-Caps] diphenhydramine HCl [Benadryl] 25 mg PO Q8H PRN 03/08/20 03/08/20 hydralazine 100 mg PO DAILY 03/08/20 03/08/20 labetalol 100 mg PO DAILY 03/08/20 03/08/20 metolazone 5 mg PO DAILY 03/08/20 03/08/20 ondansetron HCl [Zofran] 4 mg PO Q8H PRN 03/08/20 03/08/20 vitamin B complex [Super B 1 tablet PO DAILY 03/08/20 03/08/20 [id number]] Allergies Allergy/AdvReac Type Severity Reaction Status Date / Time Penicillins Allergy Unknown Hives Verified 04/19/20 14:42 Review of Systems Review of Systems: Narrative: Gen.: Denies fevers or chills Eyes: Denies eye pain or visual change ENT: Denies congestion Respiratory: Reports shortness of breath CV: Denies chest pain or palpitations GI: Denies abdominal pain nausea, emesis or diarrhea reports chronic renal failure with dialysis Musculoskeletal: Denies back pain or muscle pain Neuro: Denies numbness, tingling, weakness or focal weakness Skin: Reports leg wound Except as documented, all other systems reviewed and negative [facility] Past Medical History Medical History Acute UTI Anemia of chronic disease Anxiety AV fistula Left upper arm Bacteremia Chronic diastolic heart failure Coronary artery disease CVA (cerebral vascular accident) 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 Depression End-stage renal disease on hemodialysis End-stage renal disease on dialysis Friday. Fracture of right tibial plateau (~10/2018) Hyper-reninism Hypertension Multifactorial initially due to essential hypertension but now in part due to renal failure Insulin dependent type 2 diabetes mellitus Hemoglobin A1c was 5.0% in October 2018. Left wrist fracture Moderate protein-calorie malnutrition Multiple gallstones Nonproliferative diabetic retinopathy Pneumonia With parapneumonic effusion requiring thoracentesis in October 2017. Post-menopausal osteoporosis On DEXA scan in January 2017. Severe tricuspid regurgitation by prior echocardiography Echocardiogram September 2018 demonstrating grade 1 diastolic dysfunction, mild left ventricular hypertrophy, mild left ventricular enlargement, grade 1 diastolic dysfunction, global longitudinal strain at-8%, TAPSE 1.4 cm suggesting abnormal right ventricular systolic function although appears normal by visual estimation, moderate left atrial enlargement, mild right atrial enlargement, mild (underestimated) mitral valve regurgitation, tricuspid valve do not coaptation due to dilated annulus, mild pulmonic regurgitation, elevated right atrial pressure at 15 mmHg, trivial pericardial effusion. Surgical History Surgical History History of bilateral cataract ext
--- NOTE | 2020-04-19 15:39 | PC.NURSE ---
Spoke with Scott Jacobo (niece and POA) phone [phone]
--- NOTE | 2020-04-19 15:53 | PC.NURSE ---
Pt intermittently removing nasal cannula. SPO2 decreases to 84-88%. Remind patient to keep nasal cannula on.
[2020-04-19 16:05] LABS: Basophils Percent Auto 0.4 % (0.2-1.2); Eosinophils Percent Auto 0.4 % (0-4.4); Hematocrit 32.5 % (37.0-47.0); Hemoglobin 10.2 g/dL (12.0-15.0); Immature Granulocyte Absolute 0.04 K/mm3 (0.00-0.031); Immature Granulocyte Percent A 0.7 % (0-0.5); Lymphocytes Absolute Auto 0.45 K/mm3 (0.9-3.2); Lymphocytes Percent Auto 8.2 % (18.3-44.2); Mean Corpuscular HGB Conc 31.4 g/dl (32-36); Mean Corpuscular Volume 89.3 fl (80-100); Mean Platelet Volume 9.6 fl (7.4-10.4); Monocytes Absolute Auto 0.6 K/mm3 (0.1-0.6); Monocytes Percent Auto 10.6 % (2.6-8.5); Neutrophils Absolute Auto 4.4 K/mm3 (1.3-6.7); Neutrophils Percent Auto 79.7 % (45.5-73.1); Platelet Count Result 238 k/mm3 (150-375); Red Blood Count 3.64 M/mm3 (4.2-5.4); White Blood Count 5.5 K/mm3 (4.5-10.0)
[2020-04-19 16:14] LABS: INR 1.2; Prothrombin Time 15.4 Seconds (11.1-14.7)
[2020-04-19 16:15] LABS: Partial Thromboplastin Time 39.1 SECONDS (22.3-36.8)
[2020-04-19 16:19] LABS: Alanine Aminotransferase 14 U/L (4-35); Albumin Level 4.2 g/dL (3.5-5.1); Alkaline Phosphatase 179 U/L (38-126); Anion Gap 11 mmol/L (8-16); Aspartate Amino Transferase 37 U/L (14-36); Bilirubin,Total 0.7 mg/dL (0.2-1.3); Blood Urea Nitrogen 27 mg/dL (7-17); Calcium 8.6 mg/dL (8.4-10.2); Carbon Dioxide 32 mmol/L (22-30); Chloride 92 mmol/L (98-107); Estimated CRCL calculation 13 ml/min; Estimated Glomerular Filt Rate 14; Glucose 176 mg/dL (65-105); Lipase 65 U/L (23-300); Potassium 4.2 mmol/L (3.4-5.0); Sodium 135 mmol/L (137-145)
[2020-04-19] MEDS: DEXAMETHASONE SOD PHOS INJ 4 MG/ML VIAL 6 MG IV PUSH (17:32)
--- NOTE | 2020-04-19 20:48 | PM.IMHP ---
H&P: HPI History of Present Illness Date/Time: 04/19/20 20:48 Chief Complaint: Positive COVID Narrative: Ania Field is a 64 year old female tells me that she lives in [facility] living and that she typically does not go anywhere. The LEs she goes is to dialysis on Friday. It is reported that [facility] a jail. The patient tested positive for COVID-19 today. The patient had increased weakness and shortness of breath and was sent to the emergency room for further evaluation. The patient stated that she did have dialysis today if she goes on Friday. She denies any fever chills or any cough. On Friday the left foot is swollen and but it appears to be healing. X-ray of the left foot was read as hardware failure of the calcaneus with intra medullary honorio now seen near the plantar surface of the foot in adjacent soft tissue ulceration. Possible lytic lesion in the 1st metatarsal. Findings could reflect healing fracture versus aggressive lesion such as infection or malignancy. Ankle x-ray was read as the following 1. Developing ulceration at the plantar aspect of the foot near the end of the intramedullary honorio. 2. Improving medial soft tissue ulceration of the ankle near the medial malleolus. 3. Healing fractures. As patchy bilateral airspace opacities consistent with pneumonia versus pulmonary edema. H&H is reported as 10.2 and 32.5 blood sugar was reported as 176. Nephrology had been consulted and recommended that we hold off on REMdesivir and that we could continue with Decadron. Creatinine is 3.3 and BUN 27 today. The patient was placed on oxygen at 2 L per nasal cannula and was started on Decadron. The patient is being admitted to inpatient status on the date of service of 04/19/2020 Review of Systems Review of Systems: All systems reviewed & are unremarkable except as noted in HPI and below Constitutional: Constitutional: Reports as per HPI and Reports no additional constitutional complaints Eyes: Eyes: Reports as per HPI and Reports no additional eye complaints ENT: Reports system reviewed and no additional complaints, except as documented and Reports Normal hearing present Cardiovascular: Cardiovascular: Reports no additional cardiovascular complaints Respiratory: Respiratory: Reports no additional respiratory complaints and Reports no additional respiratory complaints Gastrointestinal: Gastrointestinal: Reports as per HPI and Reports no additional gastrointestinal complaints Musculoskeletal: Musculoskeletal: Reports no additional musculoskeletal complaints Integumentary/Breasts: Skin/Breast: Reports system reviewed and no additional complaints, except as docu and Reports as per HPI Neurologic: Reports system reviewed and no additional complaints, except as documented, Reports as per HPI and Reports Normal hearing present Psychiatric: Psychiatric: Reports no additional psychiatric complaints and Reports as per HPI Endocrine: Endocrine: Reports no additional endocrine complaints Hematologic/Lymphatic: Hematologic/Lymphatic: Reports no additional hematologic/lymphatic complaints Allergic/Immunologic: Allergic/Immunologic: Reports no additional allergic/immunologic complaints [facility] Past Medical History Medical History (Updated 04/19/20 @ 20:56 by Guerda Peralta NP) Acute UTI Anemia of chronic disease Anxiety AV fistula Left upper arm nonfunctioning Bacteremia Chronic diastolic heart failure Coronary artery disease CVA (cerebral vascular accident) 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 Depression End-stage renal disease on hemodialysis End-stage renal disease on dialysis Friday. Fracture of right tibial plateau (~10/2018) Hyper-reninism Hypertension Multifactorial initially due to essential hypertension but now in part due to renal failure Insulin dependent type 2 diabetes mellitus Hemoglobin A1c was
--- NOTE | 2020-04-19 21:48 | ADMGEN ---
This patient, Ania Field, was admitted to [facility] Surg Room 314-01 at 2120. Patient/family oriented to hospital policies and general routines including ID bracelet, bed and alarms, visiting hours, pain management, procedures, bathroom and other care routines, personal items, smoking policy, room service/diet, and visiting hours. Information on how to activate the Rapid Response Team has been discussed. Patient/Family are encouraged to report perceived risks to care and to ask questions if they do not understand what they are told or what they should do.
--- NOTE | 2020-04-19 21:48 | PC.NURSE ---
2147 left message with POA that pt has arrived and settled in . Condition report given. Pt agitated that she needs to stay stating this means I will never get out of assisted. Pt refering to sore on heel. Therapudic listening and reassurance given and attending to patients numerous requests. Left heel with open area draining large amount bright red blood onto floor when dangling legs over stretcher to transfer to bed. pressure dressing applied elevated leg on pillows.
[2020-04-20] VITALS (9 sets, daily range): BP systolic 129–161; BP diastolic 54–70; PULSE 65–93; RESP 16–20; TEMP 36.3–36.8; O2SAT 93–100
[2020-04-20] MEDS: diphenhydrAMINE HCl CAP 25 MG CAPSULE PO (01:49)
[2020-04-20] MEDS: oxyCODONE/ACETAMINOPHEN (*CRX) 5-325 MG TABLET 1 TABLET PO (05:12)
[2020-04-20 06:55] LABS: Hematocrit 31.5 % (37.0-47.0); Hemoglobin 9.7 g/dL (12.0-15.0); Immature Granulocyte Absolute 0.03 K/mm3 (0.00-0.031); Lymphocytes Absolute Auto 0.26 K/mm3 (0.9-3.2); Lymphocytes Percent Auto 8.8 % (18.3-44.2); Mean Corpuscular HGB Conc 30.8 g/dl (32-36); Mean Corpuscular Hemoglobin 27.6 pg (26-34); Mean Corpuscular Volume 89.5 fl (80-100); Mean Platelet Volume 9.7 fl (7.4-10.4); Monocytes Absolute Auto 0.2 K/mm3 (0.1-0.6); Monocytes Percent Auto 7.1 % (2.6-8.5); Neutrophils Absolute Auto 2.5 K/mm3 (1.3-6.7); Neutrophils Percent Auto 83.1 % (45.5-73.1); Platelet Count Result 225 k/mm3 (150-375); Red Blood Count 3.52 M/mm3 (4.2-5.4); Red Cell Distribution Width 15.7 % (11.5-14.5)
--- NOTE | 2020-04-20 07:07 | PM.CNNEP ---
Assessment and Plan Assessment and plan (1) End-stage renal disease on hemodialysis: Code(s): N18.6 - End stage renal disease; Z99.2 - Dependence on renal dialysis Status: Chronic Assessment and Plan: The patient has end-stage kidneys. She gets dialysis 3 times a week. She has been compliant with her dialysis sessions. She went to dialysis yesterday and is due tomorrow. Volume status looks okay. Potassium is doing well (2) COVID-19: Code(s): U07.1 - COVID-19 Status: Acute Assessment and Plan: The patient has COVID-19. Chest x-ray shows patchy infiltrates. Oxygenation is doing pretty well for her. She is getting Dexamethasone and is on isolation (3) Cellulitis of right lower extremity: Code(s): L03.115 - Cellulitis of right lower limb Status: Acute Assessment and Plan: Blood cultures are pending She is undergoing dressing changes Wound care saw the patient. She is getting antibiotics (4) Anemia: Code(s): D64.9 - Anemia, unspecified Status: Acute Assessment and Plan: Hemoglobin is 9.7. Will give EPO with dialysis. (5) Hypertension: Code(s): I10 - Essential (primary) hypertension Status: Chronic Assessment and Plan: Blood pressure is up and down. Will follow for trends and adjust meds accordingly. History of Present Illness Reason for Consult Consult date: 04/20/20 Chief Complaint Chief complaint: Acute respiratory failure w hypoxia/covid 19/chron History of Present Illness Narrative: Ania is a very pleasant 64-year-old lady who has multiple medical problems including end-stage renal disease on dialysis 3 times a week, anemia of chronic kidney disease, renal osteodystrophy, peripheral vascular disease status post stroke, coronary artery disease, diastolic dysfunction, severe tricuspid regurgitation, diabetes with retinopathy and nephropathy, depression, gallstones. She is been in a alf for wound healing and antibiotics because of a sore on the left foot. The patient was going to go home soon but she got a COVID test at the alf which turned out to be positive. She was told that she was short of breath so she was sent over to the ER. The patient is on oxygen at home intermittently. She uses it when she feels like she needs it. She says that she does not really feel like she needs it now but her oxygen levels were low so she was given oxygen. She is comfortable right now. She had dialysis yesterday and did well. She got down to her dry weight. Review of Systems Constitutional: Constitutional: Reports no additional constitutional complaints Eyes: Eyes: Reports no additional eye complaints ENT: Reports system reviewed and no additional complaints, except as documented Cardiovascular: Cardiovascular: Reports no additional cardiovascular complaints Respiratory: Respiratory: Reports no additional respiratory complaints Gastrointestinal: Gastrointestinal: Reports no additional gastrointestinal complaints Genitourinary: Genitourinary: Reports no additional female genitourinary complaints Musculoskeletal: Musculoskeletal: Reports no additional musculoskeletal complaints Integumentary/Breasts: Skin/Breast: Reports system reviewed and no additional complaints, except as docu Neurologic: Reports system reviewed and no additional complaints, except as documented Psychiatric: Psychiatric: Reports no additional psychiatric complaints Endocrine: Endocrine: Reports no additional endocrine complaints [facility] Past Medical History Medical History Acute UTI Anemia of chronic disease Anxiety AV fistula Left upper arm nonfunctioning Bacteremia Chronic diastolic heart failure Coronary artery disease CVA (cerebral vascular accident) 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 Depression End-stage renal disease o
[2020-04-20 07:44] LABS: Glucose Point of Care > 500 (65-105)
[2020-04-20 07:48] LABS: Potassium 4.5 mmol/L (3.4-5.0)
[2020-04-20 07:49] LABS: Alanine Aminotransferase 17 U/L (4-35); Albumin Level 3.9 g/dL (3.5-5.1); Alkaline Phosphatase 173 U/L (38-126); Anion Gap 16 mmol/L (8-16); Aspartate Amino Transferase 67 U/L (14-36); Bilirubin,Total 0.5 mg/dL (0.2-1.3); Blood Urea Nitrogen 51 mg/dL (7-17); Calcium 7.9 mg/dL (8.4-10.2); Carbon Dioxide 27 mmol/L (22-30); Chloride 86 mmol/L (98-107); Estimated CRCL calculation 10 ml/min; Estimated Glomerular Filt Rate 10; Magnesium 2.1 mg/dL (1.6-2.3); Sodium 129 mmol/L (137-145)
[2020-04-20 07:51] LABS: Glucose 599 mg/dL (65-105)
[2020-04-20] MEDS: INSULIN ASPART (*BKC) 100 UNITS/ML 20 UNITS SUB-Q ×2 (08:11→17:48)
[2020-04-20] MEDS: INSULIN GLARGINE (*BKC) 100 UNITS/ML 12 UNITS SUB-Q ×2 (08:12→17:49)
[2020-04-20] MEDS: CALCIUM ACETATE 667 MG TABLET 1334 MG PO ×3 (08:21→17:50)
[2020-04-20] MEDS: metOLazone 5 MG TABLET PO (08:21)
[2020-04-20] MEDS: GABAPENTIN 100 MG CAPSULE PO ×3 (08:21→17:51)
[2020-04-20] MEDS: FERROUS SULFATE 324 MG TABLET PO ×2 (08:21→17:51)
[2020-04-20] MEDS: cloNIDine HCL 0.1 MG TABLET PO ×3 (08:22→17:51)
[2020-04-20] MEDS: hydrALAZINE HCL 50 MG TABLET PO ×3 (08:22→17:51)
[2020-04-20] MEDS: amLODIPine BESYLATE 5 MG TABLET 10 MG PO (08:22)
[2020-04-20] MEDS: LABETALOL HCL 100 MG TABLET PO (08:22)
[2020-04-20] MEDS: DEXAMETHASONE SOD PHOS INJ 4 MG/ML VIAL 6 MG IV PUSH (08:23)
[2020-04-20] MEDS: CHOLECALCIFEROL 1,000 UNITS TABLET 1000 UNITS PO (08:23)
[2020-04-20] MEDS: HEPARIN SODIUM 5,000 UNITS/ML VIAL 5000 UNITS SUB-Q ×2 (08:32→20:30)
[2020-04-20 10:46] LABS: Glucose Point of Care 382 (65-105)
[2020-04-20 11:34] LABS: Glucose Point of Care 380 (65-105)
[2020-04-20 12:40] LABS: Glucose Point of Care 417 (65-105)
[2020-04-20] MEDS: INSULIN ASPART (*BKC) 100 UNITS/ML 12 UNITS SUB-Q (12:47)
--- NOTE | 2020-04-20 14:08 | PM.IMPN ---
Progress Note: A&P Assessment and Plan (1) UTI (urinary tract infection): Code(s): N39.0 - Urinary tract infection, site not specified Status: Acute Assessment and Plan: Started on Rocephin Await ua cx I&S (2) COVID-19: Code(s): U07.1 - COVID-19 Status: Acute Assessment and Plan: Asymptomatic On Dexamethasone though (3) Chronic kidney failure: Code(s): N18.9 - Chronic kidney disease, unspecified Status: Acute Assessment and Plan: Unchanged HD Mo/Wd/Fr Appreciate Nephrology note (4) Cellulitis of left ankle: Code(s): L03.116 - Cellulitis of left lower limb Status: Acute Assessment and Plan: Does not appear to be active Will monitor (5) Hypertension: Code(s): I10 - Essential (primary) hypertension Status: Chronic Assessment and Plan: Continue home meds (6) End-stage renal disease on hemodialysis: Code(s): N18.6 - End stage renal disease; Z99.2 - Dependence on renal dialysis Status: Chronic Assessment and Plan: HD Mo/Wd/Fr Had dialysis yesterday Nephrology on board Subjective Date/time seen: 04/20/20 14:08 Patient states that she is fine. Review of Systems Review of Systems: Narrative: Denies any issues states that was brought to ED because she was positive for Covis 19 Constitutional: Comments: no fevers, no rigors, no chills. ENT: Comments: no nasal congestion, no throat pain. Cardiovascular: Comments: no chest pain, o pnd, no orhtopnea. Respiratory: Comments: no cough, no sputum production. Gastrointestinal: Comments: no n/v/abdominal pain/diarrhea. Musculoskeletal: Comments: L heel ulcer. Integumentary/Breasts: Comments: L heel chronic ulcer. Psychiatric: Comments: no sensory motor deficit Exam Narrative: Exam Narrative: Lying in bed Const: General: cooperative, no acute distress, alert, awake, Physically active and other (Chronically ill looking.) Nutritional Appearance: average body habitus Orientation/consciousness: patient oriented x3 HENMT: Head: normal to inspection and normocephalic Ears: hearing grossly normal bilaterally General nose exam: Normal external nose present Eyes: General: appearance normal, both eyes and all related structures Pupils: Equal, round and reactive pupils present and Pupil size comments Neck: Neck: no lymphadenopathy, supple and no JVD Resp: Effort & Inspection: normal respiratory effort and able to speak in complete sentences Auscultation: clear to auscultation bilaterally Cardio: Jugular venous distension: no JVD Rate: regular rate Rhythm: regular rhythm GI: GI Palp: Yes Soft to palpation and Yes No hepatosplenomegaly present Skin: Wounds: wounds noted (L heel.) Neuro: General: patient oriented x3 and CN's II-XI intact bilaterally Cranial nerves: Yes CN's II-XII intact bilaterally, Yes Equal, round and reactive pupils present and Yes Bilaterally intact EOM present Cognition (Neuro): normal cognition Motor exam (neuro): 5/5 motor strength present throughout Extrem: General: pedal edema on the left Objective Data Vital Signs Vital Signs: Vital Signs - 24 hr 04/19/20 14:36 04/19/20 15:51 04/19/20 17:30 Temperature 99.8 F H Pulse Rate 88 70 Respiratory Rate 20 16 Blood Pressure 97/58 L Pulse Oximetry 96 88 L 04/19/20 17:32 04/19/20 17:45 04/19/20 17:46 Temperature Pulse Rate 71 67 67 Respiratory Rate 13 15 15 Blood Pressure 119/57 L 110/46 L Pulse Oximetry 04/19/20 18:00 04/19/20 18:01 04/19/20 18:15 Temperature Pulse Rate 66 66 67 Respiratory Rate 12 15 15 Blood Pressure 104/45 L 117/46 L Pulse Oximetry 04/19/20 18:16 04/19/20 21:10 04/19/20 22:00 Temperature 97.6 F Pulse Rate 68 67 82 Respiratory Rate 16 15 20 Blood Pressure 117/46 L 150/69 H Pulse Oximetry 96 100 04/20/20 00:24 04/20/20 06:00 04/20/20 08:00 Temperature 98.0 F 97.4 F L 98.1 F Pulse Rate 83 84 76
[2020-04-20 16:33] LABS: Glucose Point of Care 492 (65-105)
[2020-04-20] MEDS: MELATONIN 3 MG TABLET PO (20:30)
[2020-04-20 20:37] LABS: Glucose Point of Care > 500 (65-105)
[2020-04-20] MEDS: INSULIN ASPART (*BKC) 100 UNITS/ML 10 UNITS SUB-Q (21:08)
[2020-04-21] VITALS (19 sets, daily range): BP systolic 111–150; BP diastolic 46–79; PULSE 62–105; RESP 15–100; TEMP 35.6–40.6; O2SAT 90–100
[2020-04-21 00:10] LABS: Glucose Point of Care 189 (65-105)
[2020-04-21 06:40] LABS: Albumin Level 4.1 g/dL (3.5-5.1); Anion Gap 16 mmol/L (8-16); Blood Urea Nitrogen 78 mg/dL (7-17); Calcium 7.7 mg/dL (8.4-10.2); Carbon Dioxide 25 mmol/L (22-30); Chloride 88 mmol/L (98-107); Estimated CRCL calculation 8 ml/min; Estimated Glomerular Filt Rate 8; Glucose 210 mg/dL (65-105); Phosphorus 7.6 mg/dL (2.5-4.5); Potassium 4.8 mmol/L (3.4-5.0); Sodium 129 mmol/L (137-145)
[2020-04-21] MEDS: LORazepam INJ (*CRX) 2 MG/ML VIAL 1 MG IV PUSH (09:18)
[2020-04-21 09:21] LABS: Glucose Point of Care 173 (65-105)
[2020-04-21] MEDS: amLODIPine BESYLATE 5 MG TABLET 10 MG PO (09:21)
[2020-04-21] MEDS: metOLazone 5 MG TABLET PO (09:21)
[2020-04-21] MEDS: hydrALAZINE HCL 50 MG TABLET PO ×3 (09:21→17:10)
[2020-04-21] MEDS: cloNIDine HCL 0.1 MG TABLET PO ×3 (09:21→17:10)
[2020-04-21] MEDS: DEXAMETHASONE SOD PHOS INJ 4 MG/ML VIAL 6 MG IV PUSH (09:22)
[2020-04-21] MEDS: CALCIUM ACETATE 667 MG TABLET 1334 MG PO ×2 (09:22→13:11)
[2020-04-21] MEDS: LABETALOL HCL 100 MG TABLET PO (09:22)
[2020-04-21] MEDS: FERROUS SULFATE 324 MG TABLET PO ×2 (09:22→17:10)
[2020-04-21] MEDS: GABAPENTIN 100 MG CAPSULE PO (09:22)
[2020-04-21] MEDS: CHOLECALCIFEROL 1,000 UNITS TABLET 1000 UNITS PO (09:22)
[2020-04-21] MEDS: ACETAMINOPHEN 500 MG TABLET 1000 MG PO (09:35)
[2020-04-21] MEDS: SILVERGEL (ELTA) 45 ML 1 APPLIC TOPICAL (09:35)
--- NOTE | 2020-04-21 10:50 | PM.PNNEP ---
Progress Note: A&P Assessment and Plan (1) End-stage renal disease on hemodialysis: Code(s): N18.6 - End stage renal disease; Z99.2 - Dependence on renal dialysis Status: Chronic Assessment and Plan: The patient has end-stage kidneys. She gets dialysis 3 times a week. She will get dialysis today. (2) COVID-19: Code(s): U07.1 - COVID-19 Status: Acute Assessment and Plan: The patient has COVID-19. Chest x-ray shows patchy infiltrates. Oxygenation is doing pretty well for her. She is getting Dexamethasone and is on isolation (3) Cellulitis of right lower extremity: Code(s): L03.115 - Cellulitis of right lower limb Status: Acute Assessment and Plan: Blood cultures are No growth today. She is undergoing dressing changes Wound care saw the patient. She is getting antibiotics (4) Anemia: Code(s): D64.9 - Anemia, unspecified Status: Acute Assessment and Plan: Hemoglobin is 9.7. Will give EPO with dialysis. (5) Hypertension: Code(s): I10 - Essential (primary) hypertension Status: Chronic Assessment and Plan: Blood pressure is up and down. Will follow for trends and adjust meds accordingly. (6) Altered mental status: Code(s): R41.82 - Altered mental status, unspecified Status: Acute Assessment and Plan: she has something going on now. Her neck is turn to the left as if this was torticollis but usually people are anxious and upset about this. She has not received any Reglan or Compazine. Epileptic drugs and calcium channel blockers could do this also but she has been on her gabapentin and amlodipine for a long time. COURT USHER lesions can also do this. So we will order a CT of the of the head. The patient also has a fever of 101 so repeat blood cultures and add vancomycin. Nurses have notified Dr. Torres. Subjective Date/time seen: 04/21/20 10:50 Interval history: Tricia is not as interactive as usual. Her eyes are open. She is turn her head to the left and wound turn her head otherwise. She answers 1 word questions only and only yes or no. She is not in pain. She is not short of breath. She is not weak. I am not sure if she is just extremely depressed or something else is going on. Review of Systems Review of Systems: ROS unobtainable: Yes unobtainable due to medical condition Exam Narrative: Exam Narrative: WDWN in NAD skin no rash head ncat lungs clear cor reg no rub abd BS+ nontender and soft ext no edema. Neuro: Aware of examiner. She did say that it was but it is Friday. Good hand clinical neuropsychologist in both hands. Her face looks symmetric. Objective Data Vital Signs Vital Signs: Vital Signs - 24 hr 04/20/20 11:43 04/20/20 12:00 04/20/20 16:00 Temperature 36.7 C 36.7 C Pulse Rate 68 65 Respiratory Rate 16 18 Blood Pressure 132/54 L 132/62 Pulse Oximetry 98 93 96 04/20/20 20:00 04/21/20 00:00 04/21/20 00:48 Temperature 36.8 C 36.8 C Pulse Rate 93 105 H Respiratory Rate 16 100 H Blood Pressure 129/60 137/66 Pulse Oximetry 97 100 93 04/21/20 00:50 04/21/20 04:00 04/21/20 08:00 Temperature 36.7 C 38.3 C H Pulse Rate 91 95 Respiratory Rate 22 H 18 Blood Pressure 150/60 H 147/79 H Pulse Oximetry 94 90 93 04/21/20 08:59 04/21/20 09:35 Temperature 38.6 C H Pulse Rate Respiratory Rate Blood Pressure Pulse Oximetry 93 Intake/Output Intake/Output: Intake & Output 04/18/20 04/19/20 04/20/20 04/21/20 23:59 23:59 23:59 23:59 Intake Total 1660 250 Balance 1660 250 Meds/Results Medications: Active Medications Generic Name Dose Route Start Last Admin Trade Name Freq PRN Reason Stop Dose Admin Acetaminophen 1,000 mg 04/20/20 00:18 04/21/20 09:35 Acetaminophen 500 Mg Tablet PO 1,000 mg Q8H PRN Administration Pain Rated 1-3 Acetaminophen 650 mg 04/21/20 10:48 Acetaminophen
[2020-04-21] MEDS: ACETAMINOPHEN 650 MG SUPPOSITORY (10:55)
[2020-04-21] MEDS: SODIUM CHLORIDE 0.9% IV 500 ML 999 ML IV CONT (11:05)
[2020-04-21 11:06] LABS: Hematocrit 33.3 % (37.0-47.0); Hemoglobin 10.5 g/dL (12.0-15.0); Mean Corpuscular HGB Conc 31.5 g/dl (32-36); Mean Corpuscular Hemoglobin 27.2 pg (26-34); Mean Corpuscular Volume 86.3 fl (80-100); Mean Platelet Volume 9.8 fl (7.4-10.4); Platelet Count Result 273 k/mm3 (150-375); Red Blood Count 3.86 M/mm3 (4.2-5.4); Red Cell Distribution Width 15.8 % (11.5-14.5); White Blood Count 11.3 K/mm3 (4.5-10.0)
[2020-04-21 11:12] LABS: Alanine Aminotransferase 14 U/L (4-35); Albumin Level 4.2 g/dL (3.5-5.1); Alkaline Phosphatase 150 U/L (38-126); Anion Gap 17 mmol/L (8-16); Aspartate Amino Transferase 46 U/L (14-36); Bilirubin,Total 0.5 mg/dL (0.2-1.3); Blood Urea Nitrogen 83 mg/dL (7-17); Calcium 7.3 mg/dL (8.4-10.2); Carbon Dioxide 24 mmol/L (22-30); Chloride 91 mmol/L (98-107); Estimated CRCL calculation 7 ml/min; Estimated Glomerular Filt Rate 7; Glucose 160 mg/dL (65-105); Potassium 5.3 mmol/L (3.4-5.0); Sodium 132 mmol/L (137-145)
[2020-04-21 11:21] LABS: Alveolar/Arterial O2 Gradient 154.6 mmHg; Base Excess ABG -0.4 mEq/l (+/-2.0); Device NASAL CANNULA; Fractional Inspired Oxygen 36 %; HCO3 ABG 23.1 mEq/l (22.0-26.0); Modified Allen's Test Pass; Oxygen Content ABG 13.4 %vol (16.0-22.0); Oxygen Saturation ABG 93.3 % (95.0-100.0); Oxyhemoglobin 89.5 % THb (90.0-100.0); PCO2 ABG 33.8 mmHg (35.0-45.0); PO2 ABG 62.9 mmHg (80.0-100.0); PO2 FiO2 Ratio Arterial Blood 1.75 %; Site Drawn RIGHT RADIAL; Total Hemoglobin 10.6 g/dL (12.0-18.0); pH ABG 7.453 (7.350-7.450)
[2020-04-21] MEDS: KETOROLAC 30 MG/ML VIAL (*BKC) IV PUSH (11:28)
--- NOTE | 2020-04-21 11:29 | WPDCNINT ---
Assessment and Plan Assessment and plan (1) Sepsis: Code(s): A41.9 - Sepsis, unspecified organism Status: Acute Assessment and Plan: Patient meets the criteria for sepsis. admitted with COVID-19 which is most likely the cause of fever. Patient was leukopenic on presentation white count is now normal but patient is also on steroids Her temperature was very high this morning Patient given Tylenol suppository and I ordered 1 dose of Toradol IV Will also give 500 cc saline bolus as patient is a end-stage renal disease patient and otherwise hemodynamically stable Check lactic acid level Repeat blood culture sent Have infiltrates on chest x-ray which could be from COVID-19. Patient is on IV Rocephin. Will broaden antibiotic coverage until cultures are obtained into vanc and cefepime P.r.n. Tylenol and cooling blanket for fever. Her temp was already down to 100.5 last time I saw her Transfer to ICU for closer monitoring Check CK level (2) COVID-19: Code(s): U07.1 - COVID-19 Status: Acute Assessment and Plan: The patient has COVID-19. Chest x-ray shows patchy infiltrates which may be secondary to COVID or pulmonary edema Patient is saturating well on 2 L nasal cannula Continue dexamethasone Continue isolation Check inflammatory markers (3) Encephalopathy acute: Code(s): G93.40 - Encephalopathy, unspecified Status: Acute Assessment and Plan: RN reports that patient was more confused and drowsy this morning but on my exam patient was alert oriented x3, followed commands and denied any complaints apart from feeling warm. She is also on steroids, Neurontin Blood glucose was adequate Head CT is ordered and pending ABGs ordered and pending Neurochecks in ICU Hold all sedatives (4) End-stage renal disease on hemodialysis: Code(s): N18.6 - End stage renal disease; Z99.2 - Dependence on renal dialysis Status: Chronic Assessment and Plan: The patient has end-stage kidneys. She will get dialysis today. Her potassium is 5.3 Although it is not critically high, Will give 5 units of insulin and amp of D50 for temporary control as I am not sure what time the hemodialysis will be (5) Wound, open, foot: Code(s): S91.309A - Unspecified open wound, unspecified foot, initial encounter Status: Acute Assessment and Plan: I have reviewed wound care nurse's assessment note which states the patient has a left plantar foot ulcer due to hardware displacement. No obvious signs of infection were seen around the tissue topical antibiotic coverage and wound care was recommended along with autolytic debridement Blood cultures were done and were negative On presentation her white count was normal. WBC is elevated to 11 today but patient is also on dexamethasone Continue antibiotic and wound care I will consult Ortho for the foot fracture and hardware failure (6) Anemia: Code(s): D64.9 - Anemia, unspecified Status: Acute Assessment and Plan: Anemia of chronic kidney disease. On EPO with dialysis. (7) Hypertension: Code(s): I10 - Essential (primary) hypertension Status: Chronic Assessment and Plan: She is on p.o. meds Will monitor and adjust accordingly (8) Diabetes: Qualifiers: Chronic kidney disease stage: stage 4 (severe) Diabetes mellitus complication detail: with chronic kidney disease Diabetes mellitus complication status: with kidney complications Diabetes mellitus intermediate card tender insulin use: with intermediate card tender use Diabetes mellitus type: type 2 Qualified Code(s): E11.22 - Type 2 diabetes mellitus with diabetic chronic kidney disease; N18.4 - Chronic kidney disease, stage 4 (severe); Z79.4 - intermediate card tender (current) use of insulin Code(s): E11.9 - Type 2 diabetes mellitus without complications Status: Chronic Assessment and Plan: Sliding scale insulin and Lantus Additional Plan DVT prophylaxis -sub
--- NOTE | 2020-04-21 11:47 | PC.NURSE ---
Pt was not looking well this morning, and did not appear to be at prior level from report given. Pt had head turned to the left and would or could not come to midline. Pt was shaking and warm to the touch. Assessment completed, and her vital signs showed a fever of 101.0, tylenol was given. Pt was answering questions in short one to two word answers, and c/o not feeling well. Spoke with Dr. Corley who wanted Ativan 1mg given, and this nurse was told twice to put in the order and give. Upon rechecking the pt, pt appeared more lethargic and very warm to the touch. Vitals and blood sugar taken at that time and fever was now 104. Pt had ice placed, under arms, groin, behind neck and cold rag on forehead. A rapid response was called at this time.
[2020-04-21 11:58] LABS: Glucose Point of Care 150 (65-105)
[2020-04-21 12:10] LABS: Lactate Dehydrogenase 604 U/L (313-618)
[2020-04-21 12:18] LABS: D Dimer 2.08 ug/mL (<0.48)
[2020-04-21] MEDS: INSULIN HUMAN REGULAR (*BKC) 100 UNITS/ML IV PUSH (15:13)
[2020-04-21] MEDS: DEXTROSE 50% 25 GM/50 ML SYRINGE IV PUSH (15:13)
[2020-04-21 15:59] LABS: Lactic Acid Reflex 0.6 mmol/L (0.7-2.1)
[2020-04-21 17:09] LABS: Glucose Point of Care 328 (65-105)
[2020-04-21] MEDS: INSULIN ASPART (*BKC) 100 UNITS/ML SUB-Q (17:10)
[2020-04-21] MEDS: INSULIN GLARGINE (*BKC) 100 UNITS/ML 12 UNITS SUB-Q (17:11)
--- NOTE | 2020-04-21 19:01 | PM.IMPN ---
Progress Note: A&P Assessment and Plan (1) Sepsis: Code(s): A41.9 - Sepsis, unspecified organism Status: Acute Assessment and Plan: Unclear Patient had one episode of hyperthermia rectal at 105 Received Tylenol which brought it down Transferred to ICU Now on broad spectrum added coverage Lactic acid is wnl Source seems to be lungs Appreciate Int/Cc note (2) Wound, open, foot: Code(s): S91.309A - Unspecified open wound, unspecified foot, initial encounter Status: Acute Assessment and Plan: Local care (3) Encephalopathy acute: Code(s): G93.40 - Encephalopathy, unspecified Status: Acute Assessment and Plan: CT head obtained No acute abnormalities (4) Altered mental status: Code(s): R41.82 - Altered mental status, unspecified Status: Acute Assessment and Plan: Likely secondary to hyperthermia and sepsis Supportive care CT with no acute abnormalities (5) UTI (urinary tract infection): Code(s): N39.0 - Urinary tract infection, site not specified Status: Acute Assessment and Plan: Initially on Rocephin now on Cefepime (6) End-stage renal disease on hemodialysis: Code(s): N18.6 - End stage renal disease; Z99.2 - Dependence on renal dialysis Status: Chronic Assessment and Plan: HD on Mo, Wd, Fr Appreciate Nephrology note Subjective Date/time seen: 04/21/20 19:01 States that she is fine Review of Systems Review of Systems: ROS unobtainable: Yes unobtainable due to medical condition Exam Narrative: Exam Narrative: Liying in bed Const: General: ill appearing and other Nutritional Appearance: well nourished Orientation/consciousness: patient oriented x3 HENMT: Head: normal to inspection and normocephalic Ears: hearing grossly normal bilaterally General nose exam: Normal external nose present Face and sinus: normal facial exam Eyes: General: appearance normal, both eyes and all related structures Pupils: Equal, round and reactive pupils present EOM: EOMs intact bilaterally Neck: Neck: no lymphadenopathy, supple and no JVD Resp: Effort & Inspection: normal respiratory effort and able to speak in complete sentences Auscultation: clear to auscultation bilaterally Cardio: Jugular venous distension: no JVD Rate: regular rate Rhythm: regular rhythm GI: GI Palp: Yes Soft to palpation and Yes No hepatosplenomegaly present Skin: Rashes: no rashes Wounds: wounds noted (L heel) Neuro: General: patient oriented x3 and CN's II-XI intact bilaterally Cranial nerves: Yes CN's II-XII intact bilaterally, Yes Equal, round and reactive pupils present and Yes Bilaterally intact EOM present Cognition (Neuro): normal cognition Speech: normal speech Motor exam (neuro): 5/5 motor strength present throughout Extrem: General: edema (ankle edema) left Objective Data Vital Signs Vital Signs: Vital Signs - 24 hr 04/20/20 20:00 04/21/20 00:00 04/21/20 00:48 Temperature 98.2 F 98.2 F Pulse Rate 93 105 H Respiratory Rate 16 100 H Blood Pressure 129/60 137/66 Pulse Oximetry 97 100 93 04/21/20 00:50 04/21/20 04:00 04/21/20 08:00 Temperature 98.1 F 101.0 F H Pulse Rate 91 95 Respiratory Rate 22 H 18 Blood Pressure 150/60 H 147/79 H Pulse Oximetry 94 90 94 04/21/20 08:59 04/21/20 09:35 04/21/20 10:30 Temperature 101.4 F H 104 F H Pulse Rate Respiratory Rate Blood Pressure Pulse Oximetry 93 04/21/20 10:45 04/21/20 10:55 04/21/20 11:55 Temperature 105 F H 105.0 F H 101.2 F H Pulse Rate Respiratory Rate Blood Pressure 150/50 H Pulse Oximetry 04/21/20 11:58 04/21/20 12:00 04/21/20 14:00 Temperature 101.2 F H Pulse Rate 73 74 66 Respiratory Rate 17 17 16 Blood Pressure 112/49 L 111/55 L Pulse Oximetry 97 97 99 04/21/20 16:00 04/21/20 17:50 Temperature 96.6 F L Pulse Rate 64 65 Respiratory Rate 16 17 Blood Pressure 117/59 L 118/60 Pulse Oxim
--- NOTE | 2020-04-21 19:50 | PC.NURSE ---
Spoke with rn oncology dialysis Nurse and she states Dr Martinez told her to hold of in HD treatment for this patient until tomorrow 04/22/20. Cefepime and erythropoietin will be administered with HD tomorrow.
[2020-04-21] MEDS: HEPARIN SODIUM 5,000 UNITS/ML VIAL 5000 UNITS SUB-Q (21:00)
[2020-04-21 21:16] LABS: Glucose Point of Care 286 (65-105)
[2020-04-22] VITALS (37 sets, daily range): BP systolic 103–169; BP diastolic 48–136; PULSE 63–102; RESP 17–28; TEMP 35.7–40.1; O2SAT 90–97
[2020-04-22] MEDS: BISACODYL 10 MG SUPPOSITORY RECTAL (03:33)
[2020-04-22 04:18] LABS: Hemoglobin 10.3 g/dL (12.0-15.0); Mean Corpuscular HGB Conc 32.2 g/dl (32-36); Mean Corpuscular Hemoglobin 27.8 pg (26-34); Mean Corpuscular Volume 86.3 fl (80-100); Mean Platelet Volume 9.8 fl (7.4-10.4); Platelet Count Result 212 k/mm3 (150-375); Red Blood Count 3.71 M/mm3 (4.2-5.4); Red Cell Distribution Width 15.8 % (11.5-14.5); White Blood Count 12.3 K/mm3 (4.5-10.0)
[2020-04-22 04:35] LABS: Alanine Aminotransferase 17 U/L (4-35); Albumin Level 3.9 g/dL (3.5-5.1); Alkaline Phosphatase 126 U/L (38-126); Anion Gap 19 mmol/L (8-16); Aspartate Amino Transferase 45 U/L (14-36); Bilirubin,Total 0.5 mg/dL (0.2-1.3); Blood Urea Nitrogen 98 mg/dL (7-17); Carbon Dioxide 22 mmol/L (22-30); Chloride 89 mmol/L (98-107); Estimated CRCL calculation 6 ml/min; Estimated Glomerular Filt Rate 6; Glucose 362 mg/dL (65-105); Magnesium 2.1 mg/dL (1.6-2.3); Potassium 4.8 mmol/L (3.4-5.0); Sodium 130 mmol/L (137-145)
[2020-04-22] MEDS: ACETAMINOPHEN 500 MG TABLET 1000 MG PO (05:13)
[2020-04-22] MEDS: CALCIUM ACETATE 667 MG TABLET 1334 MG PO (07:45)
[2020-04-22] MEDS: VITAMIN B CMPLX/VIT C/FOLIC AC 1 CAPSULE 1 CAP PO (07:45)
[2020-04-22] MEDS: hydrALAZINE HCL 50 MG TABLET PO (07:45)
[2020-04-22] MEDS: FERROUS SULFATE 324 MG TABLET PO (07:45)
[2020-04-22] MEDS: metOLazone 5 MG TABLET PO (07:46)
[2020-04-22] MEDS: cloNIDine HCL 0.1 MG TABLET PO (07:46)
[2020-04-22] MEDS: SILVERGEL (ELTA) 45 ML 1 APPLIC TOPICAL (07:47)
[2020-04-22] MEDS: INSULIN ASPART (*BKC) 100 UNITS/ML SUB-Q (08:33)
[2020-04-22] MEDS: INSULIN GLARGINE (*BKC) 100 UNITS/ML 12 UNITS SUB-Q ×2 (08:34→19:57)
--- NOTE | 2020-04-22 08:35 | WPDINTPN ---
Progress Note: A&P Assessment and Plan (1) Sepsis: Code(s): A41.9 - Sepsis, unspecified organism Status: Acute Assessment and Plan: Patient met the criteria for sepsis. She was admitted with COVID-19 which is most likely the cause of fever. Patient was leukopenic on presentation white count is now normal but patient is also on steroids She has been afebrile overnight Her lactic acid was normal Cultures were sent and are pending Continue vancomycin and cefepime at this time Chest x-ray infiltrates are likely combination of COVID-19 and pulmonary edema Patient is for due for dialysis Continue dexamethasone (2) COVID-19: Code(s): U07.1 - COVID-19 Status: Acute Assessment and Plan: The patient has COVID-19. Chest x-ray shows patchy infiltrates which may be secondary to COVID or pulmonary edema Patient is saturating well on 3 L nasal cannula Continue dexamethasone Continue isolation Ferritin and LDH are elevated as expected (3) Encephalopathy acute: Code(s): G93.40 - Encephalopathy, unspecified Status: Acute Assessment and Plan: Head CT was negative and ABG did not show hypercarbia I discontinued her Neurontin Percocet and Benadryl yesterday Blood glucose was adequate Patient now much more awake and alert responsive. Will continue to minimize uses of sedatives Patient is also scheduled to get her dialysis today (4) End-stage renal disease on hemodialysis: Code(s): N18.6 - End stage renal disease; Z99.2 - Dependence on renal dialysis Status: Chronic Assessment and Plan: The patient has end-stage kidneys. She will get dialysis today. Her potassium was 5.3 and she was treated with 5 units of insulin and amp of D50 for temporary control Potassium is normal today and she is due for dialysis (5) Wound, open, foot: Code(s): S91.309A - Unspecified open wound, unspecified foot, initial encounter Status: Acute Assessment and Plan: I have reviewed wound care nurse's assessment note which states the patient has a left plantar foot ulcer due to hardware displacement. No obvious signs of infection were seen around the tissue topical antibiotic coverage and wound care was recommended along with autolytic debridement Blood cultures were done and were negative She is on broad-spectrum antibiotics which will be continued Continue wound care Ortho consulted for the foot fracture and hardware failure (6) Anemia: Code(s): D64.9 - Anemia, unspecified Status: Acute Assessment and Plan: Anemia of chronic kidney disease. On EPO with dialysis. (7) Hypertension: Code(s): I10 - Essential (primary) hypertension Status: Chronic Assessment and Plan: She is on p.o. meds Will monitor and adjust accordingly (8) Diabetes: Qualifiers: Diabetes mellitus type: type 2 Diabetes mellitus prison insulin use: with prison use Diabetes mellitus complication status: with kidney complications Diabetes mellitus complication detail: with chronic kidney disease Chronic kidney disease stage: stage 4 (severe) Qualified Code(s): E11.22 - Type 2 diabetes mellitus with diabetic chronic kidney disease; N18.4 - Chronic kidney disease, stage 4 (severe); Z79.4 - terminal carman (current) use of insulin Code(s): E11.9 - Type 2 diabetes mellitus without complications Status: Chronic Assessment and Plan: Sliding scale insulin and Lantus. I will increase Lantus does Additional Plan DVT prophylaxis -subcutaneous heparin Stress ulcer prophylaxis - PPI Nutrition -renal diet Code Status -patient requests to be Full Code Transfer out of ICU today after hemodialysis Subjective Date/time seen: 04/22/20 0745 Overnight events reviewed. Afebrile She is much more awake today and when I walked into the room she was awake, alert and answering questions appropriately She did not receive her hemodialysis last night He
[2020-04-22 08:37] LABS: Glucose Point of Care 325 (65-105)
[2020-04-22] MEDS: LABETALOL HCL 100 MG TABLET PO (09:55)
[2020-04-22] MEDS: amLODIPine BESYLATE 5 MG TABLET 10 MG PO (09:55)
[2020-04-22] MEDS: CHOLECALCIFEROL 1,000 UNITS TABLET 1000 UNITS PO (09:55)
[2020-04-22] MEDS: DEXAMETHASONE SOD PHOS INJ 4 MG/ML VIAL 6 MG IV PUSH (09:55)
--- NOTE | 2020-04-22 10:59 | PM.PNNEP ---
Progress Note: A&P Assessment and Plan (1) End-stage renal disease on hemodialysis: Code(s): N18.6 - End stage renal disease; Z99.2 - Dependence on renal dialysis Status: Chronic Assessment and Plan: The patient has end-stage kidneys. She gets dialysis 3 times a week. he was going to be dialyzed yesterday with there was emergencies and so it was delayed until this morning. (2) COVID-19: Code(s): U07.1 - COVID-19 Status: Acute Assessment and Plan: The patient has COVID-19. Chest x-ray shows patchy infiltrates. Breathing is okay. She is on a little oxygen. But she also was on oxygen at home. She is getting Dexamethasone and is on isolation (3) Cellulitis of right lower extremity: Code(s): L03.115 - Cellulitis of right lower limb Status: Acute Assessment and Plan: Blood cultures are No growth to date. She is undergoing dressing changes Wound care saw the patient. She is getting antibiotics (4) Anemia: Code(s): D64.9 - Anemia, unspecified Status: Acute Assessment and Plan: Will give EPO with dialysis. (5) Hypertension: Code(s): I10 - Essential (primary) hypertension Status: Chronic Assessment and Plan: Blood pressure is up and down. Will follow for trends and adjust meds accordingly. she is on both labetalol and clonidine. Will try to wean the clonidine. (6) Altered mental status: Code(s): R41.82 - Altered mental status, unspecified Status: Acute Assessment and Plan: This improved. She did end up having a fever of 105 after I saw her yesterday. This was probably the cause. She is on antibiotics now. Subjective Date/time seen: 04/22/20 10:59 Interval history: the patient looks much better today. She is alert and interactive and her usual self. She is on dialysis and tolerating it well. She is set for 1L for the 1st 1/2hour and then the ultrafiltration rate will be increased if she is tolerating it well hemodynamically. Her blood pressures in the low 100s but she is also on amlodipine clonidine labetalol. Exam Narrative: Exam Narrative: WDWN in NAD skin no rash head ncat lungs clear bilaterally cor reg no rub abd BS+ nontender and soft ext no edema. Neuro: Normal Objective Data Vital Signs Vital Signs: Vital Signs - 24 hr 04/21/20 11:55 04/21/20 11:58 04/21/20 12:00 Temperature 38.4 C H 38.4 C H Pulse Rate 73 74 Respiratory Rate 17 17 Blood Pressure 112/49 L Pulse Oximetry 97 97 04/21/20 14:00 04/21/20 16:00 04/21/20 17:50 Temperature 35.9 C L Pulse Rate 66 64 65 Respiratory Rate 16 16 17 Blood Pressure 111/55 L 117/59 L 118/60 Pulse Oximetry 99 98 98 04/21/20 20:00 04/21/20 21:00 04/21/20 22:00 Temperature 35.6 C L Pulse Rate 63 62 91 Respiratory Rate 16 18 Blood Pressure 120/76 113/46 L Pulse Oximetry 95 95 04/22/20 00:00 04/22/20 00:15 04/22/20 02:12 Temperature 35.8 C L Pulse Rate 63 63 64 Respiratory Rate 17 17 Blood Pressure 103/48 L 122/57 L Pulse Oximetry 95 95 04/22/20 04:00 04/22/20 06:45 04/22/20 08:00 Temperature 35.7 C L 38.1 C H Pulse Rate 68 70 69 Respiratory Rate 21 H 19 17 Blood Pressure 123/85 110/76 109/63 Pulse Oximetry 94 94 96 04/22/20 08:20 04/22/20 09:55 Temperature Pulse Rate 69 Respiratory Rate Blood Pressure Pulse Oximetry 93 Intake/Output Intake/Output: Intake & Output 04/19/20 04/20/20 04/21/20 04/22/20 23:59 23:59 23:59 23:59 Intake Total 1660 300 620 Output Total 0 Balance 1660 300 620 Meds/Results Medications: Active Medications Generic Name Dose Route Start Last Admin Trade Name Freq PRN Reason Stop Dose Admin Acetaminophen 1,000 mg 04/20/20 00:18 04/22/20 05:13 Acetaminophen 500 Mg Tablet PO 1,000 mg Q8H PRN Administration Pain Rated 1-3 Acetaminophen 650 mg 04/21/20 10:54 Acetaminophen 6
[2020-04-22] MEDS: HEPARIN SODIUM 5,000 UNITS/ML VIAL 5000 UNITS SUB-Q ×2 (11:11→19:56)
--- NOTE | 2020-04-22 11:14 | PM.EVENT ---
Event Note Event Note Event Note: Patient is on dialysis and tolerating it well. She was seen at 10:30 a.m.
[2020-04-22] MEDS: ALBUMIN HUMAN 25% 12.5 GM/50ML 50 ML 100 GM (11:43)
--- NOTE | 2020-04-22 11:45 | PM.EVENT ---
Event Note Event Note Event Note: seen for the second time on diallysis at 11:45am pt is getting more restless as time goes. she is starting to chill. she is cramping. she is asking for lower UF/ she is hypoxic. will increase oxygen. hemodynamically stable. we can continue dialysis.
[2020-04-22] MEDS: EPOETIN ALFA-EPBX 10,000 UNITS/ML VIAL 10000 UNITS IV PUSH (12:23)
[2020-04-22] MEDS: MORPHINE SULFATE (*CRX) 2 MG/ML INJ IV PUSH (14:06)
[2020-04-22 14:15] LABS: Glucose Point of Care 90 (65-105)
--- NOTE | 2020-04-22 14:47 | PM.IMPN ---
Progress Note: A&P Assessment and Plan (1) End-stage renal disease on hemodialysis: Code(s): N18.6 - End stage renal disease; Z99.2 - Dependence on renal dialysis Status: Chronic Assessment and Plan: On HD Mo, Wd, Fr Appreciate Nephrology note Did not have dialysis yesterday due to event of hyperthermia (2) Pneumonia due to COVID-19 virus: Code(s): U07.1 - COVID-19; J12.82 - Pneumonia due to coronavirus disease 2018 Status: Acute Assessment and Plan: On Dexamethasone Cefepime fo added coverage Rocephin has been discontinued (3) Wound, open, foot: Code(s): S91.309A - Unspecified open wound, unspecified foot, initial encounter Status: Acute Assessment and Plan: Local care Does not look infected. (4) Encephalopathy acute: Code(s): G93.40 - Encephalopathy, unspecified Status: Acute Assessment and Plan: Resolved Patient is back to her usual (5) UTI (urinary tract infection): Code(s): N39.0 - Urinary tract infection, site not specified Status: Acute Assessment and Plan: Awaiting UA cx for I&S (6) Acute respiratory failure with hypoxia: Code(s): J96.01 - Acute respiratory failure with hypoxia Status: Acute Assessment and Plan: Requiring low oxygen Keep sat at 94% (7) Hypertension: Qualifiers: Hypertension type: unspecified Qualified Code(s): I10 - Essential (primary) hypertension Code(s): I10 - Essential (primary) hypertension Status: Chronic Assessment and Plan: Continue to monitor (8) Physical deconditioning: Code(s): R53.81 - Other malaise Status: Acute Assessment and Plan: Likely secondary to long standing chronic illness (9) Sepsis: Code(s): A41.9 - Sepsis, unspecified organism Status: Acute Assessment and Plan: On early goal therapy Appears to be improving Continue supportive care Await cx Transferred to ICU for close monitoring Appreciate Int/Cc note Subjective Date/time seen: 04/22/20 14:47 I feel fine Review of Systems Review of Systems: Narrative: no new issues. Constitutional: Comments: no fevers, no rigors, no chills. Cardiovascular: Comments: no chest pain, no orthopnea, no pnd. Respiratory: Comments: no cough, no sputum production. Gastrointestinal: Comments: o n/v/abdominal pain. Musculoskeletal: Comments: L heel ulcer Integumentary/Breasts: Comments: L heel wound Neurologic: Comments: No sensory motor deficit. Exam Narrative: Exam Narrative: Sitting in chair Const: General: comfortable, no acute distress, alert and awake Nutritional Appearance: thin Orientation/consciousness: patient oriented x3 HENMT: Head: normal to inspection and normocephalic Ears: hearing grossly normal bilaterally General nose exam: Normal external nose present Face and sinus: normal facial exam Eyes: General: appearance normal, both eyes and all related structures Pupils: Equal, round and reactive pupils present EOM: EOMs intact bilaterally Neck: Neck: full ROM, no lymphadenopathy, supple and no JVD Resp: Effort & Inspection: able to speak in complete sentences Auscultation: diminished lung sounds Cardio: Jugular venous distension: no JVD Rate: regular rate Rhythm: regular rhythm GI: GI Palp: Yes Soft to palpation and Yes No hepatosplenomegaly present Skin: Wounds: wounds noted (L heel wound) Neuro: General: patient oriented x3 and CN's II-XI intact bilaterally Cranial nerves: Yes CN's II-XII intact bilaterally, Yes Equal, round and reactive pupils present and Yes Bilaterally intact EOM present Cognition (Neuro): normal cognition Motor exam (neuro): 5/5 motor strength present throughout Extrem: General: other (L heel wound, ankle non pitting edema.) Objective Data Vital Signs Vital Signs: Vital Signs - 24 hr 04/21/20 16:00 04/21/20 17:50 04/21/20 20:00 Temperature 96.6 F L Pulse
[2020-04-22 17:23] LABS: Glucose Point of Care 146 (65-105)
[2020-04-22 17:28] LABS: Alveolar/Arterial O2 Gradient 464.6 mmHg; Base Excess ABG 5.4 mEq/l (+/-2.0); Fractional Inspired Oxygen 80 %; HCO3 ABG 29.1 mEq/l (22.0-26.0); Oxygen Content ABG 15.1 %vol (16.0-22.0); Oxygen Saturation ABG 94.2 % (95.0-100.0); Oxyhemoglobin 90.3 % THb (90.0-100.0); PO2 ABG 64.9 mmHg (80.0-100.0); PO2 FiO2 Ratio Arterial Blood 0.81 %; Total Hemoglobin 11.9 g/dL (12.0-18.0)
[2020-04-22 17:29] LABS: Device HIGH FLOW THERAPY; Site Drawn RIGHT BRACHIAL
[2020-04-22] MEDS: CEFEPIME 0.5 GM in DEXTROSE 5% IN WATER 50 ML IVPB (19:56)
[2020-04-22 20:09] LABS: Glucose Point of Care 170 (65-105)
[2020-04-23] VITALS (28 sets, daily range): BP systolic 107–154; BP diastolic 44–74; PULSE 64–92; RESP 16–26; TEMP 36.3–39.4; O2SAT 84–100
[2020-04-23] MEDS: ACETAMINOPHEN 650 MG SUPPOSITORY RECTAL (01:34)
[2020-04-23] MEDS: ACETAMINOPHEN 500 MG TABLET 1000 MG PO ×2 (04:21→11:06)
[2020-04-23 05:33] LABS: Hematocrit 30.4 % (37.0-47.0); Hemoglobin 9.5 g/dL (12.0-15.0); Mean Corpuscular HGB Conc 31.3 g/dl (32-36); Mean Corpuscular Hemoglobin 27.5 pg (26-34); Mean Corpuscular Volume 87.9 fl (80-100); Mean Platelet Volume 10.2 fl (7.4-10.4); Platelet Count Result 156 k/mm3 (150-375); Red Blood Count 3.46 M/mm3 (4.2-5.4); Red Cell Distribution Width 15.9 % (11.5-14.5); White Blood Count 12.1 K/mm3 (4.5-10.0)
[2020-04-23 05:47] LABS: Alanine Aminotransferase 13 U/L (4-35); Albumin Level 3.5 g/dL (3.5-5.1); Alkaline Phosphatase 104 U/L (38-126); Anion Gap 10 mmol/L (8-16); Aspartate Amino Transferase 65 U/L (14-36); Bilirubin,Total 0.8 mg/dL (0.2-1.3); Blood Urea Nitrogen 41 mg/dL (7-17); Calcium 7.6 mg/dL (8.4-10.2); Carbon Dioxide 32 mmol/L (22-30); Chloride 94 mmol/L (98-107); Estimated CRCL calculation 10 ml/min; Estimated Glomerular Filt Rate 12; Glucose 131 mg/dL (65-105); Magnesium 1.9 mg/dL (1.6-2.3); Potassium 4.1 mmol/L (3.4-5.0); Sodium 136 mmol/L (137-145)
--- NOTE | 2020-04-23 08:50 | WPDINTPN ---
Progress Note: A&P Assessment and Plan (1) Acute respiratory failure: Code(s): J96.00 - Acute respiratory failure, unspecified whether with hypoxia or hypercapnia Status: Acute Assessment and Plan: Acute Respiratory failure secondary to COVID-19 pneumonia with may be a combination pulmonary edema Currently on Airvo at the 60% FiO2 and 50 L flow Continue supplemental oxygen support to prevent hypoxemia/hypercarbia and end organ damage. May need intubation if continues to worsen ABG and PCXR reviewed. Chest x-ray done yesterday afternoon showed worsening infiltrates (2) COVID-19: Code(s): U07.1 - COVID-19 Status: Acute Assessment and Plan: The patient has COVID-19 which was diagnosed as an outpatient prior to presentation to the hospital Continue dexamethasone Continue isolation Continue to monitor inflammatory markers (3) Sepsis: Code(s): A41.9 - Sepsis, unspecified organism Status: Acute Assessment and Plan: Patient meets the criteria for sepsis. admitted with COVID-19 which is most likely the cause of fever. Patient was leukopenic on presentation white count is now normal but patient is also on steroids Her lactate was normal on transferred to ICU and blood pressure has been adequate Have infiltrates on chest x-ray which could be from COVID-19. Cultures are negative till now Continue vancomycin and beam (4) Encephalopathy acute: Code(s): G93.40 - Encephalopathy, unspecified Status: Acute Assessment and Plan: Toxic metabolic encephalopathy Head CT showed chronic changes Monitor Hold all sedatives (5) End-stage renal disease on hemodialysis: Code(s): N18.6 - End stage renal disease; Z99.2 - Dependence on renal dialysis Status: Chronic Assessment and Plan: The patient has end-stage kidneys. Her last dialysis session was yesterday and 800 mL fluid was removed Dialysis was discontinued early due to leg cramps Monitor electrolytes (6) Wound, open, foot: Code(s): S91.309A - Unspecified open wound, unspecified foot, initial encounter Status: Acute Assessment and Plan: I have reviewed wound care nurse's assessment note which states the patient has a left plantar foot ulcer due to hardware displacement. No obvious signs of infection were seen around the tissue topical antibiotic coverage and wound care was recommended along with autolytic debridement Blood cultures were done and were negative On presentation her white count was normal. WBC is elevated to 11 today but patient is also on dexamethasone Continue antibiotic and wound care Ortho consulted and they recommend patient should follow-up at [facility] where she had her leg surgery (7) Anemia: Code(s): D64.9 - Anemia, unspecified Status: Acute Assessment and Plan: Anemia of chronic kidney disease. On EPO with dialysis. (8) Hypertension: Code(s): I10 - Essential (primary) hypertension Status: Chronic Assessment and Plan: She is on p.o. meds Will monitor and adjust accordingly (9) Diabetes: Qualifiers: Chronic kidney disease stage: stage 4 (severe) Diabetes mellitus complication detail: with chronic kidney disease Diabetes mellitus complication status: with kidney complications Diabetes mellitus fdc insulin use: with fdc use Diabetes mellitus type: type 2 Qualified Code(s): E11.22 - Type 2 diabetes mellitus with diabetic chronic kidney disease; N18.4 - Chronic kidney disease, stage 4 (severe); Z79.4 - halfway (current) use of insulin Code(s): E11.9 - Type 2 diabetes mellitus without complications Status: Chronic Assessment and Plan: Sliding scale insulin and Lantus Additional Plan DVT prophylaxis -continue subcutaneous heparin Stress ulcer prophylaxis - PPI Nutrition -clear liquid diet Code Status -patient requests to be Full Code Transfer out of ICU today af
[2020-04-23] MEDS: MIDAZOLAM 100MG/NS 100ML(*CRX) 100 MG/100 ML BAG IV CONT (10:00)
--- NOTE | 2020-04-23 10:04 | WPDPROCEDUR ---
Procedures Intubation Intubation Date: 04/23/20 Intubation Time: 09:30 Consent: Verbal consent was obtained from patient. Patient requested to be full code at the time of transfer to ICU and was agreeable to intubation if needed A pre-procedural Time-Out was completed immediately before starting the procedure and confirmed: Patient Identification, Site, Procedure, Patient Position and the Availability of Requisite Equipment: Yes Sedative: etomidate Mg given: 20 Paralytic: rocuronium Mg given: 30 Laryngoscope: fiber optic video scope Assist device used: fiber optic device ET tube size: 7.5 Tube secured depth (cm): 25 Tube secured location: lips Tube placement confirmation: visualized tube passing through cords, equal breath sounds bilaterally, no breath sounds over epigastrium and confirmation by capnometry Patient tolerated procedure: well Intubation complications: none Additional comments: Chest x-ray reviewed and ETT withdrawn to 22 cm. Patient was intubated with etomidate 20 mg. Post intubation 30 mg a rock Korey a.m. and 4 mg of Versed was given. Initial Versed dose was given in in a peripheral IV that was not working hence it was repeated through a different working IV
--- NOTE | 2020-04-23 10:06 | P.PNCROSS_ITS ---
Event Note Event Note Event Note: Post financial evaluation patient continued to worsen and required further increase in oxygen supplementation. Despite that she continued desat and also kept on taking her Airvo nasal cannula out. Decision was made to intubate patient at that point. Patient was intubated without any complication and placed on mechanical ventilation. Will also start tube feeding. Chest x- ray reviewed ABGs pending
--- NOTE | 2020-04-23 10:18 | PM.IMPN ---
Progress Note: A&P Assessment and Plan (1) Acute respiratory failure with hypoxia: Code(s): J96.01 - Acute respiratory failure with hypoxia Status: Acute Assessment and Plan: Now on ventilator support Vent management as per Int/Cc. Supportive care Early goal directed therapy ongoing Appreciate Int/Cc note (2) Pneumonia due to COVID-19 virus: Code(s): U07.1 - COVID-19; J12.82 - Pneumonia due to coronavirus disease 2018 Status: Acute Assessment and Plan: On Dexamethasone Added Cefepime for superimposed infection coverage and nosocomial disease (3) End-stage renal disease on hemodialysis: Code(s): N18.6 - End stage renal disease; Z99.2 - Dependence on renal dialysis Status: Chronic Assessment and Plan: On Hd Follow Nephrology recs (4) Altered mental status: Code(s): R41.82 - Altered mental status, unspecified Status: Acute Assessment and Plan: Likely secondary to acute illness (5) Encephalopathy acute: Code(s): G93.40 - Encephalopathy, unspecified Status: Acute Assessment and Plan: Secondary to metabolic/Toxic causes. Subjective Date/time seen: 04/23/20 10:18 If I have to go on a ventilator I will' Review of Systems Review of Systems: ROS unobtainable: Yes unobtainable due to medical condition Exam Narrative: Exam Narrative: Patient was seen and examined just prior to getting intubated and placed on vent support. Const: General: alert and awake Nutritional Appearance: average body habitus Orientation/consciousness: patient oriented x3 HENMT: Head: normal to inspection, normocephalic and other (Chronically ill looking.) Ears: hearing grossly normal bilaterally General nose exam: Normal external nose present Face and sinus: normal facial exam Eyes: General: appearance normal, both eyes and all related structures Pupils: Equal, round and reactive pupils present EOM: EOMs intact bilaterally Neck: Neck: normal visual inspection, no lymphadenopathy, supple and no JVD Resp: Auscultation: clear to auscultation bilaterally, crackles, rales, diminished lung sounds and other (coarse to auscultation) Cardio: Rate: regular rate Rhythm: regular rhythm GI: GI Palp: Yes Soft to palpation and Yes No hepatosplenomegaly present Skin: Wounds: wounds noted (L heel wound.) Neuro: General: CN's II-XI intact bilaterally and other (Delirium) Cranial nerves: Yes CN's II-XII intact bilaterally Cognition (Neuro): abnormal cognition Motor exam (neuro): 5/5 motor strength present throughout Extrem: General: other (L ankle edema, left heel wound.) Objective Data Vital Signs Vital Signs: Vital Signs - 24 hr 04/22/20 10:30 04/22/20 10:45 04/22/20 11:00 Temperature Pulse Rate 72 74 81 Respiratory Rate Blood Pressure 125/51 L 115/51 L 135/89 Pulse Oximetry 04/22/20 11:15 04/22/20 11:30 04/22/20 11:45 Temperature Pulse Rate 90 88 89 Respiratory Rate Blood Pressure 129/59 L 125/72 140/77 Pulse Oximetry 04/22/20 12:00 04/22/20 12:15 04/22/20 12:30 Temperature Pulse Rate 92 94 97 Respiratory Rate 27 H Blood Pressure 104/86 144/91 H 169/73 H Pulse Oximetry 93 04/22/20 12:45 04/22/20 13:00 04/22/20 13:15 Temperature Pulse Rate 99 100 101 H Respiratory Rate Blood Pressure 141/69 H 104/86 142/80 H Pulse Oximetry 04/22/20 13:30 04/22/20 13:45 04/22/20 13:52 Temperature 102.1 F H Pulse Rate 102 H 78 102 H Respiratory Rate 22 H Blood Pressure 161/94 H 140/78 164/136 H Pulse Oximetry 92 04/22/20 14:00 04/22/20 14:36 04/22/20 15:00 Temperature 102.1 F H 102 F H 104.2 F H Pulse Rate 85 95 Respiratory Rate 25 H Blood Pressure 146/51 H Pulse Oximetry 04/22/20 15:41 04/22/20 16:00 04/22/20 18:00 Temperature 100.6 F H Pulse Rate 88 87 83 Respiratory Rate 21 H 21 H 20 Blood Pressure 139/51 L 138/51 L Pulse Oximetry 96 96 97 04/22/20 19:45 03
[2020-04-23] MEDS: INSULIN GLARGINE (*BKC) 100 UNITS/ML 12 UNITS SUB-Q ×2 (11:05→21:58)
[2020-04-23] MEDS: SILVERGEL (ELTA) 45 ML 1 APPLIC TOPICAL (11:05)
[2020-04-23] MEDS: DEXAMETHASONE SOD PHOS INJ 4 MG/ML VIAL 6 MG IV PUSH (11:05)
[2020-04-23] MEDS: HEPARIN SODIUM 5,000 UNITS/ML VIAL 5000 UNITS SUB-Q ×2 (11:05→21:59)
[2020-04-23] MEDS: RAPID SEQUENCE INTUBATION KIT 1 EACH (11:05)
[2020-04-23] MEDS: CALCIUM ACETATE 667 MG TABLET 1334 MG PO ×2 (11:06→17:31)
[2020-04-23 11:13] LABS: Glucose Point of Care 137 (65-105)
[2020-04-23 11:19] LABS: Base Excess ABG 4.9 mEq/l (+/-2.0); Carboxyhemoglobin 0.5 % THb (0-2.0); Fractional Inspired Oxygen 70 %; HCO3 ABG 29.7 mEq/l (22.0-26.0); Oxygen Content ABG 13.1 %vol (16.0-22.0); Oxygen Saturation ABG 94.3 % (95.0-100.0); Oxyhemoglobin 91.6 % THb (90.0-100.0); PCO2 ABG 45.3 mmHg (35.0-45.0); PO2 ABG 69.4 mmHg (80.0-100.0); PO2 FiO2 Ratio Arterial Blood 0.99 %; Reduced Hemoglobin 7.9 %THb (0-5.0); Total Hemoglobin 10.1 g/dL (12.0-18.0); pH ABG 7.435 (7.350-7.450)
[2020-04-23 11:20] LABS: Arterial Blood Gas PEEP 8 cmH2O; Arterial Blood Gas Vent Mode ASSIST CONTROL; Arterial Blood Gas Ventilator rate 22 /MIN; Device VENTILATOR; Modified Allen's Test Pass; Site Drawn RIGHT RADIAL
[2020-04-23 11:21] LABS: Arterial Blood Gas Tidal Volume 320 ml
--- NOTE | 2020-04-23 11:29 | PM.PNNEP ---
Progress Note: A&P Assessment and Plan (1) End-stage renal disease on hemodialysis: Code(s): N18.6 - End stage renal disease; Z99.2 - Dependence on renal dialysis Status: Chronic Assessment and Plan: The patient has end-stage kidneys. She gets dialysis 3 times a week. she had dialysis yesterday. She cramped and so they were unable to get much fluid off. Will do another treatment tomorrow. (2) COVID-19: Code(s): U07.1 - COVID-19 Status: Acute Assessment and Plan: The patient has COVID-19. Chest x-ray shows patchy infiltrates. Now intubated. (3) Cellulitis of right lower extremity: Code(s): L03.115 - Cellulitis of right lower limb Status: Acute Assessment and Plan: Blood cultures are no growth to date. She is undergoing dressing changes Wound care saw the patient. She is getting antibiotics Nothing ortho can do for her at this facility (4) Anemia: Code(s): D64.9 - Anemia, unspecified Status: Acute Assessment and Plan: on Epogen (5) Hypertension: Code(s): I10 - Essential (primary) hypertension Status: Chronic Assessment and Plan: Blood pressure is up and down. Will follow for trends and adjust meds accordingly. decrease clonidine further tomorrow. (6) Altered mental status: Code(s): R41.82 - Altered mental status, unspecified Status: Acute Assessment and Plan: This deteriorated once again with a fever yesterday evening. Subjective Date/time seen: 04/23/20 11:29 Interval history: the patient became more hypoxic and restless overnight and this morning was intubated in is now on the ventilator. She is somewhat agitated. Wrist restraints are on to keep her from pulling the tube out. Blood pressure is stable and is still on her antihypertensives. Exam Narrative: Exam Narrative: WDWN lady intubated and on the ventilator. skin no rash head ncat lungs mildly coarse bilaterally cor reg no rub abd BS+ nontender and soft ext no edema. sedated Objective Data Vital Signs Vital Signs: Vital Signs - 24 hr 04/22/20 11:30 04/22/20 11:45 04/22/20 12:00 Temperature Pulse Rate 88 89 92 Respiratory Rate 27 H Blood Pressure 125/72 140/77 104/86 Pulse Oximetry 93 04/22/20 12:15 04/22/20 12:30 04/22/20 12:45 Temperature Pulse Rate 94 97 99 Respiratory Rate Blood Pressure 144/91 H 169/73 H 141/69 H Pulse Oximetry 04/22/20 13:00 04/22/20 13:15 04/22/20 13:30 Temperature Pulse Rate 100 101 H 102 H Respiratory Rate Blood Pressure 104/86 142/80 H 161/94 H Pulse Oximetry 04/22/20 13:45 04/22/20 13:52 04/22/20 14:00 Temperature 38.9 C H 38.9 C H Pulse Rate 78 102 H 85 Respiratory Rate 22 H Blood Pressure 140/78 164/136 H Pulse Oximetry 92 04/22/20 14:36 04/22/20 15:00 04/22/20 15:41 Temperature 38.8 C H 40.1 C H Pulse Rate 95 88 Respiratory Rate 25 H 21 H Blood Pressure 146/51 H Pulse Oximetry 96 04/22/20 16:00 04/22/20 18:00 04/22/20 19:45 Temperature 38.1 C H 37.7 C H Pulse Rate 87 83 Respiratory Rate 21 H 20 Blood Pressure 139/51 L 138/51 L Pulse Oximetry 96 97 04/22/20 20:00 04/22/20 20:04 04/22/20 21:36 Temperature 37.7 C H Pulse Rate 84 89 85 Respiratory Rate 21 H 20 Blood Pressure 145/51 H 130/49 L Pulse Oximetry 93 94 91 04/22/20 23:34 04/23/20 00:00 04/23/20 01:34 Temperature 38.3 C H 38.8 C H Pulse Rate 92 90 Respiratory Rate 28 H 24 H Blood Pressure 144/54 H Pulse Oximetry 95 95 04/23/20 01:35 04/23/20 02:34 04/23/20 03:54 Temperature 38.8 C H 37.7 C H Pulse Rate 92 83 Respiratory Rate 16 20 Blood Pressure 141/55 H Pulse Oximetry 97 94 04/23/20 04:00 04/23/20 06:00 04/23/20 07:23 Temperature 39.4 C H 36.6 C Pulse Rate 83 77 77 Respiratory Rate 26 H 18 16 Blood Pressure 135/54 L 115/44 L Pulse Oximetry 94 92 97 04/23/20 08:
[2020-04-23] MEDS: FENTANYL 2,500MCG/NS250ML(*CRX 2,500 MCG/250 ML BAG IV CONT (13:44)
[2020-04-23 16:24] LABS: Glucose Point of Care 163 (65-105)
[2020-04-23] MEDS: CEFEPIME 0.5 GM in DEXTROSE 5% IN WATER 50 ML IVPB (21:57)
[2020-04-23 22:12] LABS: Glucose Point of Care 192 (65-105)
[2020-04-24] VITALS (45 sets, daily range): BP systolic 108–147; BP diastolic 52–98; PULSE 64–104; RESP 14–30; TEMP 36.3–40.2; O2SAT 88–100; BMI 24.0
[2020-04-24 03:44] LABS: Hematocrit 29.9 % (37.0-47.0); Hemoglobin 9.4 g/dL (12.0-15.0); Mean Corpuscular HGB Conc 31.4 g/dl (32-36); Mean Corpuscular Hemoglobin 27.1 pg (26-34); Mean Corpuscular Volume 86.2 fl (80-100); Mean Platelet Volume 11.5 fl (7.4-10.4); Platelet Count Result 146 k/mm3 (150-375); Red Blood Count 3.47 M/mm3 (4.2-5.4); White Blood Count 11.7 K/mm3 (4.5-10.0)
[2020-04-24 03:57] LABS: Alanine Aminotransferase 14 U/L (4-35); Albumin Level 3.4 g/dL (3.5-5.1); Alkaline Phosphatase 95 U/L (38-126); Anion Gap 12 mmol/L (8-16); Aspartate Amino Transferase 56 U/L (14-36); Bilirubin,Total 0.6 mg/dL (0.2-1.3); Blood Urea Nitrogen 70 mg/dL (7-17); Calcium 7.8 mg/dL (8.4-10.2); Carbon Dioxide 29 mmol/L (22-30); Chloride 93 mmol/L (98-107); Estimated CRCL calculation 7 ml/min; Estimated Glomerular Filt Rate 8; Glucose 313 mg/dL (65-105); Magnesium 2.2 mg/dL (1.6-2.3); Phosphorus 7.7 mg/dL (2.5-4.5); Potassium 4.3 mmol/L (3.4-5.0); Sodium 134 mmol/L (137-145)
[2020-04-24] MEDS: INSULIN ASPART (*BKC) 100 UNITS/ML SUB-Q ×3 (04:50→23:18)
[2020-04-24 05:19] LABS: Alveolar/Arterial O2 Gradient 391.4 mmHg; Base Excess ABG 3.6 mEq/l (+/-2.0); Carboxyhemoglobin 0.5 % THb (0-2.0); Fractional Inspired Oxygen 75 %; HCO3 ABG 29.4 mEq/l (22.0-26.0); Methemoglobin ABG 0.3 %THb (0-1.5); Oxygen Content ABG 13.9 %vol (16.0-22.0); Oxygen Saturation ABG 96.6 % (95.0-100.0); Oxyhemoglobin 94.9 % THb (90.0-100.0); PCO2 ABG 50.5 mmHg (35.0-45.0); PO2 ABG 89.7 mmHg (80.0-100.0); Reduced Hemoglobin 4.3 %THb (0-5.0); Total Hemoglobin 10.3 g/dL (12.0-18.0); pH ABG 7.383 (7.350-7.450)
[2020-04-24 05:20] LABS: Device VENTILATOR; Modified Allen's Test Pass; Site Drawn RIGHT RADIAL
[2020-04-24 05:21] LABS: Arterial Blood Gas PEEP 8 cmH2O; Arterial Blood Gas Tidal Volume 320 ml; Arterial Blood Gas Vent Mode CMV; Arterial Blood Gas Ventilator rate 22 /MIN
--- NOTE | 2020-04-24 08:40 | WPDINTPN ---
Progress Note: A&P Assessment and Plan (1) Acute respiratory failure: Code(s): J96.00 - Acute respiratory failure, unspecified whether with hypoxia or hypercapnia Status: Acute Assessment and Plan: Acute Respiratory failure secondary to COVID-19 pneumonia with may be a combination pulmonary edema -Patient was intubated on 04/23/2020 -currently on CMV mode of ventilation, peep 8, 75% FiO2 -ABGs and chest x-ray reviewed, wean FiO2 as tolerated maintain O2 sats greater than 92% -will add Pulmicort -continue bronchodilators -continue fentanyl and Versed infusion for sedation, maintain RASS of 0 to -2, daily sedation vacation (2) COVID-19: Code(s): U07.1 - COVID-19 Status: Acute Assessment and Plan: The patient has COVID-19 which was diagnosed as an outpatient prior to presentation to the hospital - Continue dexamethasone initiated on 04/20/2020 -continue patient on droplet, airborne and contact isolation/precautions -will monitor inflammatory markers (3) Sepsis: Code(s): A41.9 - Sepsis, unspecified organism Status: Acute Assessment and Plan: Patient meets the criteria for sepsis. admitted with COVID-19 which is most likely the cause of fever. Patient was leukopenic on presentation white count is now normal but patient is also on steroids -Her lactate was normal -hemodynamically stable with adequate blood pressures -chest x-ray with bilateral diffuse infiltrates -blood cultures negative -continue cefepime (4) Encephalopathy acute: Code(s): G93.40 - Encephalopathy, unspecified Status: Acute Assessment and Plan: Toxic metabolic encephalopathy Head CT showed chronic changes Currently intubated and sedated, daily sedation vacation (5) End-stage renal disease on hemodialysis: Code(s): N18.6 - End stage renal disease; Z99.2 - Dependence on renal dialysis Status: Chronic Assessment and Plan: Patient with history of end-stage renal disease on dialysis -dialysis per Nephrology - Monitor electrolytes (6) Wound, open, foot: Code(s): S91.309A - Unspecified open wound, unspecified foot, initial encounter Status: Acute Assessment and Plan: -reviewed wound care nurse's assessment note which states the patient has a left plantar foot ulcer due to hardware displacement. No obvious signs of infection were seen around the tissue topical antibiotic coverage and wound care was recommended along with autolytic debridement - Blood cultures were done and were negative - On presentation her white count was normal. WBC is elevated to 11 today but patient is also on dexamethasone - Continue antibiotic and wound care Ortho consulted and they recommend patient should follow-up at [facility] where she had her leg surgery (7) Anemia: Code(s): D64.9 - Anemia, unspecified Status: Acute Assessment and Plan: Anemia of chronic kidney disease. On Epogen per Nephrology with dialysis. (8) Hypertension: Code(s): I10 - Essential (primary) hypertension Status: Chronic Assessment and Plan: Hold all anti hypertensive for now - Continue to monitor (9) Diabetes: Qualifiers: Diabetes mellitus type: type 2 Diabetes mellitus rfid analyst insulin use: with fci use Diabetes mellitus complication status: with kidney complications Diabetes mellitus complication detail: with chronic kidney disease Chronic kidney disease stage: stage 4 (severe) Qualified Code(s): E11.22 - Type 2 diabetes mellitus with diabetic chronic kidney disease; N18.4 - Chronic kidney disease, stage 4 (severe); Z79.4 - [facility] (current) use of insulin Code(s): E11.9 - Type 2 diabetes mellitus without complications Status: Chronic Assessment and Plan: Sliding scale insulin and Lantus Additional Plan DVT prophylaxis -continue subcutaneous heparin Stress ulcer prophylaxis - PPI Nutrition
[2020-04-24] MEDS: CALCIUM ACETATE 667 MG TABLET 1334 MG PO ×3 (09:10→18:14)
[2020-04-24] MEDS: DEXAMETHASONE SOD PHOS INJ 4 MG/ML VIAL 6 MG IV PUSH (09:10)
[2020-04-24] MEDS: HEPARIN SODIUM 5,000 UNITS/ML VIAL 5000 UNITS SUB-Q ×2 (09:10→20:12)
[2020-04-24] MEDS: CHOLECALCIFEROL 1,000 UNITS TABLET 1000 UNITS PO (09:10)
[2020-04-24] MEDS: PANTOPRAZOLE SODIUM IV 40 MG VIAL IV PUSH (09:10)
[2020-04-24] MEDS: SILVERGEL (ELTA) 45 ML 1 APPLIC TOPICAL (09:10)
[2020-04-24] MEDS: INSULIN GLARGINE (*BKC) 100 UNITS/ML 12 UNITS SUB-Q ×2 (09:11→20:11)
[2020-04-24] MEDS: BUDESONIDE RESPULE NEB 0.5 MG/2 ML AMP INHALATION ×2 (10:31→20:36)
--- NOTE | 2020-04-24 12:07 | PM.PNNEP ---
Progress Note: A&P Assessment and Plan (1) End-stage renal disease on hemodialysis: Code(s): N18.6 - End stage renal disease; Z99.2 - Dependence on renal dialysis Status: Chronic Assessment and Plan: HD today and continue M/W/F schedule follow electrolytes, volume status, and clearance (2) COVID-19: Code(s): U07.1 - COVID-19 Status: Acute Assessment and Plan: suspect CXR findings maybe more related to COVID than fluid push fluid removal with HD as tolerated follow inflammatory markers (3) Cellulitis of right lower extremity: Code(s): L03.115 - Cellulitis of right lower limb Status: Acute Assessment and Plan: Blood cultures are no growth to date on antibiotics local wound care (4) Anemia: Code(s): D64.9 - Anemia, unspecified Status: Acute Assessment and Plan: due to ESRD and acute illness Epogen with HD follow trend of H/H (5) Hypertension: Code(s): I10 - Essential (primary) hypertension Status: Chronic Assessment and Plan: reasonable control continue to wean off clonidine (6) Altered mental status: Code(s): R41.82 - Altered mental status, unspecified Status: Acute Assessment and Plan: reassess once off ventilator Will continue to follow. Subjective Date/time seen: 04/24/20 12:07 Tolerating dialysis at the time of my visit (seen on HD at 12:00PM); remains intubated and sedated; no apparent distress noted; still with on/off fevers as awell. Exam Narrative: Exam Narrative: General: ill appearing female intubated/sedated Heart: normal S1 and S2; no rub Lungs: coarse breath sounds Abdomen: soft, nontender, nondistended, positive bowel sounds Extremities: no cyanosis or clubbing; no edema Skin: warm and dry Objective Data Vital Signs Vital Signs: Vital Signs Temp Pulse Resp BP Pulse Ox 04/24/20 12:01 83 131/73 04/24/20 11:47 84 116/98 H 04/24/20 11:30 84 122/79 04/24/20 11:15 82 108/52 L 04/24/20 11:00 80 129/80 04/24/20 10:47 78 92 04/24/20 10:45 78 20 116/76 04/24/20 10:32 71 20 04/24/20 10:30 77 116/85 04/24/20 10:15 74 121/73 04/24/20 10:00 74 128/75 04/24/20 09:45 74 125/77 04/24/20 09:30 75 137/74 04/24/20 09:15 74 147/79 H 04/24/20 09:05 74 143/69 H 04/24/20 08:50 37.8 C H 74 14 139/71 04/24/20 07:53 67 98 04/24/20 06:00 67 22 H 131/70 98 04/24/20 05:10 67 99 04/24/20 04:00 37.2 C 70 19 139/69 100 04/24/20 02:24 66 98 04/24/20 02:00 36.8 C 65 22 H 130/66 99 04/24/20 00:00 36.3 C L 64 22 H 134/70 100 04/23/20 23:27 64 100 04/23/20 22:00 36.3 C L 66 22 H 128/69 98 04/23/20 20:00 36.4 C L 66 22 H 132/67 99 04/23/20 19:50 66 99 04/23/20 17:31 73 97 04/23/20 17:18 37.4 C 66 22 H 123/56 L 99 04/23/20 16:00 37.5 C 66 22 H 117/53 L 99 04/23/20 14:30 68 97 04/23/20 14:00 37.5 C 66 22 H 121/56 L 97 04/23/20 13:44 76 22 H Intake/Output Intake/Output: Intake & Output 04/21/20 04/22/20 04/23/20 04/24/20 23:59 23:59 23:59 23:59 Intake Total 300 920 140 482 Output Total 800 100 25 Balance 300 120 40 457 Meds/Results Medications: Active Medications Generic Name Dose Route Start Last Admin Trade Name Freq PRN Reason Stop Dose Admin Acetaminophen 650 mg 04/24/20 08:56 Acetaminophen 325 Mg Tablet PO Q6H PRN Fever Albuterol 2.5 mg 04/24/20 14:00 Albuterol Sulfate Neb 2.5 Mg/0.5 Ml Inh INHALATION Q6HRT MELVIN Ascorbic Acid 1,000 mg 04/24/20 10:15 Ascorbic Acid 500 Mg Tablet PO DAILY MELVIN Bisacodyl 10 mg 04/20/20 00:18 04/22/20 03:33 Bisacodyl 10 Mg Suppository RECTAL 10 mg DAILY PRN Administration Constipation Budesonide 0.5 mg 04/24/20 09:00 04/24/20 10:31 Budesonide Respule Ne
[2020-04-24] MEDS: EPOETIN ALFA-EPBX 10,000 UNITS/ML VIAL 10000 UNITS IV PUSH (12:29)
[2020-04-24] MEDS: ALBUTEROL SULFATE NEB 2.5 MG/0.5 ML INH INHALATION ×2 (13:42→20:36)
[2020-04-24] MEDS: IPRATROPIUM BR 0.02% INH SOLN 0.5 MG/2.5 ML VIAL INHALATION ×2 (13:42→20:36)
[2020-04-24] MEDS: ASCORBIC ACID 500 MG TABLET 1000 MG PO (13:59)
[2020-04-24] MEDS: SALINE LOCK FLUSH 10 ML IV PUSH ×2 (13:59→20:12)
--- NOTE | 2020-04-24 16:10 | PM.IMPN ---
Progress Note: A&P Assessment and Plan (1) Pneumonia due to COVID-19 virus: Code(s): U07.1 - COVID-19; J12.82 - Pneumonia due to coronavirus disease 2019 Status: Acute Assessment and Plan: On Dexmethasone Cefepime (2) Sepsis: Code(s): A41.9 - Sepsis, unspecified organism Status: Acute Assessment and Plan: Secondary to Covid Also UTI (3) Wound, open, foot: Code(s): S91.309A - Unspecified open wound, unspecified foot, initial encounter Status: Acute Assessment and Plan: Local care (4) Encephalopathy acute: Code(s): G93.40 - Encephalopathy, unspecified Status: Acute Assessment and Plan: Likely toxic in nature Supportive care (5) UTI (urinary tract infection): Code(s): N39.0 - Urinary tract infection, site not specified Status: Acute Assessment and Plan: Apparently no ua cx is available (6) Acute respiratory failure with hypoxia: Code(s): J96.01 - Acute respiratory failure with hypoxia Status: Acute Assessment and Plan: On vent support Int/cc management (7) End-stage renal disease on hemodialysis: Code(s): N18.6 - End stage renal disease; Z99.2 - Dependence on renal dialysis Status: Chronic Assessment and Plan: On HD Follow Nephrology recs. Subjective Date/time seen: 04/24/20 16:10 On ventilator support. Review of Systems Review of Systems: ROS unobtainable: Yes unobtainable due to medical condition (On vent support.) Exam Narrative: Exam Narrative: Lying in bed on vent support. Const: General: ill appearing chronically Nutritional Appearance: average body habitus Orientation/consciousness: Other orientation findings (under sedation.) HENMT: Head: normal to inspection and normocephalic Ears: hearing grossly normal bilaterally General nose exam: Normal external nose present Face and sinus: normal facial exam Eyes: General: appearance normal, both eyes and all related structures Pupils: Equal, round and reactive pupils present EOM: EOMs intact bilaterally Neck: Neck: no lymphadenopathy and supple Resp: Auscultation: diminished lung sounds Cardio: Rate: regular rate Rhythm: regular rhythm GI: GI Palp: Yes Soft to palpation and Yes No hepatosplenomegaly present Skin: Wounds: wounds noted (L heel wound due to hardwear) Neuro: General: other (under sedation) Extrem: General: pedal edema bilaterally Objective Data Vital Signs Vital Signs: Vital Signs - 24 hr 04/23/20 17:18 04/23/20 17:31 04/23/20 19:50 Temperature 99.4 F Pulse Rate 66 73 66 Respiratory Rate 22 H Blood Pressure 123/56 L Pulse Oximetry 99 97 99 04/23/20 20:00 04/23/20 22:00 04/23/20 23:27 Temperature 97.5 F L 97.4 F L Pulse Rate 66 66 64 Respiratory Rate 22 H 22 H Blood Pressure 132/67 128/69 Pulse Oximetry 99 98 100 04/24/20 00:00 04/24/20 02:00 04/24/20 02:24 Temperature 97.4 F L 98.2 F Pulse Rate 64 65 66 Respiratory Rate 22 H 22 H Blood Pressure 134/70 130/66 Pulse Oximetry 100 99 98 04/24/20 04:00 04/24/20 05:10 04/24/20 06:00 Temperature 98.9 F Pulse Rate 70 67 67 Respiratory Rate 19 22 H Blood Pressure 139/69 131/70 Pulse Oximetry 100 99 98 04/24/20 07:53 04/24/20 08:00 04/24/20 08:50 Temperature 100.1 F H Pulse Rate 67 80 74 Respiratory Rate 22 H 14 Blood Pressure 139/71 Pulse Oximetry 98 04/24/20 09:05 04/24/20 09:15 04/24/20 09:30 Temperature Pulse Rate 74 74 75 Respiratory Rate Blood Pressure 143/69 H 147/79 H 137/74 Pulse Oximetry 04/24/20 09:45 04/24/20 10:00 04/24/20 10:15 Temperature Pulse Rate 74 84 74 Respiratory Rate 24 H Blood Pressure 125/77 128/75 121/73 Pulse Oximetry 04/24/20 10:30 04/24/20 10:32 04/24/20 10:45 Temperature Pulse Rate 77 71 78 Respiratory Rate 20 20 Blood Pressure 116/85 116/76 Pulse Oximetry 04/24/20 10:47 04/24/20 11:00 04/24/20 11
[2020-04-24] MEDS: MIDAZOLAM 100MG/NS 100ML(*CRX) 100 MG/100 ML BAG IV CONT (18:19)
[2020-04-24] MEDS: FENTANYL 2,500MCG/NS250ML(*CRX 2,500 MCG/250 ML BAG IV CONT (18:20)
[2020-04-24 18:44] LABS: Glucose Point of Care 136 (65-105)
[2020-04-24 19:46] LABS: Glucose Point of Care 152 (65-105)
[2020-04-24] MEDS: CEFEPIME 0.5 GM in DEXTROSE 5% IN WATER 50 ML IVPB (20:11)
[2020-04-24 23:18] LABS: Glucose Point of Care 268 (65-105)
[2020-04-25] VITALS (32 sets, daily range): BP systolic 132–193; BP diastolic 68–92; PULSE 69–111; RESP 21–34; TEMP 36.8–38.6; O2SAT 91–98
[2020-04-25] MEDS: ALBUTEROL SULFATE NEB 2.5 MG/0.5 ML INH INHALATION ×4 (02:44→19:10)
[2020-04-25] MEDS: IPRATROPIUM BR 0.02% INH SOLN 0.5 MG/2.5 ML VIAL INHALATION ×4 (02:45→19:10)
[2020-04-25 04:55] LABS: Hemoglobin 10.6 g/dL (12.0-15.0); Mean Corpuscular HGB Conc 30.3 g/dl (32-36); Mean Corpuscular Hemoglobin 27.2 pg (26-34); Mean Corpuscular Volume 89.7 fl (80-100); Mean Platelet Volume 11.7 fl (7.4-10.4); Platelet Count Result 174 k/mm3 (150-375); Red Cell Distribution Width 16.3 % (11.5-14.5); White Blood Count 12.1 K/mm3 (4.5-10.0)
[2020-04-25 05:13] LABS: Alanine Aminotransferase 14 U/L (4-35); Albumin Level 3.3 g/dL (3.5-5.1); Alkaline Phosphatase 124 U/L (38-126); Anion Gap 6 mmol/L (8-16); Aspartate Amino Transferase 49 U/L (14-36); Bilirubin,Total 0.7 mg/dL (0.2-1.3); Blood Urea Nitrogen 45 mg/dL (7-17); Calcium 8.2 mg/dL (8.4-10.2); Carbon Dioxide 36 mmol/L (22-30); Chloride 94 mmol/L (98-107); Estimated CRCL calculation 11 ml/min; Estimated Glomerular Filt Rate 14; Glucose 166 mg/dL (65-105); Magnesium 2.1 mg/dL (1.6-2.3); Potassium 3.9 mmol/L (3.4-5.0); Sodium 136 mmol/L (137-145)
[2020-04-25] MEDS: SALINE LOCK FLUSH 10 ML IV PUSH ×3 (05:37→20:15)
[2020-04-25 05:47] LABS: Alveolar/Arterial O2 Gradient 326.5 mmHg; Carboxyhemoglobin 1.1 % THb (0-2.0); Fractional Inspired Oxygen 65 %; HCO3 ABG 31.6 mEq/l (22.0-26.0); Methemoglobin ABG 0.3 %THb (0-1.5); Oxygen Content ABG 14.5 %vol (16.0-22.0); Oxygen Saturation ABG 94.6 % (95.0-100.0); Oxyhemoglobin 92.3 % THb (90.0-100.0); PCO2 ABG 50.5 mmHg (35.0-45.0); PO2 ABG 72.8 mmHg (80.0-100.0); PO2 FiO2 Ratio Arterial Blood 1.12 %; Reduced Hemoglobin 6.3 %THb (0-5.0); Total Hemoglobin 11.1 g/dL (12.0-18.0); pH ABG 7.414 (7.350-7.450)
[2020-04-25 05:48] LABS: Device VENTILATOR; Modified Allen's Test Unable to perform; Site Drawn RIGHT RADIAL
[2020-04-25 05:50] LABS: Arterial Blood Gas PEEP 8 cmH2O; Arterial Blood Gas Tidal Volume 320 ml; Arterial Blood Gas Vent Mode CMV; Arterial Blood Gas Ventilator rate 22 /MIN
--- NOTE | 2020-04-25 07:52 | WPDINTPN ---
Progress Note: A&P Assessment and Plan (1) Acute respiratory failure: Code(s): J96.00 - Acute respiratory failure, unspecified whether with hypoxia or hypercapnia Status: Acute Assessment and Plan: Acute Respiratory failure secondary to COVID-19 pneumonia with may be a combination pulmonary edema -Patient was intubated on 04/23/2020 -currently on CMV mode of ventilation, peep 8, 75% FiO2 -ABGs and chest x-ray reviewed, wean FiO2 as tolerated maintain O2 sats greater than 92% -continue Pulmicort -continue bronchodilators -continue fentanyl and Versed infusion for sedation, maintain RASS of 0 to -2, daily sedation vacation (2) COVID-19: Code(s): U07.1 - COVID-19 Status: Acute Assessment and Plan: The patient has COVID-19 which was diagnosed as an outpatient prior to presentation to the hospital - Continue dexamethasone initiated on 04/20/2020 -continue patient on droplet, airborne and contact isolation/precautions -will monitor inflammatory markers (3) Sepsis: Code(s): A41.9 - Sepsis, unspecified organism Status: Acute Assessment and Plan: Patient meets the criteria for sepsis. admitted with COVID-19 which is most likely the cause of fever. Patient was leukopenic on presentation white count is now normal but patient is also on steroids -Her lactate was normal -hemodynamically stable with adequate blood pressures -chest x-ray with bilateral diffuse infiltrates -blood cultures negative -continue cefepime (4) Encephalopathy acute: Code(s): G93.40 - Encephalopathy, unspecified Status: Acute Assessment and Plan: Toxic metabolic encephalopathy Head CT showed chronic changes Currently intubated and sedated, daily sedation vacation (5) End-stage renal disease on hemodialysis: Code(s): N18.6 - End stage renal disease; Z99.2 - Dependence on renal dialysis Status: Chronic Assessment and Plan: Patient with history of end-stage renal disease on dialysis -dialysis per Nephrology - Monitor electrolytes (6) Wound, open, foot: Code(s): S91.309A - Unspecified open wound, unspecified foot, initial encounter Status: Acute Assessment and Plan: -reviewed wound care nurse's assessment note which states the patient has a left plantar foot ulcer due to hardware displacement. No obvious signs of infection were seen around the tissue topical antibiotic coverage and wound care was recommended along with autolytic debridement - Blood cultures were done and were negative - On presentation her white count was normal. WBC is elevated to 11 today but patient is also on dexamethasone - Continue antibiotic and wound care Ortho consulted and they recommend patient should follow-up at [facility] where she had her leg surgery (7) Anemia: Code(s): D64.9 - Anemia, unspecified Status: Acute Assessment and Plan: Anemia of chronic kidney disease. On Epogen per Nephrology with dialysis. (8) Hypertension: Code(s): I10 - Essential (primary) hypertension Status: Chronic Assessment and Plan: Will add p.r.n. hydralazine - Continue to monitor (9) Diabetes: Qualifiers: Diabetes mellitus type: type 2 Diabetes mellitus penitentiary insulin use: with penitentiary use Diabetes mellitus complication status: with kidney complications Diabetes mellitus complication detail: with chronic kidney disease Chronic kidney disease stage: stage 4 (severe) Qualified Code(s): E11.22 - Type 2 diabetes mellitus with diabetic chronic kidney disease; N18.4 - Chronic kidney disease, stage 4 (severe); Z79.4 - alf (current) use of insulin Code(s): E11.9 - Type 2 diabetes mellitus without complications Status: Chronic Assessment and Plan: Sliding scale insulin and Lantus Additional Plan DVT prophylaxis -continue subcutaneous heparin Stress ulcer prophylaxis - PPI Nutrition -contin
[2020-04-25] MEDS: INSULIN GLARGINE (*BKC) 100 UNITS/ML 12 UNITS SUB-Q (08:05)
[2020-04-25] MEDS: CALCIUM ACETATE 667 MG TABLET 1334 MG PO ×3 (08:12→16:05)
[2020-04-25] MEDS: SILVERGEL (ELTA) 45 ML 1 APPLIC TOPICAL (08:12)
[2020-04-25] MEDS: PANTOPRAZOLE SODIUM IV 40 MG VIAL IV PUSH (08:12)
[2020-04-25] MEDS: CHOLECALCIFEROL 1,000 UNITS TABLET 1000 UNITS PO (08:13)
[2020-04-25] MEDS: DEXAMETHASONE SOD PHOS INJ 4 MG/ML VIAL 6 MG IV PUSH (08:13)
[2020-04-25] MEDS: ASCORBIC ACID 500 MG TABLET 1000 MG PO (08:13)
[2020-04-25] MEDS: HEPARIN SODIUM 5,000 UNITS/ML VIAL 5000 UNITS SUB-Q ×2 (08:13→20:14)
[2020-04-25] MEDS: BUDESONIDE RESPULE NEB 0.5 MG/2 ML AMP INHALATION ×2 (08:20→19:10)
[2020-04-25] MEDS: INSULIN ASPART (*BKC) 100 UNITS/ML SUB-Q ×2 (11:28→23:13)
--- NOTE | 2020-04-25 11:40 | PM.PNNEP ---
Progress Note: A&P Assessment and Plan (1) End-stage renal disease on hemodialysis: Code(s): N18.6 - End stage renal disease; Z99.2 - Dependence on renal dialysis Status: Chronic Assessment and Plan: HD tomorrow and continue M/W/F schedule follow electrolytes, volume status, and clearance (2) COVID-19: Code(s): U07.1 - COVID-19 Status: Acute Assessment and Plan: suspect CXR findings maybe more related to COVID than fluid push fluid removal with HD as tolerated follow inflammatory markers (3) Cellulitis of right lower extremity: Code(s): L03.115 - Cellulitis of right lower limb Status: Acute Assessment and Plan: blood cultures are no growth to date wound cultures noted on antibiotics local wound care Infectious Disease following (4) Anemia: Code(s): D64.9 - Anemia, unspecified Status: Acute Assessment and Plan: due to ESRD and acute illness Epogen with HD follow trend of H/H (5) Hypertension: Code(s): I10 - Essential (primary) hypertension Status: Chronic Assessment and Plan: reasonable control follow trend of hemodynamics (6) Altered mental status: Code(s): R41.82 - Altered mental status, unspecified Status: Acute Assessment and Plan: reassess once off ventilator Will continue to follow. Subjective Date/time seen: 04/25/20 11:40 Tolerated dialysis treatment yesterday but continues to spike fevers in the last 24 hours; CXR looks about the same; remains intubated and on mechanical ventilation; no other acute issues/events overnight or earlier this AM. Exam Narrative: Exam Narrative: General: ill appearing female intubated/sedated Heart: normal S1 and S2; no rub Lungs: coarse breath sounds Abdomen: soft, nontender, nondistended, positive bowel sounds Extremities: no cyanosis or clubbing; no edema Skin: warm and intact Objective Data Vital Signs Vital Signs: Vital Signs Temp Pulse Resp BP Pulse Ox 04/25/20 11:00 71 22 H 04/25/20 10:00 38.1 C H 73 22 H 142/76 H 97 04/25/20 08:36 38.6 C H 04/25/20 08:30 75 22 H 04/25/20 08:20 78 22 H 92 04/25/20 08:06 38.4 C H 04/25/20 08:00 38.4 C H 77 22 H 157/77 H 94 04/25/20 07:00 74 22 H 04/25/20 06:00 37.9 C H 81 21 H 177/83 H 98 04/25/20 05:57 85 98 04/25/20 05:52 86 22 H 04/25/20 05:51 85 21 H 04/25/20 04:00 37.9 C H 73 21 H 139/71 94 04/25/20 02:54 72 22 H 04/25/20 02:45 71 22 H 94 04/25/20 02:00 37.7 C H 70 22 H 132/68 94 04/25/20 00:00 37.7 C H 72 21 H 132/69 94 04/24/20 23:15 76 92 04/24/20 22:00 37.7 C H 74 22 H 129/71 98 04/24/20 20:45 78 22 H 04/24/20 20:36 78 22 H 98 04/24/20 20:00 37.7 C H 75 22 H 127/74 98 04/24/20 18:20 73 22 H 04/24/20 18:19 73 22 H 04/24/20 18:00 37.8 C H 74 22 H 119/64 97 04/24/20 17:25 93 92 04/24/20 16:00 39.1 C H 86 24 H 110/62 96 04/24/20 14:25 40.2 C H 04/24/20 14:00 40.2 C H 103 H 26 H 142/85 H 93 04/24/20 13:59 40.2 C H 04/24/20 13:49 103 H 29 H 04/24/20 13:45 104 H 92 04/24/20 13:42 103 H 28 H 04/24/20 12:56 38.3 C H 77 30 H 109/71 91 04/24/20 12:36 86 120/94 H 04/24/20 12:16 86 111/79 04/24/20 12:01 83 131/73 04/24/20 12:00 37.7 C H 85 24 H 131/73 93 04/24/20 11:47 84 116/98 H Intake/Output Intake/Output: Intake & Output 04/22/20 04/23/20 04/24/20 04/25/20 23:59 23:59 23:59 23:59 Intake Total 766 082 1609 690 Output Total 880 686 3056 1 Balance 120 40 -240 689 Meds/Results Medications: Active Medications Generic Name Dose Route Start Last Admin Trade Name Freq PRN Reason Stop Dose Admin Acetaminophen 650 mg 04/24/20 08:56 Acetaminophen 325 Mg Tablet PO Q6H PRN Fever Albuterol 2.5 mg 04/24/20
[2020-04-25 11:51] LABS: Glucose Point of Care 274 (65-105)
--- NOTE | 2020-04-25 12:04 | PCDIET ---
Nutrition Follow-Up Complete: Nutrition Diagnosis: Inadequate oral intake related to oral intubation as evidenced by need for tube feeding. Nutrition Goal: Patient to meet estimated nutritional needs. Goal met. Patient tolerating Nepro at 40mL/hr goal rate with 30mL water flush every 4 hours. Patient did have one isolated residual of 480mL overnight; otherwise, residuals have been minimal. Last recorded weight is 54.8 kg which is down from last review. -I/O. Patient had 2L UF on 04/24/20. Bowel Motility: Last documented BM on 04/24/20 x 1. Labs Reviewed: Hgb (10.6), Hct (35.0), Glu (166), BUN (45), Cr (3.3), Na (136), Alb (3.3), Teofilo Ca (8.76) Meds Noted: Albuterol, Vitamin C, Epogen, Fentanyl, Phoslo, Cefepime, Heparin, Decadron, Versed, Protonix, Lantus, Atrovent, Vitamin D Additional Notes: Right foot with visible hardware. No documented pressure sores. Will continue to monitor with same goal. Nutrition Monitoring and Evaluation: Follow up every Friday/Friday.
--- NOTE | 2020-04-25 14:37 | WPDINFPN2 ---
Progress Note: A&P Assessment and Plan (1) Pneumonia due to COVID-19 virus: Code(s): U07.1 - COVID-19; J12.82 - Pneumonia due to coronavirus disease 2019 Status: Acute Assessment and Plan: 1. Fever, likely due to # 2 2. Acute CoVid 19 infection with pneumonia 3. MRSA left heel hardware infection, with prior bacteremia, I do not think this is source of fever 4. CRF REC Vanc #1 / 7 days tentatively, unless + BCs again. But her hardware infection is not medically curable, and she will need to see her orthopedists at [facility] for removal of hardware, or BKA. Subjective Date/time seen: 04/25/20 14:37 Objective Data Vital Signs Vital Signs: Vital Signs - 24 hr 04/24/20 16:00 04/24/20 17:25 04/24/20 18:00 Temperature 39.1 C H 37.8 C H Pulse Rate 86 93 74 Respiratory Rate 24 H 22 H Blood Pressure 110/62 119/64 Pulse Oximetry 96 92 97 04/24/20 18:19 04/24/20 18:20 04/24/20 20:00 Temperature 37.7 C H Pulse Rate 73 73 75 Respiratory Rate 22 H 22 H 22 H Blood Pressure 127/74 Pulse Oximetry 98 04/24/20 20:36 04/24/20 20:45 04/24/20 22:00 Temperature 37.7 C H Pulse Rate 78 78 74 Respiratory Rate 22 H 22 H 22 H Blood Pressure 129/71 Pulse Oximetry 98 98 04/24/20 23:15 04/25/20 00:00 04/25/20 02:00 Temperature 37.7 C H 37.7 C H Pulse Rate 76 72 70 Respiratory Rate 21 H 22 H Blood Pressure 132/69 132/68 Pulse Oximetry 92 94 94 04/25/20 02:45 04/25/20 02:54 04/25/20 04:00 Temperature 37.9 C H Pulse Rate 71 72 73 Respiratory Rate 22 H 22 H 21 H Blood Pressure 139/71 Pulse Oximetry 94 94 04/25/20 05:51 04/25/20 05:52 04/25/20 05:57 Temperature Pulse Rate 85 86 85 Respiratory Rate 21 H 22 H Blood Pressure Pulse Oximetry 98 04/25/20 06:00 04/25/20 07:00 04/25/20 08:00 Temperature 37.9 C H 38.4 C H Pulse Rate 81 74 77 Respiratory Rate 21 H 22 H 22 H Blood Pressure 177/83 H 157/77 H Pulse Oximetry 98 94 04/25/20 08:06 04/25/20 08:20 04/25/20 08:30 Temperature 38.4 C H Pulse Rate 78 75 Respiratory Rate 22 H 22 H Blood Pressure Pulse Oximetry 92 04/25/20 08:36 04/25/20 10:00 04/25/20 11:00 Temperature 38.6 C H 38.1 C H Pulse Rate 73 71 Respiratory Rate 22 H 22 H Blood Pressure 142/76 H Pulse Oximetry 97 04/25/20 11:36 04/25/20 12:00 04/25/20 14:00 Temperature 37.3 C 36.9 C Pulse Rate 71 72 69 Respiratory Rate 22 H 22 H 22 H Blood Pressure 145/78 H 145/79 H Pulse Oximetry 97 97 96 Intake/Output Intake/Output: Intake & Output 04/22/20 04/23/20 04/24/20 04/25/20 23:59 23:59 23:59 23:59 Intake Total 608 473 0909 690 Output Total 203 714 4490 1 Balance 120 40 -240 689 Meds/Results Medications: Active Medications Generic Name Dose Route Start Last Admin Trade Name Freq PRN Reason Stop Dose Admin Acetaminophen 650 mg 04/24/20 08:56 Acetaminophen 325 Mg Tablet PO Q6H PRN Fever Albuterol 2.5 mg 04/24/20 14:00 04/25/20 14:00 Albuterol Sulfate Neb 2.5 Mg/0.5 Ml Inh INHALATION 2.5 mg Q6HRT MELVIN Administration Ascorbic Acid 1,000 mg 04/24/20 10:15 04/25/20 08:13 Ascorbic Acid 500 Mg Tablet PO 1,000 mg DAILY MELVIN Administration Bisacodyl 10 mg 04/20/20 00:18 04/22/20 03:33 Bisacodyl 10 Mg Suppository RECTAL 10 mg DAILY PRN Administration Constipation Budesonide 0.5 mg 04/24/20 09:00 04/25/20 08:20 Budesonide Respule Neb 0.5 Mg/2 Ml Amp INHALATION 0.5 mg Q12HRT MELVIN Administration Calcium Acetate 1,334 mg 04/20/20 08:00 04/25/20 11:28 Calcium Acetate 667 Mg Tablet PO 1,334 mg TIDWM MELVIN Administration Dexamethasone Sodium Phosphate 6 mg 04/20/20 09:00 04/25/20 08:13 Dexamethasone Sod Phos Inj 4 Mg/Ml Vial IV PUSH 04/29/20 09:01 6 mg DAILY MELVIN Administration Dextrose 12.5 gm 04/22/20 08:10 Dextrose 50% 25 Gm/50 Ml Syringe IV PUSH PRN PRN Hypoglycemia Protocol Epoetin Robb-epbx 10,000 units 0
--- NOTE | 2020-04-25 15:26 | CONS_ITS ---
DATE OF CONSULTATION: 04/25/2020 REASON FOR CONSULTATION: Fever. HISTORY OF PRESENT ILLNESS: I was not notified of this consult until 1 hour ago. She is known to me from the past when she was here in February with MRSA bacteremia and left ankle infection in the setting of a previous fracture. She was transferred to [facility] on March 10. Her hospital course there is not available, but she apparently had hardware placed. She returned to this hospital 6 days ago from her intermediate with generalized weakness and a positive coronavirus test on the same day. Here, the patient has been started on dexamethasone. Due to her chronic kidney disease, she has not been eligible for remdesivir. Dexamethasone is ongoing. She has been febrile. She has been given cefepime and vancomycin added today. She cannot provide any additional history. She is intubated. She has not required any surgical intervention and has ongoing dialysis, which she has been able to tolerate. ALLERGIES: PENICILLIN. HABITS: See record. PRESENT MEDICATIONS: Dexamethasone is ongoing. Prior to admission, there were no immunosuppressants, nor antimicrobials. PAST MEDICAL HISTORY: Foot x-ray on admission, left side revealed intramedullary honorio with radiographic hardware failure of intramedullary screws and ulceration, possible lytic lesion in the first metatarsal. Other past medical history in addition to the above includes anemia of chronic inflammation, MRSA bacteremia due to above in February, diastolic heart failure, CAD, previous stroke, depression, tibial plateau fracture in October 2018, wrist fracture, gallstones, diabetic retinopathy, osteoporosis, previous D and C, right hip replacement, lipoma excision. FAMILY HISTORY: Kidney disease, diabetes, heart disease. SOCIAL HISTORY: She had been living at home prior to her admission. Most recently at a intermediate, [place], for rehab. REVIEW OF SYSTEMS: A 14-point review otherwise negative per record, not obtainable from the patient due to intubated status. PHYSICAL EXAMINATION: VITAL SIGNS: She was febrile on admission at 40.1 and late on the evening of the 8th T-max 40.2, in the last 24 hours T-max 39.1, 145/79, 69, 96%, 22. SKIN: [place] in color. No rashes. She has chronic venous stasis changes in both distal legs into the feet. Sinus tract is present over the left plantar calcaneus. No cellulitis. Drainage is clear, easily expressible. NODES: No cervical adenopathy. EENT: Conjunctivae are clear. Orally intubated. NECK: No masses. No meningismus. LUNGS: Coarse breath sounds, vesicular, clear to percussion. CARDIAC: Soft S1, S2. Regular rate and rhythm. ABDOMEN: Nontender, nondistended. No masses. No organomegaly. EXTREMITIES: No clubbing, cyanosis. No edema currently. LABORATORY DATA: Multiple blood cultures, no growth and no growth so far. A wound culture has gram-positive cocci on smear. Cultures in process collected a day ago. White blood cell count 12.1, similar to all previous values since the current admission. Hemoglobin 10.6, platelets 174, no differential done. Blood gases 7.41, 51, 73 on the noted ventilator settings. She has hyponatremia. BUN 45, creatinine 3.3, glucose 166, calcium low, phosphorus high. Magnesium normal. Transaminases normal to twice normal. Albumin 3.3. RADIOLOGY: Chest x-ray with diffuse lung disease. ASSESSMENT: 1. Fever, I think is due to coronavirus infection with viral pneumonia. Other potential but less likely sources would include bacterial pneumonia, bacterial respiratory tract infection elsewhere, primary bloodstream infection, osteomyelitis of the calcaneus, soft tissue infection of the left heel or joint infection. 2. Respiratory distress due to vi
--- NOTE | 2020-04-25 17:23 | PM.IMPN ---
Progress Note: A&P Assessment and Plan (1) Pneumonia due to COVID-19 virus: Code(s): U07.1 - COVID-19; J12.82 - Pneumonia due to coronavirus disease 2019 Status: Acute Assessment and Plan: On Dexmethasone And Cefepime (2) Sepsis: Code(s): A41.9 - Sepsis, unspecified organism Status: Acute Assessment and Plan: Secondary to Covid and UTI (3) Wound, open, foot: Code(s): S91.309A - Unspecified open wound, unspecified foot, initial encounter Status: Acute Assessment and Plan: Local care (4) Encephalopathy acute: Code(s): G93.40 - Encephalopathy, unspecified Status: Acute Assessment and Plan: Supportive care (5) UTI (urinary tract infection): Code(s): N39.0 - Urinary tract infection, site not specified Status: Acute Assessment and Plan: Follow cultures (6) Acute respiratory failure with hypoxia: Code(s): J96.01 - Acute respiratory failure with hypoxia Status: Acute Assessment and Plan: On vent support in icu (7) End-stage renal disease on hemodialysis: Code(s): N18.6 - End stage renal disease; Z99.2 - Dependence on renal dialysis Status: Chronic Assessment and Plan: On HD Subjective Date/time seen: 04/25/20 17:23 Interval history: 64 year old female tells me that she lives in [facility] living and that she typically does not go anywhere. The LEs she goes is to dialysis on Friday. It is reported that she lives in a custodial. The patient tested positive for COVID-19. Pt is intubated in icu. Review of Systems Review of Systems: ROS unobtainable: Yes unobtainable due to endotracheal tube Exam Narrative: Exam Narrative: On vent support. HENMT: Head: other (Chronically ill looking.) Chest: Other: Dialysis catheter intact to right upper chest Objective Data Vital Signs Vital Signs: Vital Signs - 24 hr 04/24/20 17:25 04/24/20 18:00 04/24/20 18:19 Temperature 37.8 C H Pulse Rate 93 74 73 Respiratory Rate 22 H 22 H Blood Pressure 119/64 Pulse Oximetry 92 97 04/24/20 18:20 04/24/20 20:00 04/24/20 20:36 Temperature 37.7 C H Pulse Rate 73 75 78 Respiratory Rate 22 H 22 H 22 H Blood Pressure 127/74 Pulse Oximetry 98 98 04/24/20 20:45 04/24/20 22:00 04/24/20 23:15 Temperature 37.7 C H Pulse Rate 78 74 76 Respiratory Rate 22 H 22 H Blood Pressure 129/71 Pulse Oximetry 98 92 04/25/20 00:00 04/25/20 02:00 04/25/20 02:45 Temperature 37.7 C H 37.7 C H Pulse Rate 72 70 71 Respiratory Rate 21 H 22 H 22 H Blood Pressure 132/69 132/68 Pulse Oximetry 94 94 94 04/25/20 02:54 04/25/20 04:00 04/25/20 05:51 Temperature 37.9 C H Pulse Rate 72 73 85 Respiratory Rate 22 H 21 H 21 H Blood Pressure 139/71 Pulse Oximetry 94 04/25/20 05:52 04/25/20 05:57 04/25/20 06:00 Temperature 37.9 C H Pulse Rate 86 85 81 Respiratory Rate 22 H 21 H Blood Pressure 177/83 H Pulse Oximetry 98 98 04/25/20 07:00 04/25/20 08:00 04/25/20 08:06 Temperature 38.4 C H 38.4 C H Pulse Rate 74 77 Respiratory Rate 22 H 22 H Blood Pressure 157/77 H Pulse Oximetry 94 04/25/20 08:20 04/25/20 08:30 04/25/20 08:36 Temperature 38.6 C H Pulse Rate 78 75 Respiratory Rate 22 H 22 H Blood Pressure Pulse Oximetry 92 04/25/20 10:00 04/25/20 11:00 04/25/20 11:36 Temperature 38.1 C H Pulse Rate 73 71 71 Respiratory Rate 22 H 22 H 22 H Blood Pressure 142/76 H Pulse Oximetry 97 97 04/25/20 12:00 04/25/20 14:00 04/25/20 14:10 Temperature 37.3 C 36.9 C Pulse Rate 72 69 72 Respiratory Rate 22 H 22 H 22 H Blood Pressure 145/78 H 145/79 H Pulse Oximetry 97 98 04/25/20 16:00 Temperature 36.8 C Pulse Rate 73 Respiratory Rate 22 H Blood Pressure 148/77 H Pulse Oximetry 96 Intake/Output Intake/Output: Intake & Output 04/22/20 04/23/20 04/24/20 04/25/20 23:59 23:59 23:59 23:
[2020-04-25 17:24] LABS: Glucose Point of Care 420 (65-105)
[2020-04-25 17:25] LABS: Glucose Point of Care 425 (65-105)
[2020-04-25] MEDS: INSULIN ASPART (*BKC) 100 UNITS/ML 10 UNITS SUB-Q (17:49)
[2020-04-25] MEDS: INSULIN GLARGINE (*BKC) 100 UNITS/ML 20 UNITS SUB-Q (20:13)
[2020-04-25 23:07] LABS: Glucose Point of Care 415 (65-105)
[2020-04-25] MEDS: ACETAMINOPHEN 325 MG TABLET 650 MG PO (23:12)
[2020-04-25] MEDS: hydrALAZINE HCL 20 MG/ML VIAL 10 MG IV PUSH (23:13)
[2020-04-26] VITALS (47 sets, daily range): BP systolic 88–164; BP diastolic 60–96; PULSE 75–124; RESP 21–40; TEMP 35.9–39.9; O2SAT 90–98
[2020-04-26] MEDS: IPRATROPIUM BR 0.02% INH SOLN 0.5 MG/2.5 ML VIAL INHALATION ×4 (01:26→21:30)
[2020-04-26] MEDS: ALBUTEROL SULFATE NEB 2.5 MG/0.5 ML INH INHALATION ×4 (01:26→21:30)
[2020-04-26 03:52] LABS: Hematocrit 32.8 % (37.0-47.0); Hemoglobin 10.1 g/dL (12.0-15.0); Mean Corpuscular HGB Conc 30.8 g/dl (32-36); Mean Corpuscular Hemoglobin 27.6 pg (26-34); Mean Corpuscular Volume 89.6 fl (80-100); Mean Platelet Volume 11.9 fl (7.4-10.4); Platelet Count Result 189 k/mm3 (150-375); Red Blood Count 3.66 M/mm3 (4.2-5.4); Red Cell Distribution Width 16.2 % (11.5-14.5); White Blood Count 15.8 K/mm3 (4.5-10.0)
[2020-04-26 04:26] LABS: Base Excess ABG 4.2 mEq/l (+/-2.0); Carboxyhemoglobin 1.6 % THb (0-2.0); Fractional Inspired Oxygen 50 %; HCO3 ABG 30.7 mEq/l (22.0-26.0); Methemoglobin ABG 0.3 %THb (0-1.5); Oxygen Content ABG 13.9 %vol (16.0-22.0); Oxygen Saturation ABG 89.6 % (95.0-100.0); Oxyhemoglobin 86.8 % THb (90.0-100.0); PCO2 ABG 55.6 mmHg (35.0-45.0); Reduced Hemoglobin 11.3 %THb (0-5.0); Total Hemoglobin 11.4 g/dL (12.0-18.0)
[2020-04-26 04:27] LABS: Device VENTILATOR; Modified Allen's Test Unable to perform; Site Drawn RIGHT RADIAL
[2020-04-26 04:28] LABS: Arterial Blood Gas PEEP 8 cmH2O; Arterial Blood Gas Tidal Volume 320 ml; Arterial Blood Gas Vent Mode CMV; Arterial Blood Gas Ventilator rate 22 /MIN
[2020-04-26 05:13] LABS: Alanine Aminotransferase 13 U/L (4-35); Albumin Level 3.3 g/dL (3.5-5.1); Alkaline Phosphatase 146 U/L (38-126); Anion Gap 12 mmol/L (8-16); Aspartate Amino Transferase 36 U/L (14-36); Bilirubin,Total 0.7 mg/dL (0.2-1.3); Blood Urea Nitrogen 88 mg/dL (7-17); Calcium 9.1 mg/dL (8.4-10.2); Carbon Dioxide 31 mmol/L (22-30); Chloride 92 mmol/L (98-107); Estimated CRCL calculation 8 ml/min; Estimated Glomerular Filt Rate 10; Glucose 228 mg/dL (65-105); Magnesium 2.5 mg/dL (1.6-2.3); Potassium 3.5 mmol/L (3.4-5.0); Sodium 135 mmol/L (137-145)
[2020-04-26] MEDS: INSULIN ASPART (*BKC) 100 UNITS/ML SUB-Q ×3 (05:24→23:14)
[2020-04-26] MEDS: SALINE LOCK FLUSH 10 ML IV PUSH ×3 (05:25→20:26)
[2020-04-26 05:30] LABS: Glucose Point of Care 223 (65-105)
[2020-04-26] MEDS: BUDESONIDE RESPULE NEB 0.5 MG/2 ML AMP INHALATION ×2 (08:04→21:30)
--- NOTE | 2020-04-26 08:16 | WPDINTPN ---
Progress Note: A&P Assessment and Plan (1) Acute respiratory failure: Code(s): J96.00 - Acute respiratory failure, unspecified whether with hypoxia or hypercapnia Status: Acute Assessment and Plan: Acute Respiratory failure secondary to COVID-19 pneumonia with may be a combination pulmonary edema -Patient was intubated on 04/23/2020 -currently on CMV mode of ventilation, peep 8, 50% FiO2 -ABGs and chest x-ray reviewed, wean FiO2 as tolerated maintain O2 sats greater than 92% -continue Pulmicort -continue bronchodilators -continue fentanyl and Versed infusion for sedation, maintain RASS of 0 to -2, daily sedation vacation (2) COVID-19: Code(s): U07.1 - COVID-19 Status: Acute Assessment and Plan: The patient has COVID-19 which was diagnosed as an outpatient prior to presentation to the hospital - Continue dexamethasone initiated on 04/20/2020 -continue patient on droplet, airborne and contact isolation/precautions -will monitor inflammatory markers (3) Sepsis: Code(s): A41.9 - Sepsis, unspecified organism Status: Acute Assessment and Plan: Patient meets the criteria for sepsis. admitted with COVID-19 which is most likely the cause of fever. Patient was leukopenic on presentation white count is now normal but patient is also on steroids -Her lactate was normal -hemodynamically stable with adequate blood pressures -chest x-ray with bilateral diffuse infiltrates -blood cultures negative -continue cefepime (4) Encephalopathy acute: Code(s): G93.40 - Encephalopathy, unspecified Status: Acute Assessment and Plan: Toxic metabolic encephalopathy Head CT showed chronic changes Currently intubated and sedated, daily sedation vacation (5) End-stage renal disease on hemodialysis: Code(s): N18.6 - End stage renal disease; Z99.2 - Dependence on renal dialysis Status: Chronic Assessment and Plan: Patient with history of end-stage renal disease on dialysis -dialysis per Nephrology - Monitor electrolytes (6) Wound, open, foot: Code(s): S91.309A - Unspecified open wound, unspecified foot, initial encounter Status: Acute Assessment and Plan: -reviewed wound care nurse's assessment note which states the patient has a left plantar foot ulcer due to hardware displacement. No obvious signs of infection were seen around the tissue topical antibiotic coverage and wound care was recommended along with autolytic debridement - Blood cultures were done and were negative - On presentation her white count was normal. WBC is elevated to 11 today but patient is also on dexamethasone - Continue antibiotic and wound care Ortho consulted and they recommend patient should follow-[facility] at [facility] where she had her leg surgery Appreciate infectious disease evaluation recommendations (7) Anemia: Code(s): D64.9 - Anemia, unspecified Status: Acute Assessment and Plan: Anemia of chronic kidney disease. On Epogen per Nephrology with dialysis. (8) Hypertension: Code(s): I10 - Essential (primary) hypertension Status: Chronic Assessment and Plan: Will add p.r.n. hydralazine - Continue to monitor (9) Diabetes: Qualifiers: Diabetes mellitus type: type 2 Diabetes mellitus fdc insulin use: with intermediate card tender use Diabetes mellitus complication status: with kidney complications Diabetes mellitus complication detail: with chronic kidney disease Chronic kidney disease stage: stage 4 (severe) Qualified Code(s): E11.22 - Type 2 diabetes mellitus with diabetic chronic kidney disease; N18.4 - Chronic kidney disease, stage 4 (severe); Z79.4 - correction (current) use of insulin Code(s): E11.9 - Type 2 diabetes mellitus without complications Status: Chronic Assessment and Plan: Sliding scale insulin and Lantus Additional Plan DVT prophylaxis -continue subcutaneous
[2020-04-26] MEDS: SILVERGEL (ELTA) 45 ML 1 APPLIC TOPICAL (08:33)
[2020-04-26] MEDS: DEXAMETHASONE SOD PHOS INJ 4 MG/ML VIAL 6 MG IV PUSH (08:33)
[2020-04-26] MEDS: PANTOPRAZOLE SODIUM IV 40 MG VIAL IV PUSH (08:34)
[2020-04-26] MEDS: HEPARIN SODIUM 5,000 UNITS/ML VIAL 5000 UNITS SUB-Q ×2 (08:34→20:25)
[2020-04-26] MEDS: CHOLECALCIFEROL 1,000 UNITS TABLET 1000 UNITS PO (08:34)
[2020-04-26] MEDS: ASCORBIC ACID 500 MG TABLET 1000 MG PO (08:35)
[2020-04-26] MEDS: CALCIUM ACETATE 667 MG TABLET 1334 MG PO ×3 (08:35→15:56)
[2020-04-26] MEDS: INSULIN GLARGINE (*BKC) 100 UNITS/ML 20 UNITS SUB-Q ×2 (08:36→20:26)
--- NOTE | 2020-04-26 11:25 | PCDIET ---
ICU Rounding Note: Patient tolerating Nepro at 40mL/hr currently, although feeding held overnight for 225mL residual. Recommend continuing tube feedings and adding prokinetic agent if residuals higher than 250mL. Last recorded weight is 54.3kg which is stable with last review. Bowel Motility: Last documented BM on 04/24/20. Labs Reviewed: Hgb (10.1), Hct (32.8), Glu (228), BUN (88), Cr (4.5), Na (135), Alb (3.3) Meds Noted: Albuterol, Vitamin C, Pulmicort, Phoslo, Decadron, Epogen, Fentanyl, Hydralazine, Novolog, Lantus, Atrovent, Versed, Protonix, Vancomycin, Vitamin D Additional Notes: No skin issues other than foot wound with exposed hardware. ID following. Following daily in ICU rounds. Assessing/reassessing every Friday/Friday.
[2020-04-26 11:46] LABS: Glucose Point of Care 255 (65-105)
[2020-04-26] MEDS: EPOETIN ALFA-EPBX 10,000 UNITS/ML VIAL 10000 UNITS IV PUSH (15:53)
--- NOTE | 2020-04-26 16:43 | PM.PNNEP ---
Progress Note: A&P Assessment and Plan (1) End-stage renal disease on hemodialysis: Code(s): N18.6 - End stage renal disease; Z99.2 - Dependence on renal dialysis Status: Chronic Assessment and Plan: HD today and continue M/W/F schedule follow electrolytes, volume status, and clearance (2) COVID-19: Code(s): U07.1 - COVID-19 Status: Acute Assessment and Plan: suspect CXR findings maybe more related to COVID than fluid on steroids push fluid removal with HD as tolerated follow inflammatory markers (3) Cellulitis of right lower extremity: Code(s): L03.115 - Cellulitis of right lower limb Status: Acute Assessment and Plan: blood cultures are no growth to date wound cultures noted on antibiotics local wound care Infectious Disease following (4) Anemia: Code(s): D64.9 - Anemia, unspecified Status: Acute Assessment and Plan: due to ESRD and acute illness Epogen with HD follow trend of H/H (5) Hypertension: Code(s): I10 - Essential (primary) hypertension Status: Chronic Assessment and Plan: reasonable control follow trend of hemodynamics (6) Altered mental status: Code(s): R41.82 - Altered mental status, unspecified Status: Acute Assessment and Plan: reassess once off ventilator Will continue to follow. Subjective Date/time seen: 04/26/20 16:43 Tolerating dialysis at the time of my visit (seen on HD at ~ 4:30PM); fluid removal likely to be limited by hemodynamics at this time; continues to have high fevers in the last 24 - 48 hours; no other acute issues/events noted overnight or earlier this AM Exam Narrative: Exam Narrative: General: ill appearing female intubated/sedated Heart: normal S1 and S2; no rub Lungs: coarse breath sounds Abdomen: soft, nontender, nondistended, positive bowel sounds Extremities: no cyanosis or clubbing; no edema Skin: no rash Objective Data Vital Signs Vital Signs: Vital Signs Temp Pulse Resp BP Pulse Ox 04/26/20 16:30 89 97/83 L 04/26/20 16:15 87 101/82 04/26/20 16:00 37.2 C 87 22 H 110/82 93 04/26/20 15:45 86 118/86 04/26/20 15:34 84 122/83 04/26/20 15:15 83 157/83 H 04/26/20 15:00 37.0 C 82 22 H 149/90 H 96 04/26/20 14:00 37.2 C 81 22 H 147/85 H 97 04/26/20 12:00 37.6 C 81 22 H 143/86 H 97 04/26/20 10:00 37.7 C H 81 22 H 133/82 94 04/26/20 08:14 79 22 H 04/26/20 08:04 78 22 H 93 04/26/20 08:00 37.6 C H 76 22 H 125/77 94 04/26/20 06:00 36.9 C 75 21 H 119/77 94 04/26/20 05:39 77 22 H 04/26/20 05:37 77 22 H 04/26/20 04:12 80 93 04/26/20 04:00 35.9 C L 80 22 H 140/77 93 04/26/20 02:00 38.7 C H 93 26 H 127/74 92 04/26/20 01:33 97 27 H 04/26/20 01:29 95 93 04/26/20 01:26 39.4 C H 96 21 H 04/26/20 01:25 96 30 H 04/26/20 01:02 39.9 C H 04/26/20 00:00 39.4 C H 124 H 40 H 164/91 H 90 04/25/20 23:12 38.3 C H 04/25/20 23:06 38.3 C H 111 H 33 H 193/92 H 94 04/25/20 22:22 96 91 04/25/20 22:00 81 04/25/20 20:00 37.3 C 76 23 H 144/78 H 95 04/25/20 19:20 77 26 H 04/25/20 19:13 77 94 04/25/20 19:10 75 22 H 04/25/20 18:00 37.0 C 79 22 H 151/79 H 92 04/25/20 17:20 73 98 Intake/Output Intake/Output: Intake & Output 04/23/20 04/24/20 04/25/20 04/26/20 23:59 23:59 23:59 23:59 Intake Total 140 1785 1384 1240 Output Total 100 2025 1 10 Balance 40 -240 6660 1230 Meds/Results Medications: Active Medications Generic Name Dose Route Start Last Admin Trade Name Freq PRN Reason Stop Dose Admin Acetaminophen 650 mg 04/24/20 08:56 04/25/20 23:12 Acetaminophen 325 Mg Tablet PO 650 mg Q6H PRN Administration Fever Albuterol 2.5 mg 04/24/20 14:00 04/26/20 14:27 Albuterol Sulfate Neb 2.5 Mg/0.5 Ml I
--- NOTE | 2020-04-26 16:53 | PM.IMPN ---
Progress Note: A&P Assessment and Plan (1) Pneumonia due to COVID-19 virus: Code(s): U07.1 - COVID-19; J12.82 - Pneumonia due to coronavirus disease 2019 Status: Acute Assessment and Plan: On Dexmethasone And Cefepime and vancomycin (2) Sepsis: Code(s): A41.9 - Sepsis, unspecified organism Status: Acute Assessment and Plan: Secondary to Covid and UTI (3) Wound, open, foot: Code(s): S91.309A - Unspecified open wound, unspecified foot, initial encounter Status: Acute Assessment and Plan: Local care (4) Encephalopathy acute: Code(s): G93.40 - Encephalopathy, unspecified Status: Acute Assessment and Plan: Supportive care (5) UTI (urinary tract infection): Code(s): N39.0 - Urinary tract infection, site not specified Status: Acute Assessment and Plan: Follow cultures (6) Acute respiratory failure with hypoxia: Code(s): J96.01 - Acute respiratory failure with hypoxia Status: Acute Assessment and Plan: On vent support in icu (7) End-stage renal disease on hemodialysis: Code(s): N18.6 - End stage renal disease; Z99.2 - Dependence on renal dialysis Status: Chronic Assessment and Plan: On HD Subjective Date/time seen: 04/26/20 16:54 Interval history: 64 year old female tells me that 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 The LEs she goes is to dialysis on Friday. It is reported that she lives in a long-term. The patient tested positive for COVID-19. Pt is intubated in icu. Receiving HD today. Review of Systems Review of Systems: All systems reviewed & are unremarkable except as noted in HPI and below ROS unobtainable: Yes unobtainable due to endotracheal tube and unobtainable due to medical condition (On vent support.) Exam Narrative: Exam Narrative: On vent support. HENMT: Head: other (Chronically ill looking.) Chest: Other: Dialysis catheter intact to right upper chest Objective Data Vital Signs Vital Signs: Vital Signs - 24 hr 04/25/20 17:20 04/25/20 18:00 04/25/20 19:10 Temperature 37.0 C Pulse Rate 73 79 75 Respiratory Rate 22 H 22 H Blood Pressure 151/79 H Pulse Oximetry 98 92 04/25/20 19:13 04/25/20 19:20 04/25/20 20:00 Temperature 37.3 C Pulse Rate 77 77 76 Respiratory Rate 26 H 23 H Blood Pressure 144/78 H Pulse Oximetry 94 95 04/25/20 22:00 04/25/20 22:22 03 23:06 Temperature 38.3 C H Pulse Rate 81 96 111 H Respiratory Rate 33 H Blood Pressure 193/92 H Pulse Oximetry 91 94 04/25/20 23:12 04/26/20 00:00 04/26/20 01:02 Temperature 38.3 C H 39.4 C H 39.9 C H Pulse Rate 124 H Respiratory Rate 40 H Blood Pressure 164/91 H Pulse Oximetry 90 04/26/20 01:25 04/26/20 01:26 04/26/20 01:29 Temperature 39.4 C H Pulse Rate 96 96 95 Respiratory Rate 30 H 21 H Blood Pressure Pulse Oximetry 93 04/26/20 01:33 04/26/20 02:00 04/26/20 04:00 Temperature 38.7 C H 35.9 C L Pulse Rate 97 93 80 Respiratory Rate 27 H 26 H 22 H Blood Pressure 127/74 140/77 Pulse Oximetry 92 93 04/26/20 04:12 04/26/20 05:37 04/26/20 05:39 Temperature Pulse Rate 80 77 77 Respiratory Rate 22 H 22 H Blood Pressure Pulse Oximetry 93 04/26/20 06:00 04/26/20 08:00 04/26/20 08:04 Temperature 36.9 C 37.6 C H Pulse Rate 75 76 78 Respiratory Rate 21 H 22 H 22 H Blood Pressure 119/77 125/77 Pulse Oximetry 94 94 93 04/26/20 08:14 04/26/20 10:00 04/26/20 11:22 Temperature 37.7 C H Pulse Rate 79 81 83 Respiratory Rate 22 H 22 H Blood Pressure 133/82 Pulse Oximetry 94 95 04/26/20 12:00 04/26/20 14:00 04/26/20 14:27 Temperature 37.6 C 37.2 C Pulse Rate 81 81 84 Respiratory Rate 22 H 22 H 22 H Blood Pressure 143/86 H 147/85 H Pulse Oximetry 97 97 96 04/26/20 15:00 04/26/20 15:15 04/26/20 15:34 Temperature 37.0 C
[2020-04-26 18:02] LABS: Glucose Point of Care 180 (65-105)
[2020-04-26 20:34] LABS: Vancomycin Random < 5.0 ug/mL (10-20)
[2020-04-26 23:19] LABS: Glucose Point of Care 317 (65-105)
[2020-04-27] VITALS (24 sets, daily range): BP systolic 113–140; BP diastolic 56–80; PULSE 84–103; RESP 23–33; TEMP 37.9–38.6; O2SAT 93–96
[2020-04-27] MEDS: IPRATROPIUM BR 0.02% INH SOLN 0.5 MG/2.5 ML VIAL INHALATION ×3 (02:28→13:40)
[2020-04-27] MEDS: ALBUTEROL SULFATE NEB 2.5 MG/0.5 ML INH INHALATION ×3 (02:28→13:40)
[2020-04-27 03:40] LABS: Hematocrit 33.7 % (37.0-47.0); Hemoglobin 9.9 g/dL (12.0-15.0); Mean Corpuscular HGB Conc 29.4 g/dl (32-36); Mean Corpuscular Hemoglobin 26.7 pg (26-34); Mean Corpuscular Volume 90.8 fl (80-100); Mean Platelet Volume 12.7 fl (7.4-10.4); Platelet Count Result 175 k/mm3 (150-375); Red Blood Count 3.71 M/mm3 (4.2-5.4); Red Cell Distribution Width 16.6 % (11.5-14.5); White Blood Count 17.6 K/mm3 (4.5-10.0)
[2020-04-27 03:56] LABS: Anion Gap 9 mmol/L (8-16); Blood Urea Nitrogen 53 mg/dL (7-17); Carbon Dioxide 30 mmol/L (22-30); Chloride 94 mmol/L (98-107); Estimated CRCL calculation 14 ml/min; Estimated Glomerular Filt Rate 18; Glucose 389 mg/dL (65-105); Potassium 4.1 mmol/L (3.4-5.0); Sodium 133 mmol/L (137-145)
[2020-04-27] MEDS: ACETAMINOPHEN 325 MG TABLET 650 MG PO (04:20)
[2020-04-27] MEDS: INSULIN ASPART (*BKC) 100 UNITS/ML SUB-Q ×3 (04:20→12:02)
[2020-04-27] MEDS: SALINE LOCK FLUSH 10 ML IV PUSH ×2 (04:21→14:20)
[2020-04-27 05:01] LABS: Alveolar/Arterial O2 Gradient 235.7 mmHg; Base Excess ABG 2.3 mEq/l (+/-2.0); Carboxyhemoglobin 1.5 % THb (0-2.0); Fractional Inspired Oxygen 50 %; HCO3 ABG 28.2 mEq/l (22.0-26.0); Methemoglobin ABG 0.3 %THb (0-1.5); Oxygen Content ABG 13.4 %vol (16.0-22.0); Oxygen Saturation ABG 92.1 % (95.0-100.0); Oxyhemoglobin 88.9 % THb (90.0-100.0); PCO2 ABG 49.5 mmHg (35.0-45.0); PO2 ABG 65.1 mmHg (80.0-100.0); Reduced Hemoglobin 9.3 %THb (0-5.0); Total Hemoglobin 10.7 g/dL (12.0-18.0); pH ABG 7.373 (7.350-7.450)
[2020-04-27 05:02] LABS: Device VENTILATOR; Modified Allen's Test Unable to perform; Site Drawn RIGHT RADIAL
[2020-04-27 05:03] LABS: Arterial Blood Gas PEEP 8 cmH2O; Arterial Blood Gas Tidal Volume 320 ml; Arterial Blood Gas Vent Mode CMV; Arterial Blood Gas Ventilator rate 22 /MIN
[2020-04-27 06:14] LABS: Glucose Point of Care 314 (65-105)
[2020-04-27] MEDS: BUDESONIDE RESPULE NEB 0.5 MG/2 ML AMP INHALATION (08:20)
[2020-04-27] MEDS: ASCORBIC ACID 500 MG TABLET 1000 MG PO (08:30)
[2020-04-27] MEDS: CALCIUM ACETATE 667 MG TABLET 1334 MG PO ×2 (08:30→12:02)
[2020-04-27] MEDS: CHOLECALCIFEROL 1,000 UNITS TABLET 1000 UNITS PO (08:30)
[2020-04-27] MEDS: HEPARIN SODIUM 5,000 UNITS/ML VIAL 5000 UNITS SUB-Q (08:31)
[2020-04-27] MEDS: DEXAMETHASONE SOD PHOS INJ 4 MG/ML VIAL 6 MG IV PUSH (08:31)
[2020-04-27] MEDS: PANTOPRAZOLE SODIUM IV 40 MG VIAL IV PUSH (08:32)
[2020-04-27] MEDS: INSULIN GLARGINE (*BKC) 100 UNITS/ML 25 UNITS SUB-Q (08:32)
[2020-04-27] MEDS: SILVERGEL (ELTA) 45 ML 1 APPLIC TOPICAL (08:33)
--- NOTE | 2020-04-27 10:43 | WPDINTPN ---
Progress Note: A&P Assessment and Plan (1) Acute respiratory failure: Code(s): J96.00 - Acute respiratory failure, unspecified whether with hypoxia or hypercapnia Status: Acute Assessment and Plan: Acute Respiratory failure secondary to COVID-19 pneumonia with may be a combination pulmonary edema -Patient was intubated on 04/23/2020 -currently on CMV mode of ventilation, peep 8, 50% FiO2 -ABGs and chest x-ray reviewed, wean FiO2 as tolerated maintain O2 sats greater than 92% -continue Pulmicort -continue bronchodilators -will discontinue fentanyl Versed infusions. If sedation is required will start her on this small dose of Precedex (2) COVID-19: Code(s): U07.1 - COVID-19 Status: Acute Assessment and Plan: The patient has COVID-19 which was diagnosed as an outpatient prior to presentation to the hospital - Continue dexamethasone initiated on 04/20/2020 -continue patient on droplet, airborne and contact isolation/precautions -will monitor inflammatory markers (3) Sepsis: Code(s): A41.9 - Sepsis, unspecified organism Status: Acute Assessment and Plan: Patient meets the criteria for sepsis. admitted with COVID-19 which is most likely the cause of fever. Patient was leukopenic on presentation white count is now normal but patient is also on steroids -Her lactate was normal -hemodynamically stable with adequate blood pressures -chest x-ray with bilateral diffuse infiltrates -blood cultures negative -continue vancomycin (4) Encephalopathy acute: Code(s): G93.40 - Encephalopathy, unspecified Status: Acute Assessment and Plan: Toxic metabolic encephalopathy Head CT showed chronic changes Currently intubated and sedated, daily sedation vacation (5) End-stage renal disease on hemodialysis: Code(s): N18.6 - End stage renal disease; Z99.2 - Dependence on renal dialysis Status: Chronic Assessment and Plan: Patient with history of end-stage renal disease on dialysis -dialysis per Nephrology - Monitor electrolytes (6) Wound, open, foot: Code(s): S91.309A - Unspecified open wound, unspecified foot, initial encounter Status: Acute Assessment and Plan: -reviewed wound care nurse's assessment note which states the patient has a left plantar foot ulcer due to hardware displacement. No obvious signs of infection were seen -leukocytosis persists and worsening -fever curve improving -04/24/2020 wound cultures growing VRE (susceptible to ampicillin) and MRSA (susceptible to vancomycin) -appreciate infectious disease following the patient. Continue vancomycin, -per infectious disease patient may need removal of the hardware in her foot, if not possible she may require BKA - Ortho consulted and they recommend patient should follow-up at [facility] where she had her foot surgery (7) Anemia: Code(s): D64.9 - Anemia, unspecified Status: Acute Assessment and Plan: Anemia of chronic kidney disease. On Epogen per Nephrology with dialysis. (8) Hypertension: Code(s): I10 - Essential (primary) hypertension Status: Chronic Assessment and Plan: Will add p.r.n. 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
[2020-04-27 11:00] LABS: Glucose Point of Care 293 (65-105)
--- NOTE | 2020-04-27 11:22 | PCDIET ---
ICU Rounding Note: Patient tolerating Nepro at 40mL/hr goal rate with 30mL water flush every 4 hours. Last recorded weight is 54.2kg which is stable with last review. Bowel Motility: BM x 2 today. Labs Reviewed: Hgb (9.9), Hct (33.7), Glu (293), BUN (53), Cr (2.6), Na (133) Meds Noted: Albuterol, Vitamin C, Pulmicort, Phoslo, Lantus, Protonix, Decadron, Epogen, Fentanyl, Atrovent, Vancomycin, Heparin, Hydralazine, Versed, Vitamin D Additional Notes: Lantus further increased. No new skin issues, other than foot wound. Following daily in ICU rounds. Assessing/reassessing every Friday/Friday.
[2020-04-27 12:05] LABS: Glucose Point of Care 245 (65-105)
--- NOTE | 2020-04-27 12:58 | PM.IMPN ---
Progress Note: A&P Assessment and Plan (1) Pneumonia due to COVID-19 virus: Code(s): U07.1 - COVID-19; J12.82 - Pneumonia due to coronavirus disease 2019 Status: Acute Assessment and Plan: On Dexmethasone and vancomycin (2) Sepsis: Code(s): A41.9 - Sepsis, unspecified organism Status: Acute Assessment and Plan: Secondary to Covid and UTI and open wounds (3) Wound, open, foot: Code(s): S91.309A - Unspecified open wound, unspecified foot, initial encounter Status: Acute Assessment and Plan: Local care, seen by ID, POA not wishing any surgeries. (4) Encephalopathy acute: Code(s): G93.40 - Encephalopathy, unspecified Status: Acute Assessment and Plan: Supportive care (5) UTI (urinary tract infection): Code(s): N39.0 - Urinary tract infection, site not specified Status: Acute Assessment and Plan: Follow cultures (6) Acute respiratory failure with hypoxia: Code(s): J96.01 - Acute respiratory failure with hypoxia Status: Acute Assessment and Plan: On vent support in icu (7) End-stage renal disease on hemodialysis: Code(s): N18.6 - End stage renal disease; Z99.2 - Dependence on renal dialysis Status: Chronic Assessment and Plan: On HD Subjective Date/time seen: 04/27/20 12:58 Interval history: 64 year old female tells me that 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 The LEs she goes is to dialysis on Friday. It is reported that she lives in a senior care. The patient tested positive for COVID-19. Pt is intubated in icu. POA coming to visit patient today. Review of Systems Review of Systems: All systems reviewed & are unremarkable except as noted in HPI and below ROS unobtainable: Yes unobtainable due to endotracheal tube and unobtainable due to medical condition (On vent support.) Exam Narrative: Exam Narrative: On vent support. HENMT: Head: other (Chronically ill looking.) Chest: Other: Dialysis catheter intact to right upper chest Objective Data Vital Signs Vital Signs: Vital Signs - 24 hr 04/26/20 14:00 04/26/20 14:27 04/26/20 14:37 Temperature 37.2 C Pulse Rate 81 84 80 Respiratory Rate 22 H 22 H 22 H Blood Pressure 147/85 H Pulse Oximetry 97 96 04/26/20 15:00 04/26/20 15:15 04/26/20 15:34 Temperature 37.0 C Pulse Rate 82 83 84 Respiratory Rate 22 H Blood Pressure 149/90 H 157/83 H 122/83 Pulse Oximetry 96 04/26/20 15:45 04/26/20 16:00 04/26/20 16:15 Temperature 37.2 C Pulse Rate 86 87 87 Respiratory Rate 22 H Blood Pressure 118/86 110/82 101/82 Pulse Oximetry 93 04/26/20 16:30 04/26/20 16:45 04/26/20 17:00 Temperature Pulse Rate 89 86 95 Respiratory Rate Blood Pressure 97/83 L 96/69 L 97/76 L Pulse Oximetry 04/26/20 17:15 04/26/20 17:30 04/26/20 17:45 Temperature Pulse Rate 98 100 101 H Respiratory Rate Blood Pressure 94/76 L 100/72 99/74 L Pulse Oximetry 04/26/20 18:00 04/26/20 18:15 04/26/20 18:20 Temperature 37.7 C H 37.7 C H Pulse Rate 104 H 104 H 106 H Respiratory Rate 29 H 26 H Blood Pressure 94/78 L 88/60 L 142/96 H Pulse Oximetry 95 04/26/20 18:50 04/26/20 20:00 04/26/20 20:18 Temperature 37.8 C H 38.0 C H Pulse Rate 102 H 101 H Respiratory Rate 34 H 26 H Blood Pressure 143/81 H Pulse Oximetry 98 04/26/20 20:20 04/26/20 20:48 04/26/20 21:30 Temperature 38.3 C H Pulse Rate 98 98 Respiratory Rate 25 H Blood Pressure Pulse Oximetry 97 04/26/20 21:38 04/26/20 22:00 04/26/20 22:39 Temperature 38.3 C H Pulse Rate 98 99 96 Respiratory Rate 26 H 24 H 23 H Blood Pressure 138/63 Pulse Oximetry 96 04/26/20 23:08 04/26/20 23:48 04/27/20 00:00 Temperature 38.0 C H Pulse Rate 95 92 92 Respiratory Rate 22 H 23 H Blood Pressure 129/56 L Pulse Oximetry 96 93 93 03/
--- NOTE | 2020-04-27 14:48 | WPDINFPN2 ---
Progress Note: A&P Assessment and Plan (1) Pneumonia due to COVID-19 virus: Code(s): U07.1 - COVID-19; J12.82 - Pneumonia due to coronavirus disease 2019 Status: Acute Assessment and Plan: 1. Fever, due to # 2, some improvement but not resolved 2. Acute CoVid 19 infection with pneumonia 3. MRSA left heel hardware infection, with prior bacteremia, I do not think this is source of fever 4. CRF REC Vanc #3 / 7 days tentatively, unless + BCs again. Her hardware infection is not medically curable, and if she survives she will need to see her orthopedists at [facility] for removal of hardware, or BKA. RN reports that conversion to palliative care will probably happen 3:00 today in which case antibiotics should be withdrawn. Call if further Qs, will see prn Subjective Date/time seen: 04/27/20 14:48 Interval history: remains intubated Exam Narrative: Exam Narrative: t max 38.6, all core temperatures Const: General: no acute distress Other: appears chronically ill Resp: Effort & Inspection: normal respiratory effort Auscultation: rales and diminished lung sounds Cardio: Rate: regular rate Rhythm: regular rhythm GI: Inspection: distended GI Palp: Yes Firmness to palpation present (GI), No Tenderness to palpation present (GI) and No Guarding due to palpation present (GI) Extrem: Other: left heel without erythema odor necrosis crepitus. Sinus tract not expressible fluid today Objective Data Vital Signs Vital Signs: Vital Signs - 24 hr 04/26/20 15:00 04/26/20 15:15 04/26/20 15:34 Temperature 37.0 C Pulse Rate 82 83 84 Respiratory Rate 22 H Blood Pressure 149/90 H 157/83 H 122/83 Pulse Oximetry 96 04/26/20 15:45 04/26/20 16:00 04/26/20 16:15 Temperature 37.2 C Pulse Rate 86 87 87 Respiratory Rate 22 H Blood Pressure 118/86 110/82 101/82 Pulse Oximetry 93 04/26/20 16:30 04/26/20 16:45 04/26/20 17:00 Temperature Pulse Rate 89 86 95 Respiratory Rate Blood Pressure 97/83 L 96/69 L 97/76 L Pulse Oximetry 04/26/20 17:15 04/26/20 17:30 04/26/20 17:45 Temperature Pulse Rate 98 100 101 H Respiratory Rate Blood Pressure 94/76 L 100/72 99/74 L Pulse Oximetry 04/26/20 18:00 04/26/20 18:15 04/26/20 18:20 Temperature 37.7 C H 37.7 C H Pulse Rate 104 H 104 H 106 H Respiratory Rate 29 H 26 H Blood Pressure 94/78 L 88/60 L 142/96 H Pulse Oximetry 95 04/26/20 18:50 04/26/20 20:00 04/26/20 20:18 Temperature 37.8 C H 38.0 C H Pulse Rate 102 H 101 H Respiratory Rate 34 H 26 H Blood Pressure 143/81 H Pulse Oximetry 98 04/26/20 20:20 04/26/20 20:48 04/26/20 21:30 Temperature 38.3 C H Pulse Rate 98 98 Respiratory Rate 25 H Blood Pressure Pulse Oximetry 97 04/26/20 21:38 04/26/20 22:00 04/26/20 22:39 Temperature 38.3 C H Pulse Rate 98 99 96 Respiratory Rate 26 H 24 H 23 H Blood Pressure 138/63 Pulse Oximetry 96 04/26/20 23:08 04/26/20 23:48 04/27/20 00:00 Temperature 38.0 C H Pulse Rate 95 92 92 Respiratory Rate 22 H 23 H Blood Pressure 129/56 L Pulse Oximetry 96 93 93 04/27/20 01:21 04/27/20 01:22 04/27/20 02:00 Temperature 37.9 C H Pulse Rate 96 97 94 Respiratory Rate 23 H 23 H 24 H Blood Pressure 113/71 Pulse Oximetry 95 04/27/20 02:29 04/27/20 02:34 04/27/20 03:48 Temperature Pulse Rate 93 93 96 Respiratory Rate 24 H 25 H 24 H Blood Pressure Pulse Oximetry 95 93 04/27/20 04:00 04/27/20 04:20 04/27/20 05:05 Temperature 38.0 C H 38.1 C H Pulse Rate 96 95 Respiratory Rate 25 H Blood Pressure 128/75 Pulse Oximetry 93 93 04/27/20 05:20 04/27/20 06:00 04/27/20 08:00 Temperature 38.2 C H 38.3 C H 38.6 C H Pulse Rate 96 99 Respiratory Rate 27 H 25 H Blood Pressure 118/75 116/73 Pulse Oximetry 94 93 04/27/20 08:19 04/27/20 08:20 04/27/20 08:29 Temperature Pulse Rate 99 84 100 Respiratory Rate 30 H 29 H Blood Pressure Pulse Oximetry 93 /
[2020-04-27] MEDS: LORazepam INJ (*CRX) 2 MG/ML VIAL IV PUSH (15:33)
[2020-04-27] MEDS: MORPHINE SULFATE INJ (*CRX) 10 MG/ML AMP 5 MG IV PUSH (15:33)
[2020-04-27] MEDS: MORPHINE SULFATE (*CRX) 2 MG/ML INJ IV PUSH (16:04)
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
[2020-04-27 23:34] LABS: Glucose Point of Care 299 (65-105)
--- NOTE | 2020-05-11 16:57 | PM.CNOR ---
History of Present Illness HPI Consult date: 04/27/20 Chief complaint: Acute respiratory failure w hypoxia/covid 19/chron Narrative: Patient not seen. 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 Depression End-stage renal disease on hemodialysis End-stage renal disease on dialysis Friday. Fracture of right tibial plateau (~10/2018) Hyper-reninism Hypertension Multifactorial initially due to essential hypertension but now in part due to renal failure Insulin dependent type 2 diabetes mellitus Hemoglobin A1c was 5.0% in October 2018. Left wrist fracture Moderate protein-calorie malnutrition Multiple gallstones Nonproliferative diabetic retinopathy Pneumonia With parapneumonic effusion requiring thoracentesis in October 2017. Post-menopausal osteoporosis On DEXA scan in January 2017. Severe tricuspid regurgitation by prior echocardiography Echocardiogram September 2018 demonstrating grade 1 diastolic dysfunction, mild left ventricular hypertrophy, mild left ventricular enlargement, grade 1 diastolic dysfunction, global longitudinal strain at-8%, TAPSE 1.4 cm suggesting abnormal right ventricular systolic function although appears normal by visual estimation, moderate left atrial enlargement, mild right atrial enlargement, mild (underestimated) mitral valve regurgitation, tricuspid valve do not coaptation due to dilated annulus, mild pulmonic regurgitation, elevated right atrial pressure at 15 mmHg, trivial pericardial effusion. Surgical History Surgical History History of bilateral cataract extraction History of dilatation and curettage History of open reduction and internal fixation (ORIF) procedure Bilateral wrists; left distal radius fracture with intramedullary nail repair 05/2016. History of orthopedic surgery Bone spur right foot removal, right achilles repair 2012 History of right hip replacement Due to fracture 2016 S/P excision of lipoma From the right forearm 2008 Family History Family History Mother Diabetes mellitus, Onset Age: 42 Heart disease Psychiatric disorder Hypertension Kidney disease Father CHF (congestive heart failure) Heart disease Hypertension Sibling Hypertension Grandparent Diabetes mellitus Heart disease Hypertension Social History Social History Social History: She was living home alone before being hospitalized and then sent to [place] for therapy where she currently resides. Never been and does not have any children. 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 Lifelong nonsmoker. No alcohol or drug use. Code status: Full code. Durable power of estate planning attorney for healthcare is Scott Lua (the patient's niece). Primary care physician: Dr. Mitch Ceja Smoking status: Never smoker Second hand tobacco smoke exposure: Yes Alcohol intake: never Substance use: never Substance use type: does not use Gender identity (if verbalized by the patient): Female Spiritual care concerns: No Agree to blood products: Yes Meds Home Medications and Allergies Home Medications Medication Instructions Recorded Confirmed Type calcium acetate(phosphat bind) 667 1,334 mg PO TIDWM 02/11/19 04/19/20 History mg tablet gabapentin 100 mg PO TID 07/02/19 04/19/20 History ferrous sulfate 325 mg (65 mg 325 mg PO BID #180 tablet 11/04/19 04/19/20 Rx iron) tablet insulin aspart U-100 100 unit/mL See Rx Instructions .ROU
== END 2020-04-27 16:04 | disposition expired | DRG 870 ==
LOC: ANHED 18:18 → ANH3MEDSUR 19:37 → ANHICU 04-21 15:44 → ANH3MEDSUR 05-01 12:07 → ANHICU 05-01 12:07
PROVIDERS: Internal Medicine; Internal Medicine Nephrology; Admitting Provider Family Medicine; Emergency Provider Emergency Medicine; PCP Internal Medicine; Visit Provider Family Medicine
DX: A41.89 Other specified sepsis (principal); U07.1 COVID-19; J12.82 Pneumonia due to coronavirus disease 2019; J96.01 Acute respiratory failure with hypoxia; N18.6 End stage renal disease; G93.41 Metabolic encephalopathy; I13.2 Hypertensive heart and chronic kidney disease with heart failure and with stage 5 chronic kidney disease, or end stage renal disease; I50.32 Chronic diastolic (congestive) heart failure; E44.0 Moderate protein-calorie malnutrition; L03.115 Cellulitis of right lower limb; T84.69XA Infection and inflammatory reaction due to internal fixation device of other site, initial encounter; T84.223A Displacement of internal fixation device of bones of foot and toes, initial encounter; Z16.21 Resistance to vancomycin; N39.0 Urinary tract infection, site not specified; B95.2 Enterococcus as the cause of diseases classified elsewhere; B95.62 Methicillin resistant Staphylococcus aureus infection as the cause of diseases classified elsewhere; L97.529 Non-pressure chronic ulcer of other part of left foot with unspecified severity; E11.22 Type 2 diabetes mellitus with diabetic chronic kidney disease; E11.319 Type 2 diabetes mellitus with unspecified diabetic retinopathy without macular edema; D63.1 Anemia in chronic kidney disease; I25.10 Atherosclerotic heart disease of native coronary artery without angina pectoris; M81.0 Age-related osteoporosis without current pathological fracture; F41.8 Other specified anxiety disorders; Z96.641 Presence of right artificial hip joint; Z68.23 Body mass index [BMI] 23.0-23.9, adult; Z86.73 Personal history of transient ischemic attack (TIA), and cerebral infarction without residual deficits; Z98.42 Cataract extraction status, left eye; Z98.41 Cataract extraction status, right eye; Z99.2 Dependence on renal dialysis
CPT/HCPCS: 36415; 36569; 36600; 70450; 71045; 73610; 73630; 80048; 80053; 80069; 80202; 82375; 82728; 82805; 82948; 83050; 83605; 83615; 83690; 83735; 84100; 85025; 85027; 85380; 85610; 85730; 87040; 87070; 87077; 87103; 87186; 87205; 93005; 94002; 94003; 94640; 96374; 99291; A9270; C1751; C9113; G0257; G0378; J0131; J0360; J0692; J0696; J1100; J1644; J1815; J1885; J2060; J2250; J2270; J3010; J3370; J7030; J7040; P9047; Q5106